=== PATIENT | female | born 1950 | race Caucasian/White ===

== ENCOUNTER 2016-11-14 10:23 | Inpatient (IN) | payer MEDICARE ==
[2016-11-14] MEDS ORDERED: ONDANSETRON 4 MG/2 ML VIAL IVP STA (10:56)
[2016-11-14] MEDS ORDERED: HYDROmorphone 1 MG/ML 1 ML SYRINGE IVP STA (10:56)
[2016-11-14] MEDS ORDERED: SODIUM CHLORIDE 0.9% 1,000 ML IV STA (10:56)
--- NOTE | 2016-11-14 11:06 | ED ---
General Adult HPI - General Chief complaint: Abdominal Pain Stated complaint: abdominal pain, sotero Time Seen by Provider: 11/14/16 10:46 Source: patient, RN notes reviewed Mode of arrival: ambulatory Limitations: no limitations - History of Present Illness Initial comments: 65-year-old female presents to the emergency Department chief complaint of abdominal wall distention. Patient states that she has had diarrhea for the past few days. Patient states that she continues to feel nausea without vomiting. Patient states now her abdomen is just bloated. Patient states that she's never had anything like this before. Patient denies any significant health history she denies any medications every day. She states that she was thinking it was just a stomach flu but it seems to just speak keep getting worse and worse so she thought that she should be evaluated. Patient states that she is not currently having any other symptoms at this time.Patient denies any recent fever, chills, shortness of breath, chest pain, back pain, vomiting, numbness or tingling, dysuria or hematuria, constipation, headaches or visual changes, or any other current symptoms. - Related Data Home Medications Medication Instructions Recorded Confirmed No Known Home Medications [No 11/14/16 11/14/16 Known Home Medications] Allergies Allergy/AdvReac Type Severity Reaction Status Date / Time aspirin Allergy Rash/Hives Verified 11/14/16 11:27 Penicillins Allergy Rash/Hives Verified 11/14/16 11:27 Review of Systems ROS Statement: Those systems with pertinent positive or pertinent negative responses have been documented in the HPI. ROS Other: All systems not noted in ROS Statement are negative. Past Medical History Past Medical History: No Reported History History of Any Multi-Drug Resistant Organisms: None Reported Past Surgical History: No Surgical Hx Reported Past Psychological History: No Psychological Hx Reported Smoking Status: Never smoker Past Alcohol Use History: Occasional Past Drug Use History: None Reported General Exam - General Exam Comments Initial Comments: General: The patient is awake and alert, in no distress, and does not appear acutely ill. Eye: Pupils are equal, round and reactive to light, extra-ocular movements are intact; there is normal conjunctiva bilaterally. No signs of icterus. Ears, nose, mouth and throat: There are moist mucous membranes. Neck: The neck is supple, there is no tenderness. Cardiovascular: There is a regular rate and rhythm. No murmur, rub or gallop is appreciated. Respiratory: Lungs are clear to auscultation, respirations are non-labored, breath sounds are equal. No wheezes, stridor, rales, or rhonchi. Gastrointestinal: Distended, ascites, Tenderness in the right upper quadrant of the abdomen without masses or organomegaly noted. There is no rebound or guarding present. No CVA tenderness. Bowel sounds are unremarkable. Back: There is no tenderness to palpation in the midline. There is no obvious deformity. No rashes noted. Musculoskeletal: Normal ROM, no tenderness, There is no pedal edema. There is no calf tenderness or swelling. Sensation intact. Pulses equal bilaterally 2+. Neurological: CN II-XII intact, There are no obvious motor or sensory deficits. Coordination appears grossly intact. Speech is normal. Skin: Skin is warm and dry and no rashes or lesions are noted. Psychiatric: Cooperative, appropriate mood & affect, normal judgment. Limitations: no limitations Course Vital Signs 11/14/16 11/14/16 10:35 13:43 Temperature 97.2 F L 97.3 F L Pulse Rate 97 84 Respiratory 18 16 Rate Blood Pressure 149/91 135/80 O2 Sat by Pulse 99 96 Oximetry Medical Decision Making - Medical Decision Making 65-year-old female presents emergency department with a chief complaint of of abdominal pain and ascites abdomen. This time lab work is been reviewed as well as CAT scan. Patient does appear to have a pleural effusion along with a large amount of ascites. At this time we do not know the acute cause for the ascites. She does have colitis like symptoms at home. This time we'll admit the patient for paracentesis and continued workup. This discussed with the patient who is in agreement with this plan all questions have been answered. The patient will be discharged home. - Lab Data Result diagrams: 11/14/16 11:25 11/14/16 11:25 Lab Results 11/14/16 11/14/16 11/14/16 Range/Units 11:25 11:25 11:25 WBC 9.4 (3.8-10.6) k/uL RBC 4.25 (3.80-5.40) m/uL Hgb 13.5 (11.4-16.0) gm/dL Hct 41.9 (34.0-46.0) % MCV 98.5 (80.0-100.0) fL MCH 31.7 (25.0-35.0) pg MCHC 32.1 (31.0-37.0) g/dL RDW 13.4 (11.5-15.5) % Plt Count 441 (150-450) k/uL Neutrophils % 70 % Lymphocytes % 20 % Monocytes % 7 % Eosinophils % 0 % Basophils % 1 % Neutrophils # 6.6 (1.3-7.7) k/uL Lymphocytes # 1.9 (1.0-4.8) k/uL Monocytes # 0.7 (0-1.0) k/uL Eosinophils # 0.0 (0-0.7) k/uL Basophils # 0.1 (0-0.2) k/uL Sodium 136 L (137-145) mmol/L Potassium 4.0 (3.5-5.1) mmol/L Chloride 105 (98-107) mmol/L Carbon Dioxide 22 (22-30) mmol/L Anion Gap 9 mmol/L BUN 9 (7-17) mg/dL Creatinine 0.77 (0.52-1.04) mg/dL Est GFR (MDRD) Af Amer >60 (>60 ml/min/1.73 sqM) Est GFR (MDRD) Non-Af >60 (>60 ml/min/1.73 sqM) Glucose 100 H (74-99) mg/dL Plasma Lactic Acid Maxime 1.2 (0.7-2.0) mmol/L Calcium 9.1 (8.4-10.2) mg/dL Total Bilirubin 0.8 (0.2-1.3) mg/dL AST 27 (14-36) U/L ALT 30 (9-52) U/L Alkaline Phosphatase 164 H (38-126) U/L Total Protein 6.1 L (6.3-8.2) g/dL Albumin 3.2 L (3.5-5.0) g/dL Amylase 57 (30-110) U/L Lipase 83 (23-300) U/L Urine Color Urine Appearance (Clear) Urine pH (5.0-8.0) Ur Specific [place] (1.001-1.035) Urine Protein (Negative) Urine Glucose (UA) (Negative) Urine Blood (Negative) Urine Nitrite (Negative) Urine Bilirubin (Negative) Urine Urobilinogen (<2.0) mg/dL Ur Leukocyte Esterase (Negative) Urine RBC (0-5) /hpf Urine WBC (0-5) /hpf Ur Squamous Epith Cells (0-4) /hpf Hyaline Casts (0-2) /lpf Urine Mucus (None) /hpf 11/14/16 Range/Units 13:15 WBC (3.8-10.6) k/uL RBC (3.80-5.40) m/uL Hgb (11.4-16.0) gm/dL Hct (34.0-46.0) % MCV (80.0-100.0) fL MCH (25.0-35.0) pg MCHC (31.0-37.0) g/dL RDW (11.5-15.5) % Plt Count (150-450) k/uL Neutrophils % % Lymphocytes % % Monocytes % % Eosinophils % % Basophils % % Neutrophils # (1.3-7.7) k/uL Lymphocytes # (1.0-4.8) k/uL Monocytes # (0-1.0) k/uL Eosinophils # (0-0.7) k/uL Basophils # (0-0.2) k/uL Sodium (137-145) mmol/L Potassium (3.5-5.1) mmol/L Chloride (98-107) mmol/L Carbon Dioxide (22-30) mmol/L Anion Gap mmol/L BUN (7-17) mg/dL Creatinine (0.52-1.04) mg/dL Est GFR (MDRD) Af Amer (>60 ml/min/1.73 sqM) Est GFR (MDRD) Non-Af (>60 ml/min/1.73 sqM) Glucose (74-99) mg/dL Plasma Lactic Acid Maxime (0.7-2.0) mmol/L Calcium (8.4-10.2) mg/dL Total Bilirubin (0.2-1.3) mg/dL AST (14-36) U/L ALT (9-52) U/L Alkaline Phosphatase (38-126) U/L Total Protein (6.3-8.2) g/dL Albumin (3.5-5.0) g/dL Amylase (30-110) U/L Lipase (23-300) U/L Urine Color Yellow Urine Appearance Clear (Clear) Urine pH 5.5 (5.0-8.0) Ur Specific [place] 1.014 (1.001-1.035) Urine Protein Trace H (Negative) Urine Glucose (UA) Negative (Negative) Urine Blood Moderate H (Negative) Urine Nitrite Negative (Negative) Urine Bilirubin Negative (Negative) Urine Urobilinogen 2.0 (<2.0) mg/dL Ur Leukocyte Esterase Negative (Negative) Urine RBC 7 H (0-5) /hpf Urine WBC 5 (0-5) /hpf Ur Squamous Epith Cells 2 (0-4) /hpf Hyaline Casts 1 (0-2) /lpf Urine Mucus Few H (None) /hpf - Radiology Data Radiology results: report reviewed, image reviewed Disposition Clinical Impression: Ascites, Pleural effusion, left, Diarrhea, Colitis Disposition: ADMITTED IP TO THIS [facility] Condition: Stable Referrals: Mayco Carlson MD [Primary Care Provider] - 1-2 days Decision Date: 11/14/16 Decision Time: 14:04
[2016-11-14 11:44] LABS: Basophils # (A) 0.1 k/uL (0-0.2); Basophils % (A) 1 %; CH 32.9; CHCM 33.6; Eosinophils % (A) 0 %; HCT 41.9 % (34.0-46.0); HDW 2.08; HGB 13.5 gm/dL (11.4-16.0); Luc # (Auto) 0.11; Luc % (Auto) 1; Lymphocytes # (A) 1.9 k/uL (1.0-4.8); Lymphocytes % (A) 20 %; MCH 31.7 pg (25.0-35.0); MCHC 32.1 g/dL (31.0-37.0); MCV 98.5 fL (80.0-100.0); Mean Platelet Volume 7.3; Monocytes # (A) 0.7 k/uL (0-1.0); Monocytes % (A) 7 %; Neutrophils # (A) 6.6 k/uL (1.3-7.7); Neutrophils % (A) 70 %; RBC 4.25 m/uL (3.80-5.40); RDW 13.4 % (11.5-15.5); WBC 9.4 k/uL (3.8-10.6); WBC (Perox) 9.38
[2016-11-14 11:54] LABS: ALT 30 U/L (9-52); AST 27 U/L (14-36); Alkaline Phosphatase 164 U/L (38-126); Amylase 57 U/L (30-110); Anion Gap 9 mmol/L; Blood Urea Nitrogen 9 mg/dL (7-17); Calcium 9.1 mg/dL (8.4-10.2); Carbon Dioxide 22 mmol/L (22-30); Chloride 105 mmol/L (98-107); Glucose 100 mg/dL (74-99); Non-African American GFR(MDRD) >60 (>60 ml/min/1.73 sqM); Sodium 136 mmol/L (137-145); Total Bilirubin 0.8 mg/dL (0.2-1.3); Total Protein 6.1 g/dL (6.3-8.2)
[2016-11-14] MEDS ORDERED: RX INFO: IV CONTRAST WAS GIVEN 1 EACH MISC MISCELLANE PRN (12:15)
[2016-11-14] MEDS ORDERED: METOCLOPRAMIDE 5 MG/ML 2 ML VIAL IVP STA (13:15)
[2016-11-14 13:30] LABS: Appearance,Urine Clear (Clear); Bilirubin,Urine Negative (Negative); Glucose,Urine (UA) Negative (Negative); Ketones,Urine 2+ (Negative); Leukocyte Esterase,Urine Negative (Negative); Mucus,Urine Few /hpf; Nitrite,Urine Negative (Negative); PH, Urine 5.5 (5.0-8.0); Particle Count 5209; Protein,Urine Trace (Negative); RBC,Urine 7 /hpf (0-5); Specific Gravity,Urine 1.014 (1.001-1.035); Squamous Epithelial Cell,Urine 2 /hpf (0-4); UA Billing (MACRO vs. MICRO) MICRO; WBC,Urine 5 /hpf (0-5)
--- NOTE | 2016-11-14 13:39 | CT ---
EXAMINATION TYPE: CT abdomen pelvis wo con DATE OF EXAM: 11/14/2016 COMPARISON: NONE HISTORY: ab pain/bloating/diarrhea x [address] DLP: 295.0 mGycm Automated exposure control for dose reduction was used. FINDINGS: There is a prominent left-sided pleural effusion. There are atelectatic changes at the left lung base. There is minimal atelectasis in the right middle lobe. Heart size is upper limits of norm al. There is no pericardial fluid. There is a small to moderate hiatal hernia. Within the abdomen, there is a large amount of ascites. The liver is normal in size. The spleen and g allbladder appear normal. Both adrenal glands appear normal. There is no evidence of nephrolithiasis or hydronephrosis. Limited views of the pancreas are unremarkable. There is no significant retroperitoneal, iliac or inguinal adenopathy. The bladder is unremarkable. The uterus is unremarkable. The ovaries are not visualized. There are scattered diverticula along the left side of the colon. There is mucosal thickening in the distal transverse colon. The appendix is not visualized. There is no evidence of small bowel obstruction. No free air is seen. There is degenerative disc disease and hypertrophic spondylosis within the spine. IMPRESSION: 1. LEFT PLEURAL EFFUSION WITH ASSOCIATED ATELECTATIC CHANGE. 2. LARGE AMOUNT OF ASCITES WITHIN THE ABDOMEN. 3. SMALL TO MODERATE HIATAL HERNIA. 4. UNCOMPLICATED DIVERTICULOSIS. 5. THICKENING OF THE DISTAL TRANSVERSE COLON. PLEASE CORRELATE TO EXCLUDE COLITIS. 6. MILD DEGENERATIVE CHANGE WITHIN THE SPINE.
[2016-11-14] MEDS ORDERED: HYDROmorphone 1 MG/ML 1 ML SYRINGE IV PRN (14:05)
[2016-11-14] MEDS ORDERED: ACETAMINOPHEN TAB 325 MG TAB PO PRN (14:05)
[2016-11-14] MEDS ORDERED: NALOXONE 0.4 MG/ML 1 ML VIAL IV PRN (14:05)
[2016-11-14] MEDS ORDERED: HYDROcodone/APAP 5-325MG 1 EACH TAB PO PRN (14:05)
[2016-11-14] MEDS ORDERED: ONDANSETRON 4 MG/2 ML VIAL IVP PRN (14:05)
[2016-11-14] MEDS: SODIUM CHLORIDE 0.9% 1,000 ML IV SCH (16:04)
[2016-11-14 16:36] VITALS: BMI 23.6
[2016-11-14] MEDS: ONDANSETRON 4 MG/2 ML VIAL IVP PRN (19:37)
--- NOTE | 2016-11-14 20:18 | XR ---
EXAMINATION TYPE: XR chest 2V DATE OF EXAM: 11/14/2016 COMPARISON: NONE HISTORY: Pleural effusion TECHNIQUE: Frontal and lateral views of the chest are obtained. FINDINGS: There is a small left pleural effusion with associated left basilar airspace disease. No p ulmonary vascular congestion or interstitial edema. Minimal degenerative changes of the thoracic spin e are noted. Cardia mucinous silhouette is within normal limits. Right lung remains clear. IMPRESSION: Small left pleural effusion with associated left basilar airspace disease favored to rep resent compressive subsegmental atelectasis.
[2016-11-14] MEDS: PANTOPRAZOLE 40 MG/10 ML VIAL IVP SCH (20:40)
--- NOTE | 2016-11-14 21:58 | HP ---
HISTORY AND PHYSICAL DATE OF ADMISSION: 11/14/2016. CHIEF COMPLAINT: Abdominal pain and distention. HISTORY OF PRESENT ILLNESS: This 65-year-old woman with a past medical history of multiple medical problems, including diabetes mellitus, being followed by Dr. Carlson in the outpatient setting, not feeling well over the past several weeks. The patient increasing abdominal distention and pain also. The patient had shortness of breath. The patient came to [facility] and admitted for further evaluation and treatment. The CT scan of the abdomen and pelvis was done which showed multiple abnormalities including significant ascites, left pleural effusion with associated atelectatic changes. Large amount of ascites and as well as hiatal hernia and complicated diverticulosis and thickening of the distal transverse colon also, mild DJD was also noted. Patient admitted for evaluation and treatment. There is no history of fever, rigors. No headache, loss of consciousness. The ovary could not be visualized properly per ER physician. PAST MEDICAL HISTORY: History of diabetes mellitus, type 2. MEDICATIONS: Prior to admission included none. ALLERGIES: ASPIRIN, PENICILLIN AND CONTRAST. FAMILY HISTORY: History of CHF, history of CVA, TIA, hypertension, history of colon cancer in the family. SOCIAL HISTORY: No history of smoking, no history of alcohol. REVIEW OF SYSTEMS: ENT: No diminished hearing or vision. CARDIOVASCULAR: No angina or palpitations. Respirations: No cough or hemoptysis. GI no nausea. No vomiting. : No dysuria. Nervous system: No numbness, weakness. ALLERGY/IMMUNOLOGY: No asthma or hayfever. MUSCULOSKELETAL: As mentioned earlier. Hematology/Oncology: No history of anemia. Endocrine: As mentioned earlier. Constitutional: As mentioned earlier. Dermatology: Negative. Rheumatology: Negative. Psychiatric: As mentioned earlier. PHYSICAL EXAMINATION: The patient is alert, oriented x3. The pulse is 84. Blood pressure 130/80, respirations 16, temperature 97.2, pulse ox 96% on room air. HEENT: Conjunctivae normal. Oral mucosa moist. Neck is no jugular venous distention. No carotid bruit. No lymph node enlargement. Cardiovascular: S1, S2 muffled. No S3, no S4. RESPIRATORY: Breath sounds diminished in the bases. A few scattered rhonchi. No crackles. ABDOMEN: Soft, obese, significant ascites present and flanks are full. No mass palpable. Bowel sounds diminished. Legs no edema, no swelling. NERVOUS SYSTEM: Higher functions as mentioned earlier. Moves all four limbs. No focal motor or sensory deficits. Lymphatics: No lymph nodes palpable in the neck, axillae or groin. SKIN: No ulcer, rash, or bleeding. Joints: No active deforming arthropathy. LABS: At this time shows WBC 9.1, hemoglobin 13.5, sodium is 136 and alkaline phosphatase is 164, albumin 3.2. UA noted. ASSESSMENT: 1. Abdominal distention, ascites for evaluation rule out malignancy. 2. Hyponatremia. 3. History of diabetes type 2. 4. Large left pleural effusion. 5. Small moderate hiatal hernia. 6. Thickening of the distal transverse colon for evaluation. RECOMMENDATIONS AND DISCUSSION: Recommend to continue current medications, continue to monitor. Symptomatic treatment. Otherwise at this time, I would recommend closely recommend the patient to be closely monitored. I would also recommend a gastroenterology evaluation with Dr. Munoz. Otherwise, the chest x-ray was reviewed which showed continued significant pleural effusion also I would which revealed some mild pleural effusion on the left side also. Otherwise we will monitor the patient closely. Will obtain PT/INR and recommend diagnostic and therapeutic aspiration also discussed with staff. Further recommendations to follow. Copy of dictation forwarded to Dr. Carlson who is the primary physician. Overall prognosis guarded. Discussed with the family who understands and agrees. MMODL / IJN: [id number] /
[2016-11-15] MEDS: ONDANSETRON 4 MG/2 ML VIAL IVP PRN (05:17)
[2016-11-15] MEDS: HYDROmorphone 0.5 MG/0.5 ML SYRINGE IVP PRN ×3 (05:18→18:35)
[2016-11-15 06:56] LABS: Basophils % (A) 0 %; CH 31.5; CHCM 32.1; Eosinophils # (A) 0.1 k/uL (0-0.7); Eosinophils % (A) 0 %; HCT 37.1 % (34.0-46.0); HDW 2.15; HGB 12.1 gm/dL (11.4-16.0); Luc # (Auto) 0.16; Luc % (Auto) 1; Lymphocytes % (A) 18 %; MCHC 32.5 g/dL (31.0-37.0); MCV 98.4 fL (80.0-100.0); Mean Platelet Volume 6.5; Monocytes # (A) 0.9 k/uL (0-1.0); Monocytes % (A) 8 %; Neutrophils % (A) 72 %; RBC 3.77 m/uL (3.80-5.40); RDW 12.8 % (11.5-15.5); WBC 11.2 k/uL (3.8-10.6); WBC (Perox) 11.94
[2016-11-15 07:03] LABS: Prothrombin Time 10.4 sec (9.0-12.0)
[2016-11-15 07:09] LABS: ALT 30 U/L (9-52); AST 23 U/L (14-36); Alkaline Phosphatase 141 U/L (38-126); Anion Gap 7 mmol/L; Blood Urea Nitrogen 8 mg/dL (7-17); Calcium 8.3 mg/dL (8.4-10.2); Carbon Dioxide 23 mmol/L (22-30); Chloride 107 mmol/L (98-107); Glucose 105 mg/dL (74-99); Non-African American GFR(MDRD) >60 (>60 ml/min/1.73 sqM); Potassium 4.3 mmol/L (3.5-5.1); Sodium 137 mmol/L (137-145); Total Bilirubin 0.6 mg/dL (0.2-1.3); Total Protein 5.5 g/dL (6.3-8.2)
[2016-11-15] MEDS: PANTOPRAZOLE 40 MG/10 ML VIAL IVP SCH (09:14)
--- NOTE | 2016-11-15 09:36 | US ---
EXAMINATION TYPE: US transvaginal DATE OF EXAM: 11/15/2016 COMPARISON: CT ABD /Pelvis same day CLINICAL HISTORY: unknown cause of ascites; ascites x 1 week; diarrhea; HX of tubal ligation TECHNIQUE: Transvaginal (TV) per order with additional images TA for ascites and ovaries Date of LMP: NA EXAM MEASUREMENTS: Uterus: 7.7 x 4.0 x 2.1 cm Endometrial Stripe: 0.2 cm Right Ovary: 2.0 x 2.7 x 2.7 cm Left Ovary: 4.8 x 3.5 x 4.1 cm 1. Uterus: Anteverted; small Nabothian cyst in cervix = 0.5 x 0.4 x 0.3cm 2. Endometrium: wnl post menopausal 3. Right Ovary: enlarged with multiple cysts with largest = 1.6 x 1.4 x 1.4cm 4. Left Ovary: enlarged ovary with multiple cysts and largest cyst = 2.6 x 2.3 x 2.4cm Spectral, color and waveform doppler imaging shows good arterial and venous flow within the ovaries ; there is no evidence for ovarian torsion. 5. Bilateral Adnexa: posterior and lateral free fluid with low level internal echoes 6. Posterior cul-de-sac: abnormally large amount of fluid = 11.4 x 8.5 x 7.0cm x 0.523 = 354ml in po sterior CDS as is >10.0ml. Additional TA US images acquired for incidental ascites seen on TA US with largest fluid pocket of 7. 5cm A/P at RLQ. Low level internal echoes are noted in fluid pockets. Initial scanning confirms small to moderate amount of abdominal ascites which is not completely anech oic. There is large amount of pelvic fluid which is not anechoic suggesting complex fluid. A few tiny nabothian cysts are marked in the cervix by technologist. Uterus is felt within normal limits. Left ovary is slightly enlarged with cystic lesions by slightly nodular septa. Cystic neopl asm on the left cannot be excluded. Right ovary is less well seen on images saved. There is suggestio n of cystic lesions that are not completely anechoic. IMPRESSION: Large amount of nonsimple fluid in pelvis. Small to moderate amount of nonsimple abdomina l ascites. Cannot exclude bilateral ovarian cystic neoplasms particularly suspicious on the left. Nee d to further investigate with pelvic MRI should be based on correlation with tumor markers and result s from paracentesis.
--- NOTE | 2016-11-15 11:40 | US ---
Therapeutic and diagnostic paracentesis. DATE OF EXAM: 11/15/2016 CLINICAL HISTORY: Ascites The procedure was discussed with the patient. The risks, complications, benefits, and alternatives we re discussed and any questions were answered. Informed consent was obtained. The patient was placed s upine on the ultrasound table and prepped and draped in the usual sterile fashion. All elements of maximal barrier technique were utilized. Under ultrasound guidance, access into the right lower quadrant was obtained, via the paracentesis catheter system and direct ultrasound guidanc e. Approximately 3.2 liters of Phelps serous fluid was removed. The patient was stable throughout the pr ocedure and remained stable upon discharge from Department of Radiology. Sample sent department of pa thology. IMPRESSION: Successful paracentesis under ultrasound guidance.
--- NOTE | 2016-11-15 15:44 | PN ---
PROGRESS NOTE DATE OF SERVICE: 11/15/2016 ATTENDING NOTE: This patient seen examined by me. I discussed with my nurse practitioner, Carrie Kristyn. Patient presented with abdominal distention, ascitic fluid and large pleural effusion. Patient has had not much of an appetite. Paracentesis was carried out and 3.2 L of fluid was removed. The patient fiance and daughter at the bedside. Abdomen is less distended. EXAMINATION: Temperature 98.3, pulse 89, respiratory rate 16, blood pressure 113/80. Pulse ox 92% on room air. Lying in bed, tired appearing. NECK: JVD not raised. Respiratory effort: Lungs decreased breath sounds. CARDIOVASCULAR: First and second sounds normal. Abdomen mild diffuse tenderness. Not much distended. Psych alert and oriented times three times three. INVESTIGATIONS: White count 11.2, potassium 4.3, albumin 2.7, CT scan of the abdomen and pelvis had shown left pleural effusion. Large ascites, diverticulosis, thickening of the distal transverse colon. Transvaginal ultrasound showed right ovary to be enlarged with multiple cysts, left ovary was enlarged with multiple cysts. ASSESSMENT: 1. Large ascites with no obvious source of malignancy right now but showing enlarged bilateral multicystic ovaries and thickening of the distal transverse colon which could be the potential source. 2. Status post paracentesis 3.2 L were removed. 3. Left pleural effusion. 4. Asymptomatic diverticulosis. 5. Mild protein-calorie malnutrition from poor appetite. PLAN: Gastroenterology Dr. Munoz was consulted. Awaiting his input. Will also get a PERSONAL FINANCIAL COUNSELOR opinion. Will send off for CEA as a tumor marker. Care was discussed with the daughter and fiance at the bedside. Follow. MMODL / IJN: [id number] /
[2016-11-15 15:59] LABS: Lipase, Body Fluid 20 U/L; Lipase, Fluid Source Paracentesis Fluid
[2016-11-15] MEDS: SODIUM CHLORIDE 0.9% 1,000 ML IV SCH (16:24)
--- NOTE | 2016-11-15 17:09 | P.OBCN ---
History of Present Illness Consult date: 11/15/16 Reason for consult: ovarian cyst Chief complaint: ascites and ovarian cyst History of present illness: Patient is a 65-year-old white female with a one-week onset of severe ascites. Patient noted that just over a week ago she began having sharp lower pelvic pains and within the next few days her abdomen began to swell. She was brought to [facility] and was noted to have a large amount of ascites in her abdomen and paracentesis was done today and they pulled off 3.2 L of fluid. In reviewing the ultrasound she does have an enlarged left ovary with multiple cysts cyst is 2.6 x 2.3 x 2.4 and there is good flow to that cyst. It is difficult to say with any degree of certainty that this is where is not ovarian cancer a CA-125 level will be obtained but will almost certainly be elevated due to her ascites that is already present. My recommendation based on this and with the ovarian cyst would be to transfer her to [facility] for a second opinion on the ovarian cyst as if surgical treatment is needed she would require surgery from a gynecologic oncologist. She and I and her family have reviewed potential possibilities for her ascites including gastrointestinal as well as liver problems. We also discussed gynecologic possibilities including [place] syndrome and ovarian cancer. We did discuss that if surgery was needed she would need to be in the hands of a count of clots, oncologist as they will heavy better than 50% greater chance of surgical cure than what we would have it we will try to do it in town. Her past medical history generally speaking has been unremarkable. Past surgical history tubal ligation. She is noted to be a but reports that she was only on control pills for a very short time as she could not tolerate them. She has had no Pap smear in what she believes is more than a decade and no other previous exams. On physical exam currently her vital signs are stable and paracentesis fluid is pending. CA-125 and CEA are also pending. Her abdomen is slightly distended but currently soft with bowel sounds. A bimanual pelvic exam was done no masses are noted there is some fullness practically in the posterior cul-de-sac but cervix was freely mobile and at this time I cannot palpate either ovary. Assessment ascites with ovarian cysts. Plan recommendation to transfer to gynecologic oncologist as precaution Past Medical History Past Medical History: Diabetes Mellitus History of Any Multi-Drug Resistant Organisms: None Reported Past Surgical History: No Surgical Hx Reported Past Psychological History: No Psychological Hx Reported Smoking Status: Never smoker Past Alcohol Use History: Occasional Past Drug Use History: None Reported - Past Family History Mother Family Medical History: Congestive Heart Failure (CHF), CVA/TIA, Hypertension Father Family Medical History: CVA/TIA Brother(s) Additional Family Medical History / Comment(s): colon cancer, lymphoma Medications and Allergies Home Medications Medication Instructions Recorded Confirmed Type No Known Home Medications [No 11/14/16 11/14/16 History Known Home Medications] Allergies Allergy/AdvReac Type Severity Reaction Status Date / Time aspirin Allergy Rash/Hives Verified 11/14/16 11:27 Penicillins Allergy Rash/Hives Verified 11/14/16 11:27 contrast Allergy Intermediate Rash/Hives Uncoded 11/15/16 06:51 Exam Osteopathic Statement: *. No significant issues noted on an osteopathic structural exam other than those noted in the History and Physical/Consult. - Vital Signs Vital signs: Vital Signs Temp Pulse Resp BP BP Pulse Ox 11/15/16 11:33 91 14 146/79 94 L 11/15/16 11:20 91 14 128/82 93 L 11/15/16 10:58 90 14 157/77 94 L 11/15/16 10:38 85 14 130/88 94 L 11/15/16 07:45 98.3 F 89 16 131/80 92 L 11/15/16 01:10 98.1 F 88 16 118/69 93 L 11/14/16 20:00 97.7 F 16 94 L Intake and Output 11/15/16 11/15/16 11/15/16 06:59 14:59 22:59 Intake Total 160 160 Balance 160 160 Intake: IV 160 Sodium Chloride 0.9% 1, 160 000 ml @ 20 mls/hr IV . Q24H AKILA Rx#:[id number] Intake, IV Titration 160 Amount Sodium Chloride 0.9% 1, 160 000 ml @ 20 mls/hr IV . Q24H KAILA Rx#:[id number] Other: # Voids 3 2 Results Result Diagrams: 11/15/16 06:40 11/15/16 06:40 Abnormal Lab Results - Last 24 Hours (Table) 11/15/16 11/15/16 Range/Units 06:40 06:40 WBC 11.2 H (3.8-10.6) k/uL RBC 3.77 L (3.80-5.40) m/uL Neutrophils # 8.0 H (1.3-7.7) k/uL Glucose 105 H (74-99) mg/dL Calcium 8.3 L (8.4-10.2) mg/dL Alkaline Phosphatase 141 H (38-126) U/L Total Protein 5.5 L (6.3-8.2) g/dL Albumin 2.7 L (3.5-5.0) g/dL Microbiology - Last 24 Hours (Table) 11/14/16 11:25 Blood Culture - Preliminary Blood No Growth after 24 hours
--- NOTE | 2016-11-15 18:35 | P.PN ---
Progress Note - Text DATE OF SERVICE: 11/15/2016 PRESENTING COMPLAINT: Abdominal pain and distention HISTORY OF PRESENT ILLNESS: 65-year-old female presented with increasing shortness of breath and abdominal distention and pain, computed tomography scan showed significant ascites, left pleural effusion, hiatal hernia,, located diverticulosis thickening of the distal transverse colon. INTERVAL HISTORY: Patient was seen after paracentesis performed under ultrasound guidance, 3.2 L of or ensures fluid was removed. Patient appears comfortable although somewhat anxious. Discussed with patient and family at the bedside consulting obstetrics gynecology for their evaluation they were in agreement. Patient's appetite is low and has been low says she will try to eat something today. REVIEW OF SYSTEMS: Done for constitutional ,cardiovascular, GI, pulmonary with relevant findings as above. CURRENT MEDICATIONS Weiser, Zofran, Pepcid. PHYSICAL EXAM VITAL SIGNS: Temp 98.3, pulse 89, respiratory rate 16, blood pressure 131/80, oxygen saturation 92% on room air. GENERAL APPEARANCE: Lying in bed, anxious appearing. EYES: Pupils equal. Conjunctiva normal. NECK: JVD not raised. Mass not palpable. RESPIRATORY: Respiratory effort normal. Lungs clear to auscultation. CARDIOVASCULAR: First and second sounds normal. No edema. ABDOMEN: Soft. Liver and spleen not palpable. Mild tenderness to the left lower quadrant tenderness. No mass palpable. PSYCHIATRY: Alert and oriented x3. Mood and affect anxious. INVESTIGATIONS: White blood cell count 11.2, Accu-Cheks noted, calcium 8.3, Blood cultures no growth after 24 hours ASSESSMENT: -Large ascites with no obvious source of malignancy right now but showing enlarged bilateral multicystic ovaries thickening of the distal transverse colon which could be the potential sources. -Status post paracentesis 3.2 L were removed. -Left pleural effusion. -Asymptomatic diverticulosis. -Mild protein calorie malnutrition from poor appetite. PLAN: Await input from obstetrics and gynecology as well as GI as to the source of the ascites. CEA pending, plan of care discussed with the patient and the family at the bedside, they are in agreement we will continue to follow closely. CONFERENCE SERVICES COORDINATOR statement: Patient was seen and examined by nurse practitioner Marycarmen Simons and all elements of the case discussed with attending Dr. Damon
[2016-11-15] MEDS: FAMOTIDINE 20 MG TAB PO SCH (20:12)
[2016-11-16] MEDS: ONDANSETRON 4 MG/2 ML VIAL IVP PRN (08:59)
[2016-11-16] MEDS: FAMOTIDINE 20 MG TAB PO SCH ×2 (09:28→23:47)
[2016-11-16] MEDS ORDERED: traMADol 50 MG TAB PO PRN (11:19)
[2016-11-16] MEDS ORDERED: RX INFO: IV CONTRAST WAS GIVEN 1 EACH MISC MISCELLANE PRN (17:30)
--- NOTE | 2016-11-16 17:31 | P.PN ---
Progress Note - Text DATE OF SERVICE: 11/16/2016 PRESENTING COMPLAINT: Abdominal pain and distention HISTORY OF PRESENT ILLNESS: 65-year-old female presented with increasing shortness of breath and abdominal distention and pain, computed tomography scan showed significant ascites, left pleural effusion, hiatal hernia,, located diverticulosis thickening of the distal transverse colon. INTERVAL HISTORY: 11/16/2016: Lying in bed appears anxious daughter at the bedside appetite remains poor unable to really tolerate regular diet. Obstetrics and gynecology saw the patient recommending a second opinion. Abdomen continues to be mildly tender fluid has not yet redemonstrated. Patient's ambulatory in the [facility]. 11/15/2016 Patient was seen after paracentesis performed under ultrasound guidance, 3.2 L of or ensures fluid was removed. Patient appears comfortable although somewhat anxious. Discussed with patient and family at the bedside consulting obstetrics gynecology for their evaluation they were in agreement. Patient's appetite is low and has been low says she will try to eat something today. REVIEW OF SYSTEMS: Done for constitutional ,cardiovascular, GI, pulmonary with relevant findings as above. CURRENT MEDICATIONS Kinney, Zofran, Pepcid. PHYSICAL EXAM VITAL SIGNS: Temp 98.3, pulse 89, respiratory rate 16, blood pressure 131/80, oxygen saturation 92% on room air. GENERAL APPEARANCE: Lying in bed, anxious appearing. EYES: Pupils equal. Conjunctiva normal. NECK: JVD not raised. Mass not palpable. RESPIRATORY: Respiratory effort normal. Lungs clear to auscultation. CARDIOVASCULAR: First and second sounds normal. No edema. ABDOMEN: Soft. Liver and spleen not palpable. Mild tenderness to the left lower quadrant tenderness. No mass palpable. PSYCHIATRY: Alert and oriented x3. Mood and affect anxious. INVESTIGATIONS: Blood cultures no growth after 48 hours ASSESSMENT: -Large ascites with no obvious source of malignancy right now but showing enlarged bilateral multicystic ovaries thickening of the distal transverse colon which could be the potential sources. -Status post paracentesis 3.2 L were removed. -Left pleural effusion. -Asymptomatic diverticulosis. -Mild protein calorie malnutrition from poor appetite. PLAN: MANAGER EXPORT saw the patient and recommended second opinion.await GI opinion as to the source of the ascites.Oncology was consulted awaiting their input CEA pending, plan of care discussed with the patient and the family at the bedside, they are in agreement we will continue to follow closely. MARKET CONSULTANT statement: Patient was seen and examined by nurse practitioner Marycarmen Simons and all elements of the case discussed with attending Dr. Damon
--- NOTE | 2016-11-16 18:21 | PN ---
PROGRESS NOTE DATE OF SERVICE: 11/16/16. ATTENDING NOTE: This patient seen and examined by me. I discussed with my nurse practitioner, Kristyn. This is a patient who presented with abdominal distention, acetic for large pleural effusion. Status post paracentesis 3.2 L. Cytology is pending. Lying in bed, some lower abdominal pain is present. PHYSICAL EXAMINATION: Afebrile, blood pressure 122/79. On examination some tenderness lower abdomen. CA-125 has come back as 502.6. CEA is normal at less than 0.3. Albumin is 2.7. ASSESSMENT: 1. 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 CA is normal. 2. Status post paracentesis of 3.2 L. PLAN: Discussed with Dr. Springer earlier today. Awaiting input from Gastroenterology. Did speak to the patient's daughter at length and also Dr. Springer at length. At this point, we will see what Gastroenterology has to offer and we will take it further from there. Ovarian menses still a possibility and based on what Gastroenterology decides, we will decide the further course. The patient is clinically stable with no need for any emergent transfer. Depending upon results, we will decide the further course. Total time spent today was about 40 minutes with over 25 minutes of discussion. MMGISELAL / MACN: [id number] /
[2016-11-16] MEDS ORDERED: FAMOTIDINE 20 MG/2 ML VIAL IV STA (18:39)
[2016-11-16] MEDS ORDERED: diphenhydrAMINE 50 MG/ML 1 ML VIAL IVP STA (18:39)
[2016-11-16] MEDS ORDERED: methylPREDNISolone SOD SUCCI 125 MG/2 ML VIAL IV STA (18:39)
[2016-11-16] MEDS: SODIUM CHLORIDE 0.9% 1,000 ML IV SCH (18:53)
--- NOTE | 2016-11-16 20:23 | CT ---
EXAMINATION TYPE: CT chest w con DATE OF EXAM: 11/16/2016 COMPARISON: CT abdomen and pelvis from 2 days earlier HISTORY: pleural effusion/ascites. CT DLP: 142.4 mGycm. Automated Exposure Control for Dose Reduction was Utilized. TECHNIQUE: CT scan of the thorax is performed following with IV Contrast, patient injected with 90 m L of Omnipaque 300. FINDINGS: LUNGS: There is small to moderate-sized left pleural effusion redemonstrated. There is associated le ft basilar compressive atelectasis. Linear scarring anteriorly in the right lung base is present. The re is tiny right pleural effusion with associated compressive atelectasis. Mild apical scarring is se en bilaterally. There is no pleural effusion or pneumothorax seen. The tracheobronchial tree is mccracken nt. MEDIASTINUM: There are no greater than 1 cm hilar or mediastinal lymph nodes. Mild cardiomegaly is se en. No significant pericardial effusion is noted. There is no large central pulmonary embolism, thoug h no pulmonary embolism protocol there are some hypodense areas in lower lobe segmental and subsegmen silvestre branches strongly suspicious for pulmonary embolism. RV /LV ratio is less than 1. OTHER: Moderate amount of ascites in visualized upper abdomen is redemonstrated. Nodular contour to l iver is seen, cannot exclude underlying cirrhosis. Liver size however is felt normal. Clinical and la b correlation advised. There is mild multilevel spurring in the mid to lower thoracic spine. IMPRESSION: 1. Despite nonpulmonary embolism protocol there is CT suspicion for bilateral lower lobe pulmonary em bolism as detailed above. 2. Small to moderate-sized left pleural effusion is confirmed. Tiny right pleural effusion is now pre sent. There is associated compressive atelectasis in both lung bases. Abdominal ascites is redemonstr ated. Results were attempted to be communicated to patient's nurse via telephone at time of dictation.
[2016-11-16] MEDS ORDERED: HEPARIN SODIUM,PORCINE 5,000 UNIT/ML 1 ML VIAL IV PRN (20:44)
[2016-11-16] MEDS ORDERED: HEPARIN SODIUM,PORCINE 5,000 UNIT/ML 1 ML VIAL IV ONE ×2 (20:44→21:23)
[2016-11-16] MEDS ORDERED: HEPARIN SODIUM,PORCINE/D5W PMX 25,000 UNIT in DEXTROSE/WATER 1 500ML.BAG IV SCH (20:45)
[2016-11-16 21:04] LABS: Basophils % (A) 0 %; CH 31.4; CHCM 32.3; Eosinophils % (A) 0 %; HCT 37.8 % (34.0-46.0); HDW 2.12; HGB 12.3 gm/dL (11.4-16.0); Luc # (Auto) 0.05; Luc % (Auto) 0; Lymphocytes # (A) 0.8 k/uL (1.0-4.8); Lymphocytes % (A) 7 %; MCH 31.7 pg (25.0-35.0); MCHC 32.5 g/dL (31.0-37.0); MCV 97.8 fL (80.0-100.0); Mean Platelet Volume 6.6; Monocytes # (A) 0.3 k/uL (0-1.0); Monocytes % (A) 3 %; Neutrophils % (A) 88 %; RBC 3.87 m/uL (3.80-5.40); RDW 12.6 % (11.5-15.5); WBC 10.2 k/uL (3.8-10.6)
--- NOTE | 2016-11-16 21:10 | P.CONS ---
History of Present Illness - Reason for Consult Consult date: 11/16/16 new onset ascites, pleural effusion - History of Present Illness Mrs. Leija is a 65-year-old lady, who stated that she had developed abdominal bloating about a week to 10 days prior to this admission. It had been progressive since then causing increasing abdominal discomfort. He therefore came into the emergency room. CT scan of the abdomen and pelvis revealed significant ascites as well as left pleural effusion. The patient had a transvaginal ultrasound done, which showed multiple cysts involving both ovaries, the largest 1.6 cm on the right and 2.6 cm on the left. The patient underwent large volume paracentesis on 11/15/16 with marked improvement in her symptoms. Cytology is pending. Consult was placed for further evaluation and recommendations. There is no known history of malignancy prior to this. She states that she has family history of bowel cancers in aunts on her father's side She is not up-to-date with either her mammogram or colonoscopy Review of Systems Constitutional: Reports fatigue, Reports poor appetite Eyes: denies blurred vision, denies pain Ears: deny: decreased hearing, ear discharge, earache, tinnitus Ears, nose, mouth and throat: Denies headache, Denies sore throat Cardiovascular: Reports decreased exercise tolerance Respiratory: Reports dyspnea Gastrointestinal: Reports abdominal pain, Reports bloating, Reports dyspepsia, Reports nausea Genitourinary: Denies dysuria, Denies hematuria Menstruation: Reports postmenopausal Musculoskeletal: Denies myalgias Integumentary: Denies pruritus, Denies rash Neurological: Reports weakness, Denies numbness Psychiatric: Denies anxiety, Denies depression Endocrine: Denies fatigue, Denies weight change Hematologic/Lymphatic: Reports as per HPI Past Medical History Past Medical History: Diabetes Mellitus History of Any Multi-Drug Resistant Organisms: None Reported Past Surgical History: No Surgical Hx Reported Past Psychological History: No Psychological Hx Reported Smoking Status: Never smoker Past Alcohol Use History: Occasional Past Drug Use History: None Reported - Past Family History Mother Family Medical History: Congestive Heart Failure (CHF), CVA/TIA, Hypertension Father Family Medical History: CVA/TIA Brother(s) Additional Family Medical History / Comment(s): colon cancer, lymphoma Medications and Allergies Home Medications Medication Instructions Recorded Confirmed Type No Known Home Medications [No 11/14/16 11/14/16 History Known Home Medications] Allergies Allergy/AdvReac Type Severity Reaction Status Date / Time aspirin Allergy Rash/Hives Verified 11/14/16 11:27 Penicillins Allergy Rash/Hives Verified 11/14/16 11:27 contrast Allergy Intermediate Rash/Hives Uncoded 11/15/16 06:51 Physical Exam Vitals: Vital Signs Temp Pulse Resp BP BP Pulse Ox 11/16/16 15:18 94 16 123/76 11/16/16 07:00 97.6 F 91 16 123/79 93 L 11/16/16 06:58 97.6 F 91 16 123/79 93 L 11/16/16 01:10 96.9 F L 87 16 114/69 92 L 11/15/16 19:15 99.3 F 98 16 132/84 94 L Intake and Output 11/16/16 11/16/16 11/16/16 06:59 14:59 22:59 Intake Total 160 Balance 160 Intake: Intake, IV Titration 160 Amount Sodium Chloride 0.9% 1, 160 000 ml @ 20 mls/hr IV . Q24H [facility] Rx#:[id number] Other: # Voids 2 2 - Constitutional General appearance: no acute distress - EENT Eyes: EOMI, PERRLA ENT: hearing grossly normal, normal oropharynx - Neck Neck: no lymphadenopathy Thyroid: bilateral: normal size - Respiratory Respiratory: left: CTA - Cardiovascular Rhythm: regular Heart sounds: normal: S1, S2 - Gastrointestinal General gastrointestinal: distended, normal bowel sounds, soft - Integumentary Integumentary: normal - Neurologic Neurologic: CNII-XII intact - Musculoskeletal Musculoskeletal: generalized weakness, strength equal bilaterally - Psychiatric Psychiatric: A&O x's 3 Results CBC & Chem 7: 11/15/16 06:40 11/15/16 06:40 Labs: Abnormal Lab Results - Last 24 Hours (Table) 11/15/16 Range/Units 06:40 CA 125 Antigen 502.6 H (0.0-30.1) U/mL Microbiology - Last 24 Hours (Table) 11/14/16 11:25 Blood Culture - Preliminary Blood No Growth after 48 hours 11/15/16 10:48 Gram Stain - Preliminary Paracentesis Fluid Body Fluid Culture - Preliminary 11/15/16 10:48 Anaerobic Culture - Preliminary Paracentesis Fluid Comments: Transvag US report reviewed Chest x-ray: report reviewed CT scan - abdomen: report reviewed CT scan - pelvis: report reviewed Assessment and Plan (1) Ascites Narrative/Plan: The sudden onset and rapid progression of ascites is suspicious for malignancy. However at this time there is no definite primary. The ovarian findings are not very impressive and could represent benign cysts. If malignant , a teletypist primary is certainly in the differential, but other primaries ( GI , breast etc ) are all possible. Ca 125 has been ordered, but is expected to be elevated with marked ascites. It is a peritoneal marker and not diagnostic for a particular primary site. - Thus at this time, I would recommend awaiting the cytology. I would also check a CT chest. If CT chest is negative, and cytology suggests Marriage Counselor Minister primary, the pt can then be referred for a Marriage Counselor Minister Consult. She has had significant symptoms relief with parcentesis, and has no evidence of obstruction. Thus even is a Marriage Counselor Minister Onc referrral is indicated, it could possibly be done as an outpt. - If cytology were to show a different primary, then a Marriage Counselor Minister Onc referral would not be required. - Check Ct chest - Await cytology - Case extensively discussed with pt and daughter, as well as the admitting physician. Status: Acute
[2016-11-16 21:12] LABS: Partial Thromboplastin Time 23.9 sec (22.0-30.0); Prothrombin Time 10.3 sec (9.0-12.0)
[2016-11-16] MEDS: HEPARIN SODIUM,PORCINE/D5W PMX 25,000 UNIT in DEXTROSE/WATER 1 500ML.BAG IV SCH (21:55)
[2016-11-17 03:48] LABS: Basophils % (A) 0 %; CH 32.3; CHCM 32.7; Eosinophils % (A) 0 %; HCT 37.2 % (34.0-46.0); HDW 2.12; HGB 12.1 gm/dL (11.4-16.0); Luc # (Auto) 0.05; Luc % (Auto) 1; Lymphocytes # (A) 0.9 k/uL (1.0-4.8); Lymphocytes % (A) 11 %; MCH 32.2 pg (25.0-35.0); MCHC 32.5 g/dL (31.0-37.0); MCV 99.1 fL (80.0-100.0); Mean Platelet Volume 7.5; Monocytes # (A) 0.1 k/uL (0-1.0); Monocytes % (A) 2 %; Neutrophils % (A) 87 %; RBC 3.75 m/uL (3.80-5.40); RDW 13.2 % (11.5-15.5); WBC 8.1 k/uL (3.8-10.6)
[2016-11-17] MEDS: HEPARIN SODIUM,PORCINE 5,000 UNIT/ML 1 ML VIAL IV PRN (04:46)
[2016-11-17] MEDS: FAMOTIDINE 20 MG TAB PO SCH ×2 (08:31→20:25)
--- NOTE | 2016-11-17 13:33 | P.CONS ---
History of Present Illness - Reason for Consult Consult date: 11/17/16 Ascites Requesting physician: Justice Damon - History of Present Illness 65-year-old female patient Dr. Carlson with a past medical history of long- standing diabetes mellitus 30 years; diet controlled. Patient admitted on Tuesday with intractable abdominal pain nausea and diarrhea times 1 week duration. Initially patient was not reporting abdominal distention but after 3 days of discomfort she noticed her abdomen to swell. Diarrhea has subsided. Denies hematemesis hematochezia melena. No documented fevers but she had chills. CT abdomen and pelvis reported a large amount of ascites with normal liver size. Spleen and gallbladder unremarkable. Uterus unremarkable. Ovaries not visualized. Left pleural effusion. Uncomplicated diverticulosis. Ultrasound and transvaginal bilateral ovarian cysts without torsion. She underwent diagnostic therapeutic paracentesis 2 days ago with cytology pending. No history of known liver disorders, EtOH abuse, or hepatitis. Admission hemoglobin 13.5. White count 9.4. Platelet 441. INR 1.0. LFTs within normal limits exception alkaline phosphatase 141-164. Lipase 83. CEA less than 0.3. CA 125 502.6. Serum albumin 2.7-3.2. Ascitic albumin level not obtained. Subsequent CT of the chest for evaluation of pleural effusion reported suspicion for bilateral lower lobe pulmonary embolism. He has been evaluated by SENIOR UI SOFTWARE ENGINEER and oncology. Review of Systems Constitutional: Denies fever, chills, sweats, weight gain, or loss. HEENT: Negative for migraines, blurred vision or loss, earaches, drainage, tinnitus, oral mucosal lesions, dysphagia, or odynophagia. CARDIAC: Negative for chest pain, arrhythmias, or palpitation. RESPIRATORY: Negative for shortness of breath, hemoptysis, cough, or sputum production. GI: See HPI for pertinent findings. : Negative for hematuria, urgency, frequency, polyuria, or dysuria. GYNc: Denies possibility of . Negative vaginal discharge. MUSCULOSKELETAL: Negative for muscle aches, swelling, arthritis, and arthralgias. NEUROLOGIC: Negative for stroke or TIA. ENDOCRINE: Diabetes mellitus. Negative for thyroid problems. SKIN: Negative for rash or itching. PSYCHIATRIC: Negative history for depression and anxiety All systems: negative (See HPI) Past Medical History Past Medical History: Diabetes Mellitus History of Any Multi-Drug Resistant Organisms: None Reported Past Surgical History: No Surgical Hx Reported Past Psychological History: No Psychological Hx Reported Smoking Status: Never smoker Past Alcohol Use History: Occasional Past Drug Use History: None Reported - Past Family History Mother Family Medical History: Congestive Heart Failure (CHF), CVA/TIA, Hypertension Father Family Medical History: CVA/TIA Brother(s) Additional Family Medical History / Comment(s): colon cancer, lymphoma Medications and Allergies Home Medications Medication Instructions Recorded Confirmed Type No Known Home Medications [No 11/14/16 11/14/16 History Known Home Medications] Allergies Allergy/AdvReac Type Severity Reaction Status Date / Time aspirin Allergy Rash/Hives Verified 11/14/16 11:27 Penicillins Allergy Rash/Hives Verified 11/14/16 11:27 contrast Allergy Intermediate Rash/Hives Uncoded 11/15/16 06:51 Physical Exam Vitals: Vital Signs Temp Pulse Resp BP BP Pulse Ox 11/17/16 08:00 97.5 F L 70 16 116/74 92 L 11/17/16 00:27 97.4 F L 74 18 120/76 93 L 11/16/16 20:00 99.1 F 97 16 119/75 93 L 11/16/16 15:18 94 16 123/76 Intake and Output 11/16/16 11/17/16 11/17/16 22:59 06:59 14:59 Intake Total 40 140.149 Balance 40 140.149 Intake: IV 40 Sodium Chloride 0.9% 1, 40 000 ml @ 20 mls/hr IV . Q24H [facility] Rx#:[id number] Intake, IV Titration 140.149 Amount Heparin Sodium,Porcine/ 140.149 D5w Pmx 25,000 unit In Dextrose/Water 1 500ml. bag @ 18 UNITS/KG/HR 20. 41 mls/hr IV .Q24H [facility] Rx #:[id number] Other: # Voids 2 1 General appearance: The patient is alert, oriented, in no acute distress. HET: Head is normocephalic and atraumatic. Pupils are equal and reactive. Oropharynx is clear without lesions. Neck: Supple without lymphadenopathy. Trachea midline. Heart: S1 S2. Regular rate and rhythm. Lungs: No crackles or wheezes are heard. Abdomen: Soft, mildly distended with mild midabdominal tenderness, nondistended with bowel sounds. No peritoneal signs. No palpable organomegaly or masses. Extremities: Normal skin color and turgor. No cyanosis, rash, ulceration, clubbing, or edema. Radial and pedal pulses are 2/4 bilaterally. Neurological: No focal deficits. Strength and sensation are grossly intact. Results CBC & Chem 7: 11/17/16 03:04 11/15/16 06:40 Labs: Abnormal Lab Results - Last 24 Hours (Table) 11/16/16 11/17/16 11/17/16 Range/Units 20:53 03:04 03:04 RBC 3.75 L (3.80-5.40) m/uL Plt Count 452 H (150-450) k/uL Neutrophils # 9.0 H (1.3-7.7) k/uL Lymphocytes # 0.8 L 0.9 L (1.0-4.8) k/uL APTT 41.0 H (22.0-30.0) sec 11/17/16 Range/Units 08:33 RBC (3.80-5.40) m/uL Plt Count (150-450) k/uL Neutrophils # (1.3-7.7) k/uL Lymphocytes # (1.0-4.8) k/uL APTT 49.1 H (22.0-30.0) sec Microbiology - Last 24 Hours (Table) 11/15/16 10:48 Gram Stain - Preliminary Paracentesis Fluid Body Fluid Culture - Preliminary 11/14/16 11:25 Blood Culture - Preliminary Blood No Growth after [address] scan - abdomen: report reviewed (Dr. Munoz) CT scan - chest: report reviewed (Dr. Munoz) Assessment and Plan (1) Ascites Narrative/Plan: New onset ascites. Etiology unclear possible INDEPENDENT MARKETING CONSULTANT in origin with elevated CA-125 bilateral ovarian cystic changes being followed by oncology and INDEPENDENT MARKETING CONSULTANT; status post therapeutic diagnostic paracentesis with cytology pending. No biochemical, radiographic, or physical stigmata to suggest underlying chronic liver disease at this time. Status: Acute Plan: 1. Portal hypertension could not be assessed secondary to ascitic albumin not obtained. If cytology supports INDEPENDENT MARKETING CONSULTANT origin will not pursue further workup for possible liver disease. Continue with supportive measures. Will follow with you. Thank you for this kind referral and the opportunity to participate in the care of your patient. This consultation was discussed with Dr. Nasr. The impression and plan of care have been directed as dictated.
[2016-11-17] MEDS ORDERED: RX INFO: IV CONTRAST WAS GIVEN 1 EACH MISC MISCELLANE PRN (13:42)
[2016-11-17 17:26] LABS: Anion Gap 11 mmol/L; Blood Urea Nitrogen 12 mg/dL (7-17); Calcium 8.8 mg/dL (8.4-10.2); Carbon Dioxide 23 mmol/L (22-30); Chloride 106 mmol/L (98-107); Glucose 136 mg/dL (74-99); Non-African American GFR(MDRD) >60 (>60 ml/min/1.73 sqM); Potassium 4.1 mmol/L (3.5-5.1); Sodium 140 mmol/L (137-145)
--- NOTE | 2016-11-17 17:37 | P.PN ---
Subjective Progress Note Date: 11/17/16 The patient is overall clinically stable. She denies any symptoms suggestive of major recurrence of ascites fluid. She denies any chest pain or shortness of breath Objective - Vital Signs Vital signs: Vital Signs Temp 97.5 F L 11/17/16 08:00 Pulse 90 11/17/16 15:49 Resp 16 11/17/16 15:49 BP 133/71 11/17/16 15:49 Pulse Ox 97 11/17/16 15:49 Intake & Output 11/16/16 11/17/16 11/17/16 18:59 06:59 18:59 Intake Total 180.149 Balance 180.149 Intake: IV 40 Sodium Chloride 0.9% 1, 40 000 ml @ 20 mls/hr IV . Q24H [facility] Rx#:[id number] Intake, IV Titration 140.149 Amount Heparin Sodium,Porcine/ 140.149 D5w Pmx 25,000 unit In Dextrose/Water 1 500ml. bag @ 18 UNITS/KG/HR 20. 41 mls/hr IV .Q24H [facility] Rx #:[id number] Other: # Voids 2 1 1 - Constitutional General appearance: Present: no acute distress - EENT Eyes: Present: EOMI, PERRLA ENT: Present: hearing grossly normal, normal oropharynx - Respiratory Respiratory: bilateral: diminished - Cardiovascular Rhythm: regular Heart sounds: normal: S1, S2 - Gastrointestinal General gastrointestinal: Present: normal bowel sounds, soft - Integumentary Integumentary: Present: normal - Neurologic Neurologic: Present: CNII-XII intact - Musculoskeletal Musculoskeletal: Present: generalized weakness, strength equal bilaterally - Psychiatric Psychiatric: Present: A&O x's 3 - Labs CBC & Chem 7: 11/17/16 03:04 11/17/16 16:49 Labs: Abnormal Lab Results - Last 24 Hours (Table) 11/16/16 11/17/16 11/17/16 Range/Units 20:53 03:04 03:04 RBC 3.75 L (3.80-5.40) m/uL Plt Count 452 H (150-450) k/uL Neutrophils # 9.0 H (1.3-7.7) k/uL Lymphocytes # 0.8 L 0.9 L (1.0-4.8) k/uL APTT 41.0 H (22.0-30.0) sec Glucose (74-99) mg/dL 11/17/16 11/17/16 Range/Units 08:33 16:49 RBC (3.80-5.40) m/uL Plt Count (150-450) k/uL Neutrophils # (1.3-7.7) k/uL Lymphocytes # (1.0-4.8) k/uL APTT 49.1 H (22.0-30.0) sec Glucose 136 H (74-99) mg/dL Microbiology - Last 24 Hours (Table) 11/14/16 11:25 Blood Culture - Preliminary Blood No Growth after 72 hours 11/15/16 10:48 Gram Stain - Preliminary Paracentesis Fluid Body Fluid Culture - Preliminary Assessment and Plan (1) Ascites Narrative/Plan: clinically, there does not appear to have been any significant recurrence. cytology is still pending. I again had an extensive discussion with the patient and her daughter regarding various differential diagnoses and management. The patient's CA-125 was high, but as noted since the peritoneal marker and nondiagnostic. If cytology does come back positive for a ENGINEERING CONSULTANT origin , and the patient will be referred to ENGINEERING CONSULTANT oncology. This can likely be done as an outpatient, as she has no evidence of an emergent situation such as bowel obstruction or perforation. In fact with large volume ascites, often cytoreductive chemotherapy is used prior to surgery If cytology is positive for malignancy, but a different primary, then that would indicate stage IV disease, with no role for ENGINEERING CONSULTANT oncology intervention She was also advised, that palliative paracentesis can be repeated if there is significant recurrence I will revisit with the patient, once cytology becomes available. CT scan of the chest did not show any obvious evidence of metastasis Status: Acute (2) Pulmonary embolus Narrative/Plan: this was accidentally found, on CT scan of the chest that was done for staging purposes. The patient has been started on IV heparin. CT of the chest will be done to confirm. If pulmonary embolus is confirmed, that makes a diagnosis of malignancy even more likely. In that case the patient will need to continue on anticoagulation as long as the malignancy is present. For now I will continue her on IV heparin, until cytology is finalized. This is, in case, based on the cytology the patient needs additional diagnostic invasive procedures. Case was discussed with the admitting service Status: Acute
--- NOTE | 2016-11-17 17:43 | PN ---
PROGRESS NOTE DATE OF SERVICE: 11/17/2016 ATTENDING NOTE: This patient was seen and examined by me. I discussed the case with my nurse practitioner, Ms. Simons. This patient presented with abdominal distention, ascitic fluid, status post paracentesis, 3.2 L. Cyt[address] is pending. CT scan of the chest showed pulmonary embolism, for which patient is on IV heparin. Patient is eating small amounts. Did have a bowel movement. Abdominal pain is a bit better. Daughter is at the bedside. PHYSICAL EXAMINATION: Temperature 97.5, pulse 70, respiration 16, pulse ox 92% on 2 L. LUNGS: Slightly decreased breath sounds. ABDOMEN: Soft. Minimal tenderness. INVESTIGATIONS: CT scan of the chest showing pulmonary embolism. ASSESSMENT: 1. Large amount of ascitic fluid, status post paracentesis with elevated CA 125. Concern for ovarian malignancy with possible peritoneal involvement, but this is on clinical grounds. 2. Acute bilateral pulmonary embolism. 3. IV heparin monitoring. PLAN: Care was discussed with the patient and daughter at the bedside. Awaiting cytology to come back; further course of action from there. Will keep the patient on IV heparin for right now and change to other form of anticoagulation once we have more definitive course of action. Patient encouraged to sit up by the side of the bed. MMODL / IJN: [id number] /
--- NOTE | 2016-11-17 18:16 | P.PN ---
Progress Note - Text Progress Note Date: 11/17/16 DATE OF SERVICE: 11/17/2016 PRESENTING COMPLAINT: Abdominal pain and distention HISTORY OF PRESENT ILLNESS: 65-year-old female presented with increasing shortness of breath and abdominal distention and pain, computed tomography scan showed significant ascites, left pleural effusion, hiatal hernia,, located diverticulosis thickening of the distal transverse colon. INTERVAL HISTORY: 11/17/2016: Patient lying in bed appears anxious, daughter at the bedside appetite is still poor does attempt to eat at every meal. CTA performed yesterday patient was found to have bilateral PEs, heparin drip initiated. Encouraged patient to be up and about, sitting in the chair or ambulating in the room. 11/16/2016: Lying in bed appears anxious daughter at the bedside appetite remains poor unable to really tolerate regular diet. Obstetrics and gynecology saw the patient recommending a second opinion. Abdomen continues to be mildly tender fluid has not yet redemonstrated. Patient's ambulatory in the hallways. 11/15/2016 Patient was seen after paracentesis performed under ultrasound guidance, 3.2 L of or ensures fluid was removed. Patient appears comfortable although somewhat anxious. Discussed with patient and family at the bedside consulting obstetrics gynecology for their evaluation they were in agreement. Patient's appetite is low and has been low says she will try to eat something today. REVIEW OF SYSTEMS: Done for constitutional ,cardiovascular, GI, pulmonary with relevant findings as above. CURRENT MEDICATIONS [facility], Zofran, Pepcid. PHYSICAL EXAM VITAL SIGNS: 97.5, pulse 70, respiratory rate 16, blood pressure 116/74, oxygen saturation 92 % on 2 L GENERAL APPEARANCE: Lying in bed, anxious appearing. EYES: Pupils equal. Conjunctiva normal. NECK: JVD not raised. Mass not palpable. RESPIRATORY: Respiratory effort normal. Lungs clear to auscultation. CARDIOVASCULAR: First and second sounds normal. No edema. ABDOMEN: Soft. Liver and spleen not palpable. Mild tenderness to the left lower quadrant tenderness. No mass palpable. PSYCHIATRY: Alert and oriented x3. Mood and affect anxious. INVESTIGATIONS: CBC and BMP unremarkable Paracentesis fluid: Pending Blood cultures no growth after 72 hours ASSESSMENT: -Acute bilateral pulmonary embolism -Large ascites status post paracentesis with elevated CEA 125, concern for ovarian malignancy possible peritoneal involvement, based on clinical presentation -Status post paracentesis 3.2 L were removed. -Left pleural effusion. -Asymptomatic diverticulosis. -Mild protein calorie malnutrition from poor appetite. -IV heparin monitoring PLAN: Await cytology from paracentesis, results will directed next action. IV heparin to remain for now until firm course of action determined and if other anticoagulation means are able to be utilized. Plan of care discussed with the patient and the daughter at the bedside we will continue to follow very closely. CRUISE STAFF MEMBER STATEMENT: Patient was seen and examined by nurse practitioner Marycarmen Simons in all elements of the case discussed with attending Dr. Damon.
[2016-11-17] MEDS ORDERED: FAMOTIDINE 20 MG/2 ML VIAL IV STA (18:20)
[2016-11-17] MEDS ORDERED: diphenhydrAMINE 50 MG/ML 1 ML VIAL IVP STA (18:20)
[2016-11-17] MEDS ORDERED: methylPREDNISolone SOD SUCCI 125 MG/2 ML VIAL IV STA (18:22)
[2016-11-17] MEDS: SODIUM CHLORIDE 0.9% 1,000 ML IV SCH (18:27)
[2016-11-17] MEDS: HEPARIN SODIUM,PORCINE/D5W PMX 25,000 UNIT in DEXTROSE/WATER 1 500ML.BAG IV SCH (19:47)
--- NOTE | 2016-11-17 20:44 | CT ---
EXAMINATION TYPE: CT angio chest DATE OF EXAM: 11/17/2016 COMPARISON: NONE HISTORY: Possible PE from previous CT study. CT DLP: 127.90 mGycm CONTRAST: CT chest with contrast and 3D reconstruction with MIP imaging is performed with IV Contrast, patient injected with 85 mL of Omnipaque 350. Contrast-enhanced CT of the chest was performed through the course of the pulmonary arteries with lauren g and mediastinal window settings submitted. 3D reconstruction with MIP imaging was also performed. PULMONARY ARTERIES: Filling defects are noted within the various secondary and tertiary branches of t he left upper lobe, left lower lobe and right lower lobe compatible with pulmonary embolism. There is no evidence for large saddle component. The pulmonary arteries are free of filling defect. LUNGS: Moderate left-sided pleural effusion with AP dimension of 5 cm. Tiny right-sided pleural effus ion. Left greater than right basilar compressive atelectasis. The remainder of the lungs are clear. MEDIASTINUM: Thoracic aorta is of normal caliber . The heart is not enlarged. No evidence for media stinal mass. No mediastinal lymph nodes greater than 1cm. HILAR STRUCTURES: No evidence for mass. No hilar lymph nodes greater than 1 cm. UPPER ABDOMEN: Upper abdominal ascites is noted. IMPRESSION: 1. Findings as discussed above compatible with pulmonary embolism.
[2016-11-18 06:55] LABS: Basophils % (A) 0 %; CH 31.3; CHCM 31.7; Eosinophils % (A) 0 %; HCT 36.4 % (34.0-46.0); HDW 2.15; HGB 11.8 gm/dL (11.4-16.0); Luc # (Auto) 0.04; Luc % (Auto) 0; Lymphocytes # (A) 1.3 k/uL (1.0-4.8); Lymphocytes % (A) 8 %; MCH 32.1 pg (25.0-35.0); MCHC 32.4 g/dL (31.0-37.0); Mean Platelet Volume 6.8; Monocytes # (A) 0.4 k/uL (0-1.0); Monocytes % (A) 3 %; Neutrophils # (A) 13.2 k/uL (1.3-7.7); Neutrophils % (A) 88 %; RBC 3.67 m/uL (3.80-5.40); RDW 12.7 % (11.5-15.5); WBC (Perox) 15.47
[2016-11-18] MEDS: HEPARIN SODIUM,PORCINE 5,000 UNIT/ML 1 ML VIAL IV PRN (07:15)
[2016-11-18 07:44] VITALS: BP 116/73; PULSE 72; RESP 17; TEMP 98.1
[2016-11-18] MEDS: FAMOTIDINE 20 MG TAB PO SCH (09:12)
[2016-11-18] MEDS ORDERED: APIXABAN 5 MG TAB PO SCH (12:15)
--- NOTE | 2016-11-18 17:53 | P.DS ---
Providers Date of admission: 11/14/16 15:52 Expected date of discharge: 11/18/16 Attending physician: Justice Damon Consults: 11/14/16 14:05 Consult Physician Routine Consulting Provider: Elías Munoz Consult Reason/Comments: ascites Do you want consulting provider notified?: Yes 11/15/16 14:10 Consult Physician Routine Consulting Provider: Michael Walker Consult Reason/Comments: ovarian mass/ ascites Do you want consulting provider notified?: Yes 11/15/16 17:32 Consult Physician Routine Consulting Provider: Shayne Springer Consult Reason/Comments: Ovarian/colon cancer Do you want consulting provider notified?: Yes Primary care physician: Mayco Carlson [facility] Course: FINAL DIAGNOSES: -Acute bilateral pulmonary embolism -Large ascites status post paracentesis with elevated CEA 125, positive for ovarian malignancy possible peritoneal involvement, based on clinical presentation -Status post paracentesis 3.2 L were removed. -Left pleural effusion. -Asymptomatic diverticulosis. -Mild protein calorie malnutrition from poor appetite. -IV heparin monitoring HOSPTIAL COURSE: 65-year-old femalepresented with increasing shortness of breath abdominal distention and pain computed tomography scan showed significant ascites left pleural effusion, hiatal hernia, complicated diverticulosis and thickening of the distal transverse colon.was admitted for further evaluation. Home medication reorderedconsultation to oncology, CAFE ASSISTANT, and GI as well as interventional radiology.transvaginal ultrasound performed showing multiple cysts on both ovaries.CAFE ASSISTANT evaluated the patient and recommended an CAFE ASSISTANT oncologist /surgeon at a larger center as there will be better opportunity for surgical cure rather than trying to receive treatment in town. Interventional radiology evaluated patient for a paracentesis. Procedure was performed under ultrasound guidance, right lower quadrant was accessed and approximately 3.2 L of orange serous fluid was removed and sent for pathology.oncology recommended checking a chest CT, awaiting for cytology from the paracentesis to determine the primary source. Chest CT revealed bilateral pulmonary emboli heparin drip initiated.cytology was positive for malignancy. patient will need to remain on anticoagulation while malignancy present. Patient will be discharged on Eliquis and will continue this therapy through the oncology service. GI evaluated the patient and there are no biochemical radiographic or physical stigmata to suggest underlying chronic liver disease at this time.patient's condition is stabilized, tolerating her diet, ambulatory in the room and [address], has not had a redemonstration of ascitic fluid to her abdomen, has been started on anticoagulation for pulmonary emboli and is stable for discharge. Oncology will follow up with the patient after discharge with recommendations for CAFE ASSISTANT oncologist either [facility] or, [facility], it will be based on whoever can Get the patient in first. PHYSICAL EXAM: CARDIOVASCULAR: first and second sounds noted no edema. RESPIRATORY: respiratory effort normal lung sounds clear to auscultation GI:abdomen soft diffusemild tenderness noted to entirety of abdomen. PSYCHIATRY: Alert and oriented 3 mood and affect anxious. Patient was seen and examined by nurse practitioner Marycarmen Simons in all elements of the case discussed with attending Dr. Damon DISPOSITION:home to the care of her family Plan - Discharge Summary New Discharge Prescriptions: New Apixaban [Eliquis] 5 mg PO BID #80 tab Acetaminophen Tab [Tylenol] 650 mg PO Q6HR PRN tab PRN Reason: Mild Pain Or Fever > 100.5 Famotidine [Pepcid] 20 mg PO BID #60 tab traMADol HCl [Ultram] 50 mg PO QID PRN #120 tab PRN Reason: MODERATE TO SEVERE Pain Ondansetron Odt [Zofran Odt] 4 mg PO Q8HR PRN #20 tab PRN Reason: Nausea And Vomiting Discharge Medication List Acetaminophen Tab [Tylenol] 650 mg PO Q6HR PRN tab 11/18/16 [Rx] Apixaban [Eliquis] 5 mg PO BID #80 tab 11/18/16 [Rx] Famotidine [Pepcid] 20 mg PO BID #60 tab 11/18/16 [Rx] Ondansetron Odt [Zofran Odt] 4 mg PO Q8HR PRN #20 tab 11/18/16 [Rx] traMADol HCl [Ultram] 50 mg PO QID PRN #120 tab 11/18/16 [Rx] Follow up Appointment(s)/Referral(s): Shayne Springer MD [STAFF PHYSICIAN] - 1 Week (office will call patient with appointment time) Mayco Carlson MD [Primary Care Provider] - 11/20/16 9:15 am Patient Instructions/Handouts: Apixaban (By mouth), Pulmonary Embolism (DC), Ovarian Cancer (DC), Ascites (DC) Activity/Diet/Wound Care/Special Instructions: Please picker/puller samples of Eliquis at Dr. Springer's office. Discharge Disposition: HOME SELF-CARE
[2016-11-18] MEDS ORDERED: WARFARIN 7.5 MG TAB PO SCH (18:00)
--- NOTE | 2016-11-18 19:48 | P.PN ---
Subjective Progress Note Date: 11/18/16 The patient denies any new complaints. Specifically she has not had any chest pain or shortness of breath. She denies any recurrent distention of the abdomen or abdominal pain. Objective - Vital Signs Vital signs: Vital Signs Temp 98.1 F 11/18/16 07:43 Pulse 72 11/18/16 07:43 Resp 17 11/18/16 07:43 BP 116/73 11/18/16 07:43 Pulse Ox 94 L 11/18/16 07:43 Intake & Output 11/18/16 11/18/16 11/19/16 06:59 18:59 06:59 Intake Total 590.05 540.327 Output Total 700 Balance -109.95 540.327 Intake: IV 100 Sodium Chloride 0.9% 1, 100 000 ml @ 20 mls/hr IV . Q24H [facility] Rx#:[id number] Intake, IV Titration 340.05 260.327 Amount Heparin Sodium,Porcine/ 340.05 260.327 D5w Pmx 25,000 unit In Dextrose/Water 1 500ml. bag @ 18 UNITS/KG/HR 20. 41 mls/hr IV .Q24H [facility] Rx #:[id number] Oral 250 180 Output: Urine 700 Other: # Voids 1 - Constitutional General appearance: Present: no acute distress - EENT Eyes: Present: PERRLA ENT: Present: hearing grossly normal, normal oropharynx - Respiratory Respiratory: bilateral: CTA - Cardiovascular Rhythm: regular Heart sounds: normal: S1, S2 - Gastrointestinal General gastrointestinal: Present: normal bowel sounds, soft - Integumentary Integumentary: Present: normal - Neurologic Neurologic: Present: CNII-XII intact - Musculoskeletal Musculoskeletal: Present: strength equal bilaterally - Psychiatric Psychiatric: Present: A&O x's 3, appropriate affect - Labs CBC & Chem 7: 11/18/16 06:40 11/17/16 16:49 Labs: Abnormal Lab Results - Last 24 Hours (Table) 11/18/16 11/18/16 Range/Units 06:40 06:40 WBC 15.0 H (3.8-10.6) k/uL RBC 3.67 L (3.80-5.40) m/uL Plt Count 501 H (150-450) k/uL Neutrophils # 13.2 H (1.3-7.7) k/uL APTT 41.1 H (22.0-30.0) sec Microbiology - Last 24 Hours (Table) 11/14/16 11:25 Blood Culture - Preliminary Blood No Growth after 96 hours 11/15/16 10:48 Gram Stain - Preliminary Paracentesis Fluid Body Fluid Culture - Preliminary 11/15/16 10:48 Anaerobic Culture - Preliminary Paracentesis Fluid Assessment and Plan (1) Ascites Narrative/Plan: The cytology did come back malignant, consistent with ovarian or primary peritoneal primary. no evidence of reaccumulation Status: Acute (2) Pulmonary embolus Narrative/Plan: she is tolerating IV heparin well. CT angiogram confirmed the presence of PE. As a diagnosis has been confirmed, the patient can be switched over to oral at this time. Prescription for apixaban was given to case management to check for coverage. If covered, she can receive her first dose in the hospital , and heparin stopped. Status: Acute (3) Ovarian cancer Narrative/Plan: The pathology results, and implications were discussed in detail with her and her daughter. At this time she appears to have stage III disease, which can be treated with curative intent. She will need a SAUSAGE MACHINE OPERATOR oncology referral. This will be set up as an outpatient by the office, as there does not appear to be any emergent condition. She is okay with going to [facility] or [facility], wherever she can get in earlier. As she had presented with large volume ascites, it is possible that neoadjuvant chemotherapy may be recommended prior to definitive surgery. In that case she would like to have those treatments locally. Office follow-up will be set up for her. She was advised, that recurrence of ascites can happen. In that case she can have palliative drainage as needed Status: Acute
--- NOTE | 2016-11-18 20:14 | DS ---
DISCHARGE SUMMARY DATE OF SERVICE: 11/18/16. ATTENDING NOTE: This patient seen and examined by me. I discussed with my nurse practitioner, Ms. Simons. The patient is here with her daughter and adopted daughter. Cytology has come back. Eliquis will be received from Dr. Springer's office. The patient is going to have a followup at [facility] for another diagnosis of ovarian cancer. Some abdominal pain is present. Care was discussed in detail with the patient and daughter. Questions were answered. On examination abdomen mild tenderness, soft. Psych: AO x3. INVESTIGATIONS: Cytology results are noted. 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 PLAN: Patient will be discharged on Eliquis as per Dr. Springer's team. Follow up at [facility]. Questions were answered. Discharge planning more than 35 minutes. MMODL / IJN: [id number] /
[2016-11-25] MEDS ORDERED: APIXABAN 5 MG TAB PO SCH (09:00)
== END 2016-11-18 16:00 | disposition home or self-care (01) | DRG 374 ==
LOC: EC 10:23 → 3SUR 15:52
PROVIDERS: ADMIT Hospitalist; ATTEND Hospitalist
PROC: 0W9G3ZX Drainage of Peritoneal Cavity, Percutaneous Approach, Diagnostic (ICD-10-PCS; principal; 2016-11-15)
DX: C78.6 Secondary malignant neoplasm of retroperitoneum and peritoneum (principal); I26.99 Other pulmonary embolism without acute cor pulmonale; R18.0 Malignant ascites; J90 Pleural effusion, not elsewhere classified; R18.8 Other ascites; E44.1 Mild protein-calorie malnutrition; E87.1 Hypo-osmolality and hyponatremia; C56.9 Malignant neoplasm of unspecified ovary; J98.11 Atelectasis; E11.9 Type 2 diabetes mellitus without complications; K44.9 Diaphragmatic hernia without obstruction or gangrene; K57.90 Diverticulosis of intestine, part unspecified, without perforation or abscess without bleeding; M19.90 Unspecified osteoarthritis, unspecified site; Z88.0 Allergy status to penicillin; Z88.6 Allergy status to analgesic agent; Z91.041 Radiographic dye allergy status; Z68.23 Body mass index [BMI] 23.0-23.9, adult; Z80.0 Family history of malignant neoplasm of digestive organs; Z80.7 Family history of other malignant neoplasms of lymphoid, hematopoietic and related tissues; Z82.49 Family history of ischemic heart disease and other diseases of the circulatory system
CPT/HCPCS: 36415; 49083; 71020; 71260; 71275; 74176; 76830; 76856; 80048; 80053; 81001; 82150; 82378; 83605; 83690; 85025; 85610; 85730; 86304; 87040; 87070; 87075; 87205; 88108; 88305; 88341; 88342; 96361; 96374; 96375; 96376; 99285

== ENCOUNTER → 2016-11-24 | Outpatient (CLI) | payer MEDICARE ==
[2016-11-24 10:43] LABS: Basophils # (A) 0.1 k/uL (0-0.2); Basophils % (A) 1 %; CH 32.4; CHCM 32.4; Eosinophils # (A) 0.1 k/uL (0-0.7); Eosinophils % (A) 1 %; HCT 42.7 % (34.0-46.0); HDW 2.12; HGB 13.2 gm/dL (11.4-16.0); Luc % (Auto) 1; Lymphocytes # (A) 2.7 k/uL (1.0-4.8); Lymphocytes % (A) 25 %; MCHC 30.9 g/dL (31.0-37.0); MCV 100.3 fL (80.0-100.0); Mean Platelet Volume 6.7; Monocytes # (A) 0.6 k/uL (0-1.0); Monocytes % (A) 6 %; Neutrophils # (A) 7.3 k/uL (1.3-7.7); Neutrophils % (A) 68 %; RBC 4.26 m/uL (3.80-5.40); RDW 13.7 % (11.5-15.5); WBC 10.8 k/uL (3.8-10.6)
[2016-11-24 10:52] LABS: INR 1.1 (<1.2); Partial Thromboplastin Time 25.8 sec (22.0-30.0); Prothrombin Time 11.3 sec (9.0-12.0)
== END | disposition home or self-care (01) ==
LOC: LABWHC1 10:24
PROVIDERS: ATTEND Obstetrics & Gynecology Gynecologic Oncology
DX: C56.9 Malignant neoplasm of unspecified ovary (principal); Z51.81 Encounter for therapeutic drug level monitoring; Z79.01 Long term (current) use of anticoagulants
CPT/HCPCS: 36415; 85025; 85610; 85730

== ENCOUNTER 2016-12-22 13:23 | Inpatient (IN) | payer MEDICARE ==
[2016-12-22] MEDS ORDERED: SODIUM CHLORIDE 0.9% 1,000 ML IV STA (14:05)
[2016-12-22] MEDS ORDERED: RX INFO: IV CONTRAST WAS GIVEN 1 EACH MISC MISCELLANE PRN (14:05)
--- NOTE | 2016-12-22 14:07 | ED ---
General Adult HPI - General Chief complaint: Recheck/Abnormal Lab/Rx Stated complaint: sent by Dr. Springer Time Seen by Provider: 12/22/16 13:36 Source: patient, RN notes reviewed, old records reviewed Mode of arrival: wheelchair Limitations: no limitations - History of Present Illness Initial comments: This is a 66-year-old female to the ER for shortness of restaurant breath and chest pain. Patient has history of CVA, currently going through chemotherapy. Patient was sent over from chemotherapy for increased shortness of breath. Patient was sent over by oncologist to rule out PE, DVT. Patient states she has history of blood clots, patient states she has history of ovarian cancer, is a increasing shortness of breath 3 days - Related Data Previous Rx's Medication Instructions Recorded Acetaminophen Tab [Tylenol] 650 mg PO Q6HR PRN tab 11/18/16 Apixaban [Eliquis] 5 mg PO BID #80 tab 11/18/16 Famotidine [Pepcid] 20 mg PO BID #60 tab 11/18/16 Ondansetron Odt [Zofran Odt] 4 mg PO Q8HR PRN #20 tab 11/18/16 traMADol HCl [Ultram] 50 mg PO QID PRN #120 tab 11/18/16 Allergies Allergy/AdvReac Type Severity Reaction Status Date / Time aspirin Allergy Rash/Hives Verified 12/22/16 13:52 Iodinated Contrast- Oral and Allergy Rash/Hives Verified 12/22/16 13:52 IV Dye Penicillins Allergy Rash/Hives Verified 12/22/16 13:52 Review of Systems ROS Statement: Those systems with pertinent positive or pertinent negative responses have been documented in the HPI. ROS Other: All systems not noted in ROS Statement are negative. Past Medical History Past Medical History: Diabetes Mellitus Additional Past Medical History / Comment(s): Blood clots in lungs as result of disease process - November 2016. Ovarian cancer - November 2016. Diet controlled diabetic History of Any Multi-Drug Resistant Organisms: None Reported Past Surgical History: No Surgical Hx Reported Past Psychological History: No Psychological Hx Reported Smoking Status: Never smoker Past Alcohol Use History: None Reported Past Drug Use History: None Reported - Past Family History Mother Family Medical History: Congestive Heart Failure (CHF), CVA/TIA, Hypertension Father Family Medical History: CVA/TIA Brother(s) Additional Family Medical History / Comment(s): colon cancer, lymphoma General Exam Limitations: no limitations General appearance: alert, in no apparent distress Head exam: Present: atraumatic, normocephalic, normal inspection Eye exam: Present: normal appearance, PERRL, EOMI. Absent: scleral icterus, conjunctival injection, periorbital swelling ENT exam: Present: normal exam, mucous membranes moist Neck exam: Present: normal inspection. Absent: tenderness, meningismus, lymphadenopathy Respiratory exam: Present: normal lung sounds bilaterally. Absent: respiratory distress, wheezes, rales, rhonchi, stridor Cardiovascular Exam: Present: regular rate, normal rhythm, normal heart sounds. Absent: systolic murmur, diastolic murmur, rubs, gallop, clicks GI/Abdominal exam: Present: soft, normal bowel sounds. Absent: distended, tenderness, guarding, rebound, rigid Extremities exam: Present: normal inspection, full ROM, normal capillary refill. Absent: tenderness, pedal edema, joint swelling, calf tenderness Back exam: Present: normal inspection Neurological exam: Present: alert, oriented X3, CN II-XII intact Psychiatric exam: Present: normal affect, normal mood Skin exam: Present: warm, dry, intact, normal color. Absent: rash Course Vital Signs 12/22/16 12/22/16 12/22/16 13:26 14:33 15:33 Temperature 98.4 F Pulse Rate 90 93 Respiratory 20 19 20 Rate Blood Pressure 180/110 185/104 O2 Sat by Pulse 91 L 96 Oximetry 12/22/16 16:36 Temperature Pulse Rate Respiratory Rate Blood Pressure 161/97 O2 Sat by Pulse Oximetry - Reevaluation(s) Reevaluation #1: 12/22/16 14:41 medical medical records thoroughly reviewed Reevaluation #2: 12/22/16 16:[address] Sheets who is aware of patient's pulmonary compromise, prior CT scans Reevaluation #3: 12/22/16 16:50 Patient's in no significant distress, situation explainable family and patient EKG Findings - EKG Comments: EKG Findings:: EKG shows normal sinus rhythm rate of 83, ID 136, QRS 76, QTc 434 Medical Decision Making - Medical Decision Making 66 female the ER for evaluation of shortness of breath. Progressive shortness of breath, patient sent to the ER for CT today. Patient has positive a sided pleural effusion significant. Patient be admitted for thoracentesis - Lab Data Result diagrams: 12/22/16 14:11 12/22/16 14:11 Lab Results 12/22/16 12/22/16 12/22/16 Range/Units 14:11 14:11 14:11 WBC 4.3 (3.8-10.6) k/uL RBC 3.50 L (3.80-5.40) m/uL Hgb 10.8 L (11.4-16.0) gm/dL Hct 33.6 L (34.0-46.0) % MCV 96.1 (80.0-100.0) fL MCH 30.9 (25.0-35.0) pg MCHC 32.1 (31.0-37.0) g/dL RDW 13.7 (11.5-15.5) % Plt Count 379 (150-450) k/uL Neutrophils % 85 % Lymphocytes % 10 % Monocytes % 3 % Eosinophils % 1 % Basophils % 0 % Neutrophils # 3.7 (1.3-7.7) k/uL Lymphocytes # 0.4 L (1.0-4.8) k/uL Monocytes # 0.1 (0-1.0) k/uL Eosinophils # 0.0 (0-0.7) k/uL Basophils # 0.0 (0-0.2) k/uL PT (9.0-12.0) sec INR (<1.2) APTT (22.0-30.0) sec Sodium 138 (137-145) mmol/L Potassium 3.5 (3.5-5.1) mmol/L Chloride 104 (98-107) mmol/L Carbon Dioxide 23 (22-30) mmol/L Anion Gap 11 mmol/L BUN 9 (7-17) mg/dL Creatinine 0.66 (0.52-1.04) mg/dL Est GFR (MDRD) Af Amer >60 (>60 ml/min/1.73 sqM) Est GFR (MDRD) Non-Af >60 (>60 ml/min/1.73 sqM) Glucose 176 H (74-99) mg/dL Calcium 9.1 (8.4-10.2) mg/dL Phosphorus 2.7 (2.5-4.5) mg/dL Magnesium 1.5 L (1.6-2.3) mg/dL Total Bilirubin 0.9 (0.2-1.3) mg/dL AST 36 (14-36) U/L ALT 37 (9-52) U/L Alkaline Phosphatase 157 H (38-126) U/L Total Creatine Kinase 48 (30-135) U/L CK-MB (CK-2) 1.3 (0.0-2.4) ng/mL CK-MB (CK-2) Rel Index 2.7 Troponin I <0.012 (0.000-0.034) ng/mL Total Protein 6.7 (6.3-8.2) g/dL Albumin 3.4 L (3.5-5.0) g/dL 12/22/16 Range/Units 14:11 WBC (3.8-10.6) k/uL RBC (3.80-5.40) m/uL Hgb (11.4-16.0) gm/dL Hct (34.0-46.0) % MCV (80.0-100.0) fL MCH (25.0-35.0) pg MCHC (31.0-37.0) g/dL RDW (11.5-15.5) % Plt Count (150-450) k/uL Neutrophils % % Lymphocytes % % Monocytes % % Eosinophils % % Basophils % % Neutrophils # (1.3-7.7) k/uL Lymphocytes # (1.0-4.8) k/uL Monocytes # (0-1.0) k/uL Eosinophils # (0-0.7) k/uL Basophils # (0-0.2) k/uL PT 11.6 (9.0-12.0) sec INR 1.2 H (<1.2) APTT 24.7 (22.0-30.0) sec Sodium (137-145) mmol/L Potassium (3.5-5.1) mmol/L Chloride (98-107) mmol/L Carbon Dioxide (22-30) mmol/L Anion Gap mmol/L BUN (7-17) mg/dL Creatinine (0.52-1.04) mg/dL Est GFR (MDRD) Af Amer (>60 ml/min/1.73 sqM) Est GFR (MDRD) Non-Af (>60 ml/min/1.73 sqM) Glucose (74-99) mg/dL Calcium (8.4-10.2) mg/dL Phosphorus (2.5-4.5) mg/dL Magnesium (1.6-2.3) mg/dL Total Bilirubin (0.2-1.3) mg/dL AST (14-36) U/L ALT (9-52) U/L Alkaline Phosphatase (38-126) U/L Total Creatine Kinase (30-135) U/L CK-MB (CK-2) (0.0-2.4) ng/mL CK-MB (CK-2) Rel Index Troponin I (0.000-0.034) ng/mL Total Protein (6.3-8.2) g/dL Albumin (3.5-5.0) g/dL - Radiology Data Radiology results: report reviewed (CTA positive for significant left-sided pleural effusion), image reviewed Disposition Clinical Impression: Pleural effusion, left, Ovarian cancer Disposition: ADMITTED IP TO THIS [facility] Condition: Serious
[2016-12-22] MEDS: FAMOTIDINE 20 MG/2 ML VIAL IV STA ×2 (14:12→14:22)
[2016-12-22] MEDS: diphenhydrAMINE 50 MG/ML 1 ML VIAL IVP STA ×2 (14:12→14:52)
[2016-12-22] MEDS: methylPREDNISolone SOD SUCCI 125 MG/2 ML VIAL IV STA ×2 (14:12→14:22)
[2016-12-22 14:27] LABS: Basophils % (A) 0 %; CH 31.4; CHCM 32.8; Eosinophils % (A) 1 %; HCT 33.6 % (34.0-46.0); HDW 2.33; HGB 10.8 gm/dL (11.4-16.0); Luc # (Auto) 0.04; Luc % (Auto) 1; Lymphocytes # (A) 0.4 k/uL (1.0-4.8); Lymphocytes % (A) 10 %; MCH 30.9 pg (25.0-35.0); MCHC 32.1 g/dL (31.0-37.0); MCV 96.1 fL (80.0-100.0); Mean Platelet Volume 6.7; Monocytes # (A) 0.1 k/uL (0-1.0); Monocytes % (A) 3 %; Neutrophils # (A) 3.7 k/uL (1.3-7.7); Neutrophils % (A) 85 %; RDW 13.7 % (11.5-15.5); WBC 4.3 k/uL (3.8-10.6); WBC (Perox) 4.43
[2016-12-22 14:32] LABS: INR 1.2 (<1.2); Partial Thromboplastin Time 24.7 sec (22.0-30.0); Prothrombin Time 11.6 sec (9.0-12.0)
[2016-12-22 14:41] LABS: ALT 37 U/L (9-52); AST 36 U/L (14-36); Alkaline Phosphatase 157 U/L (38-126); Anion Gap 11 mmol/L; Blood Urea Nitrogen 9 mg/dL (7-17); Calcium 9.1 mg/dL (8.4-10.2); Carbon Dioxide 23 mmol/L (22-30); Chloride 104 mmol/L (98-107); Glucose 176 mg/dL (74-99); Magnesium 1.5 mg/dL (1.6-2.3); Non-African American GFR(MDRD) >60 (>60 ml/min/1.73 sqM); Phosphorus 2.7 mg/dL (2.5-4.5); Potassium 3.5 mmol/L (3.5-5.1); Sodium 138 mmol/L (137-145); Total Bilirubin 0.9 mg/dL (0.2-1.3); Total Protein 6.7 g/dL (6.3-8.2)
[2016-12-22 14:44] LABS: Creatine Kinase 48 U/L (30-135)
[2016-12-22 14:57] LABS: Creatine Kinase MB 1.3 ng/mL (0.0-2.4); Troponin I <0.012 ng/mL (0.000-0.034)
[2016-12-22] MEDS ORDERED: LABETALOL 5 MG/ML VIAL MDV IVP STA (15:37)
--- NOTE | 2016-12-22 15:55 | CT ---
EXAMINATION TYPE: CT angio chest DATE OF EXAM: 12/22/2016 COMPARISON: November 17, 2016 HISTORY: Patient complains of left side chest pain and difficulty breathing. Patient is a recent alexa gnosis of stage [address] DLP: 139.6 mGycm CONTRAST: CT chest with contrast and 3D reconstruction with MIP imaging is performed with IV Contrast, patient injected with 100 mL of Omnipaque 300. Contrast-enhanced CT of the chest was performed through the course of the pulmonary arteries with lauren g and mediastinal window settings submitted. 3D reconstruction with MIP imaging was also performed. PULMONARY ARTERIES: Left sided pulmonary arteries are markedly limited evaluation given the extent of the left-sided pleural effusion and collapsed left lung. Right-sided pulmonary arteries are patent a t this time without evidence for filling defect to suggest pulmonary embolism. LUNGS: There is massive left-sided pleural effusion noted with complete collapse of the left lung and midline shift from left to right. There is compression of the right lung as well. Scattered areas of atelectasis right lung. Suspect pleural thickening left lung base possibly related to metastatic dis ease. MEDIASTINUM: Mediastinal shift from left to right of at least 7 cm. HILAR STRUCTURES: No evidence for mass. No hilar lymph nodes greater than 1 cm. UPPER ABDOMEN: Hepatic steatosis. IMPRESSION: 1. Massive left-sided pleural effusion with complete collapse of the left lung and mediastinal shift of at least 7 cm from left to right. Compression of the right lung. 2. Limited evaluation of the left-sided pulmonary arteries. No definite filling defect within the rig ht-sided pulmonary arteries at this time.
[2016-12-22] MEDS ORDERED: IPRATROPIUM-ALBUTEROL 3 ML NEB INHALATION PRN (16:16)
[2016-12-22] MEDS: SODIUM CHLORIDE 0.9% 1,000 ML IV SCH (17:16)
[2016-12-22] MEDS ORDERED: traMADol 50 MG TAB PO PRN (19:44)
[2016-12-22] MEDS ORDERED: LISINOPRIL 10 MG TAB PO SCH (20:15)
[2016-12-22] MEDS: FAMOTIDINE 20 MG TAB PO SCH (20:26)
[2016-12-22] MEDS: ACETAMINOPHEN TAB 325 MG TAB PO PRN (20:29)
[2016-12-22 21:03] LABS: Glucose,Whole Blood 153 mg/dL (75-99)
--- NOTE | 2016-12-22 21:13 | P.HPIM ---
History of Present Illness H&P Date: 12/22/16 Chief Complaint: Shrotness of breath HISTORY OF PRESENT ILLNESS: This is a 66-year-old female patient of Dr. Mayco MCDERMOTT with chronic stable medical conditions that include diabetes mellitus diet controlled, history of pulmonary embolism diagnosed in November 2016, ovarian cancer diagnosed in November 2016 and receiving chemotherapy, presented to the emergency department today after receiving a round of chemotherapy with increasing shortness of breath. Patient has been short of breath for about the past 3-4 days, today being at its worst. Patient states she had difficulty managing the stairs would have to stop usp up and take a rest and catch her breath, after today' s dose of chemotherapy patient directed to the emergency department due to her increasing shortness of breath and was admitted for the same. Imaging revealed a massive left-sided pleural effusion with complete collapse of the left lung and mediastinal shift of at least 7 cm from left to right with compression of the right lung. Patient was admitted for the same. Denies any chest pain or palpitations, diaphoresis, leg swelling, vomiting diarrhea, nausea. REVIEW OF SYSTEMS GEN.: [ Tired] EYES: [None] HEENT: [None] NECK: [None] RESPIRATORY: [ shortness of breath] CARDIOVASCULAR: [None] GASTROINTESTINAL: [Some abdominal distention] GENITOURINARY: [None] MUSCULOSKELETAL: [Back pain] LYMPHATICS: [None] HEMATOLOGICAL: [None] PSYCHIATRY: [None] NEUROLOGICAL: [None] PAST MEDICAL HISTORY Past medical history: Diabetes mellitus diet controlled, pulmonary embolus secondary to disease process, ovarian cancer diagnosed in November 2016. Past surgical history: No surgical history Past psychological history: No psychiatric history SOCIAL HISTORY: Additional psychological/social history: Smoking use history: Never smoked Alcohol use history: Denies Drug use history: Denies FAMILY HISTORY: Mother: Congestive heart failure, CVA/TIA, hypertension. Father: CVA/TIA Brothers: Colon cancer, lymphoma HOME MEDICATION: Tramadol 50 mg by mouth 4 times a day when necessary Ondansetron ODT 4 mg by mouth every 8 hours when necessary Famotidine 20 mg by mouth twice a day Apixaban 5 mg by mouth twice a day Acetaminophen 650 mg every 6 hours when necessary. ALLERGIES: Aspirin, iodinated contrast, penicillins VITAL SIGNS: [Temperature 98.1, pulse 80, respirations 19, blood pressure 154/ 105, oxygen saturation 95% on 2 L.. BMI noted] GENERAL: [Thin built, sitting up, anxious appearing]. EYES: [Pupils equal. Conjunctiva marin]l. HEENT: [External appearance of nose and ears normal, oral cavity grossly normal] . NECK: [JVD not raised; masses not palpable]. HEART: [First and second heart sounds are normal; no edema]. LUNGS:[ Respiratory rate mildly increased; minimal air movement on the left, right clear to auscultation]. ABDOMEN: [Soft, slightly distended nontender, liver spleen not palpable, no masses palpable]. LYMPHATICS: [No lymph nodes palpable in the axilla and neck]. PSYCH: [Alert and oriented x3; mood and affect marin]l. NEUROLOGICAL: [Cranial nerves grossly intact; no facial asymmetry, power and sensation grossly intact]. INVESTIGATIONS: Hemoglobin 10.8, INR 1.2, magnesium 1.5, alkaline phosphatase 157 albumin 3.4. Chest CTA: Massive left-sided pleural effusion with complete collapse of the left lung and mediastinal shift of at least 7 cm from left to right with compression of the right lung. ASSESSMENT: -Acute massive left pleural effusion with complete collapse of the left lung and mediastinal shift -Asymptomatic diverticulosis. -Mild protein calorie malnutrition from poor appetite. -Diabetes mellitus, diet controlled -Essential hypertension with urgency -Anxiety not otherwise specified PLAN: Home medications reordered, pulmonology and oncology consulted, Apixaban held for possible thoracentesis tomorrow, lisinopril added for blood pressure management. Plan of care discussed with the patient at the bedside she is in agreement questions answered. We will continue to follow closely. MORTGAGE COLLECTOR STATEMENT: Patient was seen and examined by nurse practitioner Marycarmen Simons in all elements of the case discussed with attending Dr. Damon. Past Medical History Past Medical History: Diabetes Mellitus Additional Past Medical History / Comment(s): Blood clots in lungs as result of disease process - November 2016. Ovarian cancer - November 2016. Diet controlled diabetic History of Any Multi-Drug Resistant Organisms: None Reported Past Surgical History: No Surgical Hx Reported Past Anesthesia/Blood Transfusion Reactions: No Reported Reaction Past Psychological History: No Psychological Hx Reported Smoking Status: Never smoker Past Alcohol Use History: None Reported Past Drug Use History: None Reported - Past Family History Mother Family Medical History: Congestive Heart Failure (CHF), CVA/TIA, Hypertension Father Family Medical History: CVA/TIA Brother(s) Additional Family Medical History / Comment(s): colon cancer, lymphoma Medications and Allergies Home Medications Medication Instructions Recorded Confirmed Type Acetaminophen Tab [Tylenol] 650 mg PO Q6HR PRN tab 11/18/16 12/22/16 Rx Apixaban [Eliquis] 5 mg PO BID #80 tab 11/18/16 12/22/16 Rx Famotidine [Pepcid] 20 mg PO BID #60 tab 11/18/16 12/22/16 Rx Ondansetron Odt [Zofran Odt] 4 mg PO Q8HR PRN #20 tab 11/18/16 12/22/16 Rx traMADol HCl [Ultram] 50 mg PO QID PRN #120 tab 11/18/16 12/22/16 Rx Allergies Allergy/AdvReac Type Severity Reaction Status Date / Time aspirin Allergy Rash/Hives Verified 12/22/16 13:52 Iodinated Contrast- Oral and Allergy Rash/Hives Verified 12/22/16 13:52 IV Dye Penicillins Allergy Rash/Hives Verified 12/22/16 13:52 Physical Exam Vitals: Vital Signs Temp Pulse Pulse Resp BP BP Pulse Ox 12/22/16 18:17 77 18 184/105 99 12/22/16 17:20 77 18 184/105 92 L 12/22/16 17:17 80 18 152/100 95 12/22/16 16:36 161/97 12/22/16 15:33 93 20 185/104 96 12/22/16 14:33 19 12/22/16 13:26 98.4 F 90 20 180/110 91 L Intake and Output 12/22/16 12/22/16 12/22/16 06:59 14:59 22:59 Other: # Voids 1 Weight 52.163 kg Patient Weight 12/23/16 06:59 Weight 52.163 kg Results CBC & Chem 7: 12/22/16 14:11 12/22/16 14:11 Labs: Abnormal Lab Results - Last 24 Hours (Table) 12/22/16 12/22/16 12/22/16 Range/Units 14:11 14:11 14:11 RBC 3.50 L (3.80-5.40) m/uL Hgb 10.8 L (11.4-16.0) gm/dL Hct 33.6 L (34.0-46.0) % Lymphocytes # 0.4 L (1.0-4.8) k/uL INR 1.2 H (<1.2) Glucose 176 H (74-99) mg/dL Magnesium 1.5 L (1.6-2.3) mg/dL Alkaline Phosphatase 157 H (38-126) U/L Albumin 3.4 L (3.5-5.0) g/dL Thrombosis Risk Factor Assmnt - Choose All That Apply Any of the Below Risk Factors Present?: No Other Risk Factors: Yes Each Risk Factor Represents 2 Points: Age 61-74 years Thrombosis Risk Factor Assessment Total Risk Factor Score: 2 Thrombosis Risk Factor Assessment Level: Low Risk
--- NOTE | 2016-12-22 22:05 | HP ---
HISTORY AND PHYSICAL DATE OF ADMISSION: 12/22/16 The patient is seen and examined by me. I discussed with my nurse practitioner, Ms. Simons. This is a pleasant 66-year-old patient of Dr. Carlson. The patient was here in November of this year, was found to have large ascites, did undergo paracentesis and patient was positive for ovarian malignancy with possible peritoneal involvement. The patient also had a left pleural effusion and patient also diagnosed with bilateral pulmonary embolism. The patient did start off with chemotherapy with Dr. Springer's had the first set done today. The patient has been getting short of breath. Has been losing appetite. The patient was sent in from the [facility]. The patient was found to have massive left-sided pleural effusion with near complete collapse of the left lung with at least 7 cm, had a shift of at least 7 cm from left to right. Pulmonary was informed from the ER. ASSESSMENT: 1. Ovarian cancer, metastatic, including intraperitoneal and causing large left pleural effusion. 2. Large left pleural effusion with possible left lung mass causing mediastinal shift. 3. History of bilateral pulmonary embolism. 4. Colonic diverticulosis. 5. Moderate protein-calorie malnutrition from decreased oral intake. PLAN: Patient admitted. Home medication will be resumed. Eliquis has been held. Dr. Springer and Dr. Barrett were consulted. The patient's pulse ox 91% on room air. Copy to Dr. Carlson. MMODL / IJN: [id number] /
[2016-12-22] MEDS: ALPRAZolam 0.25 MG TAB PO PRN (22:17)
[2016-12-22] MEDS: amLODIPine 5 MG TAB PO SCH (23:03)
[2016-12-23] MEDS: ACETAMINOPHEN TAB 325 MG TAB PO PRN ×2 (02:24→19:49)
[2016-12-23 06:03] LABS: Glucose,Whole Blood 112 mg/dL (75-99)
[2016-12-23] MEDS: ONDANSETRON 4 MG/2 ML VIAL IVP PRN ×3 (06:10→18:30)
[2016-12-23 06:38] LABS: CH 30.9; CHCM 32.4; HCT 30.9 % (34.0-46.0); HDW 2.31; HGB 9.7 gm/dL (11.4-16.0); MCH 30.2 pg (25.0-35.0); MCHC 31.5 g/dL (31.0-37.0); MCV 95.9 fL (80.0-100.0); Mean Platelet Volume 6.8; RBC 3.22 m/uL (3.80-5.40); RDW 13.8 % (11.5-15.5); WBC 4.6 k/uL (3.8-10.6)
[2016-12-23 06:47] LABS: Anion Gap 7 mmol/L; Calcium 8.7 mg/dL (8.4-10.2); Carbon Dioxide 22 mmol/L (22-30); Chloride 108 mmol/L (98-107); Glucose 103 mg/dL (74-99); Non-African American GFR(MDRD) >60 (>60 ml/min/1.73 sqM); Sodium 137 mmol/L (137-145)
[2016-12-23 06:50] LABS: Potassium 3.9 mmol/L (3.5-5.1)
[2016-12-23 06:51] LABS: Blood Urea Nitrogen 8 mg/dL (7-17)
[2016-12-23] MEDS: amLODIPine 5 MG TAB PO SCH (08:11)
[2016-12-23] MEDS: FAMOTIDINE 20 MG TAB PO SCH ×2 (08:11→19:56)
--- NOTE | 2016-12-23 09:50 | XR ---
EXAMINATION TYPE: XR chest 1V DATE OF EXAM: 12/23/2016 CLINICAL HISTORY: Status post left-sided thoracentesis for large effusion. TECHNIQUE: Single AP portable frontal upright view of the chest is obtained. COMPARISON: CTA chest from yesterday. FINDINGS: There is right internal jugular Mediport catheter with tip at caval atrial junction redemo nstrated. There is persistent large left pleural effusion though significantly improved after left-si ded thoracentesis. No sizable pneumothorax is evident. There is interval improvement in mediastinal s hift noted. Right lung remains predominantly clear. Silhouetting of left heart border remains present . Osseous structures are demineralized. IMPRESSION: Marked improvement in mediastinal shift and left lung opacity or effusion after thoracent esis. There is persistent fairly large pleural effusion noted. No sizable pneumothorax is seen.
--- NOTE | 2016-12-23 09:52 | US ---
EXAMINATION TYPE: US chest DATE OF EXAM: 12/23/2016 COMPARISON: CTA chest from yesterday. Same-day chest x-ray. CLINICAL HISTORY: Pain. Thoracentesis on the left this morning EXAM MEASUREMENTS: Right Pleural Effusion fluid pocket: 0 cm Left Pleural Effusion fluid pocket: 4.9 cm Assessed pocket post procedure to see how much fluid was left Pulmonologists are able to review the images in the patient?s EMR. After thoracentesis there is fairly moderate sized left pleural effusion that remains present. Compre ssive atelectasis is noted. IMPRESSIONS: As above
[2016-12-23 10:20] VITALS: BMI 22.1
[2016-12-23 11:27] LABS: Glucose,Whole Blood 125 mg/dL (75-99)
--- NOTE | 2016-12-23 12:10 | P.PN ---
Progress Note - Text Progress Note Date: 12/23/16 DATE OF SERVICE: 12/23/2016 PRESENTING COMPLAINT: Shortness of breath HISTORY OF PRESENT ILLNESS: 66-year-old female was experiencing increasing shortness of breath on a previous 3 days. Was receiving chemo treatment on 12/22/2016 and became even more short of breath, infusion center sent her to the emergency department for further evaluation Imaging revealed massive left-sided pleural effusion with complete collapse of the left lung and mediastinal shift of at least 7 cm from left to right with right lung compression.admitted for the same.admitted for the same. INTERVAL HISTORY: 12/23/2016: Patient seen in follow-up today sitting up in bed appears very comfortable, breathing is much more relaxed compared to yesterday. Dr. Tommy brennan pulmonology came in and perform bedside thoracentesis 2200 mL of fluid obtained culture sent. Tolerating her diet, ambulatory in the room, moving her bowels. REVIEW OF SYSTEMS: Done for constitutional ,cardiovascular, GI, pulmonary with relevant findings as above. CURRENT MEDICATIONS DuoNeb, Xanax, Norvasc 5 mg by mouth daily, Zofran 4 mg IV push every 6 hours, Ultram 50 mg by mouth 4 times a day when necessary PHYSICAL EXAM VITAL SIGNS: Temperature 97.0, pulse 100, respiratory rate 22, blood pressure 131/89, oxygen saturation 94% on 2 L. GENERAL APPEARANCE: Sitting up in bed, not in distress. EYES: Pupils equal. Conjunctiva normal. NECK: JVD not raised. Mass not palpable. RESPIRATORY: Respiratory effort normal. Lungs right lung clear to auscultation left fair airway movement to auscultation. CARDIOVASCULAR: First and second sounds normal. No edema. ABDOMEN: Soft. Liver and spleen not palpable. No tenderness. No mass palpable. PSYCHIATRY: Alert and oriented x3. Mood and affect normal. INVESTIGATIONS: Hemoglobin 9.7, Accu-Cheks noted. Chest x-ray: Marked improvement in mediastinal shift and left lung opacity or effusion after thoracentesis Ultrasound chest: Left pleural effusion pocket 4.9 cm, after thoracentesis there are fairly moderately sized left pleural effusion that remains present compressive atelectasis noted. ASSESSMENT: -Ovarian cancer, metastatic, including intraperitoneal and causing left large pleural effusion, improving -Large left pleural effusion with possible left lung mass causing mediastinal shift, improving -History of bilateral pulmonary embolism. -Colonic diverticulosis. -Moderate protein calorie malnutrition from decreased oral intake PLAN: Perform thoracentesis today, remove 2200 mL of fluid, small left pleural effusion remains we'll watch it to see if it redemonstrates. We'll restart Kaylie for her history of bilateral pulmonary embolism. Patient encouraged to be up out of bed. Plan of care discussed with the patient the bedside we will continue to monitor closely discharge planning for the next 24-48 hours based on patient condition. AIRCRAFT PART ASSEMBLER statement: Patient was seen and examined by nurse practitioner Marycarmen Simons and all elements of the case discussed with attending Dr. Damon
--- NOTE | 2016-12-23 12:38 | P.CNPUL ---
History of Present Illness Consult date: 12/23/16 Requesting physician: Justice Damon Reason for consult: pleural effusion Chief complaint: Shortness of breath History of present illness: This is a 66-year-old female who was recently diagnosed as having metastatic ovarian cancer. This diagnosis was made based on paracentesis fluid which was positive for ovarian cancer. Patient presented with ascites. Since the diagnosis in November of 2016, patient was started on chemotherapy. Patient received 1 round of chemotherapy, and she presented to the ER with 3-4 days history of shortness of breath. Chest x-ray and CT of the chest showed complete opacification of the left lung consistent with large left pleural effusion and tracheal deviation to the contralateral side, there was complete collapse of the left lung, and mediastinal shift of at least 7 cm from left-to- right with some compression noted on the right lung. Considering the abnormality on the chest x-ray and CT of the chest, considering her shortness of breath, I was asked to see the patient on consultation. Patient was seen earlier today, left sided thoracentesis was performed at bedside, and roughly 2400 mL of bloody pleural effusion was removed from the left pleural space. Patient had dramatic clinical improvement fluid was sent for different diagnostic studies. Review of Systems GEN.: Generalized weakness and tiredness. Fatigue. EYES: No blurred vision, no dizziness, no diplopia. HEENT: No sore throat, no neck pain, no cervical lymphadenopathy. NECK: No masses. RESPIRATORY: As noted in HPI CARDIOVASCULAR: No cardiac symptoms, no palpitations, no angina, GASTROINTESTINAL: Some abdominal distention, no nausea no vomiting no abdominal pain no melena no hematemesis GENITOURINARY: No dysuria and no frequency no urgency no hematuria. MUSCULOSKELETAL: Chronic back pain] LYMPHATICS: No evidence of enlarged nodes HEMATOLOGICAL: Recently diagnosed ovarian cancer, presently on chemotherapy PSYCHIATRY: No symptoms of active depression. NEUROLOGICAL: No headache, no dizziness, no ataxia. Past Medical History Past Medical History: Diabetes Mellitus Additional Past Medical History / Comment(s): Blood clots in lungs as result of disease process - November 2016. Ovarian cancer - November 2016. Diet controlled diabetic History of Any Multi-Drug Resistant Organisms: None Reported Past Surgical History: No Surgical Hx Reported Past Anesthesia/Blood Transfusion Reactions: No Reported Reaction Past Psychological History: No Psychological Hx Reported Smoking Status: Never smoker Past Alcohol Use History: None Reported Past Drug Use History: None Reported - Past Family History Mother Family Medical History: Congestive Heart Failure (CHF), CVA/TIA, Hypertension Father Family Medical History: CVA/TIA Brother(s) Additional Family Medical History / Comment(s): colon cancer, lymphoma Medications and Allergies Home Medications Medication Instructions Recorded Confirmed Type Acetaminophen Tab [Tylenol] 650 mg PO Q6HR PRN tab 11/18/16 12/22/16 Rx Apixaban [Eliquis] 5 mg PO BID #80 tab 11/18/16 12/22/16 Rx Famotidine [Pepcid] 20 mg PO BID #60 tab 11/18/16 12/22/16 Rx Ondansetron Odt [Zofran Odt] 4 mg PO Q8HR PRN #20 tab 11/18/16 12/22/16 Rx traMADol HCl [Ultram] 50 mg PO QID PRN #120 tab 11/18/16 12/22/16 Rx Allergies Allergy/AdvReac Type Severity Reaction Status Date / Time aspirin Allergy Rash/Hives Verified 12/22/16 13:52 Iodinated Contrast- Oral and Allergy Rash/Hives Verified 12/22/16 13:52 IV Dye Penicillins Allergy Rash/Hives Verified 12/22/16 13:52 Physical Exam Vitals: Vital Signs Temp Pulse Pulse Resp BP BP Pulse Ox 12/23/16 11:24 81 18 12/23/16 11:23 97.6 F 81 18 123/79 95 12/23/16 10:15 97.1 F L 86 18 132/80 94 L 12/23/16 10:00 97.0 F L 88 18 131/66 93 L 12/23/16 09:45 97.0 F L 86 20 130/80 94 L 12/23/16 09:30 97.0 F L 84 20 130/78 93 L 12/23/16 08:43 97.0 F L 100 22 131/89 93 L 12/23/16 08:29 94 L 12/23/16 08:00 97.0 F L 100 22 131/89 94 L 12/23/16 03:53 80 21 12/23/16 03:51 98.7 F 80 21 154/96 97 12/22/16 23:49 81 18 12/22/16 23:48 98.8 F 81 18 147/97 97 12/22/16 20:00 98.1 F 80 19 154/105 95 12/22/16 18:17 77 18 184/105 99 12/22/16 17:20 77 18 184/105 92 L 12/22/16 17:17 80 18 152/100 95 12/22/16 16:36 161/97 12/22/16 15:33 93 20 185/104 96 12/22/16 14:33 19 12/22/16 13:26 98.4 F 90 20 180/110 91 L Intake and Output 12/22/16 12/23/16 12/23/16 22:59 06:59 14:59 Intake Total 440 480 Output Total 400 300 Balance 40 180 Intake: Intake, IV Titration 140 240 Amount Sodium Chloride 0.9% 1, 140 240 000 ml @ 20 mls/hr IV . Q[facility]H [facility] Rx#:[id number] Oral 300 240 Output: Urine 400 300 Other: Voiding Method Toilet Toilet Toilet # Voids 2 3 1 Weight 53.2 kg 53.2 kg Patient Weight 12/24/16 06:59 Weight 53.2 kg General appearance: Revealed a 66-year-old female slightly anxious in no distress. Head exam: atraumatic, normocephalic, normal inspection Eye exam: normal appearance, PERRL, EOMI. Absent: scleral icterus, conjunctival injection, periorbital swelling ENT exam: normal exam, mucous membranes moist Neck exam: normal inspection. Absent: tenderness, meningismus, lymphadenopathy Respiratory exam: Diminished breath sounds over the left lung, normal breath sounds over the right side. Dullness on the left side noted. Cardiovascular Exam: regular rate, normal rhythm, normal heart sounds. Absent : systolic murmur, diastolic murmur, rubs, gallop, clicks GI/Abdominal exam soft, normal bowel sounds. Absent: distended, tenderness, guarding, rebound, rigid Extremities exam: normal inspection, full ROM, normal capillary refill. Absent : tenderness, pedal edema, joint swelling, calf tenderness Back exam: normal inspection Neurological exam: Alert and oriented 3, no gross focal neurologic deficit. Psychiatric exam: Normal mood and affect, normal mental status examination, slightly anxious. Skin exam:warm, dry, intact, normal color. Absent: rash Results - Laboratory Findings CBC and BMP: 12/23/16 05:51 12/23/16 05:51 PT/INR, D-dimer PT 11.6 sec (9.0-12.0) 12/22/16 14:11 INR 1.2 (<1.2) H 12/22/16 14:11 Abnormal lab findings: Abnormal Labs 12/22/16 12/22/16 12/22/16 14:11 14:11 14:11 RBC 3.50 L Hgb 10.8 L Hct 33.6 L Lymphocytes # 0.4 L INR 1.2 H Chloride Glucose 176 H POC Glucose (mg/dL) Magnesium 1.5 L Alkaline Phosphatase 157 H Albumin 3.4 L 12/22/16 12/23/16 12/23/16 21:01 05:51 05:51 RBC 3.22 L Hgb 9.7 L Hct 30.9 L Lymphocytes # INR Chloride 108 H Glucose 103 H POC Glucose (mg/dL) 153 H Magnesium Alkaline Phosphatase Albumin 12/23/16 12/23/16 06:01 11:24 RBC Hgb Hct Lymphocytes # INR Chloride Glucose POC Glucose (mg/dL) 112 H 125 H Magnesium Alkaline Phosphatase Albumin - Diagnostic Findings CT scan - chest: image reviewed (Agree with reading as per radiology.) Assessment and Plan Assessment: Impression: 1 large left pleural effusion with complete collapse of the left lung secondary to metastatic ovarian cancer. 2 history of pulmonary embolism, patient has been on anticoagulation therapy most likely her pulmonary embolism has been provoked by malignancy. 3 history of colonic diverticulosis. Recommendation: Patient underwent left sided thoracentesis with significant clinical improvement noted. Await the final report on the pleural effusion cytology, and cultures, in the meantime continue present supportive care measures, explained to the patient and her daughter at bedside that the fluid reoccurs within a very short period of time, she may require a Pleurx catheter placement. Otherwise repeat thoracentesis may be necessary. We'll continue to follow. Time with Patient: Greater than 30
--- NOTE | 2016-12-23 12:57 | PCN ---
PROCEDURE NOTE PROCEDURE: Left-sided thoracentesis. PREOPERATIVE DIAGNOSIS: Left pleural effusion. POSTOPERATIVE DIAGNOSIS: Left pleural effusion. ANESTHESIA USED: Two mL of 1% lidocaine. DESCRIPTION OF PROCEDURE: Patient was prepared according to the protocol, placed in a sitting upright position, leaning forward on a table, the area below the left scapula was prepared in a sterile fashion and drapes were applied. At the level of the eighth intercostal space and tip of the scapula, the area was locally anesthetized with lidocaine. Then a standard thoracentesis needle with catheter inserted into the same site into the pleural space, until the fluid was obtained. Then, the catheter was advanced out of the needle into the pleural space, and the needle was pulled out of the epidural space. Freely flowing fluid was removed, the fluid was grossly bloody, and roughly at 2400 mL of bloody pleural effusion was removed from the left pleural space. The procedure was well- tolerated, no evidence of any immediate complications, chest x-ray showed significant improvement of the left-sided pleural effusion, there was some residual pleural effusion and atelectasis still noted. No evidence of pneumothorax. The fluid was sent for different diagnostic studies. MMODL / IJN: [id number] /
[2016-12-23] MEDS: SODIUM CHLORIDE 0.9% 1,000 ML IV SCH (15:50)
[2016-12-23 16:34] LABS: Glucose,Whole Blood 106 mg/dL (75-99)
--- NOTE | 2016-12-23 18:42 | P.CONS ---
History of Present Illness - Reason for Consult Consult date: 12/23/16 pleural effusion, ovarian cancer Requesting physician: Maynor Landrum - Chief Complaint SOB - History of Present Illness Mrs. Leija is a pleasant female patient who was initially seen in consult at [facility] on 11/16/16. She was admitted for complaints of abdominal bloating, 1 week to 10 days duration, progressive, and ultimately causing increased abdominal discomfort. CT AP revealed significant ascites as well as a left pleural effusion, US showed multiple cysts involving both ovaries, 1.6 cm on the right and 2.6 cm on the left. 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 Valentin who recommended 3 cycles neoadjuvant, eval for surgery followed by adjuvant chemotherapy. She is s/p 1st cycle of carbo/taxol day 1, 8 15. Pt has had progressive SOB over the last 2 weeks, she was sent for chest xray which was positive for massive left pleural effusion, collapse of left lung as well as mediastinal shift. When seen the patient is status post thoracentesis, fluid has been sent for cytology. Patient states improvement in breathing, she denies having any fevers, chills, chest pain, palpitations, appetite is poor but denies nausea or vomiting, she did eat some fruits tonight and it tasted good to her. She denies any acute changes in her bowel or bladder habits, she denies any swelling in the legs, she is not experiencing any pain at this time. Review of Systems 10 point ROS as stated in HPI Past Medical History Past Medical History: Cancer, Diabetes Mellitus Additional Past Medical History / Comment(s): Blood clots in lungs as result of disease process - November 2016. Ovarian cancer - November 2016. Diet controlled diabetic History of Any Multi-Drug Resistant Organisms: None Reported Past Surgical History: No Surgical Hx Reported Additional Past Surgical History / Comment(s): thoracentesis Past Anesthesia/Blood Transfusion Reactions: No Reported Reaction Past Psychological History: No Psychological Hx Reported Smoking Status: Never smoker Past Alcohol Use History: None Reported Past Drug Use History: None Reported - Past Family History Mother Family Medical History: Congestive Heart Failure (CHF), CVA/TIA, Hypertension Father Family Medical History: CVA/TIA Brother(s) Additional Family Medical History / Comment(s): colon cancer, lymphoma Medications and Allergies Home Medications Medication Instructions Recorded Confirmed Type Acetaminophen Tab [Tylenol] 650 mg PO Q6HR PRN tab 11/18/16 12/22/16 Rx Apixaban [Eliquis] 5 mg PO BID #80 tab 11/18/16 12/22/16 Rx Famotidine [Pepcid] 20 mg PO BID #60 tab 11/18/16 12/22/16 Rx Ondansetron Odt [Zofran Odt] 4 mg PO Q8HR PRN #20 tab 11/18/16 12/22/16 Rx traMADol HCl [Ultram] 50 mg PO QID PRN #120 tab 11/18/16 12/22/16 Rx Allergies Allergy/AdvReac Type Severity Reaction Status Date / Time aspirin Allergy Rash/Hives Verified 12/22/16 13:52 Iodinated Contrast- Oral and Allergy Rash/Hives Verified 12/22/16 13:52 IV Dye Penicillins Allergy Rash/Hives Verified 12/22/16 13:52 Physical Exam Vitals: Vital Signs Temp Pulse Resp BP Pulse Ox 12/23/16 15:33 94 16 12/23/16 15:32 97.4 F L 94 16 115/70 95 12/23/16 11:24 81 18 12/23/16 11:23 97.6 F 81 18 123/79 95 12/23/16 10:15 97.1 F L 86 18 132/80 94 L 12/23/16 10:00 97.0 F L 88 18 131/66 93 L 12/23/16 09:45 97.0 F L 86 20 130/80 94 L 12/23/16 09:30 97.0 F L 84 20 130/78 93 L 12/23/16 08:43 97.0 F L 100 22 131/89 93 L 12/23/16 08:29 94 L 12/23/16 08:00 97.0 F L 100 22 131/89 94 L 12/23/16 03:53 80 21 12/23/16 03:51 98.7 F 80 21 154/96 97 12/22/16 23:49 81 18 12/22/16 23:48 98.8 F 81 18 147/97 97 12/22/16 20:00 98.1 F 80 19 154/105 95 Intake and Output 12/23/16 12/23/16 12/23/16 06:59 14:59 22:59 Intake Total 440 720 240 Output Total 400 300 300 Balance 40 420 -60 Intake: Intake, IV Titration 140 240 Amount Sodium Chloride 0.9% 1, 140 240 000 ml @ 20 mls/hr IV . Q24H [facility] Rx#:[id number] Oral 300 480 240 Output: Urine 400 300 300 Other: Voiding Method Toilet Toilet Toilet # Voids 3 1 1 Weight 53.2 kg 53.2 kg Patient Weight 12/24/16 06:59 Weight 53.2 kg - Constitutional General appearance: cooperative, no acute distress, thin - EENT Eyes: anicteric sclerae, normal appearance ENT: normal oropharynx - Neck Neck: no lymphadenopathy - Respiratory Respiratory: right: CTA, left: diminished - Cardiovascular Rhythm: regular Heart sounds: normal: S1, S2 Abnormal Heart Sounds: no systolic murmur, no diastolic murmur, no rub, no S3 Gallop, no S4 Gallop, no click, no other leg Peripheral Edema: bilateral: None - Gastrointestinal General gastrointestinal: no absent bowel sounds, no decreased bowel sounds, no distended, no hepatomegaly, no hyperactive bowel sounds, normal bowel sounds, no organomegaly, no rigid, no scaphoid, soft, no splenomegaly, no tenderness, no umbilical hernia, no ventral hernia - Integumentary Integumentary: normal - Neurologic Neurologic: CNII-XII intact - Musculoskeletal Musculoskeletal: strength equal bilaterally - Psychiatric Psychiatric: A&O x's 3, appropriate affect, intact judgment & insight Results CBC & Chem 7: 12/23/16 05:51 12/23/16 05:51 Labs: Abnormal Lab Results - Last 24 Hours (Table) 12/22/16 12/23/16 12/23/16 Range/Units 21:01 05:51 05:51 RBC 3.22 L (3.80-5.40) m/uL Hgb 9.7 L (11.4-16.0) gm/dL Hct 30.9 L (34.0-46.0) % Chloride 108 H (98-107) mmol/L Glucose 103 H (74-99) mg/dL POC Glucose (mg/dL) 153 H (75-99) mg/dL 12/23/16 12/23/16 12/23/16 Range/Units 06:01 11:24 16:31 RBC (3.80-5.40) m/uL Hgb (11.4-16.0) gm/dL Hct (34.0-46.0) % Chloride (98-107) mmol/L Glucose (74-99) mg/dL POC Glucose (mg/dL) 112 H 125 H 106 H (75-99) mg/dL Microbiology - Last 24 Hours (Table) 12/23/16 09:15 Body Fluid Culture - Preliminary Pleural Fluid 12/23/16 09:15 Acid Fast Bacilli Culture - Preliminary Pleural Fluid 12/23/16 09:15 Fungal Culture - Preliminary Pleural Fluid Assessment and Plan (1) Pleural effusion, left Narrative/Plan: Pt has had prior, most likely due to ascites as patient has had no evidence of disease in the chest previously. Cytology is pending. Symptoms are significantly improved post thoracentesis. Current Visit: Yes Status: Acute Priority: High Code(s): J90 - PLEURAL EFFUSION, NOT ELSEWHERE CLASSIFIED SNOMED Code(s): 08993215 (2) Ovarian cancer Narrative/Plan: Pt on neoadjuvant treatment, actually doing fairly well, treatment will continue outpatient Current Visit: No Status: Chronic Priority: Medium Code(s): C56.9 - MALIGNANT NEOPLASM OF UNSPECIFIED OVARY SNOMED Code(s): 203773730 (3) Ascites Current Visit: No Status: Acute Priority: Medium Code(s): R18.8 - OTHER ASCITES SNOMED Code(s): 430997120 (4) Pulmonary embolus Narrative/Plan: Patient needs to be resumed on anticoagulation as soon as possible post- thoracentesis per Pulmonary recommendations. Current Visit: No Status: Acute Priority: High Code(s): I26.99 - OTHER PULMONARY EMBOLISM WITHOUT ACUTE COR PULMONALE SNOMED Code(s): 80768781
[2016-12-23 21:09] LABS: Glucose,Whole Blood 94 mg/dL (75-99)
[2016-12-24] MEDS: ALPRAZolam 0.25 MG TAB PO PRN (00:10)
[2016-12-24] MEDS: ACETAMINOPHEN TAB 325 MG TAB PO PRN ×3 (04:27→16:17)
[2016-12-24] MEDS: ONDANSETRON 4 MG/2 ML VIAL IVP PRN ×3 (04:28→16:17)
--- NOTE | 2016-12-24 04:32 | PN ---
PROGRESS NOTE DATE OF SERVICE: 12/23/16. ATTENDING NOTE: This patient seen and examined by me. I discussed with my COLOR STRAINER, Ms. Simons. This is a patient with metastatic ovarian cancer, admitted with large pleural effusion. This morning about 3200 of bloody fluid was tapped, feeling a bit better. Daughter was at the bedside. PHYSICAL EXAMINATION: Temperature 97.1, blood pressure 130/80, pulse ox 94% on 2 L. lungs decreased breath sounds. Patient is sitting up. Less short of breath. INVESTIGATIONS: White count 4.6, hemoglobin 9.7. ASSESSMENT: 1. Ovarian cancer, metastatic, including intraperitoneal metastasis likely causing pleural effusion. 2. Symptomatic large left pleural effusion status post thoracentesis and collapse of the left lung. 3. History of bilateral pulmonary embolism. 4. Colonic diverticulosis. 5. Moderate protein-calorie malnutrition from decreased oral intake. 6. Normocytic anemia secondary to underlying malignancy. PLAN: Care was discussed with Dr. Barrett. We will have a repeat chest x-ray tomorrow. If things are stable, I think patient could go home tomorrow and follow up with Oncology as an outpatient. Has already started on chemotherapy. MMODL / IJN: [id number] /
[2016-12-24 04:41] VITALS: RESP 18
[2016-12-24 06:19] LABS: Glucose,Whole Blood 87 mg/dL (75-99)
[2016-12-24] MEDS: FAMOTIDINE 20 MG TAB PO SCH (08:20)
[2016-12-24 09:01] VITALS: PULSE 106
--- NOTE | 2016-12-24 09:35 | XR ---
EXAMINATION TYPE: XR chest 1V portable DATE OF EXAM: 12/24/2016 COMPARISON: 11/14/2016, 12/23/2016. INDICATION: 24 hours post thoracentesis TECHNIQUE: Single frontal view of the chest is obtained. FINDINGS: The heart size is normal. The pulmonary vasculature is normal. Moderate left pleural effusion remains present. No developing pneumothorax is evident. Right-sided po rt is present with the tip in the superior vena cava right atrial junction. IMPRESSION: 1. No pneumothorax postthoracentesis. Moderate left pleural effusion is present.
[2016-12-24] MEDS: amLODIPine 5 MG TAB PO SCH (09:57)
--- NOTE | 2016-12-24 11:32 | P.PN ---
Subjective Progress Note Date: 12/24/16 Principal diagnosis: Metastatic ovarian cancer with a large left pleural effusion This is a 66-year-old female who was recently diagnosed as having metastatic ovarian cancer. This diagnosis was made based on paracentesis fluid which was positive for ovarian cancer. Patient presented with ascites. Since the diagnosis in November of 2016, patient was started on chemotherapy. Patient received 1 round of chemotherapy, and she presented to the ER with 3-4 days history of shortness of breath. Chest x-ray and CT of the chest showed complete opacification of the left lung consistent with large left pleural effusion and tracheal deviation to the contralateral side, there was complete collapse of the left lung, and mediastinal shift of at least 7 cm from left-to- right with some compression noted on the right lung. Considering the abnormality on the chest x-ray and CT of the chest, considering her shortness of breath, I was asked to see the patient on consultation. Patient was seen earlier today, left sided thoracentesis was performed at bedside, and roughly 2400 mL of bloody pleural effusion was removed from the left pleural space. Patient had dramatic clinical improvement fluid was sent for different diagnostic studies. Vision was seen again today 12/24/2016 in follow-up on the selective care unit. She is currently awake and alert in no acute distress. He is maintaining O2 saturations in the 90s on room air. She is afebrile. Hemodynamically stable. Chest x-ray reveals no pneumothorax post thoracentesis. There continues with a moderate left pleural effusion. Cultures and pathology are pending. Dr. Barrett discussed with the patient possibility of a Pleurx catheter however she declines this at this time. Objective - Vital Signs Vital signs: Vital Signs Temp 97.1 F L 12/24/16 08:00 Pulse 106 H 12/24/16 08:00 Resp 18 12/24/16 08:00 BP 111/75 12/24/16 08:00 Pulse Ox 93 L 12/24/16 08:00 Intake & Output 12/23/16 12/24/16 12/24/16 18:59 06:59 18:59 Intake Total 960 870 580 Output Total 600 300 300 Balance 360 570 280 Weight 53.2 kg 51.1 kg Intake: Intake, IV Titration 240 120 240 Amount Sodium Chloride 0.9% 1, 240 120 240 000 ml @ 20 mls/hr IV . Q24H [facility] Rx#:[id number] Oral 720 750 340 Output: Urine 600 300 300 Other: Voiding Method Toilet Toilet Toilet # Voids 1 1 - Exam General appearance: Revealed a 66-year-old female slightly anxious in no distress. Head exam: atraumatic, normocephalic, normal inspection Eye exam: normal appearance, PERRL, EOMI. Absent: scleral icterus, conjunctival injection, periorbital swelling ENT exam: normal exam, mucous membranes moist Neck exam: normal inspection. Absent: tenderness, meningismus, lymphadenopathy Respiratory exam: Diminished breath sounds over the left lung, normal breath sounds over the right side. Dullness on the left side noted. Cardiovascular Exam: regular rate, normal rhythm, normal heart sounds. Absent : systolic murmur, diastolic murmur, rubs, gallop, clicks GI/Abdominal exam soft, normal bowel sounds. Absent: distended, tenderness, guarding, rebound, rigid Extremities exam: normal inspection, full ROM, normal capillary refill. Absent : tenderness, pedal edema, joint swelling, calf tenderness Back exam: normal inspection Neurological exam: Alert and oriented 3, no gross focal neurologic deficit. Psychiatric exam: Normal mood and affect, normal mental status examination, slightly anxious. Skin exam:warm, dry, intact, normal color. Absent: rash - Labs CBC & Chem 7: 12/23/16 05:51 12/23/16 05:51 Labs: Abnormal Lab Results - Last 24 Hours (Table) 12/23/16 12/23/16 Range/Units 11:24 16:31 POC Glucose (mg/dL) 125 H 106 H (75-99) mg/dL Microbiology - Last 24 Hours (Table) 12/23/16 09:15 Gram Stain - Preliminary Pleural Fluid Body Fluid Culture - Preliminary 12/23/16 09:15 Acid Fast Bacilli Smear - Final Pleural Fluid Acid Fast Bacilli Culture - Preliminary 12/23/16 09:15 Fungal Culture - Preliminary Pleural Fluid Assessment and Plan Assessment: Impression: 1 large left pleural effusion with complete collapse of the left lung secondary to metastatic ovarian cancer. Status post large volume thoracentesis with approximately 2.4 L returned. Pathology is pending. 2 history of pulmonary embolism, patient has been on anticoagulation therapy most likely her pulmonary embolism has been provoked by malignancy. 3 history of colonic diverticulosis. Recommendation: The patient was seen and evaluated by Dr. Barrett. Her chest x-ray was reviewed. He did offer the patient a Pleurx catheter placement for suspected recurrent left pleural effusions however she declines any further intervention at this time. She is stable from the pulmonary standpoint and could be discharged home today. Will continue with her outpatient neoadjuvant treatment per oncology. I, the cosigning physician, have performed a history and physical examination on the patient. Lung sounds diminished in the left lung base. Maintaining good O2 saturations in the 90s on room air. I have discussed the assessment and plan of care with my nurse practitioner, Shivani Ro. I attest the above documented note as dictated by her.
[2016-12-24 11:41] LABS: Glucose,Whole Blood 111 mg/dL (75-99)
[2016-12-24] MEDS: SODIUM CHLORIDE 0.9% 1,000 ML IV SCH (15:31)
--- NOTE | 2016-12-24 15:58 | P.PN ---
Progress Note - Text Progress Note Date: 12/24/16 DATE OF SERVICE: 12/24/2016 PRESENTING COMPLAINT: Shortness of breath HISTORY OF PRESENT ILLNESS: 66-year-old female was experiencing increasing shortness of breath on a previous 3 days. Was receiving chemo treatment on 12/22/2016 and became even more short of breath, infusion center sent her to the emergency department for further evaluation Imaging revealed massive left-sided pleural effusion with complete collapse of the left lung and mediastinal shift of at least 7 cm from left to right with right lung compression.admitted for the same.admitted for the same. INTERVAL HISTORY: 12/24/2016: Patient seen in follow-up today sitting up in bed appears very comfortable breathing easier. Has some concerns about reinflation of the lung. Did not sleep well last night, and today has some mild anxiety. Eating more for breakfast in the days previous. Ambulatory in the room, moved her bowels. Discussion was had at the bedside with patient regarding possibility of draining the remaining fluid or putting in a drain. We'll await pulmonology for their input. 12/23/2016: Patient seen in follow-up today sitting up in bed appears very comfortable, breathing is much more relaxed compared to yesterday. Dr. Tommy brennan pulmonology came in and perform bedside thoracentesis 2200 mL of fluid obtained culture sent. Tolerating her diet, ambulatory in the room, moving her bowels. REVIEW OF SYSTEMS: Done for constitutional ,cardiovascular, GI, pulmonary with relevant findings as above. CURRENT MEDICATIONS DuoNeb, Xanax, Norvasc 5 mg by mouth daily, Zofran 4 mg IV push every 6 hours, Ultram 50 mg by mouth 4 times a day when necessary PHYSICAL EXAM VITAL SIGNS: Temperature 97.0, pulse 100, respiratory rate 22, blood pressure 131/89, oxygen saturation 94% on 2 L. GENERAL APPEARANCE: Sitting up in bed, not in distress. EYES: Pupils equal. Conjunctiva normal. NECK: JVD not raised. Mass not palpable. RESPIRATORY: Respiratory effort normal. Lungs right lung clear to auscultation left fair airway movement to auscultation. CARDIOVASCULAR: First and second sounds normal. No edema. ABDOMEN: Soft. Liver and spleen not palpable. No tenderness. No mass palpable. PSYCHIATRY: Alert and oriented x3. Mood and affect normal. INVESTIGATIONS: Hemoglobin 9.7, Accu-Cheks noted. Chest x-ray: Marked improvement in mediastinal shift and left lung opacity or effusion after thoracentesis Ultrasound chest: Left pleural effusion pocket 4.9 cm, after thoracentesis there are fairly moderately sized left pleural effusion that remains present compressive atelectasis noted. ASSESSMENT: -Ovarian cancer, metastatic, including intraperitoneal and causing left large pleural effusion, improving -Symptomatic Large left pleural effusion status post thoracentesis and collapse of the left lung -History of bilateral pulmonary embolism. -Colonic diverticulosis. -Moderate protein calorie malnutrition from decreased oral intake -Normocytic anemia secondary to underlying malignancy. PLAN: Discussed with pulmonology the possibility of a Pleurx catheter this is presented to the patient and she refused. We will continue current medication and treatment plan and based on how patient does overnight. We'll tentatively plan for discharge in the morning. Plan of care discussed with the patient the bedside we will continue to monitor closely. DONOR SERVICES MANAGER statement: Patient was seen and examined by nurse practitioner Marycarmen Simons and all elements of the case discussed with attending Dr. Damon
[2016-12-24 16:31] VITALS: BP 115/70; TEMP 96.8
[2016-12-24 16:56] LABS: Glucose,Whole Blood 104 mg/dL (75-99)
--- NOTE | 2016-12-24 18:30 | PN ---
PROGRESS NOTE DATE OF SERVICE: 12/24/2016 ATTENDING NOTE: Patient was seen and examined by me. I discussed with my nurse practitioner, Ms. Simons. This is a patient with metastatic ovarian cancer, presented with large pleural effusion, status post paracentesis of 3200 mL. Breathing is better. I spoke to Dr. Barrett today. The patient is comfortable, actually did eat better. EXAMINATION: Blood pressure 111/75, pulse ox 93% on room air, repeat pulse ox 97% room air. LUNGS: Decreased breath sounds. Chest x-ray showing some moderate left pleural effusion. ASSESSMENT: Status post paracentesis. I spoke to Dr. Barrett, who is going to speak to the patient about a Pleur-evac for constant draining. Later on, his SIGN ERECTOR called my SIGN ERECTOR to inform me that the patient did not want to get a Pleur-evac. The patient encouraged to ambulate, use the IS, see how she does. Otherwise, I am hoping patient can be discharged tomorrow. CORINA / MACN: [id number] /
--- NOTE | 2016-12-24 18:30 | P.PN ---
Subjective Progress Note Date: 12/24/16 Principal diagnosis: Left pleural effusion. Ovarian cancer The patient feels much better, after her thoracentesis yesterday. No fever, chills, nausea or vomiting. She denies any chest pain. She has had no recurrence of abdominal distention. Objective - Vital Signs Vital signs: Vital Signs Temp 96.8 F L 12/24/16 16:00 Pulse 106 H 12/24/16 16:00 Resp 18 12/24/16 16:00 BP 115/70 12/24/16 16:00 Pulse Ox 95 12/24/16 16:00 Intake & Output 12/23/16 12/24/16 12/24/16 18:59 06:59 18:59 Intake Total 814 022 8191 Output Total 600 300 600 Balance 360 570 456 Weight 53.2 kg 51.1 kg Intake: Intake, IV Titration 240 120 240 Amount Sodium Chloride 0.9% 1, 240 120 240 000 ml @ 20 mls/hr IV . Q24H KAIL[facility] Rx#:[id number] Oral 720 750 816 Output: Urine 600 300 600 Other: Voiding Method Toilet Toilet Toilet # Voids 1 1 # Bowel Movements 1 - Constitutional General appearance: Present: no acute distress - EENT Eyes: Present: EOMI, PERRLA ENT: Present: hearing grossly normal, normal oropharynx - Neck Thyroid: bilateral: normal size - Respiratory Respiratory: left: diminished (Lower lobe. Air entry reasonable and upper lobe) - Cardiovascular Rhythm: regular Heart sounds: normal: S1, S2 - Gastrointestinal General gastrointestinal: Present: normal bowel sounds, soft - Integumentary Integumentary: Present: normal - Neurologic Neurologic: Present: CNII-XII intact - Musculoskeletal Musculoskeletal: Present: generalized weakness, strength equal bilaterally - Psychiatric Psychiatric: Present: A&O x's 3, appropriate affect - Labs CBC & Chem 7: 12/23/16 05:51 12/23/16 05:51 Labs: Abnormal Lab Results - Last 24 Hours (Table) 12/24/16 12/24/16 Range/Units 11:37 16:55 POC Glucose (mg/dL) 111 H 104 H (75-99) mg/dL Microbiology - Last 24 Hours (Table) 12/23/16 09:15 Gram Stain - Preliminary Pleural Fluid Body Fluid Culture - Preliminary 12/23/16 09:15 Acid Fast Bacilli Smear - Final Pleural Fluid Acid Fast Bacilli Culture - Preliminary 12/23/16 09:15 Fungal Culture - Preliminary Pleural Fluid Assessment and Plan (1) Pleural effusion, left Narrative/Plan: The patient had developed a new onset massive left pleural effusion. She had a drainage of 2.4 L of mostly bloody fluid. Cytology is pending. She has had significance symptomatic relief. This presentation is concerning for a malignant pleural effusion. If cytology confirms the same, this would change her stage to stage IV. The implications of the same were discussed in detail with her and her family. The patient is on Eliquis, but hemothorax is felt to be unlikely as her hemoglobin did not drop. From our standpoint, the patient is okay to be discharged if felt to be appropriate for the same by the admitting service and pulmonary medicine. If she was to have recurrence of the effusion in the short-term, then she would be an appropriate candidate for Pleurx catheter placement Current Visit: Yes Status: Acute Priority: High Code(s): J90 - PLEURAL EFFUSION, NOT ELSEWHERE CLASSIFIED SNOMED Code(s): 29435037 (2) Ovarian cancer Narrative/Plan: The patient on initial diagnosis had stage III disease. She is being treated with neoadjuvant chemotherapy with a curative intent. The plan is for her to have surgery after 3-4 cycles of neoadjuvant chemotherapy with carboplatin and Taxol. However if the pleural effusion were to be malignant, this would likely change her stage to stage IV. This is considered not curable, and surgery in this situation would not be of benefit. In that case, the patient will continue on systemic therapy, with a palliative intent. She will continue chemotherapy as scheduled, on 12/28/16 Current Visit: No Status: Chronic Priority: Medium Code(s): C56.9 - MALIGNANT NEOPLASM OF UNSPECIFIED OVARY SNOMED Code(s): 883391398
--- NOTE | 2016-12-25 15:46 | P.DS ---
Providers Date of admission: 12/22/16 16:16 Expected date of discharge: 12/24/16 Attending physician: Justice Damon Consults: 12/22/16 16:16 Consult Physician Routine Consulting Provider: Sarah Barrett Consult Reason/Comments: pleural effusion Do you want consulting provider notified?: Yes Consult Physician Routine Consulting Provider: Shayne Springer Consult Reason/Comments: pleuralEffusion Do you want consulting provider notified?: Yes Primary care physician: Mayco Carlson Hospital Course: FINAL DIAGNOSES: -Ovarian cancer, metastatic, including intraperitoneal and causing left large pleural effusion, improving -Symptomatic Large left pleural effusion status post thoracentesis and collapse of the left lung -History of bilateral pulmonary embolism. -Colonic diverticulosis. -Moderate protein calorie malnutrition from decreased oral intake -Normocytic anemia secondary to underlying malignancy. HOSPTIAL COURSE: T6-year-old female who is experiencing increasing shortness of breath for the previous 3 days was found on imaging to have a massive left-sided pleural effusion with complete collapse of the left lung with mediastinal shift and was admitted for the same. Home medications reordered pulmonology consulted. Breathing treatments provided, oxygen therapy provided. Pulmonology for thoracentesis and obtained 2 L of straw-colored drainage. Breathing improved, patient tolerating her diet, ambulatory in the room and hallway, last BM today. Anxious to go home., Condition stabilized and cleared by consultants appropriate for discharge. PHYSICAL EXAM: CARDIOVASCULAR: First and second sounds noted no edema RESPIRATORY: Asthma toward effort normal, lung sounds diminished bilaterally GI: Soft nontender liver and spleen not palpable PSYCHIATRY: Alert and oriented 3 mood and affect anxious: Patient was seen and examined by nurse practitioner Marycarmen Simons in all elements of the case discussed with attending Dr. Damon DISPOSITION: Home To the care of her family Patient Condition at Discharge: Stable Plan - Discharge Summary New Discharge Prescriptions: New Famotidine [Pepcid] 20 mg PO BID #60 tablet amLODIPine [Norvasc] 5 mg PO DAILY #30 tab ALPRAZolam [Xanax] 0.25 mg PO BID PRN #10 tab PRN Reason: Anxiety Continue Apixaban [Eliquis] 5 mg PO BID #80 tab Acetaminophen Tab [Tylenol] 650 mg PO Q6HR PRN tab PRN Reason: Mild Pain Or Fever > 100.5 traMADol HCl [Ultram] 50 mg PO QID PRN #120 tab PRN Reason: MODERATE TO SEVERE Pain Ondansetron Odt [Zofran ODT] 4 mg PO Q8HR PRN #20 tab PRN Reason: Nausea And Vomiting Discontinued Famotidine [Pepcid] 20 mg PO BID #60 tab Discharge Medication List Acetaminophen Tab [Tylenol] 650 mg PO Q6HR PRN tab 11/18/16 [Rx] Apixaban [Eliquis] 5 mg PO BID #80 tab 11/18/16 [Rx] Ondansetron Odt [Zofran ODT] 4 mg PO Q8HR PRN #20 tab 11/18/16 [Rx] traMADol HCl [Ultram] 50 mg PO QID PRN #120 tab 11/18/16 [Rx] Famotidine [Pepcid] 20 mg PO BID #60 tablet 12/23/16 [Rx] ALPRAZolam [Xanax] 0.25 mg PO BID PRN #10 tab 12/24/16 [Rx] amLODIPine [Norvasc] 5 mg PO DAILY #30 tab 12/24/16 [Rx] Follow up Appointment(s)/Referral(s): Sarah Barrett MD [STAFF PHYSICIAN] - 1 Week (Office is closed. Please call to make appointment.) Shayne Springer MD [STAFF PHYSICIAN] - 1 Week (Office is closed. Please call to make appointment.) Mayco Carlson MD [Primary Care Provider] - 1-2 days (Office is closed. Please call to make appointment.) Patient Instructions/Handouts: Thoracentesis (DC), Pleural Effusion (DC) Activity/Diet/Wound Care/Special Instructions: pt pepcid Rx was sent to [facility] Discharge Disposition: HOME SELF-CARE
--- NOTE | 2016-12-26 07:53 | DS ---
DISCHARGE SUMMARY DATE OF ADMISSION: 12/22/16. DATE OF DISCHARGE: 12/24/16. FINAL DIAGNOSES: 1. Large left pleural effusion with some left lung collapse causing mediastinal shift, present on admission, symptomatic. 2. Ovarian cancer, metastatic causing intraperitoneal and causing large left pleural effusion. 3. Bilateral pulmonary embolism chronically on Eliquis. 4. Colonic diverticulosis. 5. Moderate protein-calorie malnutrition from decreased oral intake. 6. Normocytic anemia secondary to underlying malignancy. HOSPITAL COURSE: This patient started getting treatment for ovarian cancer with chemotherapy. Presented with short of breath. Found to have a large left pleural effusion. 2400 mL of bloody fluid was tapped. Dr. Barrett did take to this patient about Pleur-Evac, but she did not want the same. Symptoms are greatly improved. She will be discharged home. Care was discussed with the patient and daughter earlier with Dr. Barrett during the day. EXAM: LUNGS: Decreased breath sounds. The patient is sitting up and talking. Discharge planning more than 35 minutes. DC MEDICATIONS: 1. Tylenol 650 mg q.6h p.r.n. 2. Eliquis 5 mg p.o. b.i.d. 3. Zofran 4 mg q.8h p.r.n. 4. Ultram 50 mg p.o. q.i.d. p.r.n. 5. Pepcid 20 mg p.o. b.i.d. 6. Xanax 0.25 p.o. b.i.d. p.r.n. 7. Norvasc 5 mg p.o. daily. Follow Dr. Barrett in 1 week, Dr. Springer in 1 week, Dr. Carlson in 2-3 days. MMODL / IJN: [id number] /
--- NOTE | 2017-01-12 20:39 | HP ---
HISTORY AND PHYSICAL ADDENDUM: On examination, patient is Short of breath. CARDIOVASCULAR: Heart sounds increased. LUNGS: Diminished breath sounds. MMODL / IJN: [id number] /
== END 2016-12-24 18:42 | disposition home or self-care (01) | DRG 755 ==
LOC: EC 13:23 → 6SEL 16:16
PROVIDERS: ADMIT Hospitalist; ATTEND Hospitalist
PROC: 0W993ZX Drainage of Right Pleural Cavity, Percutaneous Approach, Diagnostic (ICD-10-PCS; principal; 2016-12-23)
DX: C56.9 Malignant neoplasm of unspecified ovary (principal); J91.0 Malignant pleural effusion; E44.0 Moderate protein-calorie malnutrition; C78.6 Secondary malignant neoplasm of retroperitoneum and peritoneum; I27.82 Chronic pulmonary embolism; J98.19 Other pulmonary collapse; E11.9 Type 2 diabetes mellitus without complications; I10 Essential (primary) hypertension; D63.0 Anemia in neoplastic disease; J98.4 Other disorders of lung; K57.30 Diverticulosis of large intestine without perforation or abscess without bleeding; I16.0 Hypertensive urgency; R93.8 Abnormal findings on diagnostic imaging of other specified body structures; F41.9 Anxiety disorder, unspecified; Z79.01 Long term (current) use of anticoagulants; Z79.899 Other long term (current) drug therapy; Z92.21 Personal history of antineoplastic chemotherapy; Z86.73 Personal history of transient ischemic attack (TIA), and cerebral infarction without residual deficits; Z88.0 Allergy status to penicillin; Z88.6 Allergy status to analgesic agent; Z91.041 Radiographic dye allergy status
CPT/HCPCS: 36415; 36591; 71010; 71275; 76604; 80048; 80053; 82550; 82553; 83735; 84100; 84484; 85025; 85027; 85610; 85730; 87070; 87102; 87116; 87205; 87206; 88108; 88305; 88341; 88342; 93005; 96361; 96374; 96375; 96413; 99285

== ENCOUNTER → 2017-01-05 | Outpatient (CLI) | payer MEDICARE ==
[2017-01-05 11:35] VITALS: RESP 16; TEMP 98.5
--- NOTE | 2017-01-05 13:06 | XR ---
EXAMINATION TYPE: XR chest 1V portable DATE OF EXAM: 01/05/2017 COMPARISON: Prior chest x-ray 12/24/2016 HISTORY: Status post thoracentesis TECHNIQUE: Single frontal view of the chest is obtained. FINDINGS: Interval improvement in aeration as compared to prior exam. Overlying artifact present at the neck. IMPRESSION: No evident complication status post thoracentesis
[2017-01-05 13:33] VITALS: BP 155/95; PULSE 87
--- NOTE | 2017-01-05 16:23 | PCN ---
PROCEDURE NOTE PREOP DIAGNOSIS: Left-sided pleural effusion. POSTOP DIAGNOSIS: Left-sided pleural effusion. THORACENTESIS Indication: Pleural effusion. A time-out was completed verifying correct patient, procedure, site, positioning , and implant (s) or special equipment if applicable. Ultrasound guidance was used and appropriate fluid pocket was identified and marked. Patient was positioned, prepped and draped in usual sterile fashion. Lidocaine was used to anesthetize the area. A Thoracentesis catheter was introduced into the pleural space and fluid was removed. Blood loss was none. A chest x-ray was ordered to evaluate for pneumothorax. Total Fluid Removed: 1.5 L Color of Fluid: Dark turbid, hemorrhagic fluid Fluid was/was not sent for appropriate laboratory tests. Patient tolerated the procedure well and there were no complications. No bedside complications or bleeding. Chest x-ray is to follow. MMODL / IJN: [id number] /
== END | disposition home or self-care (01) ==
LOC: PROCWHC3 11:00
PROVIDERS: ATTEND Internal Medicine Critical Care Medicine
DX: J91.8 Pleural effusion in other conditions classified elsewhere (principal); Z98.890 Other specified postprocedural states
CPT/HCPCS: 32554; 71010; 76604

== ENCOUNTER → 2017-01-05 | Outpatient (CLI) | payer MEDICARE ==
--- NOTE | 2017-01-05 11:53 | US ---
EXAMINATION TYPE: US chest DATE OF EXAM: 01/05/2017 COMPARISON: Chest x-ray 12/31/2016 and 12/23/2016 ultrasound. CLINICAL HISTORY: J91.8 Plural Effusion. EXAM MEASUREMENTS: Left Pleural Effusion fluid pocket: 11.2 cm Left skin to fluid thickness: 1.6 cm Left side marked for possible thoracentesis outside the dept. Pulmonologists are able to review the images in the patient?s EMR. IMPRESSIONS: Moderate volume left pleural effusion with left lung compressive atelectasis as seen on the prior exam of 12/23/2016.
== END | disposition home or self-care (01) ==
LOC: RADUSWWP 10:34
PROVIDERS: ATTEND Internal Medicine Critical Care Medicine
DX: J90 Pleural effusion, not elsewhere classified (principal); J98.11 Atelectasis; Z88.0 Allergy status to penicillin; Z88.6 Allergy status to analgesic agent; Z91.041 Radiographic dye allergy status
CPT/HCPCS: 76604

== ENCOUNTER → 2017-04-27 | Outpatient (CLI) | payer MEDICARE ==
[2017-04-27 09:23] LABS: Blood Urea Nitrogen 15 mg/dL (7-17)
--- NOTE | 2017-04-27 15:03 | CT ---
EXAMINATION TYPE: CT ChestAbdPelvis w con DATE OF EXAM: 04/27/2017 INDICATION: ovarian cancer COMPARISON: CT chest 12/22/2016, CT abdomen pelvis 11/14/2016 CT DLP: 1171 mGycm CONTRAST: Performed with Oral Contrast and with IV Contrast, patient injected with 100 mL of Omnipaque 300. TECHNIQUE: Axial images at 5 mm thick sections. Reconstructed images in the coronal plane. Delayed images through the kidneys. FINDINGS: CT CHEST: Portion of the thyroid visualized is normal. No suspicious lung nodules or focal infiltrates are present. No enlarged mediastinal or hilar adenopathy is evident. There is a small pretracheal lymph node prese nt. Port is present on the right. The ascending aorta diameter at the level of the main pulmonary artery is 3.0 cm. The main pulmonary artery diameter at the bifurcation is 1.[address] ABDOMEN: Liver: Normal Spleen: Normal Pancreas: Normal Adrenal glands: The adrenal glands are normal. Gallbladder: Normal Kidneys: No masses are evident. No hydronephrosis is present. No cysts are present. Delayed images were obtained through the kidneys, which remain unremarkable. Aorta: Normal Inferior vena cava: Normal. CT PELVIS: Loops of bowel within the abdomen and pelvis are normal. There are loops of bowel which are incom pletely distended or lack oral contrast limiting their evaluation. Appendix: Normal as visualized. Urinary bladder: Normal. Genitourinary structures: There are complex masses within the bilateral adnexa. On the right measures 4.4 x 4.9 cm. On the left this measures 4.9 x 3.7 cm. Each have cysts by thick septation a nd probable calcification. Osseous structures: No suspicious lytic or sclerotic lesions. Previous large left pleural effusion has resolved. Previous ascites has resolved. In retrospect, the adnexal region's findings may have been present previously but appear isodense with the ascites. IMPRESSIONS: 1. Complex cysts bilateral adnexal regions. Reevaluation with ultrasound is recommended.
== END | disposition home or self-care (01) ==
LOC: RADCTMAIN 08:32
PROVIDERS: ATTEND Internal Medicine Hematology & Oncology
DX: C56.1 Malignant neoplasm of right ovary (principal); C56.2 Malignant neoplasm of left ovary; Z88.0 Allergy status to penicillin; Z88.6 Allergy status to analgesic agent; Z91.041 Radiographic dye allergy status
CPT/HCPCS: 82565; 84520; 71260; 74177; Q9967; J1642

== ENCOUNTER 2017-08-08 16:56 | Inpatient (IN) | payer MEDICARE ==
[2017-08-08] MEDS ORDERED: ACETAMINOPHEN TAB 500 MG TAB PO STA (20:16)
[2017-08-08] MEDS ORDERED: SODIUM CHLORIDE 0.9% 1,000 ML IV ONE (20:21)
--- NOTE | 2017-08-08 20:21 | ED ---
General Adult HPI - General Chief complaint: Fever Stated complaint: Fever, Ca patient, recent chemo Time Seen by Provider: 08/08/17 20:05 Source: patient, RN notes reviewed, old records reviewed Mode of arrival: ambulatory Limitations: no limitations - History of Present Illness Initial comments: 66-year-old female history of ovarian cancer currently on chemotherapy presenting for evaluation of fever. Patient received her last dose of chemotherapy one week ago. She states she developed fevers over the past 2 days. Temperature at home was 100.9. She has had chills as well. She does report a mild cough. Cough is nonproductive. No dyspnea. Patient has had a slight rash over her chest. She does report abdominal pain although her pain is unchanged from baseline. No dysuria. She is currently on anticoagulation for bilateral PEs. No other chronic medical problems. - Related Data Home Medications Medication Instructions Recorded Confirmed Apixaban [Eliquis] 5 mg PO BID 08/08/17 08/08/17 Diphenox-Atrop 2.5-0.025 mg 1 tab PO QID PRN 08/08/17 08/08/17 [Lomotil] Previous Rx's Medication Instructions Recorded Ondansetron Odt [Zofran ODT] 4 mg PO Q8HR PRN #20 tab 11/18/16 Allergies Allergy/AdvReac Type Severity Reaction Status Date / Time aspirin Allergy Rash/Hives Verified 08/08/17 20:47 Iodinated Contrast- Oral and Allergy Rash/Hives Verified 08/08/17 20:47 IV Dye lactose Allergy Unknown Verified 08/08/17 20:47 Penicillins Allergy Rash/Hives Verified 08/08/17 20:47 Review of Systems ROS Statement: Those systems with pertinent positive or pertinent negative responses have been documented in the HPI. ROS Other: All systems not noted in ROS Statement are negative. Past Medical History Past Medical History: Cancer, Diabetes Mellitus Additional Past Medical History / Comment(s): Blood clots in lungs as result of disease process - November 2016. Ovarian cancer - November 2016-receiving chemo tx had tx 01-24-17 and due next [id number]. Diet controlled diabetic, diverticulosis. plerual effusion had-Thoracentesis x 2 in December 2016 History of Any Multi-Drug Resistant Organisms: None Reported Past Surgical History: No Surgical Hx Reported Additional Past Surgical History / Comment(s): thoracentesis, power port rt upper chest Past Anesthesia/Blood Transfusion Reactions: No Reported Reaction Past Psychological History: No Psychological Hx Reported Smoking Status: Never smoker Past Alcohol Use History: None Reported Past Drug Use History: None Reported - Past Family History Mother Family Medical History: Congestive Heart Failure (CHF), CVA/TIA, Hypertension Father Family Medical History: CVA/TIA Brother(s) Additional Family Medical History / Comment(s): colon cancer, lymphoma General Exam Limitations: no limitations General appearance: alert, in no apparent distress Head exam: Present: atraumatic, normocephalic Eye exam: Present: normal appearance, PERRL, EOMI ENT exam: Present: normal exam Neck exam: Present: normal inspection. Absent: tenderness, meningismus Respiratory exam: Present: normal lung sounds bilaterally. Absent: respiratory distress, wheezes, rales, rhonchi Cardiovascular Exam: Present: regular rate, normal rhythm GI/Abdominal exam: Present: soft, tenderness (Mild generalized tenderness to palpation). Absent: distended, guarding, rebound Extremities exam: Present: normal inspection, normal capillary refill. Absent: pedal edema Back exam: Present: normal inspection. Absent: full ROM, tenderness Neurological exam: Present: alert, oriented X3 Psychiatric exam: Present: normal affect, normal mood Skin exam: Present: warm, dry, intact. Absent: cyanosis, diaphoretic Course Vital Signs 08/08/17 08/08/17 08/08/17 17:22 20:10 21:28 Temperature 98.7 F 100.6 F H Pulse Rate 91 75 79 Respiratory 18 18 18 Rate Blood Pressure 128/79 141/82 122/75 O2 Sat by Pulse 99 99 98 Oximetry 08/08/17 21:41 Temperature 97.9 F Pulse Rate Respiratory Rate Blood Pressure O2 Sat by Pulse Oximetry Medical Decision Making - Medical Decision Making 66-year-old female currently on chemotherapy presenting with fever. Workup in the emergency department record feels white blood cell count 1.7 with an absolute neutrophil count of 600. This represents profound neutropenia. Hemoglobin 8.4, platelets are 25. Electrolytes within normal limits, there is mild transaminitis, ultrasound is obtained this is negative for any acute pathology within the gallbladder. Urinalysis shows 44 red cells and rare bacteria. Cultures of both the urine and blood are pending. Chest x-ray negative for focal pneumonia. Patient started on broad-spectrum IV antiemetics. - Lab Data Result diagrams: 08/08/17 20:36 08/08/17 20:36 Lab Results 08/08/17 08/08/17 08/08/17 Range/Units 20:36 20:36 20:36 WBC 1.7 L* (3.8-10.6) k/uL RBC 2.63 L (3.80-5.40) m/uL Hgb 8.4 L (11.4-16.0) gm/dL Hct 25.0 L (34.0-46.0) % MCV 95.2 (80.0-100.0) fL MCH 32.1 (25.0-35.0) pg MCHC 33.7 (31.0-37.0) g/dL RDW 13.4 (11.5-15.5) % Plt Count 25 L* (150-450) k/uL Neutrophils % 35 % Lymphocytes % 61 % Monocytes % 2 % Eosinophils % 1 % Basophils % 0 % Neutrophils # 0.6 L (1.3-7.7) k/uL Lymphocytes # 1.0 (1.0-4.8) k/uL Monocytes # 0.0 (0-1.0) k/uL Eosinophils # 0.0 (0-0.7) k/uL Basophils # 0.0 (0-0.2) k/uL Manual Slide Review Performed Sodium 137 (137-145) mmol/L Potassium 4.1 (3.5-5.1) mmol/L Chloride 102 (98-107) mmol/L Carbon Dioxide 24 (22-30) mmol/L Anion Gap 11 mmol/L BUN 12 (7-17) mg/dL Creatinine 0.80 (0.52-1.04) mg/dL Est GFR (CKD-EPI)AfAm 88 (>60 ml/min/1.73 sqM) Est GFR (CKD-EPI)NonAf 76 (>60 ml/min/1.73 sqM) Glucose 108 H (74-99) mg/dL Plasma Lactic Acid Maxime 0.7 (0.7-2.0) mmol/L Calcium 8.9 (8.4-10.2) mg/dL Total Bilirubin 0.5 (0.2-1.3) mg/dL AST 73 H (14-36) U/L ALT 77 H (9-52) U/L Alkaline Phosphatase 274 H (38-126) U/L Total Protein 6.5 (6.3-8.2) g/dL Albumin 3.8 (3.5-5.0) g/dL Urine Color Urine Appearance (Clear) Urine pH (5.0-8.0) Ur Specific Charlo (1.001-1.035) Urine Protein (Negative) Urine Glucose (UA) (Negative) Urine Ketones (Negative) Urine Blood (Negative) Urine Nitrite (Negative) Urine Bilirubin (Negative) Urine Urobilinogen (<2.0) mg/dL Ur Leukocyte Esterase (Negative) Urine RBC (0-5) /hpf Urine WBC (0-5) /hpf Urine Bacteria (None) /hpf Hyaline Casts (0-2) /lpf Urine Mucus (None) /hpf 08/08/17 Range/Units 20:36 WBC (3.8-10.6) k/uL RBC (3.80-5.40) m/uL Hgb (11.4-16.0) gm/dL Hct (34.0-46.0) % MCV (80.0-100.0) fL MCH (25.0-35.0) pg MCHC (31.0-37.0) g/dL RDW (11.5-15.5) % Plt Count (150-450) k/uL Neutrophils % % Lymphocytes % % Monocytes % % Eosinophils % % Basophils % % Neutrophils # (1.3-7.7) k/uL Lymphocytes # (1.0-4.8) k/uL Monocytes # (0-1.0) k/uL Eosinophils # (0-0.7) k/uL Basophils # (0-0.2) k/uL Manual Slide Review Sodium (137-145) mmol/L Potassium (3.5-5.1) mmol/L Chloride (98-107) mmol/L Carbon Dioxide (22-30) mmol/L Anion Gap mmol/L BUN (7-17) mg/dL Creatinine (0.52-1.04) mg/dL Est GFR (CKD-EPI)AfAm (>60 ml/min/1.73 sqM) Est GFR (CKD-EPI)NonAf (>60 ml/min/1.73 sqM) Glucose (74-99) mg/dL Plasma Lactic Acid Maxime (0.7-2.0) mmol/L Calcium (8.4-10.2) mg/dL Total Bilirubin (0.2-1.3) mg/dL AST (14-36) U/L ALT (9-52) U/L Alkaline Phosphatase (38-126) U/L Total Protein (6.3-8.2) g/dL Albumin (3.5-5.0) g/dL Urine Color Yellow Urine Appearance Clear (Clear) Urine pH 6.5 (5.0-8.0) Ur Specific Charlo 1.014 (1.001-1.035) Urine Protein Trace H (Negative) Urine Glucose (UA) Negative (Negative) Urine Ketones Negative (Negative) Urine Blood Moderate H (Negative) Urine Nitrite Negative (Negative) Urine Bilirubin Negative (Negative) Urine Urobilinogen <2.0 (<2.0) mg/dL Ur Leukocyte Esterase Negative (Negative) Urine RBC 44 H (0-5) /hpf Urine WBC 1 (0-5) /hpf Urine Bacteria Rare H (None) /hpf Hyaline Casts 1 (0-2) /lpf Urine Mucus Rare H (None) /hpf Disposition Clinical Impression: Neutropenic fever Disposition: ADMITTED IP TO THIS [facility] Condition: Stable Is patient prescribed a controlled substance at d/c from ED?: No Referrals: Mayco Carlson MD [Primary Care Provider] - 1-2 days Decision to Admit Reason: Admit from EC Decision Date: 08/08/17 Decision Time: 23:43
[2017-08-08 20:49] LABS: Basophils % (A) 0 %; Eosinophils % (A) 1 %; HGB 8.4 gm/dL (11.4-16.0); Lymphocytes % (A) 61 %; MCH 32.1 pg (25.0-35.0); MCHC 33.7 g/dL (31.0-37.0); MCV 95.2 fL (80.0-100.0); Mean Platelet Volume 8.6; Monocytes % (A) 2 %; Neutrophils # (A) 0.6 k/uL (1.3-7.7); Neutrophils % (A) 35 %; RBC 2.63 m/uL (3.80-5.40); RDW 13.4 % (11.5-15.5)
[2017-08-08 20:52] LABS: Appearance,Urine Clear (Clear); Bacteria,Urine Rare /hpf; Bilirubin,Urine Negative (Negative); Blood,Urine Moderate (Negative); Color,Urine Yellow; Glucose,Urine (UA) Negative (Negative); Hyaline Casts,Urine 1 /lpf (0-2); Ketones,Urine Negative (Negative); Leukocyte Esterase,Urine Negative (Negative); Mucus,Urine Rare /hpf; Nitrite,Urine Negative (Negative); PH, Urine 6.5 (5.0-8.0); Protein,Urine Trace (Negative); RBC,Urine 44 /hpf (0-5); Specific Gravity,Urine 1.014 (1.001-1.035); Urobilinogen,Urine <2.0 mg/dL (<2.0); WBC,Urine 1 /hpf (0-5)
[2017-08-08 20:56] LABS: WBC 1.7 k/uL (3.8-10.6)
--- NOTE | 2017-08-08 21:05 | XR ---
EXAMINATION TYPE: XR chest 2V DATE OF EXAM: 08/08/2017 COMPARISON: 01/05/2017 HISTORY: Fever and weakness TECHNIQUE: Frontal and lateral views of the chest are obtained. FINDINGS: Heart and mediastinum are normal. Lungs are clear. Diaphragm is normal. There is right corby tral venous catheter with tip in the right atrium. Bony thorax is intact. IMPRESSION: No active cardiopulmonary disease. There is clearing of the infiltrate and atelectasis a t the left lung base compared to old exam.
[2017-08-08 21:10] LABS: Albumin 3.8 g/dL (3.5-5.0); Calcium 8.9 mg/dL (8.4-10.2); Potassium 4.1 mmol/L (3.5-5.1); Total Bilirubin 0.5 mg/dL (0.2-1.3); Total Protein 6.5 g/dL (6.3-8.2)
[2017-08-08 21:27] LABS: Platelet Count 25 k/uL (150-450)
[2017-08-08] MEDS ORDERED: VANCOMYCIN IV PER PHARMACY 1 EACH MISC MISCELLANE PRN (21:44)
[2017-08-08] MEDS ORDERED: cefTRIAXone IN SWFI 1,000 MG/10 ML SYRINGE IVP STA (21:44)
[2017-08-08] MEDS ORDERED: VANCOMYCIN 1,000 MG in SODIUM CHLORIDE 0.9% 250 ML IVPB STA (21:58)
--- NOTE | 2017-08-08 22:51 | US ---
EXAMINATION TYPE: US gallbladder DATE OF EXAM: 08/08/2017 COMPARISON: NONE CLINICAL HISTORY: Pain. Fever patient on Chemo. EXAM MEASUREMENTS: Liver Length: 14.1 cm Gallbladder Wall: 0.25 cm CBD: 0.49 cm Right Kidney: 9.4 x 4.2 x 4.1 cm Pancreas: wnl Liver: wnl Gallbladder: No stones seen Evidence for sonographic Herrera's sign: No CBD: wnl Right Kidney: wnl IMPRESSION: Negative exam. No gallstones or dilated ducts. No free fluid.
[2017-08-08] MEDS ORDERED: CEFEPIME 2 GM in SODIUM CHLORIDE 0.9% 50 ML IVPB STA (23:37)
[2017-08-08] MEDS ORDERED: MORPHINE SULFATE 2 MG/ML SYRINGE IV PRN (23:38)
[2017-08-08] MEDS ORDERED: NALOXONE 0.4 MG/ML 1 ML VIAL IV PRN (23:38)
--- NOTE | 2017-08-09 00:21 | P.HPIM ---
History of Present Illness H&P Date: 08/09/17 Chief Complaint: Fever at home for 2 days 66-year-old female with history of active ovary cancer currently on chemotherapy. Presented to the hospital due to 2 day history of fevers she had a temporal 400.9 Fahrenheit at home and was also complaining of mild dry cough. Patient reports that 2 weeks ago she was switched to a new chemotherapy Gemzar along with carboplatin. She noticed over the past couple days that she wasn't feeling well with chills and fevers and a dry cough denies otherwise any shortness of breath or chest pain. Denies any nausea or vomiting or diarrhea denies any abdominal pain. Denies any GI bleeding. She is currently on Eliquis for history of bilateral PE that she had on November 2016 however due to active cancer she continued to be on Eliquis. Otherwise patient also denies any focal neurologic deficits hearing or vision deficits. Patient currently seen in the ER doing well no current new complaints. She reported that she contacted her oncologist recommended to her to go to the hospital for further care and evaluation Review of Systems Pertinent positives as noted in HPI. All other systems were reviewed and are negative Past Medical History Past Medical History: Cancer, Diabetes Mellitus Additional Past Medical History / Comment(s): Blood clots in lungs as result of disease process - November 2016. Ovarian cancer - November 2016-receiving chemo tx had tx 01-24-17 and due next [id number]. Diet controlled diabetic, diverticulosis. plerual effusion had-Thoracentesis x 2 in December 2016 History of Any Multi-Drug Resistant Organisms: None Reported Past Surgical History: No Surgical Hx Reported Additional Past Surgical History / Comment(s): thoracentesis, power port rt upper chest Past Anesthesia/Blood Transfusion Reactions: No Reported Reaction Past Psychological History: No Psychological Hx Reported Smoking Status: Never smoker Past Alcohol Use History: None Reported Past Drug Use History: None Reported - Past Family History Mother Family Medical History: Congestive Heart Failure (CHF), CVA/TIA, Hypertension Father Family Medical History: CVA/TIA Brother(s) Additional Family Medical History / Comment(s): colon cancer, lymphoma Medications and Allergies Home Medications Medication Instructions Recorded Confirmed Type Ondansetron Odt [Zofran ODT] 4 mg PO Q8HR PRN #20 tab 11/18/16 08/08/17 Rx Apixaban [Eliquis] 5 mg PO BID 08/08/17 08/08/17 History Diphenox-Atrop 2.5-0.025 mg 1 tab PO QID PRN 08/08/17 08/08/17 History [Lomotil] Allergies Allergy/AdvReac Type Severity Reaction Status Date / Time aspirin Allergy Rash/Hives Verified 08/08/17 20:47 Iodinated Contrast- Oral and Allergy Rash/Hives Verified 08/08/17 20:47 IV Dye lactose Allergy Unknown Verified 08/08/17 20:47 Penicillins Allergy Rash/Hives Verified 08/08/17 20:47 Physical Exam Vitals: Vital Signs Temp Pulse Resp BP Pulse Ox 08/09/17 00:12 67 18 123/67 97 08/08/17 21:41 97.9 F 08/08/17 21:28 79 18 122/75 98 08/08/17 20:10 100.6 F H 75 18 141/82 99 08/08/17 17:22 98.7 F 91 18 128/79 99 Intake and Output 08/08/17 08/08/17 08/09/17 14:59 22:59 06:59 Other: Weight 48.081 kg Constitutional: No acute distress, conversant, pleasant Eyes: Anicteric sclerae, moist conjunctiva, no lid-lag Pupils equal round reactive to light ENMT: NC/AT Oropharynx clear, no erythema, or exudates Neck: Supple, FROM, no masses, or JVD No carotid bruits No thyromegaly Lungs: Clear to auscultation Clear to percussion Normal respiratory effort, no accessory muscle use Right Mediport, no tenderness patient, no surrounding skin changes Cardiovascular: Heart regular in rate and rhythm, No murmurs, gallops, or rubs No peripheral edema Abdominal: Soft Nontender, no guarding, rebound or rigidity Abdomen moving with respiration Normoactive bowel sounds No hepatomegaly, No splenomegaly No palpable mass No abdominal wall hernia noted Skin: Normal temperature, tone, texture, turgor No induration No subcutaneous nodules No rash, lesions No ulcers Extremities: No digital cyanosis No clubbing Pedal pulses intact and symmetrical Radial pulses intact and symmetrical No calf tenderness Psychiatric: Alert and oriented to person, place and time Appropriate affect fair judgment Neuro Muscles Strength 5/5 in all 4 extremities Sensation to light touch grossly present throughout Cranial nerves II-XII grossly intact No focal sensory deficits Lymphatics: no palpable cervical or supraclavicular , or inguinal lymph nodes Results CBC & Chem 7: 08/08/17 20:36 08/08/17 20:36 Labs: Abnormal Lab Results - Last 24 Hours (Table) 08/08/17 08/08/17 08/08/17 Range/Units 20:36 20:36 20:36 WBC 1.7 L* (3.8-10.6) k/uL RBC 2.63 L (3.80-5.40) m/uL Hgb 8.4 L (11.4-16.0) gm/dL Hct 25.0 L (34.0-46.0) % Plt Count 25 L* (150-450) k/uL Neutrophils # 0.6 L (1.3-7.7) k/uL Glucose 108 H (74-99) mg/dL AST 73 H (14-36) U/L ALT 77 H (9-52) U/L Alkaline Phosphatase 274 H (38-126) U/L Urine Protein Trace H (Negative) Urine Blood Moderate H (Negative) Urine RBC 44 H (0-5) /hpf Urine Bacteria Rare H (None) /hpf Urine Mucus Rare H (None) /hpf Assessment and Plan Assessment: 66-year-old female with 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 Presented to the hospital due to 2 day history of fevers and chills and not feeling well along with mild dry cough. She presented the hospital on recommendations from her oncologist. She was found to have neutropenic fever, blood cultures obtained and patient admitted for IV antibiotics. Patient continued to be on Eliquis due to history of pulmonary embolism in November 2016. 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
[2017-08-09] MEDS: SODIUM CHLORIDE 0.9% 1,000 ML IV SCH ×2 (01:40→18:13)
[2017-08-09] MEDS: CEFEPIME 2 GM in SODIUM CHLORIDE 0.9% 50 ML IVPB SCH ×2 (08:15→18:12)
[2017-08-09] MEDS: APIXABAN 5 MG TAB PO SCH (08:16)
[2017-08-09 08:22] LABS: Glucose,Whole Blood 99 mg/dL (75-99)
[2017-08-09] MEDS: VANCOMYCIN 1,000 MG in SODIUM CHLORIDE 0.9% 250 ML IVPB SCH ×2 (09:36→20:25)
[2017-08-09 09:47] LABS: HCT 22.5 % (34.0-46.0); HGB 7.4 gm/dL (11.4-16.0); MCH 32.1 pg (25.0-35.0); MCV 97.2 fL (80.0-100.0); Mean Platelet Volume 7.8; RBC 2.31 m/uL (3.80-5.40); RDW 13.6 % (11.5-15.5)
[2017-08-09 09:56] LABS: Platelet Count 18 k/uL (150-450); WBC 1.7 k/uL (3.8-10.6)
[2017-08-09 09:58] LABS: ALT 63 U/L (9-52); AST 51 U/L (14-36); Albumin 3.1 g/dL (3.5-5.0); Alkaline Phosphatase 206 U/L (38-126); Anion Gap 8 mmol/L; Blood Urea Nitrogen 10 mg/dL (7-17); Calcium 8.5 mg/dL (8.4-10.2); Carbon Dioxide 25 mmol/L (22-30); Chloride 108 mmol/L (98-107); Glucose 113 mg/dL (74-99); Sodium 141 mmol/L (137-145); Total Bilirubin 0.3 mg/dL (0.2-1.3); Total Protein 5.5 g/dL (6.3-8.2)
[2017-08-09 11:12] LABS: Lymphocytes # (M) 1.14 k/uL (1.0-4.8); Monocytes # (M) 0.03 k/uL (0-1.0); Neutrophils # (M) 0.53 k/uL (1.3-7.7); Neutrophils % (M) 31 %; Nucleated Red Blood Cells 0 /100 WBC (0-0); Total Cells Counted 100
[2017-08-09 11:14] LABS: Anisocytosis (M) Present; Poikilocytosis (M) Present
[2017-08-09] MEDS ORDERED: ONDANSETRON 4 MG/2 ML VIAL IVP STA (12:54)
[2017-08-09] MEDS ORDERED: CALCIUM CARBONATE 500 MG CHEWABLE PO PRN (15:08)
[2017-08-09] MEDS ORDERED: ONDANSETRON ODT 4 MG TAB PO PRN (15:08)
[2017-08-09] MEDS ORDERED: MELATONIN 5 MG TABLET PO PRN (15:08)
[2017-08-09] MEDS ORDERED: ONDANSETRON 4 MG/2 ML VIAL IVP PRN (15:08)
[2017-08-09] MEDS ORDERED: DIPHENOX-ATROP 2.5-0.025 MG 1 EACH TAB PO PRN (15:08)
--- NOTE | 2017-08-09 15:11 | P.PN ---
Progress Note - Text Progress Note Date: 08/09/17 Hospitalist Interval Note Patient seen and examined at bedside. Feeling better. Denies any chest pain, shortness of breath, or diarrhea. Takes Lomotil at home. Requesting something for nausea and she did not tolerate her diet well. States she's been taking clear ensure at home and we will restart this. She grazes throughout the day but does not eat large meals. Very concerned about having a delay in chemotherapy. Vital signs reviewed General: Ill appearing, mild distress, appears younger than stated age Derm: warm, dry Head: atraumatic, normocephalic, symmetric Eyes: EOMI, no lid lag, anicteric sclera Mouth: no lip lesion, mucus membranes moist Cardiovascular: S1S2 reg, no murmur, positive posterior tibial pulse bilateral, Lungs: Decreased breath sounds bilateral bases, no rhonchi, no rales , no accessory muscle use Abdominal: soft, nontender to palpation, no guarding, no appreciable organomegaly Ext: no gross muscle atrophy, no edema, no contractures Neuro: CN II-XI grossly intact, no focal neuro deficits Psych: Alert, oriented, appropriate affect Assessment/Plan: Neutropenic fever - Cefepime and vanco IV - Await urine and blood cultures - Tylenol for fevers - Monitor vital signs - CXR and gallbladder US negative - Consult Oncology Pnacytopenia: neutropenia, anemia, and thrombocytopenia, related recent chemo - hold eliquis - type and screen - repeat CBC at 1800 - transfuse for HGB < 7 or at discretion of oncology - Patient informed to alert nursing immediately if bleeding, PORTER, stroke like symptoms History of PE November 2016 - hold eliquis due to thrombocytopenia Mild transaminitis, improving - repeat in AM 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 There is no charge associated with this note.
[2017-08-09 17:03] LABS: HCT 22.3 % (34.0-46.0); HGB 7.3 gm/dL (11.4-16.0); MCHC 32.8 g/dL (31.0-37.0); MCV 97.7 fL (80.0-100.0); Mean Platelet Volume 11.7; RBC 2.29 m/uL (3.80-5.40); RDW 14.1 % (11.5-15.5)
[2017-08-09 17:06] LABS: Platelet Count 17 k/uL (150-450); WBC 1.9 k/uL (3.8-10.6)
--- NOTE | 2017-08-09 17:21 | P.CONS ---
History of Present Illness - Reason for Consult Consult date: 08/09/17 Febrile neutropenia, Ovarian ca on chemo - History of Present Illness The pt is a 66 yr old WF, well known to myself. She was initially seen in consult in 11/30, when she presented with ascites and pelvic mass. Cytology was positive for ovarian cancer. The patient's subsequently developed a pleural effusion, which was also noted to be malignant, raising the possibility of stage IV disease. However after initial thoracentesis and subsequent initiation of chemotherapy with carboplatin and Taxol, the effusion did not recur. The patient completed 6 cycles of carboplatin and Taxol by early 06/01, and was referred to gynecologic oncologic surgery at [facility]. The pleural effusion had not recurred after the initial event, and computed tomography scan showed no evidence of disease in the thorax, it was decided to treat her as a stage III. She was therefore taken to surgery and had radical resection of remaining disease on 06/18/17. She did have residual disease noted at the time of surgery, but all obvious disease was resected. The patient tolerated surgery reasonably well without any major complications. According to the recommendations from [facility] [employer] [facility], [facility], she was started back on chemotherapy with carboplatin and Gemzar, for 3 cycles. She completed cycle 1 (day 8 of Gemzar), one week ago. She called the office yesterday, stating that she was generally feeling weak, and not well. She also noted a temperature of 100.9. She was therefore asked to come into the emergency room. In the ER, she was noted to have a low white count between 1-2000 with ANC less than 500. She was therefore admitted for further management, and consult placed. Hemoglobin and platelets were also noted to be low due to chemotherapy effect. Review of Systems Constitutional: Reports fatigue, Reports fever, Reports weakness Eyes: denies blurred vision, denies pain Ears: deny: decreased hearing, ear discharge, earache, tinnitus Ears, nose, mouth and throat: Denies headache, Denies sore throat Cardiovascular: Reports decreased exercise tolerance Respiratory: Denies cough Gastrointestinal: Denies abdominal pain, Denies diarrhea, Denies nausea, Denies vomiting Genitourinary: Denies dysuria, Denies hematuria Menstruation: Reports postmenopausal Musculoskeletal: Reports muscle weakness, Denies myalgias Integumentary: Denies pruritus, Denies rash Neurological: Denies numbness, Denies weakness Psychiatric: Reports anxiety, Denies depression Endocrine: Denies fatigue, Denies weight change Hematologic/Lymphatic: Reports as per HPI Past Medical History Past Medical History: Cancer, Diabetes Mellitus, Osteoarthritis (OA) Additional Past Medical History / Comment(s): Bilateral ovarian cancer with mets currently receiving chemotherapy, bicytopenia, anemia, 11/2016 bilateral pulmonary embolisms, 12/2016 L sided pleural effusion with 2 thoracentesis, diet controlled diabetes, diverticulosis, diarrhea with chemo, mild protein calorie malnutrition, past L ankle fracture and pt thinks possibility of arthritis in that joint. History of Any Multi-Drug Resistant Organisms: None Reported Past Surgical History: No Surgical Hx Reported Additional Past Surgical History / Comment(s): Total hysterectomy/perineal and omenectomy done by Dr Rob at [facility], 2 left thoracentesis, power port rt upper chest Past Anesthesia/Blood Transfusion Reactions: No Reported Reaction Additional Past Anesthesia/Blood Transfusion Reaction / Comm: Pt has received blood without reaction. Smoking Status: Never smoker - Past Family History Mother Family Medical History: Congestive Heart Failure (CHF), CVA/TIA, Hypertension Father Family Medical History: CVA/TIA Brother(s) Additional Family Medical History / Comment(s): colon cancer, lymphoma Medications and Allergies Home Medications Medication Instructions Recorded Confirmed Type Ondansetron Odt [Zofran ODT] 4 mg PO Q8HR PRN #20 tab 11/18/16 08/08/17 Rx Apixaban [Eliquis] 5 mg PO BID 08/08/17 08/08/17 History Diphenox-Atrop 2.5-0.025 mg 1 tab PO QID PRN 08/08/17 08/08/17 History [Lomotil] Allergies Allergy/AdvReac Type Severity Reaction Status Date / Time aspirin Allergy Rash/Hives Verified 08/08/17 20:47 Iodinated Contrast- Oral and Allergy Rash/Hives Verified 08/08/17 20:47 IV Dye lactose Allergy Unknown Verified 08/08/17 20:47 Penicillins Allergy Rash/Hives Verified 08/08/17 20:47 Physical Exam Vitals: Vital Signs Temp Pulse Pulse Resp BP BP Pulse Ox 08/09/17 16:55 98.9 F 73 18 122/80 98 08/09/17 16:03 98.8 F 73 14 131/82 97 08/09/17 13:04 71 16 113/71 98 08/09/17 10:47 98.7 F 79 16 131/76 97 08/09/17 07:19 98.5 F 72 16 110/69 99 08/09/17 04:45 98.2 F 75 18 109/58 99 08/09/17 02:49 71 18 98/65 98 08/09/17 01:42 97.8 F 73 18 138/63 99 08/09/17 00:12 67 18 123/67 97 08/08/17 21:41 97.9 F 08/08/17 21:28 79 18 122/75 98 08/08/17 20:10 100.6 F H 75 18 141/82 99 08/08/17 17:22 98.7 F 91 18 128/79 99 - Constitutional General appearance: no acute distress - EENT Eyes: EOMI, PERRLA ENT: hearing grossly normal, normal oropharynx - Neck Neck: no lymphadenopathy Thyroid: bilateral: normal size - Respiratory Respiratory: bilateral: CTA - Cardiovascular Rhythm: regular Heart sounds: normal: S1, S2 - Gastrointestinal General gastrointestinal: normal bowel sounds, soft - Integumentary Integumentary: normal - Neurologic Neurologic: CNII-XII intact - Musculoskeletal Musculoskeletal: generalized weakness, strength equal bilaterally - Psychiatric Psychiatric: A&O x's 3, appropriate affect, intact judgment & insight Results CBC & Chem 7: 08/09/17 16:49 08/09/17 08:48 Labs: Abnormal Lab Results - Last 24 Hours (Table) 08/08/17 08/08/17 08/08/17 Range/Units 20:36 20:36 20:36 WBC 1.7 L* (3.8-10.6) k/uL RBC 2.63 L (3.80-5.40) m/uL Hgb 8.4 L (11.4-16.0) gm/dL Hct 25.0 L (34.0-46.0) % Plt Count 25 L* (150-450) k/uL Neutrophils # 0.6 L (1.3-7.7) k/uL Neutrophils # (Manual) (1.3-7.7) k/uL Chloride (98-107) mmol/L Glucose 108 H (74-99) mg/dL AST 73 H (14-36) U/L ALT 77 H (9-52) U/L Alkaline Phosphatase 274 H (38-126) U/L Total Protein (6.3-8.2) g/dL Albumin (3.5-5.0) g/dL Urine Protein Trace H (Negative) Urine Blood Moderate H (Negative) Urine RBC 44 H (0-5) /hpf Urine Bacteria Rare H (None) /hpf Urine Mucus Rare H (None) /hpf 08/09/17 08/09/17 08/09/17 Range/Units 08:48 08:48 16:49 WBC 1.7 L* 1.9 L* (3.8-10.6) k/uL RBC 2.31 L 2.29 L (3.80-5.40) m/uL Hgb 7.4 L 7.3 L (11.4-16.0) gm/dL Hct 22.5 L 22.3 L (34.0-46.0) % Plt Count 18 L* 17 L* (150-450) k/uL Neutrophils # (1.3-7.7) k/uL Neutrophils # (Manual) 0.53 L (1.3-7.7) k/uL Chloride 108 H (98-107) mmol/L Glucose 113 H (74-99) mg/dL AST 51 H (14-36) U/L ALT 63 H (9-52) U/L Alkaline Phosphatase 206 H (38-126) U/L Total Protein 5.5 L (6.3-8.2) g/dL Albumin 3.1 L (3.5-5.0) g/dL Urine Protein (Negative) Urine Blood (Negative) Urine RBC (0-5) /hpf Urine Bacteria (None) /hpf Urine Mucus (None) /hpf Microbiology - Last 24 Hours (Table) 08/08/17 20:36 Urine Culture - Preliminary Urine,Voided Chest x-ray: report reviewed US - abdomen: report reviewed Assessment and Plan (1) Neutropenic fever Narrative/Plan: The patient has had a fairly low-grade fever, with no localizing signs an essentially a normal physical exam. Hemodynamics are currently stable. However she is neutropenic, with ANC significantly low. Therefore it is advisable that she have inpatient admission, and IV antibiotics until cultures are resulted, and fever resolves. - She is currently appropriately on vancomycin and cefepime. Cultures have been ordered and are pending. Chest x-ray and ultrasound of the abdomen were negative. - Growth factor injections will be started to accelerate white count recovery - Continue to monitor for clinical response Current Visit: Yes Status: Acute Code(s): D70.9 - NEUTROPENIA, UNSPECIFIED; R50.81 - FEVER PRESENTING WITH CONDITIONS CLASSIFIED ELSEWHERE SNOMED Code(s) : 817010755 (2) Pancytopenia due to antineoplastic chemotherapy Narrative/Plan: The patient has been started on filgrastim as noted above. She is not having any active bleeding, and is hemodynamically stable. Therefore current hemoglobin and platelet level are acceptable. Continue to monitor, and transfuse for hemoglobin below 7, and for platelets below 10, unless there is evidence of active bleeding. - As platelets are below 50, the patient's anticoagulation has been stopped. Current Visit: Yes Status: Acute Code(s): D61.810 - ANTINEOPLASTIC CHEMOTHERAPY INDUCED PANCYTOPENIA; T45.1X5A - ADVERSE EFFECT OF ANTINEOPLASTIC AND IMMUNOSUP DRUGS, INIT SNOMED Code(s): 677917154672018 (3) Ovarian cancer Narrative/Plan: Diagnostic and therapeutic circumstances as noted above. The patient's next chemotherapy cycle is due next week, assuming that she recovers appropriately from her acute condition. Filgrastim will be added prophylactically with the next chemotherapy. Depending on her clinical course and counts, if needed, dose delay and dose reduction will be considered Current Visit: No Status: Chronic Priority: Medium Code(s): C56.9 - MALIGNANT NEOPLASM OF UNSPECIFIED OVARY SNOMED Code(s): 967421114 (4) Pulmonary embolus Narrative/Plan: Anticoagulation is temporarily on hold due to low platelets. Current Visit: No Status: Acute Priority: High Code(s): I26.99 - OTHER PULMONARY EMBOLISM WITHOUT ACUTE COR PULMONALE SNOMED Code(s): 19907081
[2017-08-09] MEDS: FILGRASTIM-SNDZ 300 MCG/0.5 ML SYRINGE SQ SCH (18:11)
[2017-08-09] MEDS ORDERED: diphenhydrAMINE 50 MG CAP PO PRN (19:31)
[2017-08-09 20:23] LABS: Glucose,Whole Blood 123 mg/dL (75-99)
[2017-08-10] MEDS: CEFEPIME 2 GM in SODIUM CHLORIDE 0.9% 50 ML IVPB SCH ×4 (00:53→23:31)
[2017-08-10 07:14] LABS: Glucose,Whole Blood 99 mg/dL (75-99)
[2017-08-10 08:03] LABS: Albumin 3.1 g/dL (3.5-5.0); Calcium 8.6 mg/dL (8.4-10.2); Chloride 108 mmol/L (98-107); Potassium 4.2 mmol/L (3.5-5.1); Sodium 141 mmol/L (137-145); Total Protein 5.5 g/dL (6.3-8.2)
[2017-08-10 08:39] LABS: ALT 98 U/L (9-52); AST 83 U/L (14-36); Alkaline Phosphatase 239 U/L (38-126); Anion Gap 8 mmol/L; Blood Urea Nitrogen 9 mg/dL (7-17); Carbon Dioxide 25 mmol/L (22-30); Glucose 84 mg/dL (74-99); Total Bilirubin 0.3 mg/dL (0.2-1.3)
[2017-08-10 08:44] LABS: Basophils % (A) 0 %; Eosinophils % (A) 1 %; HCT 22.5 % (34.0-46.0); HGB 7.4 gm/dL (11.4-16.0); Lymphocytes # (A) 1.7 k/uL (1.0-4.8); Lymphocytes % (A) 44 %; MCH 32.3 pg (25.0-35.0); MCHC 33.2 g/dL (31.0-37.0); MCV 97.3 fL (80.0-100.0); Mean Platelet Volume 8.7; Monocytes # (A) 0.1 k/uL (0-1.0); Monocytes % (A) 2 %; Neutrophils % (A) 51 %; RBC 2.31 m/uL (3.80-5.40); WBC 3.9 k/uL (3.8-10.6)
[2017-08-10 08:51] LABS: Platelet Count 18 k/uL (150-450)
[2017-08-10] MEDS: SODIUM CHLORIDE 0.9% 1,000 ML IV SCH ×2 (11:40→15:08)
[2017-08-10] MEDS: VANCOMYCIN 1,000 MG in SODIUM CHLORIDE 0.9% 250 ML IVPB SCH ×2 (11:41→20:22)
[2017-08-10 11:53] LABS: Glucose,Whole Blood 112 mg/dL (75-99)
[2017-08-10] MEDS: FILGRASTIM-SNDZ 300 MCG/0.5 ML SYRINGE SQ SCH (13:12)
[2017-08-10] MEDS: ACETAMINOPHEN TAB 325 MG TAB PO PRN (15:07)
[2017-08-10 17:05] LABS: Glucose,Whole Blood 116 mg/dL (75-99)
[2017-08-10] MEDS ORDERED: VANCOMYCIN TROUGH DUE 1 EACH MISC MISCELLANE ONE (20:00)
--- NOTE | 2017-08-10 20:08 | P.PN ---
Subjective Progress Note Date: 08/10/17 (delayed charting patient seen at approximately 11 am) Principal diagnosis: Fevers Patient is a 66-year-old female with past medical history of bilateral ovarian cancer currently receiving chemotherapy, bilateral pulmonary embolisms, left-sided pleural effusions, diet controlled diabetes, and diverticulosis who presented to the ER department with complaints of fevers. She spiked one fever of 100.6 after admission. She was found to have decreased white blood cell count at 1.7 with an ANC of 600. She was started on empiric antibiotics and admitted to the oncology floor. She was also found to have anemia and severe thrombocytopenia with a platelet count of 25. UTI was negative, chest x-ray negative, gallbladder ultrasound was performed due to elevated liver enzymes and came back within normal limits. Blood cultures were obtained. She was seen by oncology who held her eloquent was due to her thrombocytopenia. She did not have any recurrent fevers during her hospitalization. Patient seen and examined at bedside. She is feeling much better today. She is not having any nausea or diarrhea. She denies any chest pain or shortness of breath. Her appetite is at her baseline, which is low. She has no other complaints currently. Daughter is at bedside and all questions are answered. She did have multiple questions about how she could spike fevers without a known infection we discussed in detail about her low white blood cell count. Objective - Vital Signs Vital signs: Vital Signs Temp 98.5 F 08/10/17 15:35 Pulse 82 08/10/17 15:35 Resp 20 08/10/17 15:35 BP 107/61 08/10/17 15:35 Pulse Ox 99 08/10/17 15:35 Intake & Output 08/10/17 08/10/17 08/11/17 06:59 18:59 06:59 Intake Total 780 1000 Balance 780 1000 Weight 48.081 kg 48.081 kg Intake: Intake, IV Titration 300 1000 Amount Sodium Chloride 0.9% 1, 300 1000 000 ml @ 75 mls/hr IV . [id number] KAILA Rx#:[id number] Oral 480 Other: # Voids 1 1 - Exam General: Chronically Ill-appearing, no distress, fusion rhythm stated age Derm: + Pallor, warm, dry Head: atraumatic, normocephalic, symmetric Eyes: EOMI, no lid lag, anicteric sclera Mouth: no lip lesion, mucus membranes moist Cardiovascular: S1S2 reg, no murmur, positive posterior tibial pulse bilateral, Lungs: Decreased Sounds bilateral bases, no rhonchi, no rales , no accessory muscle use Abdominal: soft, nontender to palpation, no guarding, no appreciable organomegaly Ext: no gross muscle atrophy, no edema, no contractures Neuro: CN II-XI grossly intact, no focal neuro deficits Psych: Alert, oriented, appropriate affect - Labs CBC & Chem 7: 08/10/17 06:28 08/10/17 06:28 Labs: Abnormal Lab Results - Last 24 Hours (Table) 08/09/17 08/10/17 08/10/17 Range/Units 20:18 06:28 06:28 RBC 2.31 L (3.80-5.40) m/uL Hgb 7.4 L (11.4-16.0) gm/dL Hct 22.5 L (34.0-46.0) % Plt Count 18 L* (150-450) k/uL Chloride 108 H (98-107) mmol/L POC Glucose (mg/dL) 123 H (75-99) mg/dL AST 83 H (14-36) U/L ALT 98 H (9-52) U/L Alkaline Phosphatase 239 H (38-126) U/L Total Protein 5.5 L (6.3-8.2) g/dL Albumin 3.1 L (3.5-5.0) g/dL 08/10/17 08/10/17 Range/Units 11:51 16:51 RBC (3.80-5.40) m/uL Hgb (11.4-16.0) gm/dL Hct (34.0-46.0) % Plt Count (150-450) k/uL Chloride (98-107) mmol/L POC Glucose (mg/dL) 112 H 116 H (75-99) mg/dL AST (14-36) U/L ALT (9-52) U/L Alkaline Phosphatase (38-126) U/L Total Protein (6.3-8.2) g/dL Albumin (3.5-5.0) g/dL Microbiology - Last 24 Hours (Table) 08/08/17 20:36 Urine Culture - Final Urine,Voided 08/08/17 20:36 Blood Culture - Preliminary Blood No Growth after 24 hours Assessment and Plan Assessment: Neutropenic fever - Cefepime and vanco IV -Urine culture without evidence of infection -Blood cultures pending - Tylenol for fevers - Monitor vital signs - CXR and gallbladder US negative -Oncology recommendations appreciated -Is on colony stimulated factor -Patient's white blood cell count is greatly improved. Plan will be home in a.m. if cultures remain negative. 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
[2017-08-10 20:35] LABS: Glucose,Whole Blood 126 mg/dL (75-99)
[2017-08-11] VITALS: RESP 16
[2017-08-11] MEDS: ACETAMINOPHEN TAB 325 MG TAB PO PRN (03:25)
[2017-08-11] MEDS: SODIUM CHLORIDE 0.9% 1,000 ML IV SCH (06:10)
[2017-08-11 06:34] VITALS: BP 105/58; PULSE 66; TEMP 98.2
[2017-08-11 07:14] LABS: Glucose,Whole Blood 98 mg/dL (75-99)
[2017-08-11 07:28] LABS: Basophils % (A) 0 %; Eosinophils % (A) 0 %; HCT 22.5 % (34.0-46.0); HGB 7.2 gm/dL (11.4-16.0); Lymphocytes # (A) 1.9 k/uL (1.0-4.8); Lymphocytes % (A) 37 %; MCH 32.2 pg (25.0-35.0); MCHC 32.1 g/dL (31.0-37.0); MCV 100.3 fL (80.0-100.0); Macrocytosis Slight; Mean Platelet Volume 7.8; Monocytes # (A) 0.2 k/uL (0-1.0); Monocytes % (A) 4 %; Neutrophils # (A) 2.9 k/uL (1.3-7.7); Neutrophils % (A) 56 %; RBC 2.24 m/uL (3.80-5.40); RDW 15.4 % (11.5-15.5); WBC 5.2 k/uL (3.8-10.6)
[2017-08-11 07:33] LABS: Platelet Count 25 k/uL (150-450)
[2017-08-11] MEDS: CEFEPIME 2 GM in SODIUM CHLORIDE 0.9% 50 ML IVPB SCH (07:34)
[2017-08-11 07:51] LABS: ALT 83 U/L (9-52); AST 50 U/L (14-36); Alkaline Phosphatase 256 U/L (38-126); Anion Gap 9 mmol/L; Blood Urea Nitrogen 13 mg/dL (7-17); Calcium 8.4 mg/dL (8.4-10.2); Carbon Dioxide 24 mmol/L (22-30); Chloride 108 mmol/L (98-107); Glucose 95 mg/dL (74-99); Sodium 141 mmol/L (137-145); Total Bilirubin 0.2 mg/dL (0.2-1.3); Total Protein 5.4 g/dL (6.3-8.2)
[2017-08-11] MEDS: VANCOMYCIN 1,000 MG in SODIUM CHLORIDE 0.9% 250 ML IVPB SCH (08:54)
[2017-08-11] MEDS: FILGRASTIM-SNDZ 300 MCG/0.5 ML SYRINGE SQ SCH (08:54)
--- NOTE | 2017-08-11 10:48 | P.DS ---
Providers Date of admission: 08/08/17 23:43 Expected date of discharge: 08/11/17 Attending physician: Filiberto Jackson MD Consults: 08/08/17 23:39 Consult Physician Routine Consulting Provider: Zunilda Mosley Consult Reason/Comments: Neutropenia with fever Do you want consulting provider notified?: Yes Primary care physician: Mayco Carlson - Discharge Diagnosis(es) (1) Neutropenic fever Current Visit: Yes Status: Acute (2) Pancytopenia due to antineoplastic chemotherapy Current Visit: Yes Status: Acute (3) Transaminitis Current Visit: Yes Status: Acute (4) History of pulmonary embolism Current Visit: Yes Status: Acute (5) Ovarian cancer Current Visit: No Status: Chronic Priority: Medium Hospital Course: Patient is a 66-year-old female with past medical history of bilateral ovarian cancer currently receiving chemotherapy, bilateral pulmonary embolisms, left-sided pleural effusions, diet controlled diabetes, and diverticulosis who presented to the ER department with complaints of fevers. She spiked one fever of 100.6 after admission. She was found to have decreased white blood cell count at 1.7 with an ANC of 600. She was started on empiric antibiotics of vanco and cefepime. She was admitted to the oncology floor. She was also found to have anemia and severe thrombocytopenia with a platelet count of 25. UA was negative, chest x-ray negative, gallbladder ultrasound was performed due to elevated liver enzymes and came back within normal limits. Blood cultures were obtained and were negative for 48 hours. She was seen by oncology who held her eliquis due to her thrombocytopenia. She did not have any recurrent fevers during her hospitalization. Her white blood cell count normalized after he started on granulate colony-stimulating factor. She was determined stable for discharge home. She will complete a total of a seven-day course of antibiotics with 5 additional days of oral Levaquin therapy. She will stay off of her eliquis until her platelet count is greater than 50. She has an appointment at Dr. Springer's office on TuesdayAugust 15 and will have repeat blood work. All questions were answered. Patient seen and examined at bedside. Feeling much better. Up and ambulating the hallways. Nausea and diarrhea are controlled. Anxious to go home. Denies any chest pain or shortness of breath. Vital signs reviewed and stable. General: Nontoxic, no distress, appears younger than stated age Derm: warm, dry Head: atraumatic, normocephalic, symmetric Eyes: EOMI, no lid lag, anicteric sclera Mouth: no lip lesion, mucus membranes moist Cardiovascular: S1S2 reg, no murmur, positive posterior tibial pulse bilateral, Port in place and left chest wall Lungs: CTA bilateral, no rhonchi, no rales , no accessory muscle use Abdominal: soft, nontender to palpation, no guarding, no appreciable organomegaly Ext: no gross muscle atrophy, no edema, no contractures Neuro: CN II-XI grossly intact, no focal neuro deficits Psych: Alert, oriented, appropriate affect A total of 32 minutes of time were spent preparing this complex discharge summary . Pertinent Studies: Chest x-ray-no acute process Gallbladder ultrasound-no acute process Patient Condition at Discharge: Stable Plan - Discharge Summary Discharge Rx Participant: No New Discharge Prescriptions: New Levofloxacin [Levaquin] 750 mg PO DAILY 5 Days #5 tab Continue Ondansetron Odt [Zofran ODT] 4 mg PO Q8HR PRN #20 tab PRN Reason: Nausea And Vomiting Diphenox-Atrop 2.5-0.025 mg [Lomotil] 1 tab PO QID PRN PRN Reason: Diarrhea Discontinued Apixaban [Eliquis] 5 mg PO BID Discharge Medication List Ondansetron Odt [Zofran ODT] 4 mg PO Q8HR PRN #20 tab 11/18/16 [Rx] Diphenox-Atrop 2.5-0.025 mg [Lomotil] 1 tab PO QID PRN 08/08/17 [History] Levofloxacin [Levaquin] 750 mg PO DAILY 5 Days #5 tab 08/11/17 [Rx] Follow up Appointment(s)/Referral(s): Mayco Carlson MD [Primary Care Provider] - 1-2 days
[2017-08-11 11:00] LABS: Glucose,Whole Blood 118 mg/dL (75-99)
== END 2017-08-11 11:40 | disposition home or self-care (01) | DRG 808 ==
LOC: EC 16:56 → 5ONC 23:43
PROVIDERS: ADMIT Internal Medicine; ATTEND Internal Medicine
DX: D70.1 Agranulocytosis secondary to cancer chemotherapy (principal); I26.99 Other pulmonary embolism without acute cor pulmonale; C56.9 Malignant neoplasm of unspecified ovary; C78.6 Secondary malignant neoplasm of retroperitoneum and peritoneum; J91.0 Malignant pleural effusion; E44.1 Mild protein-calorie malnutrition; D61.810 Antineoplastic chemotherapy induced pancytopenia; E11.9 Type 2 diabetes mellitus without complications; M19.90 Unspecified osteoarthritis, unspecified site; K57.90 Diverticulosis of intestine, part unspecified, without perforation or abscess without bleeding; R50.81 Fever presenting with conditions classified elsewhere; T45.1X5A Adverse effect of antineoplastic and immunosuppressive drugs, initial encounter; R74.0 Nonspecific elevation of levels of transaminase and lactic acid dehydrogenase [LDH]; Z79.01 Long term (current) use of anticoagulants; Z79.899 Other long term (current) drug therapy; Z68.20 Body mass index [BMI] 20.0-20.9, adult; Z88.0 Allergy status to penicillin; Z88.8 Allergy status to other drugs, medicaments and biological substances; Z88.6 Allergy status to analgesic agent; Z91.041 Radiographic dye allergy status; Z80.0 Family history of malignant neoplasm of digestive organs; Z80.7 Family history of other malignant neoplasms of lymphoid, hematopoietic and related tissues; Z82.49 Family history of ischemic heart disease and other diseases of the circulatory system; Z82.3 Family history of stroke; Y92.9 Unspecified place or not applicable
CPT/HCPCS: 36415; 71046; 76705; 80053; 80202; 81001; 83605; 85025; 85027; 86850; 86900; 86901; 87040; 87086; 96361; 96365; 96366; 96367; 96368; 96375; 99285

== ENCOUNTER → 2017-09-26 | Outpatient (CLI) | payer MEDICARE ==
--- NOTE | 2017-09-26 16:35 | CT ---
EXAMINATION TYPE: CT ChestAbdPelvis w con DATE OF EXAM: 09/26/2017 COMPARISON: 04/27/2017 HISTORY: Follow up scan per patient CT DLP: 432.5 mGycm CONTRAST: CT scan of the chest, abdomen and pelvis is performed with Oral Contrast and with IV Contrast, patien t injected with 100 mL of Isovue 300. CT Chest: LUNGS: The lungs are clear and free of infiltrate or atelectasis. Basilar parenchymal scarring redemo nstrated. No pulmonary nodule or mass is detected. No pleural effusion or CT evidence of interstitia l lung disease. MEDIASTINUM: Thoracic aorta is of normal caliber. The heart is not enlarged. No evidence for media stinal mass or adenopathy. HILAR STRUCTURES: No evidence for mass. No hilar adenopathy is appreciated. OTHER: No significant abnormality. CONTRAST CT ABDOMEN AND PELVIS FINDINGS: LIVER/GB: No calcified gallstones. No space occupying hepatic lesion. Biliary tree is of normal ca liber. PANCREAS: No inflammation. No distinct mass. SPLEEN: No splenic enlargement. No lesion seen. ADRENALS: No nodule. No thickening. KIDNEYS/BLADDER: There is mild right-sided hydroureteronephrosis up to the level of the pelvis. Left renal collecting system is felt to be within normal limits. Parapelvic renal cysts noted on the left. No nephrolithiasis. No distinct renal mass. BOWEL: Normal appendix. Normal bowel caliber. No inflammation. GENITAL ORGANS: Bilateral ovarian cystic lesions no longer visible. Correlate patient's surgical hist ory or interval intervention. Hysterectomy changes noted. No vaginal cuff mass. LYMPH NODES: No greater than 1cm abdominal or pelvic lymph nodes are appreciated. AORTA: No significant abnormality. OSSEOUS STRUCTURES: No significant abnormality is seen. OTHER: No significant additional abnormality is seen. IMPRESSION: 1. There is mild right-sided hydroureteronephrosis up to the level of the pelvis. 2. Bilateral ovarian cystic lesions no longer visible. Correlate patient's surgical history or interv al intervention.
== END | disposition home or self-care (01) ==
LOC: RADPROMAIN 13:39
PROVIDERS: ATTEND Internal Medicine Hematology & Oncology
DX: C56.2 Malignant neoplasm of left ovary (principal); C56.1 Malignant neoplasm of right ovary; N13.30 Unspecified hydronephrosis; Z88.0 Allergy status to penicillin; Z91.048 Other nonmedicinal substance allergy status; Z95.828 Presence of other vascular implants and grafts
CPT/HCPCS: 82565; 84520; 71260; 74177; J1642; Q9967

== ENCOUNTER 2017-11-08 15:40 | Inpatient (IN) | payer MEDICARE ==
[~2017-11-08 15:40] MED LIST: HUMAN PROTHROMBIN COMPLX 500 UNIT/16 ML VIAL IV ONE
[2017-11-08] MEDS ORDERED: SODIUM CHLORIDE 0.9% 500 ML IV STA (16:16)
--- NOTE | 2017-11-08 16:25 | ED ---
General Adult HPI - General Chief complaint: Dizziness Stated complaint: dizzy,weakness Time Seen by Provider: 11/08/17 16:01 Source: patient, RN notes reviewed Mode of arrival: ambulatory Limitations: no limitations - History of Present Illness Initial comments: 66-year-old female with a history of stage IV ovarian cancer presents to the emergency department for a chief complaint of lightheadedness 7 days. Patient states the lightheadedness has been worsening each day, today being the worst. Patient states she saw her cancer doctor about this he said it could be a side effect of the chemo but that if it worsened to be evaluated. Patient last had chemo at the end of August. Patient also complains of shortness of breath 7 days. Patient denies any chest pain but states she does have discomfort on the left upper back. Patient denies cough or bloody sputum. Patient is currently taking eliquis for afib. Patient is also complaining of bloody stools 3 weeks. Patient states the toilet bowl turns red after she has a bowel movement. Patient denies any abdominal pain. Patient has no other complaints at this time including nausea or vomiting, headache, or visual changes. - Related Data Home Medications Medication Instructions Recorded Confirmed Apixaban [Eliquis] 5 mg PO BID 11/08/17 11/08/17 Allergies Allergy/AdvReac Type Severity Reaction Status Date / Time aspirin Allergy Rash/Hives Verified 11/08/17 16:38 Iodinated Contrast- Oral and Allergy Rash/Hives Verified 11/08/17 16:38 IV Dye lactose Allergy Unknown Verified 11/08/17 16:38 Penicillins Allergy Rash/Hives Verified 11/08/17 16:38 melatonin AdvReac Intermediate Unknown Verified 11/08/17 16:38 Review of Systems ROS Statement: Those systems with pertinent positive or pertinent negative responses have been documented in the HPI. ROS Other: All systems not noted in ROS Statement are negative. Past Medical History Past Medical History: Cancer, Diabetes Mellitus, Osteoarthritis (OA) Additional Past Medical History / Comment(s): Bilateral ovarian cancer with mets currently receiving chemotherapy, bicytopenia, anemia, 11/2016 bilateral pulmonary embolisms, 12/2016 L sided pleural effusion with 2 thoracentesis, diet controlled diabetes, diverticulosis, diarrhea with chemo, mild protein calorie malnutrition, past L ankle fracture and pt thinks possibility of arthritis in that joint. History of Any Multi-Drug Resistant Organisms: None Reported Past Surgical History: No Surgical Hx Reported Additional Past Surgical History / Comment(s): Total hysterectomy/perineal and omenectomy done by Dr Rob at [facility], 2 left thoracentesis, power port rt upper chest Past Anesthesia/Blood Transfusion Reactions: No Reported Reaction Additional Past Anesthesia/Blood Transfusion Reaction / Comment(s): Pt has received blood without reaction. Past Psychological History: No Psychological Hx Reported Smoking Status: Former smoker Past Alcohol Use History: None Reported Past Drug Use History: None Reported - Past Family History Mother Family Medical History: Congestive Heart Failure (CHF), CVA/TIA, Hypertension Father Family Medical History: CVA/TIA Brother(s) Additional Family Medical History / Comment(s): colon cancer, lymphoma General Exam Limitations: no limitations General appearance: alert, in no apparent distress Head exam: Present: atraumatic, normocephalic, normal inspection Eye exam: Present: normal appearance, PERRL, EOMI. Absent: scleral icterus, conjunctival injection, periorbital swelling ENT exam: Present: normal exam, mucous membranes moist Neck exam: Present: normal inspection, full ROM. Absent: tenderness, meningismus, lymphadenopathy Respiratory exam: Present: normal lung sounds bilaterally. Absent: respiratory distress, wheezes, rales, rhonchi, stridor Cardiovascular Exam: Present: regular rate, normal rhythm, normal heart sounds. Absent: systolic murmur, diastolic murmur, rubs, gallop, clicks GI/Abdominal exam: Present: soft, normal bowel sounds. Absent: distended, tenderness (No tenderness whatsoever in the abdomen), guarding, rebound, rigid Neurological exam: Present: alert, oriented X3, CN II-XII intact Expanded Patient oriented to: Present: person, place, time Speech: Present: fluid speech Cranial nerves: EOM's Intact: Normal, Nystagmus: Normal, Facial Sensation: Normal Sensory exam: Upper Extremity Light Touch: Normal, Upper Extremity Pin Prick: Normal, Lower Extremity Light Touch: Normal, Lower Extremity Pin Prick: Normal Motor strength exam: RUE: 5, LUE: 5, RLE: 5, LLE: 5 Eye Response: (4) open spontaneously Motor Response: (6) obeys commands Verbal Response: (5) oriented [place] Total: 15 Psychiatric exam: Present: normal affect, normal mood Course Vital Signs 11/08/17 11/08/17 11/08/17 15:50 18:10 19:00 Temperature 98.2 F Pulse Rate 82 84 76 Respiratory 20 18 16 Rate Blood Pressure 126/67 112/70 112/73 O2 Sat by Pulse 100 98 97 Oximetry Medical Decision Making - Medical Decision Making 66-year-old female presents to the emergency department for a chief complaint of dizziness and shortness of breath 7 days. Patient is stage IV ovarian cancer. Patient has also been complaining of bloody stools. CBC showed a hemoglobin of 5.8 and a hematocrit of 17.9. CMP unremarkable. Patient was given Kcentra. She was given a unit of blood in the emergency department. CTA negative for pulmonary embolism which was obtained due to stage IV ovarian cancer. Brain CT was obtained as patient does have stage IV ovarian cancer which showed no acute process. Chest x-ray shows no acute process. Patient will be admitted for anemia secondary to GI bleed with consult to GI. - Lab Data Result diagrams: 11/08/17 16:19 11/08/17 16:19 Lab Results 11/08/17 11/08/17 11/08/17 Range/Units 16:19 16:19 16:19 WBC 5.5 (3.8-10.6) k/uL RBC 1.76 L (3.80-5.40) m/uL Hgb 5.8 L* (11.4-16.0) gm/dL Hct 17.9 L* (34.0-46.0) % MCV 102.0 H (80.0-100.0) fL MCH 32.8 (25.0-35.0) pg MCHC 32.2 (31.0-37.0) g/dL RDW 14.3 (11.5-15.5) % Plt Count 231 (150-450) k/uL Neutrophils % 71 % Lymphocytes % 21 % Monocytes % 6 % Eosinophils % 1 % Basophils % 0 % Neutrophils # 3.9 (1.3-7.7) k/uL Lymphocytes # 1.2 (1.0-4.8) k/uL Monocytes # 0.3 (0-1.0) k/uL Eosinophils # 0.0 (0-0.7) k/uL Basophils # 0.0 (0-0.2) k/uL Hypochromasia Moderate Macrocytosis Slight PT (9.0-12.0) sec INR (<1.2) APTT (22.0-30.0) sec Sodium 138 (137-145) mmol/L Potassium 4.3 (3.5-5.1) mmol/L Chloride 106 (98-107) mmol/L Carbon Dioxide 26 (22-30) mmol/L Anion Gap 6 mmol/L BUN 20 H (7-17) mg/dL Creatinine 0.80 (0.52-1.04) mg/dL Est GFR (CKD-EPI)AfAm 88 (>60 ml/min/1.73 sqM) Est GFR (CKD-EPI)NonAf 76 (>60 ml/min/1.73 sqM) Glucose 104 H (74-99) mg/dL Calcium 9.2 (8.4-10.2) mg/dL Magnesium 1.6 (1.6-2.3) mg/dL Total Bilirubin 0.2 (0.2-1.3) mg/dL AST 28 (14-36) U/L ALT 33 (9-52) U/L Alkaline Phosphatase 118 (38-126) U/L Total Creatine Kinase 44 (30-135) U/L CK-MB (CK-2) 0.5 (0.0-2.4) ng/mL CK-MB (CK-2) Rel Index 1.1 Troponin I <0.012 (0.000-0.034) ng/mL Total Protein 6.0 L (6.3-8.2) g/dL Albumin 3.4 L (3.5-5.0) g/dL 11/08/17 Range/Units 16:19 WBC (3.8-10.6) k/uL RBC (3.80-5.40) m/uL Hgb (11.4-16.0) gm/dL Hct (34.0-46.0) % MCV (80.0-100.0) fL MCH (25.0-35.0) pg MCHC (31.0-37.0) g/dL RDW (11.5-15.5) % Plt Count (150-450) k/uL Neutrophils % % Lymphocytes % % Monocytes % % Eosinophils % % Basophils % % Neutrophils # (1.3-7.7) k/uL Lymphocytes # (1.0-4.8) k/uL Monocytes # (0-1.0) k/uL Eosinophils # (0-0.7) k/uL Basophils # (0-0.2) k/uL Hypochromasia Macrocytosis PT 10.0 (9.0-12.0) sec INR 1.0 (<1.2) APTT 20.5 L (22.0-30.0) sec Sodium (137-145) mmol/L Potassium (3.5-5.1) mmol/L Chloride (98-107) mmol/L Carbon Dioxide (22-30) mmol/L Anion Gap mmol/L BUN (7-17) mg/dL Creatinine (0.52-1.04) mg/dL Est GFR (CKD-EPI)AfAm (>60 ml/min/1.73 sqM) Est GFR (CKD-EPI)NonAf (>60 ml/min/1.73 sqM) Glucose (74-99) mg/dL Calcium (8.4-10.2) mg/dL Magnesium (1.6-2.3) mg/dL Total Bilirubin (0.2-1.3) mg/dL AST (14-36) U/L ALT (9-52) U/L Alkaline Phosphatase (38-126) U/L Total Creatine Kinase (30-135) U/L CK-MB (CK-2) (0.0-2.4) ng/mL CK-MB (CK-2) Rel Index Troponin I (0.000-0.034) ng/mL Total Protein (6.3-8.2) g/dL Albumin (3.5-5.0) g/dL Disposition Clinical Impression: Anemia, GI bleed, Weakness Disposition: ADMITTED IP TO THIS HOSP Condition: Good Referrals: Mayco Carlson MD [Primary Care Provider] - 1-2 days Time of Disposition: 19:36
[2017-11-08] MEDS ORDERED: methylPREDNISolone SOD SUCCI 125 MG/2 ML VIAL IV STA (16:37)
[2017-11-08] MEDS ORDERED: diphenhydrAMINE 50 MG/ML 1 ML VIAL IVP STA (16:37)
[2017-11-08] MEDS ORDERED: FAMOTIDINE 20 MG/2 ML VIAL IV STA (16:38)
[2017-11-08 16:53] LABS: Basophils % (A) 0 %; Eosinophils % (A) 1 %; Hypochromasia Moderate; Lymphocytes # (A) 1.2 k/uL (1.0-4.8); Lymphocytes % (A) 21 %; MCH 32.8 pg (25.0-35.0); MCHC 32.2 g/dL (31.0-37.0); Macrocytosis Slight; Mean Platelet Volume 6.6; Monocytes # (A) 0.3 k/uL (0-1.0); Monocytes % (A) 6 %; Neutrophils # (A) 3.9 k/uL (1.3-7.7); Neutrophils % (A) 71 %; Platelet Count 231 k/uL (150-450); RBC 1.76 m/uL (3.80-5.40); RDW 14.3 % (11.5-15.5); WBC 5.5 k/uL (3.8-10.6)
--- NOTE | 2017-11-08 16:55 | XR ---
EXAMINATION: XR chest 2V DATE AND TIME: 11/08/2017 4:46 PM CLINICAL INDICATION: Chest Pain TECHNIQUE: PA and lateral COMPARISON: 08/08/2017 FINDINGS: Right Port-A-Cath tip superimposed over the cavoatrial junction. The lungs are clear. The pleural spaces are negative. The cardiac silhouette is not enlarged. The remainder of the mediastinal silhouette is unremarkable. The skeletal structures and soft tissues are negative for acute findings. IMPRESSION: NO ACUTE PROCESS.
[2017-11-08 16:56] LABS: HGB 5.8 gm/dL (11.4-16.0)
[2017-11-08 16:57] LABS: HCT 17.9 % (34.0-46.0)
[2017-11-08] MEDS ORDERED: Kcentra PER PHARMACY 1 EACH MISC MISCELLANE SCH (17:00)
[2017-11-08 17:07] LABS: Albumin 3.4 g/dL (3.5-5.0); Calcium 9.2 mg/dL (8.4-10.2); Magnesium 1.6 mg/dL (1.6-2.3); Potassium 4.3 mmol/L (3.5-5.1); Total Bilirubin 0.2 mg/dL (0.2-1.3)
[2017-11-08 17:14] LABS: Creatine Kinase 44 U/L (30-135)
[2017-11-08 17:27] LABS: Partial Thromboplastin Time 20.5 sec (22.0-30.0)
[2017-11-08 17:28] LABS: Creatine Kinase MB 0.5 ng/mL (0.0-2.4); Troponin I <0.012 ng/mL (0.000-0.034)
[2017-11-08] MEDS ORDERED: HUMAN PROTHROMBIN COMPLX IV ONE (17:30)
--- NOTE | 2017-11-08 19:04 | CT ---
EXAMINATION: CT brain wo con DATE AND TIME: 11/08/2017 6:41 PM CLINICAL INDICATION: Pain weakness TECHNIQUE: Standard departmental protocol. COMPARISON: None. FINDINGS: The calvarium is intact. There is no intracranial hemorrhage. There is no intracranial mass or mass e ffect. No definite new intra-axial or extra-axial attenuation defect. The paranasal sinuses, middle ear cavities, and mastoid sinus air cells are clear. The orbits are unr emarkable. IMPRESSION: NO ACUTE PROCESS, CT WITHOUT CONTRAST.
--- NOTE | 2017-11-08 19:11 | CT ---
EXAMINATION TYPE: CT chest angio for PE with contrast and with 3-D Reconstruction rendering DATE OF EXAM: 11/08/2017 COMPARISON: None HISTORY: weakness CT DLP: 193 mGycm Automated exposure control for dose reduction was used. CONTRAST: CT Chest for pulmonary embolism performed with with IV Contrast, patient injected with 100 mL of Isovue 370. 3-D reconstructions. FINDINGS: LUNGS, PLEURAL SPACES, AND AIRWAYS: The lungs are grossly clear, there is no concerning parenchymal m ass or nodule identified. There is no pleural effusion or pneumothorax seen. The tracheobronchial marilyn e is patent. MEDIASTINUM: There is satisfactory enhancement of the pulmonary artery and its branches, there is no CT evidence for pulmonary embolism. Aorta is negative for acute findings. There is mild cardiomegaly; no focal findings. No pericardial effusion. There are no greater than 1 cm hilar or mediastinal lymp h nodes. OTHER: No skeletal or other additional significant abnormality is seen. IMPRESSION: No acute process.
[2017-11-08] MEDS ORDERED: ONDANSETRON 4 MG/2 ML VIAL IVP PRN (19:36)
[2017-11-08] MEDS ORDERED: NALOXONE 0.4 MG/ML 1 ML VIAL IV PRN (19:36)
[2017-11-08] MEDS: SODIUM CHLORIDE 0.9% 1,000 ML IV SCH (20:02)
[2017-11-08 21:10] VITALS: BMI 21.5
[2017-11-09 02:04] LABS: Basophils % (A) 0 %; Eosinophils % (A) 0 %; Hypochromasia Moderate; Lymphocytes # (A) 0.6 k/uL (1.0-4.8); Lymphocytes % (A) 12 %; MCH 32.6 pg (25.0-35.0); MCV 101.9 fL (80.0-100.0); Macrocytosis Slight; Mean Platelet Volume 7.6; Monocytes % (A) 1 %; Neutrophils # (A) 3.8 k/uL (1.3-7.7); Neutrophils % (A) 86 %; Platelet Count 160 k/uL (150-450); Poikilocytosis Slight; RBC 2.25 m/uL (3.80-5.40); RDW 15.5 % (11.5-15.5); WBC 4.4 k/uL (3.8-10.6)
[2017-11-09 02:06] LABS: HGB 7.4 gm/dL (11.4-16.0)
[2017-11-09 07:15] LABS: Basophils % (A) 0 %; Eosinophils % (A) 0 %; HCT 23.9 % (34.0-46.0); HGB 7.6 gm/dL (11.4-16.0); Hypochromasia Moderate; Lymphocytes # (A) 0.9 k/uL (1.0-4.8); Lymphocytes % (A) 23 %; MCH 32.2 pg (25.0-35.0); MCHC 31.8 g/dL (31.0-37.0); MCV 101.4 fL (80.0-100.0); Macrocytosis Slight; Monocytes # (A) 0.1 k/uL (0-1.0); Monocytes % (A) 2 %; Neutrophils % (A) 74 %; Platelet Count 191 k/uL (150-450); Poikilocytosis Slight; RBC 2.36 m/uL (3.80-5.40); RDW 15.7 % (11.5-15.5)
[2017-11-09] MEDS: SODIUM CHLORIDE 0.9% 1,000 ML IV SCH (10:36)
[2017-11-09 12:30] LABS: HCT 22.5 % (34.0-46.0); Hypochromasia Moderate; MCH 31.2 pg (25.0-35.0); MCHC 31.1 g/dL (31.0-37.0); MCV 100.3 fL (80.0-100.0); Macrocytosis Slight; Mean Platelet Volume 6.9; Platelet Count 191 k/uL (150-450); Poikilocytosis Slight; RBC 2.24 m/uL (3.80-5.40); RDW 15.7 % (11.5-15.5); WBC 7.8 k/uL (3.8-10.6)
[2017-11-09] MEDS ORDERED: BISACODYL 5 MG TABLET.DR PO STA (14:13)
--- NOTE | 2017-11-09 14:30 | P.CONS ---
History of Present Illness - Reason for Consult Consult date: 11/09/17 GI bleed, Ovarian ca, anticoagulation - History of Present Illness Mrs. Leija is a pleasant white female, initially seen in consult at [facility] on 11/16/16. She had been admitted on 11/14/16 with complaints of abdominal bloating that started about a week to 10 days prior to that admission. It had been progressive since then causing increasing abdominal discomfort. CAT scan of the abdomen and pelvis revealed significant ascites as well as a left pleural effusion. Outside ultrasound showed multiple cysts involving both ovaries the largest 1.6 cm on the right and 2.6 cm on the left. She had a large volume paracentesis on 11/15/16. There was significant improvement in her symptoms. 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 CT scan of the chest showed no evidence of metastasis with the basilar opacities consistent with small pleural effusions. Incidentally bilateral pulmonary emboli were noted. These were confirmed on CT angiogram of the chest. The patient was discharged on eliquis and referred immediately to gynecologic oncology at [facility]. she was seen by , and preoperative chemotherapy was recommended. She had a port placed at [facility]. She was seen for her first office visit on 12/02/16. She then started Carbo with DD Taxol, She was admitted to [facility] on 12/22/16 with a large left pleural effusion. She had thoracentesis of 2.4 L of bloody fluid. She had relief of symptoms and was then discharged. 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 She had a repeat drainage in late 12/31 of about 700 cc. She was admitted to [facility] with diarrhea, n/v/dehydration on 01/28/17. C diff and influenza were negative. She improved rapidly with Lomotil and hydration and was discharged on 01/30/17 C 3 D15 was held. The pt had a break from treatment and then resumed it with C 4 starting on 03/03/17, with a 20% dose reduction. She is now s/p 6 cycles, completing those on 04/28/17 CT scans showed persistent cystic lesions in the b/l pelvis, but no residual ascites or pleural effusion. She was referred back to [facility] and had resection on 06/18/17, with a good partial response noted. She had resection of all gross disease. She recovered well post surgery, and was then started on carbo /Gemzar per [facility] recommendations on 07/25/17. She is s/p 2 cycles. She was admitted with febrile neutropenia, after C 1. Neulasta was added with C 2. She completed 3 cycles in 10/01. The patient was referred back to [facility] for an opinion regarding maintenance Avastin, which had been recommended by them. The concern was possible increased risk of bleeding as the patient was on anticoagulation. She was seen recently and it was recommended that she should be started on Avastin. The patient states that she had been passing dark red blood in her stool for about 3 weeks, with slow increase in amount. She had also had some diarrhea, and lower abdominal pain associated with that. She reported increasing weakness and decreased endurance over the last few days. Her to come to the hospital. Her hemoglobin was found to be 5.8. She was therefore admitted for further management. She is s/p PRBC transfusion Review of Systems Constitutional: Reports fatigue, Reports weakness Eyes: denies blurred vision, denies pain Ears: deny: decreased hearing, ear discharge, earache, tinnitus Ears, nose, mouth and throat: Denies headache, Denies sore throat Cardiovascular: Reports dyspnea on exertion Respiratory: Reports dyspnea Gastrointestinal: Reports abdominal pain, Reports diarrhea, Reports hematochezia Genitourinary: Denies dysuria, Denies hematuria Menstruation: Reports postmenopausal Musculoskeletal: Reports muscle weakness, Denies myalgias Integumentary: Denies pruritus, Denies rash Neurological: Reports weakness Psychiatric: Reports anxiety, Denies depression Endocrine: Reports fatigue Hematologic/Lymphatic: Reports as per HPI Past Medical History Past Medical History: Cancer, Diabetes Mellitus, Osteoarthritis (OA) Additional Past Medical History / Comment(s): Bilateral ovarian cancer with mets last chemotherapy was august 2017, bicytopenia, anemia, 11/2016 bilateral pulmonary embolisms, 12/2016 L sided pleural effusion with 2 thoracentesis, diet controlled diabetes, diverticulosis, diarrhea with chemo, mild protein calorie malnutrition, past L ankle fracture and pt thinks possibility of arthritis in that joint. History of Any Multi-Drug Resistant Organisms: None Reported Past Surgical History: No Surgical Hx Reported Additional Past Surgical History / Comment(s): Total hysterectomy/perineal and omenectomy done by Dr Rob at [facility], 2 left thoracentesis, power port rt upper chest Past Anesthesia/Blood Transfusion Reactions: No Reported Reaction Additional Past Anesthesia/Blood Transfusion Reaction / Comm: Pt has received blood without reaction. Past Psychological History: No Psychological Hx Reported Additional Psychological History / Comment(s): pt is independant. lives alone in 2 story home that has 2 porch steps. no outside services recieved. no medical equipment. Smoking Status: Never smoker Past Alcohol Use History: None Reported Past Drug Use History: None Reported - Past Family History Mother Family Medical History: Congestive Heart Failure (CHF), CVA/TIA, Hypertension Father Family Medical History: CVA/TIA Brother(s) Additional Family Medical History / Comment(s): colon cancer, lymphoma Medications and Allergies Home Medications Medication Instructions Recorded Confirmed Type Apixaban [Eliquis] 5 mg PO BID 11/08/17 11/08/17 History Allergies Allergy/AdvReac Type Severity Reaction Status Date / Time aspirin Allergy Rash/Hives Verified 11/08/17 16:38 Iodinated Contrast- Oral and Allergy Rash/Hives Verified 11/08/17 16:38 IV Dye lactose Allergy Unknown Verified 11/08/17 16:38 Penicillins Allergy Rash/Hives Verified 11/08/17 16:38 melatonin AdvReac Intermediate Unknown Verified 11/08/17 16:38 Physical Exam Vitals: Vital Signs Temp Pulse Pulse Resp BP BP Pulse Ox 11/09/17 11:52 97.8 F 70 16 108/56 100 11/09/17 07:46 97.8 F 72 16 111/62 98 11/09/17 04:00 98.2 F 64 16 108/64 98 11/09/17 00:00 98.3 F 72 16 110/64 96 11/08/17 23:42 98.4 F 75 16 114/60 96 11/08/17 21:37 98.5 F 72 16 110/64 96 11/08/17 21:07 98 F 77 16 107/59 98 11/08/17 20:57 98.7 F 74 16 120/60 98 11/08/17 19:49 98.7 F 74 16 120/60 98 11/08/17 19:00 76 16 112/73 97 11/08/17 18:10 84 18 112/70 98 11/08/17 15:50 98.2 F 82 20 126/67 100 Intake and Output 11/08/17 11/09/17 11/09/17 22:59 06:59 14:59 Intake Total 310 0 380 Output Total 700 Balance 310 0 -320 Intake: Oral 380 Blood Product 310 0 Rc As-1 Unit 0 0 [id number] Output: Urine 700 Other: # Voids 1 1 Weight 51.7 kg 51.6 kg - Constitutional General appearance: no acute distress - EENT Eyes: EOMI, PERRLA ENT: hearing grossly normal, normal oropharynx - Neck Thyroid: bilateral: normal size - Respiratory Respiratory: bilateral: CTA - Cardiovascular Rhythm: regular Heart sounds: normal: S1, S2 - Gastrointestinal General gastrointestinal: normal bowel sounds, soft - Integumentary Integumentary: normal - Neurologic Neurologic: CNII-XII intact - Musculoskeletal Musculoskeletal: generalized weakness, strength equal bilaterally - Psychiatric Psychiatric: A&O x's 3, appropriate affect, intact judgment & insight Results CBC & Chem 7: 11/09/17 12:05 11/08/17 16:19 Labs: Abnormal Lab Results - Last 24 Hours (Table) 11/08/17 11/08/17 11/08/17 Range/Units 16:19 16:19 16:19 RBC 1.76 L (3.80-5.40) m/uL Hgb 5.8 L* (11.4-16.0) gm/dL Hct 17.9 L* (34.0-46.0) % MCV 102.0 H (80.0-100.0) fL RDW (11.5-15.5) % Lymphocytes # (1.0-4.8) k/uL APTT 20.5 L (22.0-30.0) sec BUN 20 H (7-17) mg/dL Glucose 104 H (74-99) mg/dL Total Protein 6.0 L (6.3-8.2) g/dL Albumin 3.4 L (3.5-5.0) g/dL Crossmatch 11/08/17 11/09/17 11/09/17 Range/Units 19:24 01:54 06:48 RBC 2.25 L 2.36 L (3.80-5.40) m/uL Hgb 7.4 L D 7.6 L (11.4-16.0) gm/dL Hct 23.0 L 23.9 L (34.0-46.0) % MCV 101.9 H 101.4 H (80.0-100.0) fL RDW 15.7 H (11.5-15.5) % Lymphocytes # 0.6 L 0.9 L (1.0-4.8) k/uL APTT (22.0-30.0) sec BUN (7-17) mg/dL Glucose (74-99) mg/dL Total Protein (6.3-8.2) g/dL Albumin (3.5-5.0) g/dL Crossmatch See Detail 11/09/17 Range/Units 12:05 RBC 2.24 L (3.80-5.40) m/uL Hgb 7.0 L (11.4-16.0) gm/dL Hct 22.5 L (34.0-46.0) % MCV 100.3 H (80.0-100.0) fL RDW 15.7 H (11.5-15.5) % Lymphocytes # (1.0-4.8) k/uL APTT (22.0-30.0) sec BUN (7-17) mg/dL Glucose (74-99) mg/dL Total Protein (6.3-8.2) g/dL Albumin (3.5-5.0) g/dL Crossmatch Chest x-ray: report reviewed CT scan - chest: report reviewed Assessment and Plan (1) GI bleed Narrative/Plan: The patient is presenting with severe anemia from GI bleeding. Her risk factors include ongoing anticoagulation with eliquis. Hemoglobin has dropped significantly from baseline, but has improved appropriately with transfusion. Continue to monitor and transfuse as needed to keep hemoglobin above 7 The patient will need a GI workup to check for the source of the bleeding. GI consult has been placed, and the case was discussed with them. The patient will proceed with endoscopic workup. She has never had a colonoscopy or EGD before. Current Visit: Yes Status: Acute Code(s): K92.2 - GASTROINTESTINAL HEMORRHAGE, UNSPECIFIED SNOMED Code(s): 98960233 (2) Anemia Narrative/Plan: as above Current Visit: Yes Status: Acute Code(s): D64.9 - ANEMIA, UNSPECIFIED SNOMED Code(s): 254435344 (3) Ovarian cancer Narrative/Plan: Diagnostic and therapeutic circumstances as noted above. The patient had been seen at [facility] and they had confirmed that they did want her on Avastin maintenance. However, with acute GI bleed, she is not a candidate to start Avastin at this point. We will continue surveillance Current Visit: No Status: Chronic Priority: Medium Code(s): C56.9 - MALIGNANT NEOPLASM OF UNSPECIFIED OVARY SNOMED Code(s): 708195585 (4) History of pulmonary embolism Narrative/Plan: The patient is on anticoagulation for history of the same. She had a CTA chest done which showed no residual clot. However she would be at increased risk of recurrence, given her malignancy history and recent chemotherapy. Therefore ideally she needs to be continued on anticoagulation. That, obviously is not a possibility immediately, given her GI bleed. Anti-coagulation will be on hold. Depending on her findings on endoscopy, and stability of hemoglobin, decision will be made subsequently as to when and if anti-coagulation can be resumed Current Visit: No Status: Acute Code(s): Z86.711 - PERSONAL HISTORY OF PULMONARY EMBOLISM SNOMED Code(s): 046493511
[2017-11-09] MEDS ORDERED: TRIMETHOBENZAMIDE 300 MG CAP PO PRN (14:52)
--- NOTE | 2017-11-09 14:53 | P.CONS ---
History of Present Illness - Reason for Consult Consult date: 11/09/17 anemia Requesting physician: Shayne Springer - Chief Complaint weakness melena - History of Present Illness 66 y/o female patient of Dr. Carlson [facility] stage IV ovarian ca s/p debulking surgery June 2017 including portion of small bowel resection and gastric lining, bilateral pulmonary embolisms maintained on Eliquis. Admitted with profound weakness shortness of breath with melanotic stools x 3 weeks. Consult requested for anemia GI bleed. Denies gross hematemesis or hematochezia. No fever or chills very mild lower abdominal "discomfort" would not qualify as "pain". Daily black bowel movements x 3 weeks. No history of GI bleed. No history of EGD/colonoscopy. Denies ASA/NSAID/ETOH. Last dose of ELiquis was yesterday morning. Admission HGB 5.8. MCV 102. Platelet 160. INR 1.0. BUN 20. Cr 0.8. Received 1 unit of blood. Present hemoglobin is 7.0. Previous CT imaging abdomen in 2016 reported colonic diverticulosis. Recent CT A/P September no acute bowel or gastric abnormality; mild right hydroureteronephrosis. Chest CTA negative. Previous HGB 08/11/17 was 7.2 and hemoglobin in April was in the 10 range. Review of Systems Constitutional: Denies fever, chills, sweats, weight gain, or loss. HEENT: Negative for migraines, blurred vision or loss, earaches, drainage, tinnitus, oral mucosal lesions, dysphagia, or odynophagia. CARDIAC: Negative for chest pain, arrhythmias, or palpitation. RESPIRATORY: Negative for shortness of breath, hemoptysis, cough, or sputum production. GI: See HPI for pertinent findings. : Negative for hematuria, urgency, frequency, polyuria, or dysuria. GYNc: Denies possibility of . Negative vaginal discharge. MUSCULOSKELETAL: Negative for muscle aches, swelling, arthritis, and arthralgias. NEUROLOGIC: Negative for stroke or TIA. ENDOCRINE: Negative for thyroid problems. SKIN: Negative for rash or itching. PSYCHIATRIC: Negative history for depression and anxiety Past Medical History Past Medical History: Cancer, Diabetes Mellitus, Osteoarthritis (OA) Additional Past Medical History / Comment(s): Bilateral ovarian cancer with mets last chemotherapy was august 2017, bicytopenia, anemia, 11/2016 bilateral pulmonary embolisms, 12/2016 L sided pleural effusion with 2 thoracentesis, diet controlled diabetes, diverticulosis, diarrhea with chemo, mild protein calorie malnutrition, past L ankle fracture and pt thinks possibility of arthritis in that joint. History of Any Multi-Drug Resistant Organisms: None Reported Past Surgical History: No Surgical Hx Reported Additional Past Surgical History / Comment(s): Total hysterectomy/perineal and omenectomy done by Dr Rob at [facility], 2 left thoracentesis, power port rt upper chest Past Anesthesia/Blood Transfusion Reactions: No Reported Reaction Additional Past Anesthesia/Blood Transfusion Reaction / Comm: Pt has received blood without reaction. Past Psychological History: No Psychological Hx Reported Additional Psychological History / Comment(s): pt is independant. lives alone in 2 story home that has 2 porch steps. no outside services recieved. no medical equipment. Smoking Status: Never smoker Past Alcohol Use History: None Reported Past Drug Use History: None Reported - Past Family History Mother Family Medical History: Congestive Heart Failure (CHF), CVA/TIA, Hypertension Father Family Medical History: CVA/TIA Brother(s) Additional Family Medical History / Comment(s): colon cancer, lymphoma Medications and Allergies Home Medications Medication Instructions Recorded Confirmed Type Apixaban [Eliquis] 5 mg PO BID 11/08/17 11/08/17 History Allergies Allergy/AdvReac Type Severity Reaction Status Date / Time aspirin Allergy Rash/Hives Verified 11/08/17 16:38 Iodinated Contrast- Oral and Allergy Rash/Hives Verified 11/08/17 16:38 IV Dye lactose Allergy Unknown Verified 11/08/17 16:38 Penicillins Allergy Rash/Hives Verified 11/08/17 16:38 melatonin AdvReac Intermediate Unknown Verified 11/08/17 16:38 Physical Exam Vitals: Vital Signs Temp Pulse Pulse Resp BP BP Pulse Ox 11/09/17 11:52 97.8 F 70 16 108/56 100 11/09/17 07:46 97.8 F 72 16 111/62 98 11/09/17 04:00 98.2 F 64 16 108/64 98 11/09/17 00:00 98.3 F 72 16 110/64 96 11/08/17 23:42 98.4 F 75 16 114/60 96 11/08/17 21:37 98.5 F 72 16 110/64 96 11/08/17 21:07 98 F 77 16 107/59 98 11/08/17 20:57 98.7 F 74 16 120/60 98 11/08/17 19:49 98.7 F 74 16 120/60 98 18 19:00 76 16 112/73 97 11/08/17 18:10 84 18 112/70 98 11/08/17 15:50 98.2 F 82 20 126/67 100 Intake and Output 11/08/17 11/09/17 11/09/17 22:59 06:59 14:59 Intake Total 310 0 380 Output Total 700 Balance 310 0 -320 Intake: Oral 380 Blood Product 310 0 Rc As-1 Unit 0 0 [id number] Output: Urine 700 Other: # Voids 1 1 Weight 51.7 kg 51.6 kg General appearance: The patient is alert, oriented, in no acute distress. HET: Head is normocephalic and atraumatic. Pupils are equal and reactive. Oropharynx is clear without lesions. Neck: Supple without lymphadenopathy. Trachea midline. Heart: S1 S2. Regular rate and rhythm. Lungs: No crackles or wheezes are heard. Abdomen: Soft, nontender, nondistended with bowel sounds. No peritoneal signs. No palpable organomegaly or masses. Extremities: Normal skin color and turgor. No cyanosis, rash, ulceration, clubbing, or edema. Radial and pedal pulses are 2/4 bilaterally. Neurological: No focal deficits. Strength and sensation are grossly intact. Results CBC & Chem 7: 11/09/17 17:04 11/08/17 16:19 Labs: Abnormal Lab Results - Last 24 Hours (Table) 11/08/17 11/08/17 11/08/17 Range/Units 16:19 16:19 16:19 RBC 1.76 L (3.80-5.40) m/uL Hgb 5.8 L* (11.4-16.0) gm/dL Hct 17.9 L* (34.0-46.0) % MCV 102.0 H (80.0-100.0) fL RDW (11.5-15.5) % Lymphocytes # (1.0-4.8) k/uL APTT 20.5 L (22.0-30.0) sec BUN 20 H (7-17) mg/dL Glucose 104 H (74-99) mg/dL Total Protein 6.0 L (6.3-8.2) g/dL Albumin 3.4 L (3.5-5.0) g/dL Crossmatch 11/08/17 11/09/17 11/09/17 Range/Units 19:24 01:54 06:48 RBC 2.25 L 2.36 L (3.80-5.40) m/uL Hgb 7.4 L D 7.6 L (11.4-16.0) gm/dL Hct 23.0 L 23.9 L (34.0-46.0) % MCV 101.9 H 101.4 H (80.0-100.0) fL RDW 15.7 H (11.5-15.5) % Lymphocytes # 0.6 L 0.9 L (1.0-4.8) k/uL APTT (22.0-30.0) sec BUN (7-17) mg/dL Glucose (74-99) mg/dL Total Protein (6.3-8.2) g/dL Albumin (3.5-5.0) g/dL Crossmatch See Detail 11/09/17 Range/Units 12:05 RBC 2.24 L (3.80-5.40) m/uL Hgb 7.0 L (11.4-16.0) gm/dL Hct 22.5 L (34.0-46.0) % MCV 100.3 H (80.0-100.0) fL RDW 15.7 H (11.5-15.5) % Lymphocytes # (1.0-4.8) k/uL APTT (22.0-30.0) sec BUN (7-17) mg/dL Glucose (74-99) mg/dL Total Protein (6.3-8.2) g/dL Albumin (3.5-5.0) g/dL Crossmatch Assessment and Plan (1) GI bleed Narrative/Plan: Acute symptomatic acute blood loss anemia with shortness of breath weakness and melanotic stools x 3 weeks with underlying history of stage IV ovarian carcinoma staus post debulking surgery and recent bilateral pulmonary embolisms maintained on Eliquis. Possible peptic ulcer disease possible bleeding angiectasia exacerbated by anticoagulation possible neoplasm. Colonic and small bowel source needs to be kept in mind. Current Visit: Yes Status: Acute Code(s): K92.2 - GASTROINTESTINAL HEMORRHAGE, UNSPECIFIED SNOMED Code(s): 08637019 (2) Acute blood loss anemia Current Visit: Yes Status: Acute Code(s): D62 - ACUTE POSTHEMORRHAGIC ANEMIA SNOMED Code(s): 075804646 (3) H/O ovarian cancer Current Visit: Yes Status: Acute Code(s): Z85.43 - PERSONAL HISTORY OF MALIGNANT NEOPLASM OF OVARY SNOMED Code(s): 853314683 (4) History of pulmonary embolism Current Visit: Yes Status: Acute Code(s): Z86.711 - PERSONAL HISTORY OF PULMONARY EMBOLISM SNOMED Code(s): 820428799 Plan: 1. EGD colonoscopy tomorrow. Clear liquids. NPO after midnight. 2. CBC monitoring. Blood transfusions as advised. Continue to hold anticoagulation. The treating plant operator has discussed the risks, benefits and alternative therapies for the above-mentioned procedure and for both sedation/analgesia as well as necessary blood product administration, if indicated, as they pertain to this patient. The patient has indicated understanding and acceptance of the risks and procedures discussed. Thank you for this kind referral and the opportunity to participate in the care of your patient. This consultation was discussed with Dr. Pelaez. The impression and plan of care have been directed as dictated.
[2017-11-09] MEDS ORDERED: PEG 3350-NA SULF,BICARB,CL/KCL 4,000 ML BOTTLE PO ONE (15:30)
[2017-11-09 17:17] LABS: HCT 22.9 % (34.0-46.0); HGB 7.4 gm/dL (11.4-16.0); Hypochromasia Moderate; MCH 32.7 pg (25.0-35.0); MCHC 32.4 g/dL (31.0-37.0); MCV 101.2 fL (80.0-100.0); Macrocytosis Slight; Mean Platelet Volume 7.5; Platelet Count 193 k/uL (150-450); Poikilocytosis Slight; RBC 2.27 m/uL (3.80-5.40); RDW 15.8 % (11.5-15.5); WBC 9.3 k/uL (3.8-10.6)
--- NOTE | 2017-11-09 17:57 | HP ---
HISTORY AND PHYSICAL DATE OF ADMISSION: 11/08/2017 DATE OF SERVICE: 11/09/2017 PRESENTING COMPLAINT: Bright red blood per rectum. HISTORY OF PRESENTING COMPLAINT: This is a very pleasant 66-year-old patient who follows with Dr. Carlson. 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 The patient has had thoracentesis in the past. The patient had debulking surgery done at [facility] with part of the bowel, ovaries and gastric lining removed on June 18. The patient also received her last chemotherapy some time ago. The patient has had bilateral pulmonary embolism, for which patient has been on Eliquis. Patient for 3 weeks has been having dark stools, which became more pronounced recently. Patient started getting weak, dizzy, lightheaded, and decided to come in. She was found to have a hemoglobin of 5.8. Patient did have a unit of blood. Admitted for the same. Otherwise, patient's appetite has been fair. No weight loss. REVIEW OF SYSTEMS: CONSTITUTIONAL: Weak, tired. HEENT: None. RESPIRATORY: None. CARDIOVASCULAR: None. GASTROINTESTINAL: As above. Minimal abdominal pain. GENITOURINARY: None. MUSCULOSKELETAL: Arthritic pain in joints. DERMATOLOGICAL: None. HEMATOLOGICAL: None. LYMPHATICS: None. PSYCHIATRY: None. NEUROLOGICAL: None. PAST MEDICAL HISTORY: 1. Diabetes, type 2. 2. Osteoarthritis. 3. 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 4. Bilateral pulmonary embolism. 5. Left pleural effusion from metastasis. 6. Colonic diverticulosis. PAST SURGICAL HISTORY: 1. Total hysterectomy/perineal omentectomy by Dr. Rob at [facility]. 2. Left-sided thoracentesis and a port in the right upper chest. SOCIAL HISTORY: Lives by herself. No smoking. No alcohol. FAMILY HISTORY: Congestive heart failure, stroke, hypertension, colon cancer, lymphoma. HOME MEDICATIONS: Eliquis 5 mg p.o. b.i.d.; last dose was yesterday. ALLERGIES: 1. ASPIRIN. 2. IV CONTRAST DYE. 3. LACTOSE. 4. PENICILLIN. 5. MELATONIN. PHYSICAL EXAMINATION: VITAL SIGNS ON PRESENTATION: Temperature 98.2, pulse 82, respiration 20, blood pressure 126/67, pulse ox 100% on room air. GENERAL APPEARANCE: Thin build. Lying in bed, awake. EYES: Pupils equal. Conjunctivae pale. HEENT: External appearance of nose and ears normal. Oral cavity normal. NECK: JVD not raised. Mass not palpable. RESPIRATORY: Effort normal. Lungs are clear. CARDIOVASCULAR: First and second sounds normal. No edema. ABDOMEN: Minimal tenderness. Soft. Liver and spleen not palpable. LYMPHATIC: No lymph node palpable in neck or axillae. PSYCHIATRY: Alert and oriented x3. Mood and affect normal. NEUROLOGICAL: Pupils equal. Cranial nerves grossly intact. Power and sensation grossly intact. INVESTIGATIONS: White count 5.5, hemoglobin 5.8, repeat after blood transfusion was 7, potassium 4.3, BUN 20, creatinine 0.80. Patient's blood work was reviewed in the context of the presentation. Chest CTA was unremarkable. CT scan of the brain showed nil acute. Chest x-ray nil acute. EKG normal sinus rhythm. ASSESSMENT: 1. Acute gastrointestinal bleed in a patient who is on Eliquis and Evista. 2. Acute symptomatic blood loss anemia requiring one unit of blood. 3. Adenocarcinoma, stage IV, of the ovaries along with debulking surgery of the abdomen. 4. Colonic diverticulosis. 5. History of chronic bilateral pulmonary embolism. Patient had been on Eliquis. 6. Primary osteoarthritis in multiple joints. PLAN: Of course, patient's Eliquis has been held. Patient did receive a unit of blood. Repeat CBC is pending. Seen by Dr. Pelaez from GI, who plans to do EGD and colonoscopy tomorrow. Hemodynamically will be followed closely. Admitted for the same. MMODL / IJN: [id number] /
[2017-11-10] MEDS: SODIUM CHLORIDE 0.9% 1,000 ML IV SCH ×2 (06:14→14:44)
[2017-11-10 08:24] LABS: Basophils % (A) 1 %; Eosinophils % (A) 1 %; HCT 21.8 % (34.0-46.0); Hypochromasia Marked; Lymphocytes # (A) 2.2 k/uL (1.0-4.8); Lymphocytes % (A) 42 %; MCV 103.2 fL (80.0-100.0); Macrocytosis Slight; Mean Platelet Volume 7.1; Monocytes # (A) 0.4 k/uL (0-1.0); Monocytes % (A) 7 %; Neutrophils # (A) 2.6 k/uL (1.3-7.7); Neutrophils % (A) 49 %; Platelet Count 177 k/uL (150-450); Poikilocytosis Slight; RBC 2.11 m/uL (3.80-5.40); RDW 15.4 % (11.5-15.5); WBC 5.3 k/uL (3.8-10.6)
[2017-11-10] MEDS ORDERED: LIDOCAINE 1% INJ 10MG/ML (20 ML MDV) ONE (10:45)
[2017-11-10] MEDS ORDERED: PROPOFOL 10 MG/ML 20 ML VIAL IV ONE (10:45)
[2017-11-10] MEDS ORDERED: fentaNYL (PF) 50 MCG/ML 2 ML AMP ONE (10:45)
[2017-11-10] MEDS ORDERED: MIDAZOLAM 2 MG/2 ML VIAL ONE (10:45)
[2017-11-10] MEDS ORDERED: IV FLUID CONTINUATION 1,000 ML IV ONE (10:51)
--- NOTE | 2017-11-10 12:16 | P.PCN ---
Date of Procedure: 11/10/17 Description of Procedure: Brief history: Patient is a pleasant 58-year-old female with a prior history of stage IV ovarian cancer status post surgery in June 2017 for debulking with partial large bowel resection, and prior PE on anticoagulation therapy who presents to the hospital with complaints of hematochezia and was found to be anemic. He patient reports passage of bright or blood. She is taken to endoscopy for evaluation with EGD and colonoscopy. s Procedure performed: Esophagogastroduodenoscopy with biopsy Colonoscopy with biopsy Estimated blood loss: Minimal. Preoperative diagnosis: Hematochezia, anemia of acute blood loss Anesthesia: MAC Procedure: After informed consent was obtained from the patient was brought into the endoscopy unit and IV sedation was administered by anesthesia under continuous monitoring. Initially upper endoscopy was done. The Olympus GF 160 video endoscope was inserted inserted into the mouth and esophagus intubated without any difficulty and was gradually advanced into the stomach and duodenum and carefully examined. The bulb and second part of the duodenum were significant for mild erythema suggestive of duodenitis. The scope was then withdrawn into the stomach adequately insufflated with air and upon careful examination the antrum and body, cardia and fundus appeared grossly normal. Mild scattered erythema of the antrum and body were noted and biopsied, suggestive of gastritis. The scope was then withdrawn into the esophagus. The GE junction was located at 37 cm to the incisors, with a 4 cm hiatal hernia noted. The esophagus appeared regular with no erythema erosions or ulcerations. Patient tolerated the procedure well. At this time the patient continued to remain on sedation. Initial digital rectal examination was normal. Olympus CF 190 video colonoscope was then inserted into the rectum and gradually advanced to the cecum without any difficulty. The appendiceal opening and ileocecal valve were noted, and the terminal ileum intubated. No blood noted in the terminal ileum which appeared grossly normal. Careful examination was performed as the scope was gradually being withdrawn. The prep was excellent. The cecum, ascending colon, transverse colon, descending colon, sigmoid colon and rectum appeared normal. The anastomotic site from the prior colonic resection was noted at 40 cm from the anal verge with some mild erythema and irritation at the anastomotic site which was biopsied. Small scattered diverticula were noted throughout the colon. Retroflexion was performed in the rectum and no lesions were noted, with mild nonbleeding internal hemorrhoids seen. Patient tolerated the procedure well. Impression: 1. Gastritis and duodenitis, biopsied. 2. Hemorrhoids, small scattered diverticula, anastomotic site erythema and inflammation biopsied, normal terminal ileum. Recommendations: Findings of this examination were discussed with the patient as well as her daughter. The patient will remain nothing by mouth and have a capsule endoscopy today. Okay for liquids 2 hours after capsule is taken. Continue monitor hemoglobin and hematocrit and transfuse as needed.
[2017-11-10 12:56] LABS: Glucose,Whole Blood 96 mg/dL (75-99)
[2017-11-10] MEDS ORDERED: SIMETHICONE 40 MG/0.6 ML DROPS 2,000 MG/30 ML BOTTLE PO ONE (13:06)
[2017-11-10] MEDS ORDERED: ACETAMINOPHEN TAB 500 MG TAB PO PRN (15:34)
[2017-11-10 16:36] LABS: Basophils % (A) 0 %; Eosinophils # (A) 0.1 k/uL (0-0.7); Eosinophils % (A) 2 %; HCT 21.7 % (34.0-46.0); Hypochromasia Marked; Lymphocytes # (A) 2.2 k/uL (1.0-4.8); Lymphocytes % (A) 41 %; MCH 31.4 pg (25.0-35.0); MCHC 31.1 g/dL (31.0-37.0); Macrocytosis Slight; Mean Platelet Volume 8.2; Monocytes # (A) 0.3 k/uL (0-1.0); Monocytes % (A) 6 %; Neutrophils # (A) 2.7 k/uL (1.3-7.7); Neutrophils % (A) 50 %; Platelet Count 175 k/uL (150-450); Poikilocytosis Slight; RBC 2.15 m/uL (3.80-5.40); RDW 15.1 % (11.5-15.5); WBC 5.4 k/uL (3.8-10.6)
[2017-11-10 16:39] LABS: HGB 6.8 gm/dL (11.4-16.0)
--- NOTE | 2017-11-10 20:54 | PN ---
PROGRESS NOTE DATE OF SERVICE: 11/10/17 PRESENTING COMPLAINT: Bright red blood per rectum. INTERVAL HISTORY: This patient with adenocarcinoma of the ovary stage IV, metastatic to peritoneum, status post chemotherapy and surgery is stable. Presented with bleed from being on Eliquis. EGD colonoscopy was done today, found to have gastritis and duodenitis. Following that she had a capsule study. The patient had received a unit of blood earlier. The patient's daughter at the bedside. No further episodes of bleeding. PHYSICAL EXAMINATION: Temperature 97.3, pulse 71, respiration 16, blood pressure 137/67, pulse ox 99% on room air. GENERAL APPEARANCE: Sitting up, awake. EYES: Pupils equal. Conjunctiva pale. HEENT: External appearance of nose and ears normal. Oral cavity normal. NECK: JVD not raised. Mass not palpable. RESPIRATORY: Effort normal. Lungs are clear. CARDIOVASCULAR: First and second sounds, no edema. ABDOMEN: Soft, nontender. Liver and spleen not palpable. PSYCHIATRY: Alert and oriented x3. Mood and affect normal. INVESTIGATIONS: White count 5.4, hemoglobin 6.8. ASSESSMENT: 1. Acute GI bleed in a patient who was on Eliquis and Evista with EGD showing gastritis and duodenitis. Suspicion also probably for inflammation of the small bowel too. 2. Acute symptomatic blood loss anemia. The patient did get 1 unit of blood. Hemoglobin dropped to 6.8. We will proceed with a 2nd unit of blood. 3. Adenocarcinoma, stage IV of the ovaries along with surgery and chemotherapy currently stable. 4. Colonic diverticulosis. 5. Chronic bilateral pulmonary embolism. The patient had been on Eliquis. 6. Primary osteoarthritis of multiple joints. PLAN: I discussed with Dr. Springer from Oncology. Per him, patient is better to stay off the Eliquis given the significant amount of bleeding and the patient is not really candidate for [place]ody filter given the balancing of the pros and cons, hence, especially the patient's cancer has been stabilized. Earlier, prior to this, I had spoken to the patient and daughter. The patient will be getting another unit of blood. H and H will be closely followed. MMODL / IJN: [id number] /
[2017-11-11] MEDS: SODIUM CHLORIDE 0.9% 1,000 ML IV SCH ×2 (01:28→17:37)
[2017-11-11 06:46] LABS: Anisocytosis Slight; Basophils % (A) 0 %; Eosinophils # (A) 0.1 k/uL (0-0.7); Eosinophils % (A) 2 %; Hypochromasia Moderate; Lymphocytes % (A) 36 %; MCH 31.6 pg (25.0-35.0); MCHC 32.4 g/dL (31.0-37.0); MCV 97.6 fL (80.0-100.0); Macrocytosis Slight; Mean Platelet Volume 6.5; Monocytes # (A) 0.4 k/uL (0-1.0); Monocytes % (A) 8 %; Neutrophils # (A) 2.9 k/uL (1.3-7.7); Neutrophils % (A) 53 %; Platelet Count 165 k/uL (150-450); Poikilocytosis Slight; RBC 2.67 m/uL (3.80-5.40); RDW 16.2 % (11.5-15.5); WBC 5.5 k/uL (3.8-10.6)
[2017-11-11 06:53] LABS: HGB 8.4 gm/dL (11.4-16.0)
--- NOTE | 2017-11-11 11:11 | P.PN ---
Subjective Progress Note Date: 11/11/17 Principal diagnosis: GI bleed anemia 66-year-old female history of stage IV ovarian cancer status post debulking and chemotherapy with history of pulmonary embolism maintained on anticoagulation. Status post EGD colonoscopy yesterday for evaluation of acute blood loss anemia melena with findings of gastritis duodenitis small scattered diverticula and hemorrhoids. Biopsies pending. Small bowel endoscopy recommended and completed results are pending no further episodes of melena. Hemoccult 8.4. Received 2 units of blood since admission. Denies abdominal pain. Anticoagulation on hold. Objective - Vital Signs Vital signs: Vital Signs Temp 97.4 F L 11/11/17 08:00 Pulse 73 11/11/17 08:00 Resp 16 11/11/17 08:00 BP 120/75 11/11/17 08:00 Pulse Ox 100 11/11/17 08:00 Intake & Output 11/10/17 11/11/17 11/11/17 18:59 06:59 18:59 Intake Total 260 1180 240 Output Total 400 Balance -140 1180 240 Weight 51.6 kg Intake: IV 260 340 Invasive Line 2 10 30 PRBC 310 Intake, IV Titration 600 Amount Sodium Chloride 0.9% 1, 600 000 ml @ 75 mls/hr IV . [id number] [facility] Rx#:[id number] Oral 240 240 Blood Product 0 Rc As-1 Unit 0 [id number] Output: Urine 400 Other: Voiding Method Toilet - Exam General appearance: The patient is alert, oriented, in no acute distress. HET: Head is normocephalic and atraumatic. Pupils are equal and reactive. Oropharynx is clear without lesions. Neck: Supple without lymphadenopathy. Trachea midline. Heart: S1 S2. Regular rate and rhythm. Lungs: No crackles or wheezes are heard. Abdomen: Soft, nontender, nondistended with bowel sounds. No peritoneal signs. No palpable organomegaly or masses. Extremities: Normal skin color and turgor. No cyanosis, rash, ulceration, clubbing, or edema. Radial and pedal pulses are 2/4 bilaterally. Neurological: No focal deficits. Strength and sensation are grossly intact. - Labs CBC & Chem 7: 11/11/17 06:10 11/08/17 16:19 Labs: Abnormal Lab Results - Last 24 Hours (Table) 0911/10/17 11/11/17 Range/Units 19:24 16:17 06:10 RBC 2.15 L 2.67 L (3.80-5.40) m/uL Hgb 6.8 L* 8.4 L D (11.4-16.0) gm/dL Hct 21.7 L 26.0 L (34.0-46.0) % MCV 101.0 H (80.0-100.0) fL RDW 16.2 H (11.5-15.5) % Crossmatch See Detail Microbiology - Last 24 Hours (Table) 11/08/17 16:19 Blood Culture - Preliminary Blood No Growth after 48 hours Assessment and Plan (1) GI bleed Narrative/Plan: Acute symptomatic acute blood loss anemia with shortness of breath weakness and melanotic stools x 3 weeks with underlying history of stage IV ovarian carcinoma staus post debulking surgery and recent bilateral pulmonary embolisms maintained on Eliquis. Status post EGD colonoscopy no evidence of peptic ulcer disease or bleeding. Small bowel capsule endoscopy completed results are pending. Current Visit: Yes Status: Acute Code(s): K92.2 - GASTROINTESTINAL HEMORRHAGE, UNSPECIFIED SNOMED Code(s): 09398881 (2) Acute blood loss anemia Current Visit: Yes Status: Acute Code(s): D62 - ACUTE POSTHEMORRHAGIC ANEMIA SNOMED Code(s): 944328352 (3) H/O ovarian cancer Current Visit: Yes Status: Acute Code(s): Z85.43 - PERSONAL HISTORY OF MALIGNANT NEOPLASM OF OVARY SNOMED Code(s): 539945517 (4) History of pulmonary embolism Current Visit: Yes Status: Acute Code(s): Z86.711 - PERSONAL HISTORY OF PULMONARY EMBOLISM SNOMED Code(s): 270572623 Plan: 1. Continue to hold anticoagulation until capsule study can be read later today. Full liquid diet. CBC monitoring. Will follow closely with you. Assessment and plan a care discussed with Dr. Pelaez
[2017-11-11 17:18] VITALS: RESP 18
--- NOTE | 2017-11-11 17:51 | P.PN ---
Subjective Progress Note Date: 11/11/17 The patient is status post EGD and colonoscopy yesterday. She has not noted any new bleeding. She feels somewhat stronger. She did require blood transfusion today for hemoglobin of 6.8 Objective - Vital Signs Vital signs: Vital Signs Temp 98.6 F 11/11/17 16:00 Pulse 71 11/11/17 16:00 Resp 18 11/11/17 16:00 BP 140/79 11/11/17 16:00 Pulse Ox 97 11/11/17 16:00 Intake & Output 11/10/17 11/11/17 11/11/17 18:59 06:59 18:59 Intake Total 260 1180 480 Output Total 400 800 Balance -140 1180 -320 Weight 51.6 kg Intake: IV 260 340 Invasive Line 2 10 30 PRBC 310 Intake, IV Titration 600 Amount Sodium Chloride 0.9% 1, 600 000 ml @ 75 mls/hr IV . [id number] [facility] Rx#:[id number] Oral 240 480 Blood Product 0 Rc As-1 Unit 0 [id number] Output: Urine 400 800 Other: Voiding Method Toilet - Constitutional General appearance: Present: no acute distress - EENT Eyes: Present: EOMI ENT: Present: hearing grossly normal, normal oropharynx - Respiratory Respiratory: bilateral: CTA - Cardiovascular Rhythm: regular Heart sounds: normal: S1, S2 - Gastrointestinal General gastrointestinal: Present: normal bowel sounds, soft - Integumentary Integumentary: Present: normal - Neurologic Neurologic: Present: CNII-XII intact - Musculoskeletal Musculoskeletal: Present: generalized weakness - Psychiatric Psychiatric: Present: A&O x's 3, appropriate affect - Labs CBC & Chem 7: 11/11/17 06:10 11/08/17 16:19 Labs: Abnormal Lab Results - Last 24 Hours (Table) 11/08/17 11/11/17 Range/Units 19:24 06:10 RBC 2.67 L (3.80-5.40) m/uL Hgb 8.4 L D (11.4-16.0) gm/dL Hct 26.0 L (34.0-46.0) % RDW 16.2 H (11.5-15.5) % Crossmatch See Detail Microbiology - Last 24 Hours (Table) 11/08/17 16:19 Blood Culture - Preliminary Blood No Growth after 48 hours Assessment and Plan (1) GI bleed Narrative/Plan: This appears to have stabilized. Though hemoglobin did go down to 6.8, this is not markedly different from the low 7 range, where she has been running. She is status post EGD and colonoscopy, with mild duodenitis and gastritis, as well as some inflammation in the colon at the anastomotic site. Biopsies are pending. No active bleeding was noted. Continue to monitor with additional transfusions as needed Current Visit: Yes Status: Acute Code(s): K92.2 - GASTROINTESTINAL HEMORRHAGE, UNSPECIFIED SNOMED Code(s): 50396377 (2) Anemia Narrative/Plan: Hemoglobin status, and management as above. She will be given a couple of doses of IV iron. She will be further monitored in the outpatient setting Current Visit: Yes Status: Acute Code(s): D64.9 - ANEMIA, UNSPECIFIED SNOMED Code(s): 150090373 (3) Ovarian cancer Narrative/Plan: The patient is JJ at this time. She was supposed to start on maintenance Avastin. However, given acute major GI bleed, we'll hold off on starting that presently. A decision will be made about starting this, when she is next evaluated in the office in the 01/01 Current Visit: No Status: Chronic Priority: Medium Code(s): C56.9 - MALIGNANT NEOPLASM OF UNSPECIFIED OVARY SNOMED Code(s): 661063105 (4) History of pulmonary embolism Narrative/Plan: The case was discussed extensively with the admitting service, and subsequently with the patient. The patient's PE was almost a year ago. Since then she has achieved remission of her ovarian cancer with most recent workup showing an EGD. In addition follow-up CAT scans have shown resolution of the clot. The patient did have a major GI bleed, and would be at risk of recurrent bleeding with resumption of anticoagulation. Considering the above factors, based on risk benefit, at this time it would appear more prudent to discontinue the anticoagulation. A baby aspirin would have been recommended, but the patient is ALLERGIC to the same. She expressed understanding of the rationale. Current Visit: No Status: Acute Code(s): Z86.711 - PERSONAL HISTORY OF PULMONARY EMBOLISM SNOMED Code(s): 646454974
[2017-11-11] MEDS: SODIUM FERRIC GLUCONAT-SUCROSE 125 MG in SODIUM CHLORIDE 0.9% 100 ML IVPB SCH (19:54)
--- NOTE | 2017-11-11 22:57 | PN ---
PROGRESS NOTE DATE OF SERVICE: November 11, 2017. PRESENT COMPLAINT: Lower GI bleed. 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 No further episodes. The patient overall feeling better. Daughter is present. Started on a liquid diet. REVIEW OF SYSTEMS: Done for constitutional, cardiovascular, GI, pulmonary and relevant findings as above. CURRENT MEDICATIONS: Reviewed. Given IV iron. PHYSICAL EXAMINATION: VITAL SIGNS: Temperature 98.6, pulse 71, respiratory 18, blood pressure 140/79, pulse ox 97% on room air. GENERAL APPEARANCE: Sitting up comfortable. EYES: Pupils equal. Conjunctivae normal. NECK: JVD not raised. Mass not palpable. RESPIRATORY: Effort normal. LUNGS are clear. CARDIOVASCULAR: 1st and 2nd sounds normal. No edema. ABDOMEN: Soft, nontender. Liver and spleen not palpable. PSYCHIATRY: Alert and oriented x3. Mood and affect normal. INVESTIGATIONS: Hemoglobin 8.4. ASSESSMENT: 1. Acute gastrointestinal bleed in a patient who is on .. MMODL / IJN: [id number] /
[2017-11-12] MEDS: SODIUM CHLORIDE 0.9% 1,000 ML IV SCH (04:10)
[2017-11-12 06:01] LABS: Basophils % (A) 0 %; Eosinophils # (A) 0.1 k/uL (0-0.7); Eosinophils % (A) 2 %; HCT 27.4 % (34.0-46.0); HGB 8.7 gm/dL (11.4-16.0); Hypochromasia Moderate; Lymphocytes # (A) 1.4 k/uL (1.0-4.8); Lymphocytes % (A) 22 %; MCH 30.8 pg (25.0-35.0); MCHC 31.6 g/dL (31.0-37.0); MCV 97.5 fL (80.0-100.0); Macrocytosis Slight; Mean Platelet Volume 6.5; Monocytes # (A) 0.4 k/uL (0-1.0); Monocytes % (A) 7 %; Neutrophils # (A) 4.1 k/uL (1.3-7.7); Neutrophils % (A) 68 %; Platelet Count 160 k/uL (150-450); Poikilocytosis Slight; RBC 2.82 m/uL (3.80-5.40); RDW 15.9 % (11.5-15.5); WBC 6.1 k/uL (3.8-10.6)
[2017-11-12] MEDS: SODIUM FERRIC GLUCONAT-SUCROSE 125 MG in SODIUM CHLORIDE 0.9% 100 ML IVPB SCH (09:24)
[2017-11-12 10:56] LABS: Glucose,Whole Blood 103 mg/dL (75-99)
[2017-11-12 12:36] VITALS: BP 151/90; PULSE 73; TEMP 98.5
--- NOTE | 2017-11-12 21:28 | PN ---
PROGRESS NOTE DATE OF SERVICE: November 11, 2017. PRESENT COMPLAINT: Lower GI bleed. 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 EGD revealed gastritis and duodenitis status post capsule study that is reported to be unremarkable. No further bleeding episodes. The patient did receive 2 units of blood. Overall feeling better. Diet is being advanced. REVIEW OF SYSTEMS: Done for constitutional, cardiovascular, GI, pulmonary, relevant findings as above. CURRENT MEDICATIONS: Reviewed. PHYSICAL EXAMINATION: VITAL SIGNS: Temperature 98.1, pulse 87, respiratory rate 16 blood pressure 120/59, pulse ox 100 percent on room air. GENERAL APPEARANCE: Sitting up comfortable. EYES: Pupils equal. Conjunctivae normal. HEENT external appearance of nose and ears normal. Oral cavity normal. NECK JVD not raised. Mass not palpable. RESPIRATORY effort normal. LUNGS are clear. CARDIOVASCULAR: 1st and 2nd sounds, no edema. ABDOMEN: Soft, nontender. Liver and spleen not palpable. PSYCHIATRY: Alert and oriented x3. Mood and affect normal. INVESTIGATIONS: Hemoglobin 8.4. ASSESSMENT: 1. Acute gastrointestinal bleed in a patient who is on Eliquis from gastritis and duodenitis. 2. Acute symptomatic blood loss anemia due to gastrointestinal bleed status post 2 units of blood. 3. Adenocarcinoma stage IV of the ovaries followed by surgery and chemotherapy, currently stable. 4. Colonic diverticulosis. 5. Chronic bilateral pulmonary embolism. The patient had been on Eliquis for the same. 6. Primary osteoarthritis multiple joints. PLAN: Care was discussed with the patient's daughter. Patient to ambulate. Will check a hemoglobin tomorrow. If remains stable, then could be discharged. MMODL / IJN: [id number] /
--- NOTE | 2017-11-12 21:52 | DS ---
DISCHARGE SUMMARY DATE OF ADMISSION: November 08, 2017. DATE OF DISCHARGE: November 12, 2017 FINAL DIAGNOSES: 1. Acute gastrointestinal bleed in a patient on Eliquis from gastritis and duodenitis. 2. Acute symptomatic blood loss anemia from gastrointestinal bleed resulting in 2 units of blood transfusion. 3. Adenocarcinoma stage IV of the ovaries with a history of chemotherapy and surgery, currently stable. 4. Chronic diverticulosis. 5. History of bilateral pulmonary embolism. 6. Primary osteoarthritis multiple joints. CONSULTATIONS: Dr. Springer from Oncology and Dr. Pelaez from Gastroenterology. HOSPITAL COURSE: This very pleasant lady with adenocarcinoma of the ovaries with metastatic disease, who has had intraabdominal surgery for the same and chemotherapy, which is stable. Came with lower GI bleed. Hemoglobin was down to 5.8. The patient did receive 2 units of blood. Hemoglobin did come up to 8.7. No further bleeding. Patient did undergo EGD and colonoscopy for the gastritis and duodenitis and small hemorrhoids. Also some anastomotic site erythema inflammation. Since patient's PE has been stable and malignancy is controlled and because of the heavy bleeding that the patient had, decided not to anticoagulate the patient any further. Overall patient doing much better. On the day of discharge, on examination, temperature 98.5, pulse 73, respiration 18, blood pressure 158/90, pulse 97% on room air. Lungs fair air entry. ABDOMEN soft nontender. Hemoglobin 8.7. DISCHARGE MEDICATIONS: Tylenol 500 mg q.6h p.r.n. FOLLOWUP: Follow up with Dr. Thomson in 1 week and follow up with Dr. Springer in 1 week. Please note because of changes in patient's insurance, the patient has now been told to follow up with Dr. Thomson as a PCP. Previous PCP was Dr. Carlson. Copy to Dr. Carlson and copy Dr. Thomson. MMODL / IJN: [id number] /
== END 2017-11-12 15:15 | disposition home or self-care (01) | DRG 378 ==
LOC: EC 15:40 → 6SEL 19:35 → 5ONC 11-12 08:37
PROVIDERS: ADMIT Hospitalist; ATTEND Hospitalist
PROC: 30233N1 Transfusion of Nonautologous Red Blood Cells into Peripheral Vein, Percutaneous Approach (ICD-10-PCS; principal; 2017-11-08)
PROC: 0DBE8ZX Excision of Large Intestine, Via Natural or Artificial Opening Endoscopic, Diagnostic (ICD-10-PCS; 2017-11-10 07:30)
PROC: 0DB98ZX Excision of Duodenum, Via Natural or Artificial Opening Endoscopic, Diagnostic (ICD-10-PCS; 2017-11-10 07:30)
PROC: 0DB78ZX Excision of Stomach, Pylorus, Via Natural or Artificial Opening Endoscopic, Diagnostic (ICD-10-PCS; 2017-11-10 07:30)
DX: K29.71 Gastritis, unspecified, with bleeding (principal); C48.2 Malignant neoplasm of peritoneum, unspecified; C56.9 Malignant neoplasm of unspecified ovary; C78.6 Secondary malignant neoplasm of retroperitoneum and peritoneum; D62 Acute posthemorrhagic anemia; I27.82 Chronic pulmonary embolism; J90 Pleural effusion, not elsewhere classified; R18.8 Other ascites; E44.1 Mild protein-calorie malnutrition; K29.81 Duodenitis with bleeding; E11.9 Type 2 diabetes mellitus without complications; I48.91 Unspecified atrial fibrillation; K44.9 Diaphragmatic hernia without obstruction or gangrene; K57.30 Diverticulosis of large intestine without perforation or abscess without bleeding; K64.9 Unspecified hemorrhoids; M15.9 Polyosteoarthritis, unspecified; Z79.01 Long term (current) use of anticoagulants; Z80.0 Family history of malignant neoplasm of digestive organs; Z80.7 Family history of other malignant neoplasms of lymphoid, hematopoietic and related tissues; Z82.3 Family history of stroke; Z82.49 Family history of ischemic heart disease and other diseases of the circulatory system; Z87.891 Personal history of nicotine dependence; Z92.21 Personal history of antineoplastic chemotherapy; Z88.0 Allergy status to penicillin; Z88.8 Allergy status to other drugs, medicaments and biological substances; Z88.6 Allergy status to analgesic agent; Z91.041 Radiographic dye allergy status; Z68.21 Body mass index [BMI] 21.0-21.9, adult
CPT/HCPCS: 36415; 43239; 45380; 70450; 71046; 71275; 80053; 82550; 82553; 83735; 84484; 85025; 85027; 85610; 85730; 86850; 86900; 86901; 86920; 87040; 88305; 91110; 93005; 96361; 96374; 96375; 99285

== ENCOUNTER → 2017-12-26 | Outpatient (CLI) | payer MEDICARE ==
--- NOTE | 2017-12-26 17:34 | CT ---
EXAMINATION TYPE: CT ChestAbdPelvis w con DATE OF EXAM: 12/26/2017 INDICATION: Follow up for ovarian cancer with mets. COMPARISON: 09/26/2017 CT DLP: 440.7 mGycm CONTRAST: Performed with Oral Contrast and with IV Contrast, patient injected with 100ml mL of Isovue M300. TECHNIQUE: Axial images at 5 mm thick sections. Reconstructed images in the coronal plane. Delayed images through the kidneys. FINDINGS: CT CHEST: Portion of the thyroid visualized is normal. No suspicious lung nodules or focal infiltrates are present. No enlarged mediastinal or hilar adenopathy is evident. The ascending aorta diameter at the level of the main pulmonary artery is 2.9 cm. The main pulmonary artery diameter at the bifurcation is 2.[address] ABDOMEN: Liver: Normal Spleen: Normal Pancreas: Normal Adrenal glands: The adrenal glands are normal. Gallbladder: Normal Kidneys: No masses are evident. No hydronephrosis is present. No cortical renal cysts are present. Peripelvic cyst may be present on the left. Delayed images were obtained through the kidneys, which r emain unremarkable. Aorta: Vascular calcification is within the aorta. Inferior vena cava: Normal. CT PELVIS: No free fluid is within the pelvis. No omental caking is evident. Loops of bowel within the abdomen and pelvis are normal. There are loops of bowel which are incom pletely distended or lack oral contrast limiting their evaluation. Fecal debris is in the distal colo n. Appendix: Normal as visualized. Urinary bladder: Normal. Genitourinary structures: Osseous structures: No suspicious lytic or sclerotic lesions. IMPRESSIONS: 1. 1. No suspicious interval change.
== END | disposition home or self-care (01) ==
LOC: RADPROMAIN 13:04
PROVIDERS: ATTEND Internal Medicine Hematology & Oncology
DX: Z03.89 Encounter for observation for other suspected diseases and conditions ruled out (principal); C56.1 Malignant neoplasm of right ovary; C56.2 Malignant neoplasm of left ovary; Z88.0 Allergy status to penicillin; Z88.6 Allergy status to analgesic agent
CPT/HCPCS: 82565; 84520; 71260; 74177; 36415; J1642; Q9967

== ENCOUNTER 2018-02-10 12:03 | Observation (INO) | payer MEDICARE ==
--- NOTE | 2018-02-10 13:18 | ED ---
General Adult HPI - General Chief complaint: GI Bleed Stated complaint: Bloody stool Source: patient Mode of arrival: ambulatory Limitations: no limitations - History of Present Illness Initial comments: Dictation was produced using [employer] dictation software. please excuse any grammatical, word or spelling errors. Chief Complaint: 67-year-old female with progressive ovarian cancer presents with bloody stools. History of Present Illness: 67-year-old female presents with bloody stools 2 days. Patient states she was having a bowel movement on the toilet when she noticed dark red blood in her stool. Patient denies any abdominal pain. Denies any rectal pain. Patient denies any symptoms at this time. No lightheadedness. No feelings of malaise. Does have a history of GI bleed in the past and she did have workup performed and did not find any source of bleeding. She was started on new medication recently patient has not had any chemo therapy since several months. The ROS documented in this emergency department record has been reviewed and confirmed by me. Those systems with pertinent positive or negative responses have been documented in the HPI. All other systems are other negative and/or noncontributory. - Related Data Home Medications Medication Instructions Recorded Confirmed amLODIPine [Norvasc] 5 mg PO DAILY 02/10/18 02/10/18 Allergies Allergy/AdvReac Type Severity Reaction Status Date / Time aspirin Allergy Rash/Hives Verified 02/10/18 12:19 Iodinated Contrast- Oral and Allergy Rash/Hives Verified 02/10/18 12:19 IV Dye lactose Allergy Unknown Verified 02/10/18 12:19 Penicillins Allergy Rash/Hives Verified 02/10/18 12:19 melatonin AdvReac Intermediate Unknown Verified 02/10/18 12:19 Review of Systems ROS Statement: Those systems with pertinent positive or pertinent negative responses have been documented in the HPI. ROS Other: All systems not noted in ROS Statement are negative. Past Medical History Past Medical History: Cancer, Diabetes Mellitus, Osteoarthritis (OA) Additional Past Medical History / Comment(s): Bilateral ovarian cancer with mets last chemotherapy was august 2017, bicytopenia, anemia, 11/2016 bilateral pulmonary embolisms, 12/2016 L sided pleural effusion with 2 thoracentesis, diet controlled diabetes, diverticulosis, diarrhea with chemo, mild protein calorie malnutrition, past L ankle fracture and pt thinks possibility of arthritis in that joint. History of Any Multi-Drug Resistant Organisms: None Reported Past Surgical History: No Surgical Hx Reported Additional Past Surgical History / Comment(s): Total hysterectomy/perineal and omenectomy done by Dr Rob at [facility], 2 left thoracentesis, power port rt upper chest Past Anesthesia/Blood Transfusion Reactions: No Reported Reaction Additional Past Anesthesia/Blood Transfusion Reaction / Comment(s): Pt has received blood without reaction. Past Psychological History: No Psychological Hx Reported Smoking Status: Never smoker Past Alcohol Use History: None Reported Past Drug Use History: None Reported - Past Family History Mother Family Medical History: Congestive Heart Failure (CHF), CVA/TIA, Hypertension Father Family Medical History: CVA/TIA Brother(s) Additional Family Medical History / Comment(s): colon cancer, lymphoma General Exam - General Exam Comments Initial Comments: PHYSICAL EXAM: General Impression: Alert and oriented x3, not in acute distress HEENT: Normocephalic atraumatic, extra-ocular movements intact, pupils equal and reactive to light bilaterally, mucous membranes moist. Cardiovascular: Heart regular rate and rhythm, S1&S2 audible, no murmurs, rubs or gallops Chest: Lungs clear to auscultation bilaterally, no rhonchi, no wheeze, no rales Abdomen: Bowel sounds present, abdomen soft, non-tender, non-distended, no organomegaly Musculoskeletal: Pulses present and equal in all extremities, no peripheral edema Motor: Power 5/5 bilaterally, no focal deficits noted Neurological: CN II-XII grossly intact, no focal motor or sensory deficits noted Skin: Intact with no visualized rashes Psych: Normal affect and mood Rectal exam: No anal fissures. No external hemorrhoids. No palpable masses in the rectal vault. Limitations: no limitations Course Vital Signs 02/10/18 02/10/18 02/10/18 12:05 12:15 12:30 Temperature 97.8 F Pulse Rate 76 78 Respiratory 20 18 19 Rate Blood Pressure 162/98 164/110 161/103 O2 Sat by Pulse 99 98 97 Oximetry 02/10/18 02/10/18 13:00 13:30 Temperature Pulse Rate 71 73 Respiratory 16 15 Rate Blood Pressure 157/94 139/90 O2 Sat by Pulse 99 Oximetry Medical Decision Making - Medical Decision Making ED course: 67-year-old female presents with red blood per rectum. As upon arrival are within acceptable limits.Laboratory evaluation tape. Hemoglobin is 10.8. Which is higher than her baseline. Rest of CBC unremarkable. Coag panel unremarkable. Metabolic panel is unremarkable. Stool guaiac blood is positive. At this point highly suspect lower GI bleed as a cause. Patient is given Protonix 40 potential of possible upper GI bleed. Patient is hemodynamically stable. We'll place patient in observation with consultation to gastroenterology. She had no active bleeding issues while in the emergency department. EKG Interpretation: A 12 lead EKG was obtained. It was interpreted by myself and attending physician. There is a P wave before every QRS complex. Rate is 74. Rhythm is normal sinus rhythm,. Interval 140, care is 80, QTc 455. QT is not prolonged. No ST segment depression or elevation. Overall, this EKG is unremarkable - Lab Data Result diagrams: 02/10/18 12:32 02/10/18 12:32 Lab Results 02/10/18 02/10/18 02/10/18 Range/Units 12:32 12:32 12:32 WBC 4.8 (3.8-10.6) k/uL RBC 3.53 L (3.80-5.40) m/uL Hgb 10.8 L (11.4-16.0) gm/dL Hct 32.7 L (34.0-46.0) % MCV 92.7 (80.0-100.0) fL MCH 30.5 (25.0-35.0) pg MCHC 32.9 (31.0-37.0) g/dL RDW 15.1 (11.5-15.5) % Plt Count 198 (150-450) k/uL Neutrophils % 57 % Lymphocytes % 29 % Monocytes % 8 % Eosinophils % 3 % Basophils % 0 % Neutrophils # 2.7 (1.3-7.7) k/uL Lymphocytes # 1.4 (1.0-4.8) k/uL Monocytes # 0.4 (0-1.0) k/uL Eosinophils # 0.1 (0-0.7) k/uL Basophils # 0.0 (0-0.2) k/uL PT (9.0-12.0) sec INR (<1.2) APTT (22.0-30.0) sec Sodium 140 (137-145) mmol/L Potassium 4.2 (3.5-5.1) mmol/L Chloride 107 (98-107) mmol/L Carbon Dioxide 23 (22-30) mmol/L Anion Gap 10 mmol/L BUN 20 H (7-17) mg/dL Creatinine 0.88 (0.52-1.04) mg/dL Est GFR (CKD-EPI)AfAm 78 (>60 ml/min/1.73 sqM) Est GFR (CKD-EPI)NonAf 68 (>60 ml/min/1.73 sqM) Glucose 92 (74-99) mg/dL Calcium 9.0 (8.4-10.2) mg/dL Total Bilirubin 0.7 (0.2-1.3) mg/dL AST 33 (14-36) U/L ALT 43 (9-52) U/L Alkaline Phosphatase 153 H (38-126) U/L Total Creatine Kinase 66 (30-135) U/L CK-MB (CK-2) 0.5 (0.0-2.4) ng/mL CK-MB (CK-2) Rel Index 0.8 Total Protein 6.9 (6.3-8.2) g/dL Albumin 3.9 (3.5-5.0) g/dL Stool Occult Blood (Negative) Blood Type Blood Type Recheck Antibody Screen Spec Expiration Date 02/10/18 02/10/18 02/10/18 Range/Units 12:32 12:32 12:32 WBC (3.8-10.6) k/uL RBC (3.80-5.40) m/uL Hgb (11.4-16.0) gm/dL Hct (34.0-46.0) % MCV (80.0-100.0) fL MCH (25.0-35.0) pg MCHC (31.0-37.0) g/dL RDW (11.5-15.5) % Plt Count (150-450) k/uL Neutrophils % % Lymphocytes % % Monocytes % % Eosinophils % % Basophils % % Neutrophils # (1.3-7.7) k/uL Lymphocytes # (1.0-4.8) k/uL Monocytes # (0-1.0) k/uL Eosinophils # (0-0.7) k/uL Basophils # (0-0.2) k/uL PT 9.9 (9.0-12.0) sec INR 0.9 (<1.2) APTT 23.1 (22.0-30.0) sec Sodium (137-145) mmol/L Potassium (3.5-5.1) mmol/L Chloride (98-107) mmol/L Carbon Dioxide (22-30) mmol/L Anion Gap mmol/L BUN (7-17) mg/dL Creatinine (0.52-1.04) mg/dL Est GFR (CKD-EPI)AfAm (>60 ml/min/1.73 sqM) Est GFR (CKD-EPI)NonAf (>60 ml/min/1.73 sqM) Glucose (74-99) mg/dL Calcium (8.4-10.2) mg/dL Total Bilirubin (0.2-1.3) mg/dL AST (14-36) U/L ALT (9-52) U/L Alkaline Phosphatase (38-126) U/L Total Creatine Kinase (30-135) U/L CK-MB (CK-2) (0.0-2.4) ng/mL CK-MB (CK-2) Rel Index Total Protein (6.3-8.2) g/dL Albumin (3.5-5.0) g/dL Stool Occult Blood Positive H (Negative) Blood Type A Negative Blood Type Recheck No Antibody Screen NEGATIVE Spec Expiration Date 02/13/2018 - 2332 Disposition Clinical Impression: BRBPR (bright red blood per rectum) Disposition: ADMITTED IP TO THIS [facility] Condition: Good Referrals: Mayco Carlson MD [Primary Care Provider] - 1-2 days Decision Time: 15:22
[2018-02-10 13:27] LABS: Basophils % (A) 0 %; Eosinophils # (A) 0.1 k/uL (0-0.7); Eosinophils % (A) 3 %; HCT 32.7 % (34.0-46.0); HGB 10.8 gm/dL (11.4-16.0); Lymphocytes # (A) 1.4 k/uL (1.0-4.8); Lymphocytes % (A) 29 %; MCH 30.5 pg (25.0-35.0); MCHC 32.9 g/dL (31.0-37.0); MCV 92.7 fL (80.0-100.0); Mean Platelet Volume 6.3; Monocytes # (A) 0.4 k/uL (0-1.0); Monocytes % (A) 8 %; Neutrophils # (A) 2.7 k/uL (1.3-7.7); Neutrophils % (A) 57 %; Platelet Count 198 k/uL (150-450); RBC 3.53 m/uL (3.80-5.40); RDW 15.1 % (11.5-15.5); WBC 4.8 k/uL (3.8-10.6)
[2018-02-10 13:35] LABS: Albumin 3.9 g/dL (3.5-5.0); Potassium 4.2 mmol/L (3.5-5.1); Total Bilirubin 0.7 mg/dL (0.2-1.3); Total Protein 6.9 g/dL (6.3-8.2)
[2018-02-10 13:37] LABS: INR 0.9 (<1.2); Partial Thromboplastin Time 23.1 sec (22.0-30.0); Prothrombin Time 9.9 sec (9.0-12.0)
[2018-02-10 13:58] LABS: Creatine Kinase MB 0.5 ng/mL (0.0-2.4)
[2018-02-10] MEDS ORDERED: NALOXONE 0.4 MG/ML 1 ML VIAL IV PRN (15:18)
[2018-02-10] MEDS ORDERED: PANTOPRAZOLE 40 MG/10 ML VIAL IVP ONE (15:20)
--- NOTE | 2018-02-10 16:13 | P.HPIM ---
History of Present Illness H&P Date: 02/10/18 Chief Complaint: Bloody stools Patient is a 67-year-old female with a past medical history of stage IV ovarian adenocarcinoma with a history of chemotherapy and partial large bowel resection who presents to the ER with chief complaint of bloody stools. The patient reports that she noticed some pink-colored stools last night and this morning she began noticing dark blood-tinged stools, she denies any nausea vomiting or diarrhea. The patient reports that she follows with Dr. Mayes Car Supervisor Onc at [facility] that she recently had her second course of Avastin and had recently had a her hemoglobin checked on 02/02 and it was reportedly 12 at that time. Patient denies any chest pain or shortness of breath but reports some lightheadedness. The patient has a history of previous GI bleed in October complicated by eliquis use, at that time workup with EGD colonoscopy did not reveal any acute evidence of bleeding only gastritis and duodenitis. In the ER today the patient's hemoglobin was noted to be 10.8, with a positive stool occult. EKG showed normal sinus rhythm. Her other labs were otherwise normal Review of Systems Pertinent positives per HPI all other systems otherwise negative Past Medical History Past Medical History: Cancer, Diabetes Mellitus, Osteoarthritis (OA) Additional Past Medical History / Comment(s): Bilateral ovarian cancer with mets last chemotherapy was august 2017, bicytopenia, anemia, 11/2016 bilateral pulmonary embolisms, 12/2016 L sided pleural effusion with 2 thoracentesis, diet controlled diabetes, diverticulosis, diarrhea with chemo, mild protein calorie malnutrition, past L ankle fracture and pt thinks possibility of arthritis in that joint. History of Any Multi-Drug Resistant Organisms: None Reported Past Surgical History: No Surgical Hx Reported Additional Past Surgical History / Comment(s): Total hysterectomy/perineal and omenectomy done by Dr Rob at [facility], 2 left thoracentesis, power port rt upper chest Past Anesthesia/Blood Transfusion Reactions: No Reported Reaction Additional Past Anesthesia/Blood Transfusion Reaction / Comment(s): Pt has received blood without reaction. Past Psychological History: No Psychological Hx Reported Smoking Status: Never smoker Past Alcohol Use History: None Reported Past Drug Use History: None Reported - Past Family History Mother Family Medical History: Congestive Heart Failure (CHF), CVA/TIA, Hypertension Father Family Medical History: CVA/TIA Brother(s) Additional Family Medical History / Comment(s): colon cancer, lymphoma Medications and Allergies Home Medications Medication Instructions Recorded Confirmed Type amLODIPine [Norvasc] 5 mg PO DAILY 02/10/18 02/10/18 History Allergies Allergy/AdvReac Type Severity Reaction Status Date / Time aspirin Allergy Rash/Hives Verified 02/10/18 12:19 Iodinated Contrast- Oral and Allergy Rash/Hives Verified 02/10/18 12:19 IV Dye lactose Allergy Unknown Verified 02/10/18 12:19 Penicillins Allergy Rash/Hives Verified 02/10/18 12:19 melatonin AdvReac Intermediate Unknown Verified 02/10/18 12:19 Physical Exam Vitals: Vital Signs Temp Pulse Resp BP Pulse Ox 02/10/18 13:30 73 15 139/90 99 02/10/18 13:00 71 16 157/94 02/10/18 12:30 78 19 161/103 97 02/10/18 12:15 18 164/110 98 02/10/18 12:05 97.8 F 76 20 162/98 99 Intake and Output 02/10/18 02/10/18 02/10/18 06:59 14:59 22:59 Other: Weight 53.07 kg Constitutional: No acute distress, conversant, pleasant Eyes: Anicteric sclerae, moist conjunctiva, no lid-lag, PERRLA ENMT: NC/AT,Oropharynx clear, no erythema, exudates Neck:Supple, FROM, no masses, or JVD, No carotid bruits; No thyromegaly Lungs: Clear to auscultation, Clear to percussion, Normal respiratory effort, no accessory muscle use Cardiovascular: Heart regular in rate and rhythm, No murmurs, gallops, or rubs no peripheral edema Abdominal: Soft Nontender, nom distended, no guarding, no rebound or rigidity, Normoactive bowel sounds No hepatomegaly, No splenomegaly, No palpable mass No abdominal wall hernia noted Skin: Normal temperature, tone, texture, turgor, No induration No subcutaneous nodules, No rash, lesions, No ulcers Extremities:No digital cyanosis No clubbing, Pedal pulses intact and symmetrical Radial pulses intact and symmetrical Normal gait and station, No calf tenderness Psychiatric: Alert and oriented to person, place and time, Appropriate affect Intact judgement Neuro: Muscles Strength 5/5 in all 4 extremities, Sensation to light touch grossly present throughout, Cranial nerves II-XII grossly intact. No focal sensory deficits Results CBC & Chem 7: 18 12:32 18 12:32 Labs: Abnormal Lab Results - Last 24 Hours (Table) 02/10/18 02/10/18 02/10/18 Range/Units 12:32 12:32 12:32 RBC 3.53 L (3.80-5.40) m/uL Hgb 10.8 L (11.4-16.0) gm/dL Hct 32.7 L (34.0-46.0) % BUN 20 H (7-17) mg/dL Alkaline Phosphatase 153 H (38-126) U/L Stool Occult Blood Positive H (Negative) Assessment and Plan (1) GI bleed Current Visit: No Status: Acute Code(s): K92.2 - GASTROINTESTINAL HEMORRHAGE , UNSPECIFIED SNOMED Code(s): 00064988 (2) BRBPR (bright red blood per rectum) Current Visit: Yes Status: Acute Code(s): K62.5 - HEMORRHAGE OF ANUS AND RECTUM SNOMED Code(s): 49590257 (3) Anemia Current Visit: No Status: Acute Code(s): D64.9 - ANEMIA, UNSPECIFIED SNOMED Code(s): 763060392 (4) H/O ovarian cancer Current Visit: No Status: Acute Code(s): Z85.43 - PERSONAL HISTORY OF MALIGNANT NEOPLASM OF OVARY SNOMED Code(s): 111544376 (5) History of pulmonary embolism Current Visit: No Status: Acute Code(s): Z86.711 - PERSONAL HISTORY OF PULMONARY EMBOLISM SNOMED Code(s): 083843387 Plan: The patient is patient observation anticipated less than 2 midnight stay with bright red blood per rectum concern for GI bleed in a patient with a history of acute blood loss anemia on chronic anemia with ongoing chemotherapy due to stage IV ovarian adenocarcinoma. Patient appears hemodynamically stable hemoglobin is 10.8, plan to consult GI and recheck CBC in the morning. Patient reports that her CA 125 was in normal range at 4. We'll place her on a clear liquid diet continue IV fluids and start her on PPI therapy and follow up any GI recommendations. Continue to follow her clinical course CODE STATUS Full code Discussed plan of care with; patient/daughter Ashley (DPOA) DVT prophylaxis: SCDs Anticipated discharge 1-2 days
[2018-02-10] MEDS ORDERED: ONDANSETRON 4 MG/2 ML VIAL IVP PRN (16:23)
[2018-02-10 17:05] VITALS: RESP 16
[2018-02-10] MEDS: SODIUM CHLORIDE 0.9% 1,000 ML IV SCH (21:50)
[2018-02-10 21:54] LABS: HCT 29.7 % (34.0-46.0); HGB 9.8 gm/dL (11.4-16.0); Lymphocytes % (A) 40 %; MCH 30.8 pg (25.0-35.0); MCHC 32.8 g/dL (31.0-37.0); MCV 93.8 fL (80.0-100.0); Mean Platelet Volume 6.9; Monocytes % (A) 9 %; Neutrophils % (A) 44 %; Platelet Count 176 k/uL (150-450); RBC 3.17 m/uL (3.80-5.40); RDW 15.2 % (11.5-15.5); WBC 4.4 k/uL (3.8-10.6)
[2018-02-10 21:55] LABS: Basophils % (A) 1 %; Eosinophils # (A) 0.2 k/uL (0-0.7); Eosinophils % (A) 4 %; Lymphocytes # (A) 1.8 k/uL (1.0-4.8); Monocytes # (A) 0.4 k/uL (0-1.0); Neutrophils # (A) 1.9 k/uL (1.3-7.7)
[2018-02-11 00:40] VITALS: TEMP 97.8
[2018-02-11] MEDS: SODIUM CHLORIDE 0.9% 1,000 ML IV SCH (03:47)
[2018-02-11 06:57] LABS: HGB 9.7 gm/dL (11.4-16.0); MCH 30.4 pg (25.0-35.0); MCHC 32.4 g/dL (31.0-37.0); Mean Platelet Volume 6.9; Platelet Count 163 k/uL (150-450); RBC 3.19 m/uL (3.80-5.40); RDW 15.2 % (11.5-15.5); WBC 3.9 k/uL (3.8-10.6)
[2018-02-11 07:11] LABS: ALT 38 U/L (9-52); AST 24 U/L (14-36); Albumin 3.2 g/dL (3.5-5.0); Alkaline Phosphatase 122 U/L (38-126); Anion Gap 4 mmol/L; Blood Urea Nitrogen 12 mg/dL (7-17); Calcium 8.7 mg/dL (8.4-10.2); Carbon Dioxide 27 mmol/L (22-30); Chloride 111 mmol/L (98-107); Glucose 89 mg/dL (74-99); Potassium 4.1 mmol/L (3.5-5.1); Sodium 142 mmol/L (137-145); Total Bilirubin 0.9 mg/dL (0.2-1.3); Total Protein 6.2 g/dL (6.3-8.2)
[2018-02-11 08:13] VITALS: BP 142/80; PULSE 68
[2018-02-11] MEDS ORDERED: PANTOPRAZOLE 40 MG/10 ML VIAL IV SCH (09:00)
--- NOTE | 2018-02-11 13:28 | P.PN ---
Subjective Progress Note Date: 02/11/18 Patient denies any nausea vomiting abdominal pain, denies any lightheadedness does complain of lower extremity pain in her legs. This a.m. hemoglobin 9.7. Awaiting GI consultation Objective - Vital Signs Vital signs: Vital Signs Temp 97.8 F 02/11/18 00:39 Pulse 68 02/11/18 08:12 Resp 16 02/11/18 08:12 BP 142/80 02/11/18 08:12 Pulse Ox 99 02/11/18 08:12 Intake & Output 02/10/18 02/11/18 02/11/18 18:59 06:59 18:59 Intake Total 620 820 Balance 620 820 Weight 52.3 kg Intake: IV 820 Sodium Chloride 0.9% 1, 820 000 ml @ 90 mls/hr IV . Q11H7M [facility] Rx#:[id number] Oral 620 Other: Voiding Method Toilet # Voids 2 - Exam Constitutional: No acute distress, conversant, pleasant Eyes: Anicteric sclerae, moist conjunctiva, no lid-lag, PERRLA ENMT: NC/AT,Oropharynx clear, no erythema, exudates Neck:Supple, FROM, no masses, or JVD, No carotid bruits; No thyromegaly Lungs: Clear to auscultation, Clear to percussion, Normal respiratory effort, no accessory muscle use Cardiovascular: Heart regular in rate and rhythm, No murmurs, gallops, or rubs no peripheral edema Abdominal: Soft Nontender, nom distended, no guarding, no rebound or rigidity, Normoactive bowel sounds No hepatomegaly, No splenomegaly, No palpable mass No abdominal wall hernia noted Skin: Normal temperature, tone, texture, turgor, No induration No subcutaneous nodules, No rash, lesions, No ulcers Extremities:No digital cyanosis No clubbing, Pedal pulses intact and symmetrical Radial pulses intact and symmetrical Normal gait and station, No calf tenderness Psychiatric: Alert and oriented to person, place and time, Appropriate affect Intact judgement Neuro: Muscles Strength 5/5 in all 4 extremities, Sensation to light touch grossly present throughout, Cranial nerves II-XII grossly intact. No focal sensory deficits - Labs CBC & Chem 7: 02/11/18 06:41 02/11/18 06:41 Labs: Abnormal Lab Results - Last 24 Hours (Table) 02/10/18 02/10/18 02/10/18 Range/Units 12:32 12:32 12:32 RBC 3.53 L (3.80-5.40) m/uL Hgb 10.8 L (11.4-16.0) gm/dL Hct 32.7 L (34.0-46.0) % Chloride (98-107) mmol/L BUN 20 H (7-17) mg/dL Alkaline Phosphatase 153 H (38-126) U/L Total Protein (6.3-8.2) g/dL Albumin (3.5-5.0) g/dL Stool Occult Blood Positive H (Negative) 18 18 02/11/18 Range/Units 21:24 06:41 06:41 RBC 3.17 L 3.19 L (3.80-5.40) m/uL Hgb 9.8 L 9.7 L (11.4-16.0) gm/dL Hct 29.7 L 30.0 L (34.0-46.0) % Chloride 111 H (98-107) mmol/L BUN (7-17) mg/dL Alkaline Phosphatase (38-126) U/L Total Protein 6.2 L (6.3-8.2) g/dL Albumin 3.2 L (3.5-5.0) g/dL Stool Occult Blood (Negative) Assessment and Plan (1) GI bleed Narrative/Plan: * Awaiting GI consultation * Patient hemodynamically stable * Hemoglobin 9.7 this morning we'll continue to monitor Current Visit: No Status: Acute Code(s): K92.2 - GASTROINTESTINAL HEMORRHAGE , UNSPECIFIED SNOMED Code(s): 30973886 (2) BRBPR (bright red blood per rectum) Narrative/Plan: * Secondary to problem above Current Visit: Yes Status: Acute Code(s): K62.5 - HEMORRHAGE OF ANUS AND RECTUM SNOMED Code(s): 03260005 (3) Anemia Narrative/Plan: * Acute blood loss anemia superimposed on chronic anemia * Continue to monitor hemoglobin Current Visit: No Status: Acute Code(s): D64.9 - ANEMIA, UNSPECIFIED SNOMED Code(s): 340790084 (4) H/O ovarian cancer Narrative/Plan: * Stage IV ovarian nasal carcinoma currently on chemotherapy with Avastin Current Visit: No Status: Acute Code(s): Z85.43 - PERSONAL HISTORY OF MALIGNANT NEOPLASM OF OVARY SNOMED Code(s): 423828600 (5) History of pulmonary embolism Current Visit: No Status: Acute Code(s): Z86.711 - PERSONAL HISTORY OF PULMONARY EMBOLISM SNOMED Code(s): 093134282 Plan: Disposition anticipate discharge 1 day, 'awaiting further GI recommendations
[2018-02-11] MEDS ORDERED: HYDROCORTISONE SUPPOSITORY 25 MG SUPP RECTAL SCH (15:00)
--- NOTE | 2018-02-11 23:27 | P.CONS ---
History of Present Illness - Reason for Consult Consult date: 02/11/18 Blood per rectum Requesting physician: Jean-Paul Jean Baptiste - Chief Complaint Blood per rectum - History of Present Illness The patient is 67-year-old female with a medical history significant for stage IV ovarian adenocarcinoma with a history of chemotherapy and debulking surgery including partial large bowel resection was recently started on treatment with Avastin for which she has received 2 treatments, and presents to the hospital with complaints of blood per rectum. The patient she had 2 episodes of blood per rectum. She reports initially seeing some pink blood and then gela red blood with her bowel movements. Since that time the patient reports no further blood per rectum. She has had a full GI workup including EGD which was significant for gastritis and duodenitis, colonoscopy significant for diverticulosis, hemorrhoids and some anastomosis site erythema and Video Capsule Endoscopy Which Was Negative in October 2017 When She Presented with Similar Complaints of Bleeding per Rectum. At That Time Patient Was on Anticoagulation Therapy Which She Is No Longer on. Review of Systems REVIEW OF SYSTEMS: CARDIO: Denies any chest pain or palpitations. PULMONARY: Denies any shortness of breath or wheezing. GENITOURINARY: No dysuria or hematuria. MUSCULOSKELETAL: No weakness reported. SKIN: Denies any new rashes or lesions, jaundice or pallor. PSYCHIATRIC: Denies any depression or anxiety. NEUROLOGY: Denies headache, denies any new focal deficits. EARS: No tinnitus, discharge or new hearing loss. NOSE: No discharge or congestion. EYES: No pain in eyes or change in vision. CONSTITUTIONAL: No recent weight loss. No fever, chills, night sweats. Past Medical History Past Medical History: Cancer, Diabetes Mellitus, GI Bleed, Osteoarthritis (OA), Pulmonary Embolus (PE) Additional Past Medical History / Comment(s): Bilateral ovarian cancer with mets / chemotherapy/ currently taking avastin. bicytopenia, anemia, 11/2016 bilateral pulmonary embolisms, 12/2016 L sided pleural effusion with 2 thoracentesis, diet controlled diabetes, diverticulosis, diarrhea with chemo, mild protein calorie malnutrition, past L ankle fracture and pt thinks possibility of arthritis in that joint.uti-ecoli History of Any Multi-Drug Resistant Organisms: None Reported Past Surgical History: No Surgical Hx Reported Additional Past Surgical History / Comment(s): Total hysterectomy/perineal and omenectomy done by Dr Rob at [facility], 2 left thoracentesis, power port rt upper chest, 11/10/17 egd w/bx, colonoscopy. Past Anesthesia/Blood Transfusion Reactions: No Reported Reaction Additional Past Anesthesia/Blood Transfusion Reaction / Comm: Pt has received blood without reaction. Smoking Status: Never smoker - Past Family History Mother Family Medical History: Congestive Heart Failure (CHF), CVA/TIA, Hypertension Father Family Medical History: CVA/TIA Brother(s) Additional Family Medical History / Comment(s): colon cancer, lymphoma Medications and Allergies Home Medications Medication Instructions Recorded Confirmed Type amLODIPine [Norvasc] 5 mg PO DAILY 02/10/18 02/10/18 History Allergies Allergy/AdvReac Type Severity Reaction Status Date / Time aspirin Allergy Rash/Hives Verified 02/10/18 12:19 Iodinated Contrast- Oral and Allergy Rash/Hives Verified 02/10/18 12:19 IV Dye lactose Allergy Unknown Verified 02/10/18 12:19 Penicillins Allergy Rash/Hives Verified 02/10/18 12:19 melatonin AdvReac Intermediate Unknown Verified 02/10/18 12:19 Physical Exam Vitals: Vital Signs Temp Pulse Resp BP Pulse Ox 02/11/18 08:12 68 16 142/80 99 02/11/18 03:44 16 02/11/18 00:39 97.8 F 73 16 138/81 98 On physical examination, patient appears comfortable in no apparent distress. HEAD: Normocephalic, atraumatic. EYES: No scleral icterus. No conjunctival injection. MOUTH: No lesions, tongue midline. NECK: Trachea midline, no gross abnormalities. CHEST: Clear to auscultation with no wheezing or rhonchi appreciated. HEART: Regular rate and rhythm. ABDOMEN: Soft, obese. Bowel sounds are positive. No organomegaly. No guarding or rigidity. EXTREMITIES: No pedal edema. SKIN: No rashes, no jaundice. NEUROLOGIC: Alert and oriented x3. No focal deficits. Results CBC & Chem 7: 02/11/18 06:41 02/11/18 06:41 Labs: Abnormal Lab Results - Last 24 Hours (Table) 02/11/18 02/11/18 Range/Units 06:41 06:41 RBC 3.19 L (3.80-5.40) m/uL Hgb 9.7 L (11.4-16.0) gm/dL Hct 30.0 L (34.0-46.0) % Chloride 111 H (98-107) mmol/L Total Protein 6.2 L (6.3-8.2) g/dL Albumin 3.2 L (3.5-5.0) g/dL Assessment and Plan (1) BRBPR (bright red blood per rectum) Narrative/Plan: Given full endoscopic workup in October it is likely that bleeding is from previously seen hemorrhoids given the stability of hemoglobin. Status: Acute Code(s): K62.5 - HEMORRHAGE OF ANUS AND RECTUM SNOMED Code(s) : 56054871 (2) Acute blood loss anemia Status: Acute Code(s): D62 - ACUTE POSTHEMORRHAGIC ANEMIA SNOMED Code(s): 745722065 Plan: Supportive care Monitor stool output Monitor hemoglobin and transfuse as needed Okay for diet Given resolution of symptoms and stability of hemoglobin it is okay to discharge patient now from GI standpoint, the patient and her daughter have been informed that if any further signs or symptoms develop she should present back to the hospital Thank you for allowing us to participate in the care of this patient
--- NOTE | 2018-02-12 14:50 | P.DS ---
Providers Date of admission: 02/10/18 15:18 Expected date of discharge: 02/11/18 Attending physician: Jean-Paul Jean Baptiste MD Consults: 02/10/18 15:19 Consult Physician Routine Consulting Provider: Cristin Cantu Consult Reason/Comments: GI bleed Do you want consulting provider notified?: Yes Primary care physician: Mayco Carlson - Discharge Diagnosis(es) (1) GI bleed Status: Acute (2) BRBPR (bright red blood per rectum) Status: Acute (3) Anemia Status: Acute (4) Hemorrhoids Status: Acute (5) H/O ovarian cancer Status: Acute (6) History of pulmonary embolism Status: Acute Hospital Course: The patient is a 67-year-old female with a past medical history of stage IV ovarian adenocarcinoma currently on chemotherapy with Avastin presented to the ER with chief complaint of bright red blood per rectum and was admitted for concern for GI bleed after presenting with a hemoglobin of approximately 10.8 and positive Hemoccult. The patient was placed on IV fluids IV PPI therapy Protonix and her hemoglobin was monitored serially to pain to a low of 9.7. Patient was seen by GI Dr. Casey would previously done a full endoscopic workup on the patient in October including EGD and colonoscopy. It was thought that the patient probably from hemorrhoid given the stability of her hemoglobin patient was subsequently discharged home in stable condition by Dr. Abel return precautions given. This discharge process took approximately 30 minutes. Focused exam GI: soft nontender nondistended normoactive bowel sounds in all quadrants, nonacute abdomen Patient Condition at Discharge: Good Plan - Discharge Summary Discharge Rx Participant: Yes New Discharge Prescriptions: Continue amLODIPine [Norvasc] 5 mg PO DAILY Discharge Medication List amLODIPine [Norvasc] 5 mg PO DAILY 02/10/18 [History] Follow up Appointment(s)/Referral(s): Mayco Carlson MD [Primary Care Provider] - 1-2 days Gabe Pelaez MD [STAFF PHYSICIAN] - 1 Week Ambulatory/Diagnostic Orders: Complete Blood Count w/diff [LAB.AMB] Time Frame: 3 Days, Location: None Selected Patient Instructions/Handouts: Hemorrhoids (DC) Activity/Diet/Wound Care/Special Instructions: Diet: Low salt diet. Please follow-up with your primary care provider within 1-2 days of discharge. Please follow-up with gastroenterology Dr. Pelaez within 1 week of discharge. Please obtain a CBC within 3 days of discharge. The results of this test will be faxed to your primary care provider, please follow-up. Discharge Disposition: HOME SELF-CARE
== END 2018-02-11 15:27 | disposition home or self-care (01) ==
LOC: EC 12:03 → 1SOBS 15:18
PROVIDERS: ADMIT Family Medicine; ATTEND Family Medicine
DX: K62.5 Hemorrhage of anus and rectum (principal); C56.9 Malignant neoplasm of unspecified ovary; D62 Acute posthemorrhagic anemia; E44.1 Mild protein-calorie malnutrition; E11.9 Type 2 diabetes mellitus without complications; M19.90 Unspecified osteoarthritis, unspecified site; Z68.21 Body mass index [BMI] 21.0-21.9, adult; Z79.899 Other long term (current) drug therapy; Z88.0 Allergy status to penicillin; Z88.8 Allergy status to other drugs, medicaments and biological substances; Z88.6 Allergy status to analgesic agent; Z91.041 Radiographic dye allergy status; Z91.011 Allergy to milk products; Z90.710 Acquired absence of both cervix and uterus; Z90.49 Acquired absence of other specified parts of digestive tract; Z86.711 Personal history of pulmonary embolism; Z82.49 Family history of ischemic heart disease and other diseases of the circulatory system; Z80.0 Family history of malignant neoplasm of digestive organs; Z80.7 Family history of other malignant neoplasms of lymphoid, hematopoietic and related tissues
CPT/HCPCS: 96376; 96374; 99285; 36415; 93005; 86900; 86901; 80053 ×2; 82550; 82553; 85025; 85027; 85610; 85730; 86850; 82272; G0378 ×2; C9113 ×2

== ENCOUNTER → 2018-03-27 | Outpatient (CLI) | payer MEDICARE ==
--- NOTE | 2018-03-27 12:46 | CT ---
EXAMINATION TYPE: CT ChestAbdPelvis w con DATE OF EXAM: 03/27/2018 COMPARISON: 12/26/2017 HISTORY: Ovarian Cancer CT DLP: 1063 mGycm CONTRAST: CT scan of the chest, abdomen and pelvis is performed with Oral Contrast and with IV Contrast, patien t injected with 100 ml mL of Isovue 300. CT Chest: LUNGS: The lungs are clear and free of infiltrate or atelectasis. No pulmonary nodule or mass is det ected. No pleural effusion or CT evidence of interstitial lung disease. MEDIASTINUM: Thoracic aorta is of normal caliber. The heart is not enlarged. No evidence for media stinal mass or adenopathy. HILAR STRUCTURES: No evidence for mass. No hilar adenopathy is appreciated. OTHER: No significant abnormality. CONTRAST CT ABDOMEN AND PELVIS FINDINGS: LIVER/GB: No calcified gallstones. No space occupying hepatic lesion. Biliary tree is of normal ca liber. PANCREAS: No inflammation. No distinct mass. SPLEEN: No splenic enlargement. No lesion seen. ADRENALS: No nodule. No thickening. KIDNEYS/BLADDER: No hydronephrosis. No nephrolithiasis. No disctinct renal mass. BOWEL: Normal appendix. Normal bowel caliber. No inflammation. GENITAL ORGANS: Hysterectomy and oophorectomy change. No evidence for recurrent or residual disease. LYMPH NODES: No greater than 1cm abdominal or pelvic lymph nodes are appreciated. AORTA: No significant abnormality. OSSEOUS STRUCTURES: No significant abnormality is seen. OTHER: No significant additional abnormality is seen. IMPRESSION: 1. No evidence for recurrent or residual disease. No evidence for metastatic disease.
== END | disposition home or self-care (01) ==
LOC: RADPROMAIN 10:49
PROVIDERS: ATTEND Internal Medicine Hematology & Oncology
DX: C56.2 Malignant neoplasm of left ovary (principal); Z88.0 Allergy status to penicillin; Z91.041 Radiographic dye allergy status; Z88.6 Allergy status to analgesic agent
CPT/HCPCS: 82565; 84520; 71260; 74177; J1642; Q9967

== ENCOUNTER → 2018-07-18 | Outpatient (CLI) | payer MEDICARE ==
[2018-07-18 16:17] LABS: Blood Urea Nitrogen 17 mg/dL (7-17)
--- NOTE | 2018-07-19 12:20 | CT ---
EXAMINATION TYPE: CT ChestAbdPelvis w con DATE OF EXAM: 07/18/2018 COMPARISON: 03/27/2018 HISTORY: Follow up for ovarian cancer. CT DLP: 444.9 mGycm. Automated Exposure Control for Dose Reduction was Utilized. CONTRAST: CT scan of the thorax, abdomen and pelvis is performed with IV Contrast, patient injected with 100ml mL of Isovue 300. FINDINGS: LUNGS: The lungs are grossly clear, there is no concerning parenchymal mass or nodule identified. T here is no pleural effusion or pneumothorax seen. The tracheobronchial tree is patent. MEDIASTINUM: Right-sided Mediport terminates in the high right atrium. There are no greater than 1 cm hilar or mediastinal lymph nodes. No pericardial effusion is seen. LIVER/GB: Hepatic parenchyma is diffusely hypoattenuated in comparison to that of the spleen, most co mmonly seen in hepatic steatosis. This finding limits evaluation for hepatic masses. No gross evidenc e of hepatic mass is seen. No intrahepatic biliary ductal dilatation. Gallbladder is contracted. PANCREAS: No significant abnormality is seen. SPLEEN: No significant abnormality is seen. ADRENALS: No significant abnormality is seen. KIDNEYS: There are numerous renal sinus cysts on the left and few on the right. Too small to accurate ly characterize left lower pole renal lesion measures approximately 6 mm. This is stable. BOWEL: There is questionable transient intussusception of small bowel small bowel within the left mid abdomen resolved on delayed imaging. No dilated large or small bowel are seen. Long segment bowel wa ll thickening of the sigmoid colon with numerous sigmoid diverticula are likely on the basis of chron ic diverticulosis as no acute paracolic fat stranding changes are seen. No dilated large or small bow el. GENITAL ORGANS: Surgically absent. LYMPH NODES: No greater than 1cm abdominal or pelvic lymph nodes are appreciated. OSSEOUS STRUCTURES: No significant abnormality is seen. IMPRESSION: No new evidence of visceral metastasis within the chest, abdomen, nor pelvis. No new shannan opathy or new suspicious osseous lesions. No new mesenteric implants or serosal hepatic implants in t his patient with a history of ovarian carcinoma.
== END | disposition home or self-care (01) ==
LOC: RADPROMAIN 14:14
PROVIDERS: ATTEND Internal Medicine Hematology & Oncology
DX: C56.2 Malignant neoplasm of left ovary (principal); Z88.0 Allergy status to penicillin; Z88.6 Allergy status to analgesic agent; Z91.041 Radiographic dye allergy status
CPT/HCPCS: 82565; 84520; 71260; 74177; 36415; J1642; Q9967

== ENCOUNTER 2018-07-29 18:43 | Emergency (ER) | payer MEDICARE ==
[2018-07-29 18:49] VITALS: TEMP 98.1
--- NOTE | 2018-07-29 18:59 | ED ---
Abdominal Pain HPI - General Chief Complaint: Abdominal Pain Stated Complaint: ABDOMINAL PAIN AND SWELLING, STAGE 4 OVARIAN CA Time Seen by Provider: 07/29/18 18:58 Source: patient Mode of arrival: ambulatory Limitations: no limitations - History of Present Illness Initial Comments: 67-year-old female past medical history of stage IV ovarian cancer followed by Dr. Springer with previous ascites as well as pleural effusions that required drainage. Patient states that over the past week she has had increasing distention of her abdomen does cause pressure and pain. She is unable to localize the pain she states there is diffuse. Patient states now that every time she eats something she feels that there is a lot of pressure in her abdomen. Patient admits to nausea and denies vomiting. Patient denies diarrhea, melena or hematochezia. Patient denies fever, chills or night sweats. Patient denies chest pain, sob or cough. Remaining ROS (-). Upon arrival patient BP is elevated. - Related Data Home Medications Medication Instructions Recorded Confirmed amLODIPine [Norvasc] 5 mg PO DAILY 02/10/18 02/10/18 Allergies Allergy/AdvReac Type Severity Reaction Status Date / Time aspirin Allergy Rash/Hives Verified 02/10/18 12:19 Iodinated Contrast- Oral and Allergy Rash/Hives Verified 02/10/18 12:19 IV Dye lactose Allergy Unknown Verified 02/10/18 12:19 Penicillins Allergy Rash/Hives Verified 02/10/18 12:19 melatonin AdvReac Intermediate Unknown Verified 02/10/18 12:19 Review of Systems ROS Statement: Those systems with pertinent positive or pertinent negative responses have been documented in the HPI. ROS Other: All systems not noted in ROS Statement are negative. Past Medical History Past Medical History: Cancer, Diabetes Mellitus, GI Bleed, Osteoarthritis (OA), Pulmonary Embolus (PE) Additional Past Medical History / Comment(s): Bilateral ovarian cancer with mets/ chemotherapy/ currently taking avastin. bicytopenia, anemia, 11/2016 bilateral pulmonary embolisms, 12/2016 L sided pleural effusion with 2 thoracen tesis, diet controlled diabetes, diverticulosis, diarrhea with chemo, mild protein calorie malnutrition, past L ankle fracture and pt thinks possibility of arthritis in that joint.uti-ecoli History of Any Multi-Drug Resistant Organisms: None Reported Past Surgical History: No Surgical Hx Reported Additional Past Surgical History / Comment(s): Total hysterectomy/perineal and omenectomy done by Dr Rob at [facility], 2 left thoracentesis, power port rt upper chest, 11/10/17 egd w/bx, colonoscopy. Past Anesthesia/Blood Transfusion Reactions: No Reported Reaction Additional Past Anesthesia/Blood Transfusion Reaction / Comment(s): Pt has received blood without reaction. Past Psychological History: No Psychological Hx Reported Smoking Status: Never smoker Past Alcohol Use History: None Reported Past Drug Use History: None Reported - Past Family History Mother Family Medical History: Congestive Heart Failure (CHF), CVA/TIA, Hypertension Father Family Medical History: CVA/TIA Brother(s) Additional Family Medical History / Comment(s): colon cancer, lymphoma General Exam - General Exam Comments Initial Comments: General: The patient is awake and alert, in no distress Eye: +3 mm pupils are equal, round and reactive to light, extra-ocular movements are intact. No nystagmus. There is normal conjunctiva bilaterally. No signs of icterus. Ears, nose, mouth and throat: There are moist mucous membranes and no oral lesions. Neck: The neck is supple, there is no tenderness or JVD. Cardiovascular: There is a regular rate and rhythm. No murmur, rub or gallop is appreciated. Respiratory: Lungs are clear to auscultation, respirations are non-labored, br eath sounds are equal. No wheezes, stridor, rales, or rhonchi. Gastrointestinal: Soft, distended, diffusely tender abdomen without masses or organomegaly noted. There is no rebound or guarding present. No CVA tenderness. Bowel sounds are unremarkable. Musculoskeletal: Normal ROM, no tenderness. Strength 5/5. Sensation intact. Radial and DP pulses equal bilaterally 2+. Neurological: A&O x 3. CN II-XII intact, There are no obvious motor or sensory deficits. Coordination appears grossly intact. Speech is normal. Skin: Skin is warm and dry and no rashes or lesions are noted. No LE edema. (-) Homans. Psychiatric: Cooperative, appropriate mood & affect, normal judgment. Limitations: no limitations Course Vital Signs 07/29/18 07/29/18 07/29/18 18:46 20:48 22:00 Temperature 98.1 F Pulse Rate 78 70 Respiratory 18 16 16 Rate Blood Pressure 175/110 143/86 O2 Sat by Pulse 98 99 Oximetry Medical Decision Making - Medical Decision Making 67-year-old female stage IV ovarian cancer presenting for diffuse abdominal discomfort and distention. No studies and ultrasound. KUB revealed a large amount of stool burden. CT was obtained given patient's history with concern for obstruction. No evidence of obstructive process however stool ball noted in colon. Patient was given an enema had a large bowel movement. Patient states her stomach feels fine she has near 100% improvement of pain and distention. S he states she is ready for discharge. There are no acute lab abnormalities. Patient appears well at this time do feel patient's pain was most likely due to constipation. I recommended primary care follow-up and follow-up with her oncologist as scheduled. Temperatures were discussed at length patient verbalizes understanding. Patient was discharged appearing well after discussing the case with attending provider Dr. Brown - Lab Data Result diagrams: 07/29/18 19:20 07/29/18 19:20 Lab Results 07/29/18 07/29/18 Range/Units 19:20 19:20 WBC 6.9 (3.8-10.6) k/uL RBC 4.12 (3.80-5.40) m/uL Hgb 12.0 (11.4-16.0) gm/dL Hct 37.2 (34.0-46.0) % MCV 90.4 (80.0-100.0) fL MCH 29.2 (25.0-35.0) pg MCHC 32.4 (31.0-37.0) g/dL RDW 18.1 H (11.5-15.5) % Plt Count 238 (150-450) k/uL Neutrophils % 41 % Lymphocytes % 47 % Monocytes % 7 % Eosinophils % 1 % Basophils % 1 % Neutrophils # 2.8 (1.3-7.7) k/uL Lymphocytes # 3.3 (1.0-4.8) k/uL Monocytes # 0.5 (0-1.0) k/uL Eosinophils # 0.1 (0-0.7) k/uL Basophils # 0.1 (0-0.2) k/uL Anisocytosis Slight Sodium 141 (137-145) mmol/L Potassium 3.8 (3.5-5.1) mmol/L Chloride 107 (98-107) mmol/L Carbon Dioxide 25 (22-30) mmol/L Anion Gap 9 mmol/L BUN 17 (7-17) mg/dL Creatinine 0.74 (0.52-1.04) mg/dL Est GFR (CKD-EPI)AfAm >90 (>60 ml/min/1.73 sqM) Est GFR (CKD-EPI)NonAf 84 (>60 ml/min/1.73 sqM) Glucose 80 (74-99) mg/dL Calcium 9.4 (8.4-10.2) mg/dL Total Bilirubin 0.4 (0.2-1.3) mg/dL AST 35 (14-36) U/L ALT 30 (9-52) U/L Alkaline Phosphatase 126 (38-126) U/L Total Protein 7.5 (6.3-8.2) g/dL Albumin 4.3 (3.5-5.0) g/dL Amylase 73 (30-110) U/L Lipase 81 (23-300) U/L Disposition Clinical Impression: Constipation, Abdominal pain Disposition: HOME SELF-CARE Condition: Good Instructions (If sedation given, give patient instructions): Constipation (ED), High Fiber Diet (ED) Additional Instructions: Please use medication as discussed. Please follow-up with family doctor in the next 2 days/ Please return to emergency room if the symptoms increase or worsen or for any other concerns. Is patient prescribed a controlled substance at d/c from ED?: No Referrals: Mayco Carlson MD [Primary Care Provider] - 1-2 days Time of Disposition: 23:36
[2018-07-29] MEDS ORDERED: MORPHINE SULFATE 4 MG/ML SYRINGE IVP STA (19:01)
[2018-07-29] MEDS ORDERED: HYDROmorphone 0.5 MG/0.5 ML SYRINGE IVP STA (19:14)
[2018-07-29 19:49] LABS: Anisocytosis Slight; Basophils # (A) 0.1 k/uL (0-0.2); Basophils % (A) 1 %; Eosinophils # (A) 0.1 k/uL (0-0.7); Eosinophils % (A) 1 %; HCT 37.2 % (34.0-46.0); Lymphocytes # (A) 3.3 k/uL (1.0-4.8); Lymphocytes % (A) 47 %; MCH 29.2 pg (25.0-35.0); MCHC 32.4 g/dL (31.0-37.0); MCV 90.4 fL (80.0-100.0); Mean Platelet Volume 6.7; Monocytes # (A) 0.5 k/uL (0-1.0); Monocytes % (A) 7 %; Neutrophils # (A) 2.8 k/uL (1.3-7.7); Neutrophils % (A) 41 %; Platelet Count 238 k/uL (150-450); RBC 4.12 m/uL (3.80-5.40); RDW 18.1 % (11.5-15.5); WBC 6.9 k/uL (3.8-10.6)
[2018-07-29 19:59] LABS: ALT 30 U/L (9-52); AST 35 U/L (14-36); African American GFR (CKD) >90 (>60 ml/min/1.73 sqM); Albumin 4.3 g/dL (3.5-5.0); Alkaline Phosphatase 126 U/L (38-126); Amylase 73 U/L (30-110); Anion Gap 9 mmol/L; Blood Urea Nitrogen 17 mg/dL (7-17); Calcium 9.4 mg/dL (8.4-10.2); Carbon Dioxide 25 mmol/L (22-30); Chloride 107 mmol/L (98-107); Glucose 80 mg/dL (74-99); Lipase 81 U/L (23-300); Potassium 3.8 mmol/L (3.5-5.1); Sodium 141 mmol/L (137-145); Total Bilirubin 0.4 mg/dL (0.2-1.3); Total Protein 7.5 g/dL (6.3-8.2)
--- NOTE | 2018-07-29 20:05 | XR ---
EXAMINATION TYPE: Acute abdominal series, 3 views DATE OF EXAM: 07/29/2018 COMPARISON: CT 07/18/2018 and 03/27/2018 HISTORY: 67-year-old female with pain FINDINGS: Right anterior chest wall injection port with catheter tip at the caval atrial junction. Heart normal size. Nodularity at the right base seems to correspond to area of chronic volume loss and scarring on CT. O therwise, no consolidation or pleural effusion. There is no evidence for pneumoperitoneum. The bowel gas pattern is unremarkable as there is air throughout nondilated small and large bowel. Scattered moderate stool is seen. Multiple pelvic phleboliths. Sclerosis at L5-S1 likely relates to bulky anterior endplate spondylosis . IMPRESSION: Moderate stool burden. No evidence for free air or bowel obstruction. Nodularity of the right base se ems to correspond to chronic scarring on CT.
[2018-07-29] MEDS ORDERED: ONDANSETRON 4 MG/2 ML VIAL IVP STA (20:34)
--- NOTE | 2018-07-29 20:34 | US ---
EXAMINATION TYPE: US abdomen limited DATE OF EXAM: 07/29/2018 COMPARISON: CT 07/18/2018 TECHNIQUE: Multiple sonographic images of the abdominal quadrants for assessment of ascites. CLINICAL HISTORY: 67-year-old female assess fluids (ascites). Ovarian CA FINDINGS: No ascites is seen by US in any abdominal quadrant. IMPRESSION: No abdominal ascites identified.
[2018-07-29] MEDS ORDERED: FAMOTIDINE 20 MG/2 ML VIAL IV STA (20:41)
[2018-07-29] MEDS ORDERED: methylPREDNISolone SOD SUCCI 125 MG/2 ML VIAL IV STA (20:41)
[2018-07-29] MEDS ORDERED: diphenhydrAMINE 50 MG/ML 1 ML VIAL IVP STA (20:41)
[2018-07-29 21:26] VITALS: RESP 16
--- NOTE | 2018-07-29 21:50 | CT ---
EXAMINATION TYPE: CT abdomen pelvis w con DATE OF EXAM: 07/29/2018 COMPARISON: 07/18/2018 HISTORY: 67-year-old female with generalized pain and bloating. TECHNIQUE: Contiguous axial scanning of the abdomen and pelvis following administration of 100 ml Iso jo 300 IV contrast. Delayed images through the kidneys and coronal/sagittal reconstructions perform ed. CT DLP: 467.3 mGycm Automated exposure control for dose reduction was used. FINDINGS: Heart normal size without pericardial effusion. Stable linear nodular scarring inferior lingula and b asilar right middle lobe. No pleural effusion. No focal liver lesion. Portal venous system is patent. No biliary ductal dilatation. Gallbladder, adrenal glands, right kidney, spleen, and pancreas appear within normal limits. Small pa rapelvic cyst left kidney. No dilated small bowel, free fluid, or free air. Scattered few borderline sized mesenteric lymph nodes such as in the left mid abdomen measuring up to 6 mm on axial image 29 and coronal image 31, likely reactive/post inflammatory. Follow-up can be per formed. There is evidence of prior anastomosis along the mid transverse colon. Colon appears patulous measuri ng up to 5.9 cm with heavy stool and a 2.8 x 2.0 cm ball of probable inspissated barium. Refer to cor onal image 19 for a commercial sales representative image. Left-sided colonic diverticulosis without pericolonic inflammatory change. Bladder distended. Pelvic phleboliths. Uterus surgically absent. No abnormal fluid collection in the pelvis or pelvic lymphadenopathy seen. Bones: Degenerative disc disease L5-S1 with facet arthropathy. IMPRESSION: 1. PRIOR RESECTION AND ANASTOMOSIS ALONG THE MID TRANSVERSE COLON. THIS SEGMENT OF COLON IS PATULOUS AT 5.9 CM WIDE WITH HEAVY STOOL AND A 2.8 X 2.0 CM BALL OF PROBABLE INSPISSATED BARIUM HERE. WHILE TH ERE IS NO OBSTRUCTION AT THIS TIME, CONSIDER CONSTIPATION AND POSSIBILITY OF A THERAPEUTIC ENEMA. 2. A FEW SCATTERED BORDERLINE SIZED MESENTERIC LYMPH NODES MEASURING UP TO 6 MM PROBABLY REACTIVE/POS T INFLAMMATORY. ONGOING ONCOLOGIC FOLLOW-UP CAN BE PERFORMED.
[2018-07-29 22:50] VITALS: BP 143/86; PULSE 70
== END 2018-07-29 23:55 | disposition home or self-care (01) ==
LOC: EC 18:43
DX: K59.00 Constipation, unspecified (principal); R10.84 Generalized abdominal pain; Z79.899 Other long term (current) drug therapy; Z88.6 Allergy status to analgesic agent; Z91.041 Radiographic dye allergy status; Z91.011 Allergy to milk products; Z88.0 Allergy status to penicillin; Z88.8 Allergy status to other drugs, medicaments and biological substances; Z87.09 Personal history of other diseases of the respiratory system; Z98.890 Other specified postprocedural states; Z85.43 Personal history of malignant neoplasm of ovary; Z90.710 Acquired absence of both cervix and uterus
CPT/HCPCS: 36415; 80053; 82150; 83690; 85025; 74022; 76705; 74177; 99284; 96374; 96375 ×4; J1200; J2930; J2405; J1170; Q9967

== ENCOUNTER → 2018-11-15 | Outpatient (CLI) | payer MEDICARE ==
--- NOTE | 2018-11-15 11:41 | CT ---
EXAMINATION TYPE: CT ChestAbdPelvis w con DATE OF EXAM: 11/15/2018 COMPARISON: CT whole body July 18 2018 and older CTs. HISTORY: Ovarian CA CT DLP: 432.2 mGycm. Automated Exposure Control for Dose Reduction was Utilized. CONTRAST: CT scan of the thorax, abdomen and pelvis is performed with IV Contrast, patient injected with 100 mL of Isovue 300. FINDINGS: LUNGS: Some patchy linear scarring anteriorly at both lung bases remains present. Mild biapical perip heral parenchymal scarring bilaterally redemonstrated. No new nodules or masses. No pleural effusion or pneumothorax. MEDIASTINUM: There are no greater than 1 cm hilar or mediastinal lymph nodes. No cardiomegaly or pe ricardial effusion is seen. OTHER: Stable right internal jugular Mediport catheter. LIVER/GB: Low density of the liver relative to spleen on postcontrast imaging is redemonstrated felt to reflect product of image timing. PANCREAS: No significant abnormality is seen. SPLEEN: No significant abnormality is seen. ADRENALS: No significant abnormality is seen. KIDNEYS: No significant abnormality is seen. BOWEL: The oral contrast reaches the level of the rectum. Some diverticula in the sigmoid colon. No C T evidence for acute diverticulitis. No suspicious small or large bowel dilatation. GENITAL ORGANS: Uterus is surgically absent. Right-sided pelvic phleboliths redemonstrated. LYMPH NODES: No greater than 1cm abdominal or pelvic lymph nodes are appreciated. Scattered stable de [place] rosa bcentimeter lymph nodes throughout the mesentery OSSEOUS STRUCTURES: Moderate to severe disc space narrowing with vacuum disc phenomenon L5-S1 level. Moderate multilevel spurring of thoracic spine. OTHER: Mild mixed plaque of the aorta. IMPRESSION: No new masses or adenopathy. No recurrent ascites is evident.
== END | disposition home or self-care (01) ==
LOC: RADPROMAIN 09:02
PROVIDERS: ATTEND Internal Medicine Hematology & Oncology
DX: Z03.89 Encounter for observation for other suspected diseases and conditions ruled out (principal); C56.1 Malignant neoplasm of right ovary; C56.2 Malignant neoplasm of left ovary; Z88.0 Allergy status to penicillin; Z88.6 Allergy status to analgesic agent; Z91.041 Radiographic dye allergy status
CPT/HCPCS: 82565; 84520; 71260; 74177; J1642; Q9967

== ENCOUNTER → 2018-12-01 | Outpatient (CLI) | payer MEDICARE ==
--- NOTE | 2018-12-03 13:21 | PE ---
Nuclear medicine PET/CT HISTORY: Ovarian carcinoma, subsequent patient received 12.5 mCi F-18 FDG intravenously in delayed scanning was performed from the skull bas e to the mid thighs. Localization and attenuation correction CT scan was performed. Correlation to CT chest abdomen pelvis dated 11/15/2018 Neck and chest: No evident cervical or supraclavicular adenopathy. Right-sided Port-A-Cath present in the pectoral region courses via the internal jugular vein approach into the right atrium. There is n o mediastinal, axillary, or hilar adenopathy. No evident lung mass. No pleural or pericardial effusio n. No suspicious hypermetabolic uptake. ABDOMEN: There is no evident liver mass, no retroperitoneal adenopathy. No suspicious hypermetabolic uptake. Postop changes are noted to the bowel. Bowel activity felt likely to be physiologic. There is no pelvic adenopathy or free fluid. Uterus and adnexal structures are not seen. Osseous structures show no interval change. IMPRESSION: No suspicious hypermetabolic uptake. Postop changes.
== END | disposition home or self-care (01) ==
LOC: RADPETMAIN 15:39
PROVIDERS: ATTEND Internal Medicine Hematology & Oncology
DX: C56.2 Malignant neoplasm of left ovary (principal); Z98.890 Other specified postprocedural states
CPT/HCPCS: 78815; A9552

== ENCOUNTER → 2018-12-22 | Outpatient (CLI) | payer MEDICARE ==
--- NOTE | 2018-12-22 15:44 | CT ---
EXAMINATION TYPE: CT brain w con DATE OF EXAM: 12/22/2018 COMPARISON: None HISTORY: Ovarian cancer, observe for mets. CT DLP: 1121 mGycm Automated exposure control for dose reduction was used. CONTRAST: CT scan of the head is performed with IV Contrast, patient injected with 100ml mL of Isovue 300. FINDINGS: There is no abnormal enhancing mass or midline shift identified. The ventricles and sulci are within normal limits in size. The globes are intact and the visualized sinuses are clear. Small mucous ret ention cyst within the left maxillary sinus and mild mucosal thickening involving the base of the rig ht maxillary sinus. IMPRESSION: Negative contrast enhanced head CT exam.
== END | disposition home or self-care (01) ==
LOC: RADCTMAIN 14:04
PROVIDERS: ATTEND Internal Medicine Hematology & Oncology
DX: C56.2 Malignant neoplasm of left ovary (principal); Z88.5 Allergy status to narcotic agent; Z88.0 Allergy status to penicillin; Z91.041 Radiographic dye allergy status
CPT/HCPCS: 82565; 84520; 70460; 36415; Q9967

== ENCOUNTER → 2019-02-26 | Outpatient (CLI) | payer MEDICARE ==
[2019-02-26 15:18] LABS: African American GFR (CKD) >90 (>60 ml/min/1.73 sqM); Blood Urea Nitrogen 14 mg/dL (7-17); Non-African American GFR(CKD) 80 (>60 ml/min/1.73 sqM)
--- NOTE | 2019-02-26 16:06 | CT ---
EXAMINATION TYPE: CT ChestAbdPelvis w con DATE OF EXAM: 02/26/2019 COMPARISON: Prior CT November 15, 2018 and older studies. Prior PET/CT December 01, 2018 HISTORY: Ovarian cancer, observe for mets. CT DLP: 526.8 mGycm. Automated Exposure Control for Dose Reduction was Utilized. CONTRAST: CT scan of the thorax, abdomen and pelvis is performed with IV Contrast, patient injected with 100 mL of Isovue M300. FINDINGS: LUNGS: Linear scarring right middle lobe axial image 42 redemonstrated. Smaller region of linear scar ring in the lingula again seen. No new nodules or masses. No pleural effusion or pneumothorax. MEDIASTINUM: There are no new greater than 1 cm hilar or mediastinal lymph nodes. No cardiomegaly or pericardial effusion is seen. OTHER: Stable right internal jugular Mediport catheter. LIVER/GB: No significant abnormality is appreciated. PANCREAS: No significant abnormality is seen. SPLEEN: No significant abnormality is seen. ADRENALS: No significant abnormality is seen. KIDNEYS: Simple appearing central parapelvic cysts in both kidneys. BOWEL: Oral contrast reaches level of the proximal sigmoid colon. No suspicious small or large bowel dilatation. Some prominence of fecal material in the mid transverse colon is again seen. GENITAL ORGANS: Uterus is surgically absent. Scattered pelvic phleboliths greater in the right pelvi s are redemonstrated. LYMPH NODES: No greater than 1cm abdominal or pelvic lymph nodes are appreciated. OSSEOUS STRUCTURES: Moderate to severe narrowing lumbosacral junction. Mild to moderate multilevel sp urring of the spine. OTHER: No significant additional abnormality is seen. IMPRESSION: No new mass or adenopathy to suggest neoplastic recurrence.
== END | disposition home or self-care (01) ==
LOC: RADPROMAIN 14:06
PROVIDERS: ATTEND Internal Medicine Hematology & Oncology
DX: Z03.89 Encounter for observation for other suspected diseases and conditions ruled out (principal); C56.2 Malignant neoplasm of left ovary; Z88.0 Allergy status to penicillin; Z88.6 Allergy status to analgesic agent
CPT/HCPCS: 82565; 84520; 71260; 74177; J1642; Q9967

== ENCOUNTER → 2019-06-25 | Outpatient (CLI) | payer MEDICARE ==
[2019-06-25 10:57] LABS: African American GFR (CKD) >90 (>60 ml/min/1.73 sqM); Blood Urea Nitrogen 17 mg/dL (7-17); Non-African American GFR(CKD) 81 (>60 ml/min/1.73 sqM)
--- NOTE | 2019-06-26 06:41 | CT ---
EXAMINATION TYPE: CT ChestAbdPelvis w con DATE OF EXAM: 06/26/2019 COMPARISON: Prior CT February 26, 2019 and older CTs. PET/CT December 01, 2018. HISTORY: Ovarian cancer diagnosed 2017. CT DLP: 1206 mGycm. Automated Exposure Control for Dose Reduction was Utilized. CONTRAST: CT scan of the thorax, abdomen and pelvis is performed with oral and with IV Contrast, patient inject ed with 100 ml mL of Isovue 300. FINDINGS: LUNGS: Mild to moderate right greater than left biapical pleural/parenchymal scarring on background m ild to moderate underlying emphysematous change. Focal linear scarring anteriorly in the lower lungs bilaterally redemonstrated. No suspicious new nodules or masses. No pleural effusion or pneumothorax seen bilaterally on current study. MEDIASTINUM: There are no greater than 1 cm hilar or mediastinal lymph nodes. No pericardial effusi on is seen. Heart size stable and within normal limits. OTHER: Stable right internal jugular Mediport catheter. LIVER/GB: Contracted gallbladder noted. PANCREAS: No significant abnormality is seen. SPLEEN: No significant abnormality is seen. ADRENALS: No significant abnormality is seen. KIDNEYS: Tiny simple appearing parapelvic cyst left kidney redemonstrated. BOWEL: Oral contrast reaches the level of the proximal sigmoid colon. No suspicious small or large amber wel dilatation. Mild Sigmoid colonic diverticula without CT evidence for acute diverticulitis. GENITAL ORGANS: Uterus is surgically absent . Scattered right-sided pelvic phleboliths. LYMPH NODES: No greater than 1cm abdominal or pelvic lymph nodes are appreciated. OSSEOUS STRUCTURES: Persistent moderate to severe narrowing lumbosacral junction. Mild to moderate mu ltilevel spurring the visualized spine. OTHER: Mild calcified plaque of the aorta extends into branch vessels0. IMPRESSION: No suspicious new mass or adenopathy to suggest active neoplastic recurrence.
== END | disposition home or self-care (01) ==
LOC: RADCTMAIN 09:47
PROVIDERS: ATTEND Internal Medicine Hematology & Oncology
DX: Z03.89 Encounter for observation for other suspected diseases and conditions ruled out (principal); C56.1 Malignant neoplasm of right ovary; C56.2 Malignant neoplasm of left ovary; Z88.0 Allergy status to penicillin; Z91.041 Radiographic dye allergy status
CPT/HCPCS: 82565; 84520; 71260; 74177; 36415; Q9967

== ENCOUNTER → 2019-09-04 | Outpatient (CLI) | payer MEDICARE ==
--- NOTE | 2019-09-04 14:36 | US ---
EXAMINATION TYPE: US abdomen comp/pelvis limited DATE OF EXAM: 09/04/[address] 06/25/2019 CLINICAL HISTORY: 68-year-old female R31.21 Micro hematuria. Microscopic hematuria TECHNIQUE: Multiple sonographic images of the abdomen and bladder are obtained. FINDINGS: EXAM MEASUREMENTS: Liver Length: 11.6 cm Gallbladder Wall: 0.2 cm CBD: 0.6 cm Spleen: 7.9 cm Right Kidney: 9.3 x 4.4 x 4.2 cm Left Kidney: 10.5 x 5.1 x 4.4 cm Pancreas: wnl Liver: wnl Gallbladder: wnl CBD: Borderline dilated but acceptable given patient's age. Spleen: wnl Right Kidney: wnl Left Kidney: Possible small parapelvic cysts as suggested on patient's prior CT. Showed interval fol low-up for reassess this appearance. Palpable Upper IVC: wnl Abd Aorta: wnl Bladder: wnl Bilateral Jets Seen Yes IMPRESSION: 1. Possible small parapelvic cysts in the left kidney. Six-month follow-up ultrasound recommended to reassess this appearance. 2. Otherwise, uncomplicated sonographic examination of the abdomen and bladder.
== END | disposition home or self-care (01) ==
LOC: RADUSWWP 12:07
PROVIDERS: ATTEND Family Medicine
DX: R31.21 Asymptomatic microscopic hematuria (principal)
CPT/HCPCS: 76700; 76857

== ENCOUNTER → 2019-11-07 | Outpatient (CLI) | payer MEDICARE ==
[2019-11-07 14:43] LABS: African American GFR (CKD) >90 (>60 ml/min/1.73 sqM); Blood Urea Nitrogen 15 mg/dL (7-17); Non-African American GFR(CKD) 89 (>60 ml/min/1.73 sqM)
--- NOTE | 2019-11-08 16:59 | CT ---
EXAMINATION TYPE: CT ChestAbdPelvis w con DATE OF EXAM: 11/07/2019 INDICATION: f/u ovarian ca, c/o back pain COMPARISON: 06/25/2019 CT DLP: 446.9 mGycm CONTRAST: Performed with Oral Contrast and with IV Contrast, patient injected with 100 mL of Isovue 300. TECHNIQUE: Axial images at 5 mm thick sections. Reconstructed images in the coronal plane. Delayed images through the kidneys. FINDINGS: CT CHEST: Portion of the thyroid visualized is normal. No suspicious lung nodules or focal infiltrates are present. No enlarged mediastinal or hilar adenopathy is evident. The ascending aorta diameter at the level of the main pulmonary artery is 3.0 cm. The main pulmonary artery diameter at the bifurcation is 1.[address] ABDOMEN: Liver: Normal Spleen: Normal Pancreas: Normal Adrenal glands: The adrenal glands are normal. Gallbladder: Normal Kidneys: No masses are evident. No hydronephrosis is present. No cysts are present. Delayed images were obtained through the kidneys, which remain unremarkable. Aorta: Vascular calcification is within the aorta. Inferior vena cava: Normal. CT PELVIS: No suspicious fluid collections within the abdomen or pelvis. No omental caking is evident . There is some fecal debris within the colon. Scattered diverticuli are within the sigmoid colon. No a cute diverticulitis. No suspicious dilated loops of bowel are evident. There are loops of bowel which are incompletely distended or lack oral contrast limiting their evaluation. Appendix: Not identified. No suspicious inflammatory changes or dilated tubular structures are eviden t. May be the appendix inferior to the cecum is within normal limits. Urinary bladder: Normal. Genitourinary structures: Uterus is not identified. Adnexal regions are clear. No suspicious masses o r cysts are evident. Osseous structures: No suspicious lytic or sclerotic lesions. IMPRESSIONS: 1. No suspicious changes to suggest metastatic ovarian cancer. 2. Diverticulosis without acute diverticulitis.
== END | disposition home or self-care (01) ==
LOC: RADPROMAIN 14:03
PROVIDERS: ATTEND Internal Medicine Hematology & Oncology
DX: K57.31 Diverticulosis of large intestine without perforation or abscess with bleeding (principal); C56.2 Malignant neoplasm of left ovary; C56.1 Malignant neoplasm of right ovary; Z88.0 Allergy status to penicillin; Z88.6 Allergy status to analgesic agent; Z91.041 Radiographic dye allergy status
CPT/HCPCS: 82565; 84520; 71260; 74177; 36415; J1642; Q9967

== ENCOUNTER → 2020-03-05 | Outpatient (CLI) | payer MEDICARE ==
[2020-03-05 13:00] LABS: African American GFR (CKD) >90 (>60 ml/min/1.73 sqM); Blood Urea Nitrogen 18 mg/dL (7-17); Non-African American GFR(CKD) 85 (>60 ml/min/1.73 sqM)
--- NOTE | 2020-03-05 15:20 | CT ---
EXAMINATION TYPE: CT ChestAbdPelvis w con DATE OF EXAM: 03/05/2020 COMPARISON: Most recent CT November 07, 2019 and older studies. PET/CT December 01, 2018. HISTORY: History of bilateral ovarian cancer. CT DLP: 516.70 mGycm. Automated Exposure Control for Dose Reduction was Utilized. CONTRAST: CT scan of the thorax, abdomen and pelvis is performed with oral and with IV Contrast, patient inject ed with 100 ml mL of Isovue 300. FINDINGS: LUNGS: Mild right greater than left biapical pleural/parenchymal scarring on background mild underlyi ng emphysematous change is redemonstrated. Focal linear scarring anteriorly in the lower lungs bilate rally redemonstrated with slightly more nodular component on the right. No significant change from pr ior studies. No suspicious new greater than 5 mm nodules or masses. No pleural effusion or pneumothor ax seen bilaterally on current study. MEDIASTINUM: There are no new greater than 1 cm hilar or mediastinal lymph nodes. No cardiomegaly o r pericardial effusion is seen. OTHER: Stable right internal jugular Mediport catheter. LIVER/GB: Gallbladder shows new mild mucosal wall enhancement with surrounding mild to moderate fluid /fat stranding. Acute cholecystitis needs to be considered PANCREAS: No significant abnormality is seen. SPLEEN: No significant abnormality is seen. ADRENALS: No significant abnormality is seen. KIDNEYS: Central simple appearing parapelvic cyst in left kidney redemonstrated. No hydronephrosis se en bilaterally. BOWEL: Oral contrast reaches level of the rectum. No suspicious small or large bowel dilatation. GENITAL ORGANS: Uterus surgically absent. Scattered right-sided pelvic phleboliths redemonstrated. LYMPH NODES: No greater than 1cm abdominal or pelvic lymph nodes are appreciated. OSSEOUS STRUCTURES: [id number] multilevel spurring. Slight underlying scoliotic curvature. Mode rate disc space narrowing lumbosacral junction. OTHER: No significant additional abnormality is seen. IMPRESSION: 1. No suspicious new mass or adenopathy identified to suggest active neoplastic recurrence. 2. Mild mucosal enhancement in the gallbladder with mild/moderate ill-defined fluid and fat stranding on current study, acute cholecystitis cannot be excluded. Clinical correlation advised to determine need for further investigation for surgical exploration and/or dedicated ultrasound. A Yellow level critical message alert has been initiated for Shayne Springer MD via the [employer] System on 03/05/2020 3:18 PM. This message alert has been sent to Shayne Springer MD via [employer] preferences provided by the clinician for the receipt of Radiology Critical Findings. Message ID [id number].
== END | disposition home or self-care (01) ==
LOC: RADPROMAIN 12:20
PROVIDERS: ATTEND Internal Medicine Hematology & Oncology
DX: C56.1 Malignant neoplasm of right ovary (principal); C56.2 Malignant neoplasm of left ovary; R93.2 Abnormal findings on diagnostic imaging of liver and biliary tract; Z88.0 Allergy status to penicillin; Z88.6 Allergy status to analgesic agent; Z91.041 Radiographic dye allergy status
CPT/HCPCS: 82565; 84520; 71260; 74177; 36415; J1642; Q9967

== ENCOUNTER 2020-03-10 11:37 | Observation (INO) | payer MEDICARE ==
[2020-03-10] MEDS ORDERED: PANTOPRAZOLE 40 MG/10 ML VIAL IVP STA (12:33)
[2020-03-10] MEDS ORDERED: SODIUM CHLORIDE 0.9% 1,000 ML IV STA (12:33)
[2020-03-10] MEDS ORDERED: MORPHINE SULFATE 4 MG/ML SYRINGE IV STA (12:33)
--- NOTE | 2020-03-10 12:36 | ED ---
General Adult HPI - General Chief complaint: Abdominal Pain Stated complaint: abd pain Time Seen by Provider: 03/10/20 12:00 Source: patient, RN notes reviewed Mode of arrival: ambulatory Limitations: no limitations - History of Present Illness Initial comments: Patient is a pleasant 69-year-old female presenting to the emergency Department with abdominal discomfort. Onset of symptoms was a week or so ago. Symptoms have increased over the past few days. Patient did have outpatient computed tomography scan done 5 days ago showing concerns with gallbladder. Discomfort is right upper quadrant. Discomfort does increase with food. Patient has occ asional nausea. No vomiting. No fever. Discomfort is currently 6/10. Patient does have history of ovarian cancer and has previously undergone treatment. At this time they're just monitoring. - Related Data Home Medications Medication Instructions Recorded Confirmed No Known Home Medications 03/10/20 03/10/20 Allergies Allergy/AdvReac Type Severity Reaction Status Date / Time aspirin Allergy Rash/Hives Verified 03/10/20 14:22 Iodinated Contrast Media Allergy Rash/Hives Verified 03/10/20 14:22 [Iodinated Contrast- Oral and IV Dye] lactose Allergy Unknown Verified 03/10/20 14:22 Penicillins Allergy Rash/Hives Verified 03/10/20 14:22 melatonin AdvReac Intermediate Unknown Verified 03/10/20 14:22 Review of Systems ROS Statement: Those systems with pertinent positive or pertinent negative responses have been documented in the HPI. ROS Other: All systems not noted in ROS Statement are negative. Constitutional: Denies: fever Eyes: Denies: eye pain ENT: Denies: ear pain Respiratory: Denies: cough Cardiovascular: Denies: chest pain Endocrine: Denies: fatigue Gastrointestinal: Reports: abdominal pain, nausea Genitourinary: Denies: dysuria Musculoskeletal: Denies: back pain Skin: Denies: rash Neurological: Denies: weakness Past Medical History Past Medical History: Cancer, Diabetes Mellitus, GI Bleed, Osteoarthritis (OA), Pulmonary Embolus (PE) Additional Past Medical History / Comment(s): Bilateral ovarian cancer with mets/ chemotherapy/ currently taking avastin. bicytopenia, anemia, 11/2016 bilateral pulmonary embolisms, 12/2016 L sided pleural effusion with 2 thoracentesis, diet controlled diabetes, diverticulosis, diarrhea with chemo, mild protein calorie malnutrition, past L ankle fracture and pt thinks possibility of arthritis in that joint.uti-ecoli History of Any Multi-Drug Resistant Organisms: None Reported Past Surgical History: No Surgical Hx Reported Additional Past Surgical History / Comment(s): Total hysterectomy/perineal and omenectomy done by Dr Rob at [facility], 2 left thoracentesis, power port rt upper chest, 11/10/17 egd w/bx, colonoscopy. Past Anesthesia/Blood Transfusion Reactions: No Reported Reaction Additional Past Anesthesia/Blood Transfusion Reaction / Comment(s): Pt has received blood without reaction. Past Psychological History: No Psychological Hx Reported Smoking Status: Never smoker Past Alcohol Use History: None Reported Past Drug Use History: None Reported - Past Family History Mother Family Medical History: Congestive Heart Failure (CHF), CVA/TIA, Hypertension Father Family Medical History: CVA/TIA Brother(s) Additional Family Medical History / Comment(s): colon cancer, lymphoma General Exam Limitations: no limitations General appearance: alert, in no apparent distress Head exam: Present: normocephalic Eye exam: Present: normal appearance Neck exam: Present: normal inspection Respiratory exam: Present: normal lung sounds bilaterally Cardiovascular Exam: Present: regular rate, normal rhythm Expanded Peripheral pulses: 2+: Posterior Tibialis (R), Posterior Tibialis (L) GI/Abdominal exam: Present: soft, tenderness (Moderate tenderness right upper quadrant). Absent: distended Extremities exam: Present: normal inspection Neurological exam: Present: alert Psychiatric exam: Present: normal affect, normal mood Skin exam: Present: normal color Course Vital Signs 03/10/20 11:57 Temperature 98.1 F Pulse Rate 85 Respiratory 18 Rate Blood Pressure 164/100 O2 Sat by Pulse 100 Oximetry Medical Decision Making - Medical Decision Making Patient reevaluated and updated. Case discussed with Dr. Arrieta, who will admit for hospital surgical call. - Lab Data Result diagrams: 03/10/20 12:55 03/10/20 12:55 Lab Results 03/10/20 03/10/20 03/10/20 Range/Units 12:55 12:55 12:55 WBC 6.8 (3.8-10.6) k/uL RBC 4.41 (3.80-5.40) m/uL Hgb 14.4 (11.4-16.0) gm/dL Hct 43.0 (34.0-46.0) % MCV 97.5 (80.0-100.0) fL MCH 32.6 (25.0-35.0) pg MCHC 33.5 (31.0-37.0) g/dL RDW 12.6 (11.5-15.5) % Plt Count 226 (150-450) k/uL MPV 6.7 Neutrophils % 65 % Lymphocytes % 27 % Monocytes % 6 % Eosinophils % 1 % Basophils % 1 % Neutrophils # 4.4 (1.3-7.7) k/uL Lymphocytes # 1.8 (1.0-4.8) k/uL Monocytes # 0.4 (0-1.0) k/uL Eosinophils # 0.0 (0-0.7) k/uL Basophils # 0.0 (0-0.2) k/uL PT 10.3 (9.0-12.0) sec INR 1.0 (<1.2) APTT 22.2 (22.0-30.0) sec Sodium (137-145) mmol/L Potassium (3.5-5.1) mmol/L Chloride (98-107) mmol/L Carbon Dioxide (22-30) mmol/L Anion Gap mmol/L BUN (7-17) mg/dL Creatinine (0.52-1.04) mg/dL Est GFR (CKD-EPI)AfAm (>60 ml/min/1.73 sqM) Est GFR (CKD-EPI)NonAf (>60 ml/min/1.73 sqM) Glucose (74-99) mg/dL Calcium (8.4-10.2) mg/dL Total Bilirubin (0.2-1.3) mg/dL AST (14-36) U/L ALT (4-34) U/L Alkaline Phosphatase (38-126) U/L Total Protein (6.3-8.2) g/dL Albumin (3.5-5.0) g/dL Amylase (30-110) U/L Lipase (23-300) U/L Urine Color Light Yellow Urine Appearance Clear (Clear) Urine pH 5.5 (5.0-8.0) Ur Specific [place] 1.007 (1.001-1.035) Urine Protein Negative (Negative) Urine Glucose (UA) Negative (Negative) Urine Ketones Negative (Negative) Urine Blood Small H (Negative) Urine Nitrite Negative (Negative) Urine Bilirubin Negative (Negative) Urine Urobilinogen <2.0 (<2.0) mg/dL Ur Leukocyte Esterase Negative (Negative) Urine RBC 5 (0-5) /hpf Urine WBC 1 (0-5) /hpf Hyaline Casts 1 (0-2) /lpf 03/10/20 Range/Units 12:55 WBC (3.8-10.6) k/uL RBC (3.80-5.40) m/uL Hgb (11.4-16.0) gm/dL Hct (34.0-46.0) % MCV (80.0-100.0) fL MCH (25.0-35.0) pg MCHC (31.0-37.0) g/dL RDW (11.5-15.5) % Plt Count (150-450) k/uL MPV Neutrophils % % Lymphocytes % % Monocytes % % Eosinophils % % Basophils % % Neutrophils # (1.3-7.7) k/uL Lymphocytes # (1.0-4.8) k/uL Monocytes # (0-1.0) k/uL Eosinophils # (0-0.7) k/uL Basophils # (0-0.2) k/uL PT (9.0-12.0) sec INR (<1.2) APTT (22.0-30.0) sec Sodium 137 (137-145) mmol/L Potassium 4.1 (3.5-5.1) mmol/L Chloride 103 (98-107) mmol/L Carbon Dioxide 26 (22-30) mmol/L Anion Gap 8 mmol/L BUN 17 (7-17) mg/dL Creatinine 0.78 (0.52-1.04) mg/dL Est GFR (CKD-EPI)AfAm 89 (>60 ml/min/1.73 sqM) Est GFR (CKD-EPI)NonAf 77 (>60 ml/min/1.73 sqM) Glucose 97 (74-99) mg/dL Calcium 9.5 (8.4-10.2) mg/dL Total Bilirubin 0.7 (0.2-1.3) mg/dL AST 32 (14-36) U/L ALT 40 H (4-34) U/L Alkaline Phosphatase 110 (38-126) U/L Total Protein 7.2 (6.3-8.2) g/dL Albumin 4.1 (3.5-5.0) g/dL Amylase 65 (30-110) U/L Lipase 80 (23-300) U/L Urine Color Urine Appearance (Clear) Urine pH (5.0-8.0) Ur Specific [place] (1.001-1.035) Urine Protein (Negative) Urine Glucose (UA) (Negative) Urine Ketones (Negative) Urine Blood (Negative) Urine Nitrite (Negative) Urine Bilirubin (Negative) Urine Urobilinogen (<2.0) mg/dL Ur Leukocyte Esterase (Negative) Urine RBC (0-5) /hpf Urine WBC (0-5) /hpf Hyaline Casts (0-2) /lpf - Radiology Data Radiology results: report reviewed (Gallbladder ultrasound does show thickened wall, limited exam) Disposition Clinical Impression: Biliary colic Disposition: ADMITTED IP TO THIS [facility] Is patient prescribed a controlled substance at d/c from ED?: No Referrals: Mayco Carlson MD [Primary Care Provider] - 1-2 days Decision Time: 15:06
[2020-03-10 13:34] LABS: Basophils % (A) 1 %; Eosinophils % (A) 1 %; HGB 14.4 gm/dL (11.4-16.0); Lymphocytes # (A) 1.8 k/uL (1.0-4.8); Lymphocytes % (A) 27 %; MCH 32.6 pg (25.0-35.0); MCHC 33.5 g/dL (31.0-37.0); MCV 97.5 fL (80.0-100.0); Mean Platelet Volume 6.7; Monocytes # (A) 0.4 k/uL (0-1.0); Monocytes % (A) 6 %; Neutrophils # (A) 4.4 k/uL (1.3-7.7); Neutrophils % (A) 65 %; Platelet Count 226 k/uL (150-450); RBC 4.41 m/uL (3.80-5.40); RDW 12.6 % (11.5-15.5); WBC 6.8 k/uL (3.8-10.6)
[2020-03-10 13:42] LABS: Albumin 4.1 g/dL (3.5-5.0); Calcium 9.5 mg/dL (8.4-10.2); Potassium 4.1 mmol/L (3.5-5.1); Total Bilirubin 0.7 mg/dL (0.2-1.3); Total Protein 7.2 g/dL (6.3-8.2)
[2020-03-10 13:49] LABS: Appearance,Urine Clear (Clear); Bilirubin,Urine Negative (Negative); Blood,Urine Small (Negative); Color,Urine Light Yellow; Glucose,Urine (UA) Negative (Negative); Hyaline Casts,Urine 1 /lpf (0-2); Ketones,Urine Negative (Negative); Leukocyte Esterase,Urine Negative (Negative); Nitrite,Urine Negative (Negative); PH, Urine 5.5 (5.0-8.0); Protein,Urine Negative (Negative); RBC,Urine 5 /hpf (0-5); Specific Gravity,Urine 1.007 (1.001-1.035); Urobilinogen,Urine <2.0 mg/dL (<2.0); WBC,Urine 1 /hpf (0-5)
[2020-03-10 13:53] LABS: Partial Thromboplastin Time 22.2 sec (22.0-30.0); Prothrombin Time 10.3 sec (9.0-12.0)
--- NOTE | 2020-03-10 14:25 | XR ---
EXAMINATION TYPE: XR KUB DATE OF EXAM: 03/10/2020 Comparison: 01/28/2017 Clinical History: 69-year-old female abdominal pain Findings: Lung bases are clear. No evidence for free intraperitoneal air. No dilated small bowel or air-fluid levels. No significant stool burden. Only mild stool in the right side of the abdomen. Some residual oral con trast material is present within the left side of the colon. Underlying left-sided colonic diverticul osis is noted. Pelvic phleboliths. Impression: Mild residual oral contrast material in the left side of the colon outlining colonic diverticula. No evidence for free air or bowel obstruction.
--- NOTE | 2020-03-10 14:44 | US ---
EXAMINATION TYPE: US gallbladder DATE OF EXAM: 03/10/2020 COMPARISON: Correlation CT 03/05/2020 CLINICAL HISTORY: 69-year-old female pain. TECHNIQUE: Multiple sonographic images of the right upper quadrant are obtained. FINDINGS: EXAM MEASUREMENTS: Liver Length: 10.0 cm Gallbladder Wall: 0.4 cm CBD: 0.5 cm Right Kidney: 9.5 x 4.4 x 4.3 cm Travel Service Consultant notes: Extensive overlying bowel gas, technically difficult study. Pancreas: Most of the pancreas is visualized and shows no gross abnormal body. Portions of the pancr eatic head and tail are obscured. Liver: Partially obscured, no abnormality of the visualized portions. Gallbladder: Mild wall thickening at 4 mm. No hydropic change, surrounding fluid, or shadowing calcul i. Evidence for sonographic Herrera's sign: Yes CBD: wnl Right Kidney: scattered echogenic foci, suspect small vascular reflectors. No hydronephrosis. IMPRESSION: 1. Exam limitations due to extensive overlying bowel gas. 2. Mild diffuse gallbladder wall thickening up to 4 mm is nonspecific and may be seen with other etio logy such as third spacing/fluid overload state and hepatitis. Clinically correlate. No gallstones or hydropic change. Given the reported positive sonographic Herrera sign, if further imaging evaluation of the gallbladder is desired, HIDA scan can be considered.
[2020-03-10] MEDS ORDERED: MORPHINE SULFATE 4 MG/ML SYRINGE IVP STA (14:51)
[2020-03-10] MEDS ORDERED: ONDANSETRON 4 MG/2 ML VIAL IVP STA (14:51)
[2020-03-10] MEDS ORDERED: NALOXONE 0.4 MG/ML 1 ML VIAL IV PRN (15:07)
[2020-03-10] MEDS ORDERED: HYDROmorphone 1 MG/ML 1 ML SYRINGE IVP PRN (15:07)
[2020-03-10] MEDS ORDERED: ENALAPRILAT 1.25 MG/ML 1 ML VIAL IVP STA (16:06)
[2020-03-10] MEDS ORDERED: METOCLOPRAMIDE 5 MG/ML 2 ML VIAL IVP STA (16:11)
[2020-03-10] MEDS: SODIUM CHLORIDE 0.9% 1,000 ML IV SCH (16:14)
[2020-03-10] MEDS: ONDANSETRON 4 MG/2 ML VIAL IVP PRN (22:32)
[2020-03-11] MEDS: PANTOPRAZOLE 40 MG/10 ML VIAL IV SCH (08:16)
[2020-03-11] MEDS: SODIUM CHLORIDE 0.9% 1,000 ML IV SCH ×3 (08:17→21:32)
--- NOTE | 2020-03-11 13:44 | P.GSHP ---
History of Present Illness H&P Date: 03/11/20 CHIEF COMPLAINT: Abdominal pain HISTORY OF PRESENT ILLNESS: This is a 69-year-old female with known history of ovarian cancer with metastatic disease she has completed chemotherapy over a year ago. She also had a hysterectomy with partial bowel resection. Patient also has a history of diabetes, bilateral PE and is not an equal any anticoagulation due to prior GI bleed while on anticoagulation. Patient has been having issues with right upper quadrant pain for the last week. She has been having nausea and vomiting. Her symptoms are worse after eating. She says over the last couple a days she had increase in her pain and has not been able to eat. She had a computed tomography scan 5 days ago and had shown mild mucosal enhancement in the gallbladder with mild to moderate ill-defined fluid and fat stranding on current study. Acute cholecystitis cannot be excluded. Patient's has had abdominal ultrasound which shows mild diffuse gallbladder wall thickening up to 4 mm is nonspecific. No gallstones are hydropic change. Positive Herrera sign. Patient denies any fever, chills or sweats. PAST MEDICAL HISTORY: See list. PAST SURGICAL HISTORY: See list. MEDICATIONS: See list. ALLERGIES: See list. SOCIAL HISTORY: No illicit drug use. REVIEW OF SYSTEMS: CONSTITUTIONAL: Denies fever or chills. HEENT: Denies blurred vision, vision changes, or eye pain. Denies hemoptysis CARDIOVASCULAR: Denies chest pain or pressure. RESPIRATORY: No shortness of breath. GASTROINTESTINAL: See HPI for pertinent findings HEMATOLOGIC: Denies bleeding disorders. GENITOURINARY: Denies any blood in urine or increased urinary frequency. SKIN: Denies pruitis. Denies rash. PHYSICAL EXAM: VITAL SIGNS: Reviewed GENERAL: Well-developed in no acute distress. HEENT: No sclera icterus. Extraocular movements grossly intact. Moist buccal mucosa. Head is atraumatic, normocephalic. No nasal drainage. ABDOMEN: Soft. Nondistended. Right upper quadrant tenderness NEUROLOGIC: Alert and oriented. Cranial nerves II through XII grossly intact. LABORATORY DATA: WBC 6.8 hemoglobin 14.4 creatinine 0.78 AST 32 ALT 40 alk phos 110 IMAGING: abdominal ultrasound which shows mild diffuse gallbladder wall thickening up to 4 mm is nonspecific. No gallstones are hydropic change. Positive Herrera sign. ASSESSMENT: 1. Right upper quadrant abdominal pain with mild gallbladder wall thickening noted on abdominal ultrasound 2. Cholecystitis PLAN: -Patient is scheduled for laparoscopic cholecystectomy tomorrow, 03/11/[address] Pope -Start patient on clear liquid diet and then nothing by mouth after midnight -Continue pain medication as needed -Oncology and medicine consult placed -GI prophylaxis Protonix and DVT prophylaxis subcu heparin Physician Truck Supervisor note has been reviewed by physician. Signing provider agrees with the documented findings, assessment, and plan of care. Past Medical History Past Medical History: Cancer, Diabetes Mellitus, GI Bleed, Osteoarthritis (OA), Pulmonary Embolus (PE) Additional Past Medical History / Comment(s): Bilateral ovarian cancer with mets/ chemotherapy/ currently taking avastin. bicytopenia, anemia, 11/2016 bilateral pulmonary embolisms, 12/2016 L sided pleural effusion with 2 thoracentesis, diet controlled diabetes, diverticulosis, diarrhea with chemo, mild protein calorie malnutrition, past L ankle fracture and pt thinks possibility of arthritis in that joint.uti-ecoli History of Any Multi-Drug Resistant Organisms: None Reported Past Surgical History: Bowel Resection, Hysterectomy Additional Past Surgical History / Comment(s): Total hysterectomy/perineal and omenectomy done by Dr Rob at [facility], 2 left thoracentesis, power port rt upper chest, 11/10/17 egd w/bx, colonoscopy. Past Anesthesia/Blood Transfusion Reactions: No Reported Reaction Additional Past Anesthesia/Blood Transfusion Reaction / Comment(s): Pt has rec eived blood without reaction. Past Psychological History: No Psychological Hx Reported Additional Psychological History / Comment(s): pt is independant. lives alone in 2 story home that has 2 porch steps. no outside services recieved. no medical equipment. Smoking Status: Never smoker Past Alcohol Use History: None Reported Past Drug Use History: None Reported - Past Family History Mother Family Medical History: Congestive Heart Failure (CHF), CVA/TIA, Hypertension Father Family Medical History: CVA/TIA Brother(s) Additional Family Medical History / Comment(s): colon cancer, lymphoma Medications and Allergies Home Medications Medication Instructions Recorded Confirmed Type No Known Home Medications 03/10/20 03/10/20 History Allergies Allergy/AdvReac Type Severity Reaction Status Date / Time aspirin Allergy Rash/Hives Verified 03/10/20 14:22 Iodinated Contrast Media Allergy Rash/Hives Verified 03/10/20 14:22 [Iodinated Contrast- Oral and IV Dye] lactose Allergy Unknown Verified 03/10/20 14:22 Penicillins Allergy Rash/Hives Verified 03/10/20 14:22 melatonin AdvReac Intermediate Unknown Verified 03/10/20 14:22 Surgical - Exam Vital Signs Temp Pulse Resp BP Pulse Ox 98.1 F 85 18 164/100 100 03/10/20 11:57 03/10/20 11:57 03/10/20 11:57 03/10/20 11:57 03/10/20 11:57 Results - Labs 03/10/20 12:55 03/10/20 12:55 Abnormal Lab Results - Last 24 Hours (Table) 03/10/20 03/10/20 Range/Units 12:55 12:55 ALT 40 H (4-34) U/L Urine Blood Small H (Negative) Diabetes panel 03/10/20 Range/Units 12:55 Sodium 137 (137-145) mmol/L Potassium 4.1 (3.5-5.1) mmol/L Chloride 103 (98-107) mmol/L Carbon Dioxide 26 (22-30) mmol/L BUN 17 (7-17) mg/dL Creatinine 0.78 (0.52-1.04) mg/dL Glucose 97 (74-99) mg/dL Calcium 9.5 (8.4-10.2) mg/dL AST 32 (14-36) U/L ALT 40 H (4-34) U/L Alkaline Phosphatase 110 (38-126) U/L Total Protein 7.2 (6.3-8.2) g/dL Albumin 4.1 (3.5-5.0) g/dL Calcium panel 03/10/20 Range/Units 12:55 Calcium 9.5 (8.4-10.2) mg/dL Albumin 4.1 (3.5-5.0) g/dL Pituitary panel 03/10/20 Range/Units 12:55 Sodium 137 (137-145) mmol/L Potassium 4.1 (3.5-5.1) mmol/L Chloride 103 (98-107) mmol/L Carbon Dioxide 26 (22-30) mmol/L BUN 17 (7-17) mg/dL Creatinine 0.78 (0.52-1.04) mg/dL Glucose 97 (74-99) mg/dL Calcium 9.5 (8.4-10.2) mg/dL Adrenal panel 03/10/20 Range/Units 12:55 Sodium 137 (137-145) mmol/L Potassium 4.1 (3.5-5.1) mmol/L Chloride 103 (98-107) mmol/L Carbon Dioxide 26 (22-30) mmol/L BUN 17 (7-17) mg/dL Creatinine 0.78 (0.52-1.04) mg/dL Glucose 97 (74-99) mg/dL Calcium 9.5 (8.4-10.2) mg/dL Total Bilirubin 0.7 (0.2-1.3) mg/dL AST 32 (14-36) U/L ALT 40 H (4-34) U/L Alkaline Phosphatase 110 (38-126) U/L Total Protein 7.2 (6.3-8.2) g/dL Albumin 4.1 (3.5-5.0) g/dL
--- NOTE | 2020-03-11 20:29 | P.CONS ---
History of Present Illness - Reason for Consult Consult date: 03/10/20 Oncologic Care Requesting physician: Salas Tristan - Chief Complaint Cholithisitis - History of Present Illness Mrs. Leija is a pleasant white female, well known to primary oncologist Dr. Shayne Springer for prior treatment and managment of her known metastatic Ovarian cancer. She was initially seen in consult at [facility] on 11/16/16. She had been admitted on 11/14/16 with complaints of abdominal bloating that started about a week to 10 days prior to that admission. It had been progressive since then causing increasing abdominal discomfort. CAT scan of the abdomen and pelvis revealed significant ascites as well as a left pleural effusion. Outside ultrasound showed multiple cysts involving both ovaries the largest 1.6 cm on the right and 2.6 cm on the left. She had a large volume paracentesis on 11/15/16. There was significant improvement in her symptoms. 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 CT scan of the chest showed no evidence of metastasis with the basilar opacities consistent with small pleural effusions. Incidentally bilateral pulmonary emboli were noted. These were confirmed on CT angiogram of the chest. The patient was discharged on eliquis and referred immediately to gynecologic oncology at [facility]. she was seen by , and preoperative chemotherapy was recommended. She had a port placed at [facility]. She was seen for her first office visit on 12/02/16. She then started Carbo with DD Taxol, On 12/22/16 she was admitted to [facility] with a large left pleural effusion. She had thoracentesis of 2.4 L of bloody fluid. She had relief of symptoms and was then discharged. 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 She had a repeat drainage in late 12/31 of about 700 cc. She was restarted on systemic therapy and completed 6 cycles of chemotherapy 04/28/2017 CT scans showed persistent cystic lesions in the b/l pelvis, but no residual ascites or pleural effusion. On 06/18/17, She underwent resection through [facility], with a good partial response noted. She had resection of all gross disease. She recovered well post surgery, and was then started on carbo /Gemzar per [facility] recommendations on 07/25/17. She completed 3 cycles in 10/01. She was then recommended to start Avastin by [facility]. However, prior to starting, she was admitted to [facility] with major GI bleeding. GI w/u was negative. She eventually stabilised with transfusion and IV iron. Eliquis was stopped as she had been on treatment anyway for almost 11 mths. She was started on Avastin on 12/16/17 as she had had no recurrence of bleeding and Hgb had been stable. She developed BRBPR as well as black stools in late 01/31. She was admitted on 02/10/18. her Hgb did drop, but stabilised and she did not need a transfusion. Based on the above , it was decided to stop Avastin. CPK and aldolase were negative in 04/04, with sed rate non specific at 31 CT scans in 11/02 were again negative. As the patient is complaining of increased nausea, she had a PET scan done, on 12/01/18, which was also negative. CA-125 remained in the normal range. In october 2019 she presented with nausea and pain. THis occurred with or without food, but eating did make it worse. She was referred for an EGD whe seen in 12/02, but did no go, as her symptoms resolved spontaneously. She feels it was due to stress. She was c/o dizziness , with Ct brain in 01/02 negative. This, too, has resolved. Seen in July 2019 with complaints of persistent pain in the lower back, in a somewhat bandlike fashion. This appears to be aggravated with certain movements. The patient did assist with her PCP and was found to have a UA positive for blood on urinalysis. She was treated with antibiotics, though cultures according to her were negative. She had also had an abdominal ultrasound that was negative other than showing known small left parapelvic cysts. the patient proceeded to CT of the abdomen and pelvis ( 10/03) as well as labs, which showed tumor markers in the normal range at 16.8, and no evidence of cancer recurrence. Last seen in October 2019 - and at that time: the patient's labs and CT scans were discussed in detail with her. At this time there appears to be no evidence of cancer recurrence - Continue observation with repeat labs and scans in 4 months - Labs from her PCP showed evidence of blood in the urine with FISH study for bladder cancer negative. Refer back to urology for further workup - Her abdominal symptoms on further questioning appear to be potentially related to irritable bowel and/or transient partial bowel obstruction related to adhesions. On March 05, 2020 she underwent restaging CTs of her CHest abdomen and Pelvis: Again this did not reveal recurrent disease, although did identify mild mucosal enhancement in the gallbladder. Therefore she presented to [facility] for further evaluation. Patient seen and Evaluated, during time of assessment general surgery also present, discussed case with patient and Dr. Pope. PLanning for Cholecystectomy tomorrow. Patient is aware of the possible risk of open procedure due to prior surgical intervention with the increased potential of scar tissue. Patient is anxious and worried, this is her baseline, flight of ideas and difficulty focusing. I did discuss in detail with daughter Ashley. All questions answered. Review of Systems All systems: negative Constitutional: Reports as per HPI Past Medical History Past Medical History: Cancer, Diabetes Mellitus, GI Bleed, Osteoarthritis (OA), Pulmonary Embolus (PE) Additional Past Medical History / Comment(s): Bilateral ovarian cancer with mets/ chemotherapy/ currently taking avastin. bicytopenia, anemia, 11/2016 bilateral pulmonary embolisms, 12/2016 L sided pleural effusion with 2 thoracentesis, diet controlled diabetes, diverticulosis, diarrhea with chemo, mild protein calorie malnutrition, past L ankle fracture and pt thinks possibility of arthritis in that joint.uti-ecoli History of Any Multi-Drug Resistant Organisms: None Reported Past Surgical History: Bowel Resection, Hysterectomy Additional Past Surgical History / Comment(s): Total hysterectomy/perineal and omenectomy done by Dr Rob at [facility], 2 left thoracentesis, power port rt upper chest, 11/10/17 egd w/bx, colonoscopy. Past Anesthesia/Blood Transfusion Reactions: No Reported Reaction Additional Past Anesthesia/Blood Transfusion Reaction / Comm: Pt has received blood without reaction. Past Psychological History: No Psychological Hx Reported Additional Psychological History / Comment(s): pt is independant. lives alone in 2 story home that has 2 porch steps. no outside services recieved. no medical equipment. Smoking Status: Never smoker Past Alcohol Use History: None Reported Past Drug Use History: None Reported - Past Family History Mother Family Medical History: Congestive Heart Failure (CHF), CVA/TIA, Hypertension Father Family Medical History: CVA/TIA Brother(s) Additional Family Medical History / Comment(s): colon cancer, lymphoma Medications and Allergies Home Medications Medication Instructions Recorded Confirmed Type No Known Home Medications 03/10/20 03/10/20 History Allergies Allergy/AdvReac Type Severity Reaction Status Date / Time aspirin Allergy Rash/Hives Verified 03/10/20 14:22 Iodinated Contrast Media Allergy Rash/Hives Verified 03/10/20 14:22 [Iodinated Contrast- Oral and IV Dye] lactose Allergy Unknown Verified 03/10/20 14:22 Penicillins Allergy Rash/Hives Verified 03/10/20 14:22 melatonin AdvReac Intermediate Unknown Verified 03/10/20 14:22 Physical Exam Vitals: Vital Signs Temp Pulse Pulse Resp BP BP Pulse Ox 03/10/20 20:41 98.3 F 72 18 154/82 95 03/10/20 17:00 68 18 150/90 97 03/10/20 16:37 78 18 163/96 97 03/10/20 16:00 78 18 191/109 97 03/10/20 15:55 70 16 177/100 100 03/10/20 15:19 69 18 188/106 100 03/10/20 11:57 98.1 F 85 18 164/100 100 Intake and Output 03/10/20 03/10/20 03/10/20 06:59 14:59 22:59 Intake Total 200 Balance 200 Intake: Intake, IV Titration 200 Amount Sodium Chloride 0.9% 1, 200 000 ml @ 100 mls/hr IV . Q10H [facility] Rx#:[id number] Other: Voiding Method Toilet Weight 53.524 kg 53.524 kg - Constitutional General appearance: cooperative, no acute distress - EENT Eyes: EOMI, PERRLA ENT: NA/AT, normal oropharynx - Neck Neck: normal ROM - Respiratory Respiratory: bilateral: CTA - Cardiovascular Rhythm: regular - Gastrointestinal General gastrointestinal: soft, tenderness - Integumentary Integumentary: pale - Neurologic Neurologic: CNII-XII intact - Musculoskeletal Musculoskeletal: generalized weakness, strength equal bilaterally - Psychiatric Psychiatric: A&O x's 3, appropriate affect, intact judgment & insight Results CBC & Chem 7: 03/10/20 12:55 03/10/20 12:55 Labs: Abnormal Lab Results - Last 24 Hours (Table) 03/10/20 03/10/20 Range/Units 12:55 12:55 ALT 40 H (4-34) U/L Urine Blood Small H (Negative) US - abdomen: report reviewed Assessment and Plan (1) Cholecystitis Current Visit: Yes Status: Acute Code(s): K81.9 - CHOLECYSTITIS, UNSPECIFIED SNOMED Code(s): 02637689 (2) Biliary colic Current Visit: Yes Status: Acute Code(s): K80.50 - CALCULUS OF BILE DUCT W/O CHOLANGITIS OR CHOLECYST W/O OBST SNOMED Code(s): 27300440 (3) H/O ovarian cancer Narrative/Plan: In 2017 [facility]-adjuvant chemotherapy, Surgical resection, adjuvant chemo and anti- angiogenesis completing in 2018 Metastatic disease evidenced with positive pleural effusion Current Visit: No Status: Acute Code(s): Z85.43 - PERSONAL HISTORY OF MALIGNANT NEOPLASM OF OVARY SNOMED Code(s): 340423815 Plan: Assessment and Recommendations: Cholecystits: - Colicky discomfort per patient - Exacerbated with increase of anxiety - Plan for Surgical intervention 03/12/20, patient was provided all risks, benefits and possibility of open procedure if unable to safely proceed laparoscopic due to history of surgery and ovarian cancer (potential scar tissue). - Discussed with general surgery - All questions answered and discussed all above with patients daughter Ashley, all of her questions answered as well. Hx: Metastatic Ovarian Cancer: - History details within HPI and above - Recent CTs JJ
[2020-03-11] MEDS: HEPARIN SODIUM,PORCINE 5,000 UNIT/ML 1 ML VIAL SQ SCH (20:51)
--- NOTE | 2020-03-11 21:08 | P.CONS ---
History of Present Illness - Reason for Consult Consult date: 03/11/20 Medical management Requesting physician: Pancho Pope - Chief Complaint Abdominal pain - History of Present Illness Consultation: This is a pleasant 69-year-old patient was followed with Dr. Beavers for metastatic ovarian cancer. Patient in 2017 was diagnosed with adenocarcinoma consistent with ovarian or primary peritoneal malignancy. Patient also had bilateral pulmonary embolism for which she was put on eliquis. She was sent down to [facility]. And was given chemotherapy. Also photosynthesis done. She underwent overrating resection in 2017 at an different hospital. And then she was given further chemotherapy. Subsequently quickly by 2018 she was found to be in remission. Then seen in 2019. Seems to be no evidence of cancer recurrence. On 03/05/2019 when she did undergo restaging computed tomography scan of chest abdomen pelvis came back to be negative. Does some mucosal enhancement of the gallbladder. Her last few days patient having upper abdominal pain. There is a concern for acute cholecystitis hence admitted for the same with a view to surgery. Patient did have vomiting once or twice. With some nausea. Denies any fever and chills. No change in bowel pattern. Review of systems: GEN.: Tired EYES: None HEENT: None NECK: None RESPIRATORY: None CARDIOVASCULAR: None GASTROINTESTINAL: As above GENITOURINARY: None MUSCULOSKELETAL: None LYMPHATICS: None HEMATOLOGICAL: None PSYCHIATRY: None NEUROLOGICAL: None Past medical history to include: Metastatic adenocarcinoma possibly ovarian versus peritoneal cavity, status post limited surgery and chemotherapy, diabetes, GI bleed, osteoarthritis, bilateral pulmonary embolism, large left-sided pleural effusion with thoracentesis, colonic diverticulosis Social history: No history of smoking or alcohol. Lives alone. Physical examination: VITAL SIGNS: 98.6, 74, 16, 137 x 88, 35% room air GENERAL: BMI 22.3, sitting on bed, not in distress. Right upper chest wall port EYES: Pupils equal. Conjunctiva normal. HEENT: External appearance of nose and ears normal, oral cavity grossly normal. NECK: JVD not raised; masses not palpable. HEART: First and second heart sounds are normal; no edema. LUNGS: Respiratory rate normal; clear to auscultation. ABDOMEN: Soft, some upper abdominal tenderness, no guarding rigidity liver spleen not palpable, no masses palpable. PSYCH: Alert and oriented x3; mood and affect normal. NEUROLOGICAL: Cranial nerves grossly intact; no facial asymmetry, power and sensation grossly intact. LYMPHATICS: No lymph nodes palpable in the axilla and neck INVESTIGATIONS, reviewed in the clinical context: White count 6.8 hemoglobin 14.4 platelets 226 potassium 4.1 creatinine 0.78 Ultrasound gallbladder-mild diffuse gallbladder wall thickening up to 4 mm. No gallstone a hydropic change. Computed tomography scan of the chest abdomen and pelvis with contrast on 03/05/2020: Gallbladder showing new mild mucosal wall enhancement with some surrounding fluid mild to moderate fluid fat stranding. Assessment: -Probable acute cholecystitis -History of metastatic adenocarcinoma with ovarian cancer, treated with limited surgery, chemotherapy currently remission Plan: Patient getting IV fluids. Pain control. Subcu heparin for DVT prophylaxis. Patient is a fair exercise tolerance. Denies any cardiac or respiratory symptoms. No prior cardiac history. Patient is on no cardiac medications to surgery with a low to moderate risk for myocardial as the standpoint. Care was discussed with the patient. Questions answered. Thank you Dr. Pope Past Medical History Past Medical History: Cancer, Diabetes Mellitus, GI Bleed, Osteoarthritis (OA), Pulmonary Embolus (PE) Additional Past Medical History / Comment(s): Bilateral ovarian cancer with mets/ chemotherapy/ currently taking avastin. bicytopenia, anemia, 11/2016 bilateral pulmonary embolisms, 12/2016 L sided pleural effusion with 2 thoracentesis, diet controlled diabetes, diverticulosis, diarrhea with chemo, mild protein calorie malnutrition, past L ankle fracture and pt thinks possibility of arthritis in that joint.uti-ecoli History of Any Multi-Drug Resistant Organisms: None Reported Past Surgical History: Bowel Resection, Hysterectomy Additional Past Surgical History / Comment(s): Total hysterectomy/perineal and omenectomy done by Dr Rob at [facility], 2 left thoracentesis, power port rt upper chest, 11/10/17 egd w/bx, colonoscopy. Past Anesthesia/Blood Transfusion Reactions: No Reported Reaction Additional Past Anesthesia/Blood Transfusion Reaction / Comm: Pt has received blood without reaction. Past Psychological History: No Psychological Hx Reported Additional Psychological History / Comment(s): pt is independant. lives alone in 2 story home that has 2 porch steps. no outside services recieved. no medical e quipment. Smoking Status: Never smoker Past Alcohol Use History: None Reported Past Drug Use History: None Reported - Past Family History Mother Family Medical History: Congestive Heart Failure (CHF), CVA/TIA, Hypertension Father Family Medical History: CVA/TIA Brother(s) Additional Family Medical History / Comment(s): colon cancer, lymphoma Medications and Allergies Home Medications Medication Instructions Recorded Confirmed Type No Known Home Medications 03/10/20 03/10/20 History Allergies Allergy/AdvReac Type Severity Reaction Status Date / Time aspirin Allergy Rash/Hives Verified 03/10/20 14:22 Iodinated Contrast Media Allergy Rash/Hives Verified 03/10/20 14:22 [Iodinated Contrast- Oral and IV Dye] lactose Allergy Unknown Verified 03/10/20 14:22 Penicillins Allergy Rash/Hives Verified 03/10/20 14:22 melatonin AdvReac Intermediate Unknown Verified 03/10/20 14:22 Physical Exam Vitals: Vital Signs Temp Pulse Resp BP Pulse Ox 03/11/20 13:17 98.6 F 74 16 137/88 95 03/11/20 05:00 98.3 F 85 18 123/80 94 L Intake and Output 03/11/20 03/11/20 03/11/20 06:59 14:59 22:59 Intake Total 0 800 Balance 0 800 Intake: Intake, IV Titration 800 Amount Sodium Chloride 0.9% 1, 800 000 ml @ 100 mls/hr IV . Q10H [facility] Rx#:[id number] Oral 0 Other: Voiding Method Toilet Toilet # Voids 2 3 Results CBC & Chem 7: 03/10/20 12:55 03/10/20 12:55
[2020-03-12] MEDS ORDERED: DEXAMETHASONE SOD PHOSPHATE 4 MG/ML 1 ML VIAL IV ONE (06:00)
[2020-03-12] MEDS ORDERED: LIDOCAINE 1% (10MG/ML) FOR IV START INTRADERMA PRN (06:00)
[2020-03-12] MEDS ORDERED: fentaNYL (PF) 50 MCG/ML 2 ML AMP IV PRN (07:00)
[2020-03-12] MEDS: PANTOPRAZOLE 40 MG/10 ML VIAL IV SCH (08:48)
[2020-03-12] MEDS: SODIUM CHLORIDE 0.9% 1,000 ML IV SCH ×2 (08:54→17:01)
[2020-03-12] MEDS: HEPARIN SODIUM,PORCINE 5,000 UNIT/ML 1 ML VIAL SQ SCH ×3 (08:57→21:21)
[2020-03-12 09:02] LABS: Basophils % (A) 1 %; Eosinophils % (A) 1 %; HCT 42.3 % (34.0-46.0); HGB 14.2 gm/dL (11.4-16.0); Lymphocytes % (A) 37 %; MCHC 33.5 g/dL (31.0-37.0); MCV 98.3 fL (80.0-100.0); Mean Platelet Volume 6.6; Monocytes # (A) 0.4 k/uL (0-1.0); Monocytes % (A) 7 %; Neutrophils # (A) 2.9 k/uL (1.3-7.7); Neutrophils % (A) 53 %; Platelet Count 209 k/uL (150-450); RDW 12.4 % (11.5-15.5); WBC 5.4 k/uL (3.8-10.6)
[2020-03-12 09:12] LABS: African American GFR (CKD) 89 (>60 ml/min/1.73 sqM); Anion Gap 7 mmol/L; Blood Urea Nitrogen 9 mg/dL (7-17); Calcium 9.3 mg/dL (8.4-10.2); Carbon Dioxide 30 mmol/L (22-30); Chloride 103 mmol/L (98-107); Glucose 101 mg/dL (74-99); Non-African American GFR(CKD) 77 (>60 ml/min/1.73 sqM); Potassium 3.7 mmol/L (3.5-5.1); Sodium 140 mmol/L (137-145)
[2020-03-12] MEDS ORDERED: IV FLUID CONTINUATION 1,000 ML IV ONE (10:34)
[2020-03-12] MEDS: ONDANSETRON 4 MG/2 ML VIAL IVP PRN ×3 (10:40→21:21)
[2020-03-12] MEDS ORDERED: MIDAZOLAM 2 MG/2 ML VIAL IV ONE (11:06)
[2020-03-12] MEDS ORDERED: PROPOFOL 10 MG/ML 20 ML VIAL IV ONE (11:46)
[2020-03-12] MEDS ORDERED: MIDAZOLAM 2 MG/2 ML VIAL ONE (11:46)
[2020-03-12] MEDS ORDERED: GLYCOPYRROLATE 0.2 MG/ML 2 ML VIAL ONE (11:46)
[2020-03-12] MEDS ORDERED: NEOSTIGMINE 1 MG/ML 10 ML VIAL ONE (11:46)
[2020-03-12] MEDS ORDERED: SUCCINYLCHOLINE CHLORIDE 100 MG/5 ML SYR IV ONE (11:46)
[2020-03-12] MEDS ORDERED: ROCURONIUM 10 MG/ML (10 ML VIAL) IV ONE (11:46)
[2020-03-12] MEDS ORDERED: PHENYLEPHRINE 10 MG/ML VIAL ONE (11:46)
[2020-03-12] MEDS ORDERED: .MORPHINE SULFATE (INJ) 10 MG/ML SYRINGE ONE (11:46)
[2020-03-12] MEDS ORDERED: fentaNYL (PF) 50 MCG/ML 2 ML AMP ONE (11:46)
[2020-03-12] MEDS ORDERED: SODIUM CHLORIDE 0.9% 50 ML with CLINDAMYCIN 600 MG IV ONE ×2 (12:13)
[2020-03-12] MEDS ORDERED: LIDOCAINE 1%-EPI 1:100,000 20 ML VIAL SQ ONE (12:14)
[2020-03-12] MEDS ORDERED: LACTATED RINGERS 1,000 ML IV ONE (12:53)
[2020-03-12] MEDS ORDERED: hydrALAZINE HCL 20 MG/ML 1 ML VIAL IV ONE (13:40)
--- NOTE | 2020-03-12 13:49 | P.OP ---
Date of Procedure: 03/12/20 Preoperative Diagnosis: Cholecystitis Postoperative Diagnosis: Cholecystitis Procedure(s) Performed: Laparoscopic cholecystectomy Anesthesia: JOSE Surgeon: Pancho Pope Estimated Blood Loss (ml): 5 Pathology: other (Gallbladder) Condition: stable Disposition: PACU Description of Procedure: The patient was placed on the operating table. The patient received a general endotracheal tube anesthesia. The patients abdomen was prepped and draped in the usual sterile fashion. Through an infraumbilical stab incision, the fascia of the anterior abdominal wall was grasped with a pair of Kochers and then the Veress needle was placed in the peritoneal cavity. Position of the Veress needle was confirmed with positive drop test. The abdomen was then insufflated. After adequate insufflation, the 10 mm trocar was placed in the peritoneal cavity. Following this the laparoscope was placed in the peritoneal cavity. The patient a previous history of ovarian cancer. There is no obvious evidence of metastatic disease. The patient was placed in the head-up, right side up position and then a 5 mm trocar was placed in the right lateral and right subcostal position under direct visualization. A 8 mm trocar was placed in the epigastric position. There was significant inflammation around the gallbladder. The gallbladder was grasped in the fundus and infundibulum. Traction on the gallbladder was placed in the lateral and the cephalad positions. The triangle of Calot was visualized.. The cystic duct was bluntly dissected until the union of the cystic duct and common bile duct was seen. A critical view of safety was achieved. The cystic duct was then divided and sealed with the Harmonic scissors. A PDS Endoloop was then placed throughout the cystic duct stump. The cystic artery divided and sealed with the Harmonic scissors. The gallbladder was then removed from the liver bed using Harmonic scissors. The gallbladder was then extracted through the epigastric port site. Operative field was checked for any bleeding spots and Harmonic scissors was used to coagulate the liver bed. The abdomen was irrigated. The trocars were removed. The skin was closed using interrupted 3-0 Vicryl suture. Dermabond dressing were applied. The patient tolerated the procedure well.
[2020-03-12] MEDS: LACTATED RINGERS 1,000 ML IV SCH ×2 (15:15→22:25)
--- NOTE | 2020-03-12 15:48 | P.PN ---
Objective - Vital Signs Vital signs: Vital Signs Temp 97.8 F 03/12/20 14:53 Pulse 87 03/12/20 15:26 Resp 16 03/12/20 15:26 BP 154/77 03/12/20 15:26 Pulse Ox 93 L 03/12/20 15:26 Intake & Output 03/11/20 03/12/20 03/12/20 18:59 06:59 18:59 Intake Total 334 509 6340 Output Total 10 Balance 572 284 8137 Intake: IV 1154 Intake, IV Titration 800 800 Amount Sodium Chloride 0.9% 1, 800 800 000 ml @ 100 mls/hr IV . Q10H [facility] Rx#:[id number] Output: Estimated Blood Loss 10 Other: Voiding Method Toilet Toilet # Voids 3 - Exam - Constitutional General appearance: cooperative, no acute distress - EENT Eyes: EOMI, PERRLA ENT: NA/AT, normal oropharynx - Neck Neck: normal ROM - Respiratory Respiratory: bilateral: CTA - Cardiovascular Rhythm: regular - Gastrointestinal General gastrointestinal: soft, tenderness - Integumentary Integumentary: pale - Neurologic Neurologic: CNII-XII intact - Musculoskeletal Musculoskeletal: generalized weakness, strength equal bilaterally - Psychiatric Psychiatric: A&O x's 3, appropriate affect, intact judgment & insight - Labs CBC & Chem 7: 03/12/20 08:43 03/12/20 08:43 Labs: Abnormal Lab Results - Last 24 Hours (Table) 03/12/20 Range/Units 08:43 Glucose 101 H (74-99) mg/dL Assessment and Plan (1) Cholecystitis Current Visit: Yes Status: Acute Code(s): K81.9 - CHOLECYSTITIS, UNSPECIFIED SNOMED Code(s): 66503994 (2) Biliary colic Current Visit: Yes Status: Acute Code(s): K80.50 - CALCULUS OF BILE DUCT W/O CHOLANGITIS OR CHOLECYST W/O OBST SNOMED Code(s): 46139983 (3) H/O ovarian cancer Current Visit: No Status: Acute Code(s): Z85.43 - PERSONAL HISTORY OF MALIGNANT NEOPLASM OF OVARY SNOMED Code(s): 210251363 Plan: Assessment and Recommendations: Cholecystits: - Status POst Laparoscopic CHolecystectomy, tolerated well and recovering - Spoke with surgery who did state she had noted inflammation although no obvious signs of recurrent cancer, tissue has been sent to path. Hx: Metastatic Ovarian Cancer: - History details within HPI and above - Recent CTs JJ - Ca 125 stable - 13 Discussed with daughter Ashley today, all questions answered. Will have Anne Rosado follow-up with us in 4-6 weeks for normal surveillance. Physician Attest: I have completed the full history and physical and agree with above dictation, dictated as a scribe.
[2020-03-12] MEDS: HYDROmorphone 0.5 MG/0.5 ML SYRINGE IVP PRN (17:03)
--- NOTE | 2020-03-12 23:02 | P.PN ---
Progress Note - Text Progress Note Date: 03/12/20 - Chief Complaint Abdominal pain - History of Present Illness Consultation: This is a pleasant 69-year-old patient was followed with Dr. Beavers for metastatic ovarian cancer. Patient in 2017 was diagnosed with adenocarcinoma consistent with ovarian or primary peritoneal malignancy. Patient also had bilateral pulmonary embolism for which she was put on eliquis. She was sent down to [facility]. And was given chemotherapy. Also photosynthesis done. She underwent overrating resection in 2017 at an different hospital. And then she was given further chemotherapy. Subsequently quickly by 2018 she was found to be in remission. Then seen in 2019. Seems to be no evidence of cancer recurrence. On 03/05/2019 when she did undergo restaging computed tomography scan of chest abdomen pelvis came back to be negative. Does some mucosal enhancement of the gallbladder. Her last few days patient having upper abdominal pain. There is a concern for acute cholecystitis hence admitted for the same with a view to surgery. Patient did have vomiting once or twice. With some nausea. Denies any fever and chills. No change in bowel pattern. Admitted with acute cholecystitis. Today-this morning underwent successful laparoscopic cholecystectomy. Postprocedure pain control. No nausea vomiting. Laying in bed. Review of systems: Was done for constitutional, cardiovascular, GI, pulmonary. relevant finding as above Active Medications Fentanyl Citrate (Fentanyl (Pf) 50 Mcg/Ml 2 Ml Amp) 50 mcg IV Q3M PRN PRN Reason: Pain Control Stop: 03/12/20 23:00 Last Admin: 03/12/20 13:18 Dose: 50 mcg Documented by: Heparin Sodium (Porcine) (Heparin Sodium,Porcine 5,000 Unit/Ml 1 Ml Vial) 5,000 unit SQ Q12HR [facility] Last Admin: 03/12/20 21:21 Dose: 5,000 unit Documented by: Hydromorphone HCl (Hydromorphone 0.5 Mg/0.5 Ml Syringe) 0.5 mg IVP Q3HR PRN PRN Reason: Moderate Pain Last Admin: 03/12/20 17:03 Dose: 0.5 mg Documented by: Hydromorphone HCl (Hydromorphone 1 Mg/Ml 1 Ml Syringe) 1 mg IVP Q3HR PRN PRN Reason: Severe Pain Sodium Chloride (Saline 0.9%) 1,000 mls @ 100 mls/hr IV .Q10H [facility] Last Admin: 03/12/20 17:01 Dose: 100 mls/hr Documented by: Lactated Ringer's (Lactated Ringers) 1,000 mls @ 20 mls/hr IV .Q24H [facility] Last Admin: 03/12/20 22:25 Dose: Not Given Documented by: Lidocaine HCl (Lidocaine 1% (10mg/Ml) For Iv Start) 0.1 ml INTRADERMA PER PROTOCOL PRN PRN Reason: IV Start Stop: 03/12/20 23:00 Naloxone HCl (Naloxone 0.4 Mg/Ml 1 Ml Vial) 0.2 mg IV Q2M PRN PRN Reason: Opioid Reversal Ondansetron HCl (Ondansetron 4 Mg/2 Ml Vial) 4 mg IVP Q6HR PRN PRN Reason: Nausea And Vomiting Last Admin: 03/12/20 21:21 Dose: 4 mg Documented by: Pantoprazole Sodium (Pantoprazole 40 Mg/10 Ml Vial) 40 mg IV DAILY [facility] Last Admin: 03/12/20 08:48 Dose: 40 mg Documented by: Past medical history to include: Metastatic adenocarcinoma possibly ovarian versus peritoneal cavity, status post limited surgery and chemotherapy, diabetes, GI bleed, osteoarthritis, bilateral pulmonary embolism, large left-sided pleural effusion with thoracentesis, colonic diverticulosis Social history: No history of smoking or alcohol. Lives alone. Physical examination: VITAL SIGNS: 98.1, 86, 17, 1 33 x 73, 96% room air GENERAL: BMI 22.3, laying in bed, comfortable. Right upper chest wall port EYES: Pupils equal. Conjunctiva normal. HEENT: External appearance of nose and ears normal, oral cavity grossly normal. NECK: JVD not raised; masses not palpable. HEART: First and second heart sounds are normal; no edema. LUNGS: Respiratory rate normal; clear to auscultation. ABDOMEN: Soft, some abdominal tenderness, no guarding rigidity liver spleen not palpable, no masses palpable. PSYCH: Alert and oriented x3; mood and affect normal. INVESTIGATIONS, reviewed in the clinical context: March 12: White count 5.4 hemoglobin 14.2 potassium 3.7 creatinine 0.78 White count 6.8 hemoglobin 14.4 platelets 226 potassium 4.1 creatinine 0.78 Ultrasound gallbladder-mild diffuse gallbladder wall thickening up to 4 mm. No gallstone a hydropic change. Computed tomography scan of the chest abdomen and pelvis with contrast on 03/05/2020: Gallbladder showing new mild mucosal wall enhancement with some surrounding fluid mild to moderate fluid fat stranding. Assessment: - acute cholecystitis-laparoscopic cholecystectomy on March 12. -History of metastatic adenocarcinoma with ovarian cancer, treated with limited surgery, chemotherapy currently remission Plan: Continue pain medications, IV fluids. Diet is being advanced as per surgery. Discussed with the patient. Thank you Dr. Pope
[2020-03-13] MEDS: ONDANSETRON 4 MG/2 ML VIAL IVP PRN ×3 (03:15→15:49)
[2020-03-13] MEDS: SODIUM CHLORIDE 0.9% 1,000 ML IV SCH ×3 (05:56→23:40)
[2020-03-13] MEDS: HEPARIN SODIUM,PORCINE 5,000 UNIT/ML 1 ML VIAL SQ SCH ×2 (08:48→21:19)
[2020-03-13] MEDS: PANTOPRAZOLE 40 MG/10 ML VIAL IV SCH (08:48)
[2020-03-13] MEDS ORDERED: HYDROcodone/APAP 5-325MG 1 EACH TAB PO PRN (09:34)
[2020-03-13] MEDS: HYDROmorphone 0.5 MG/0.5 ML SYRINGE IVP PRN (09:48)
[2020-03-13] MEDS: DOCUSATE 100 MG CAP PO SCH ×2 (09:58→21:19)
--- NOTE | 2020-03-13 14:06 | P.PN ---
Subjective Progress Note Date: 03/13/20 CHIEF COMPLAINT: Abdominal pain HISTORY OF PRESENT ILLNESS: Patient is status post laparoscopic cholecystectomy for acute cholecystitis. Patient tolerated surgery well. She did have some nausea and abdominal pain this morning. Garrison has been added. She denies any vomiting. She is on a regular diet. Afebrile. PHYSICAL EXAM: VITAL SIGNS: Reviewed. GENERAL: Well-developed in no acute distress. HEENT: No sclera icterus. Extraocular movements grossly intact. Moist buccal mucosa. Head is atraumatic, normocephalic. ABDOMEN: Soft. Nondistended. Incision sites clean dry and intact NEUROLOGIC: Alert and oriented. Cranial nerves II through XII grossly intact. ASSESSMENT: 1. Acute cholecystitis status post laparoscopic cholecystectomy PLAN: -Continue regular diet -Add Garrison for pain control -Continue Zofran as needed -Encourage patient to use incentive spirometer -Encourage patient to ambulate -GI and DVT prophylaxis Protonix and subcu heparin Physician Spray Painting Machine Operator note has been reviewed by physician. Signing provider agrees with the documented findings, assessment, and plan of care. Objective - Vital Signs Vital signs: Vital Signs Temp 98.7 F 03/13/20 12:29 Pulse 81 03/13/20 12:29 Resp 16 03/13/20 12:29 BP 161/82 03/13/20 12:29 Pulse Ox 94 L 03/13/20 12:29 Intake & Output 03/12/20 03/13/20 03/13/20 18:59 06:59 18:59 Intake Total 1154 1590 Output Total 10 Balance 1144 1590 Intake: IV 1154 Intake, IV Titration 1000 Amount Sodium Chloride 0.9% 1, 1000 000 ml @ 100 mls/hr IV . Q10H [facility] Rx#:[id number] Oral 590 Output: Estimated Blood Loss 10 Other: Voiding Method Toilet # Voids 2 - Labs CBC & Chem 7: 03/12/20 08:43 03/12/20 08:43
--- NOTE | 2020-03-13 19:50 | P.PN ---
Subjective Progress Note Date: 03/13/20 Principal diagnosis: Status POst CHolecystectomy COmplained of some post op pain today otherwise doing pretty good and recovering. She was very happy to know no malignant cells identified Objective - Vital Signs Vital signs: Vital Signs Temp 99.1 F 03/13/20 17:12 Pulse 78 03/13/20 17:12 Resp 18 03/13/20 17:12 BP 165/87 03/13/20 17:12 Pulse Ox 95 03/13/20 17:12 Intake & Output 03/13/20 03/13/20 03/14/20 06:59 18:59 06:59 Intake Total 1590 1050 Balance 1590 1050 Intake: Intake, IV Titration 1000 Amount Sodium Chloride 0.9% 1, 1000 000 ml @ 100 mls/hr IV . Q10H [facility] Rx#:[id number] Oral 590 1050 Other: Voiding Method Toilet # Voids 2 3 - Exam - Constitutional General appearance: cooperative, no acute distress - EENT Eyes: EOMI, PERRLA ENT: NA/AT, normal oropharynx - Neck Neck: normal ROM - Respiratory Respiratory: bilateral: CTA - Cardiovascular Rhythm: regular - Gastrointestinal General gastrointestinal: soft, tenderness - Integumentary Integumentary: pale - Neurologic Neurologic: CNII-XII intact - Musculoskeletal Musculoskeletal: generalized weakness, strength equal bilaterally - Psychiatric Psychiatric: A&O x's 3, appropriate affect, intact judgment & insight - Labs CBC & Chem 7: 03/12/20 08:43 03/12/20 08:43 Assessment and Plan (1) Cholecystitis Current Visit: Yes Status: Acute Code(s): K81.9 - CHOLECYSTITIS, UNSPECIFIED SNOMED Code(s): 86934359 (2) Biliary colic Current Visit: Yes Status: Acute Code(s): K80.50 - CALCULUS OF BILE DUCT W/O CHOLANGITIS OR CHOLECYST W/O OBST SNOMED Code(s): 17984211 (3) H/O ovarian cancer Current Visit: No Status: Acute Code(s): Z85.43 - PERSONAL HISTORY OF MALIGNANT NEOPLASM OF OVARY SNOMED Code(s): 986286720 Plan: Assessment and Recommendations: Cholecystits: - Status POst Laparoscopic CHolecystectomy, tolerated well and recovering - Spoke with surgery who did state she had noted inflammation although no obvious signs of recurrent cancer, tissue has been sent to path and resulted already as negative Hx: Metastatic Ovarian Cancer: - History details within HPI and above - Recent CTs JJ - Ca 125 stable - 13
[2020-03-13 20:09] VITALS: RESP 16
[2020-03-13] MEDS: LACTATED RINGERS 1,000 ML IV SCH (23:40)
--- NOTE | 2020-03-14 00:33 | P.PN ---
Progress Note - Text Progress Note Date: 03/13/20 - Chief Complaint Abdominal pain - History of Present Illness Consultation: This is a pleasant 69-year-old patient was followed with Dr. Beavers for metastatic ovarian cancer. Patient in 2017 was diagnosed with adenocarcinoma consistent with ovarian or primary peritoneal malignancy. Patient also had bilateral pulmonary embolism for which she was put on eliquis. She was sent down to [facility]. And was given chemotherapy. Also photosynthesis done. She underwent overrating resection in 2017 at an different hospital. And then she was given further chemotherapy. Subsequently quickly by 2018 she was found to be in remission. Then seen in 2019. Seems to be no evidence of cancer recurrence. On 03/05/2019 when she did undergo restaging computed tomography scan of chest abdomen pelvis came back to be negative. Does some mucosal enhancement of the gallbladder. Her last few days patient having upper abdominal pain. There is a concern for acute cholecystitis hence admitted for the same with a view to surgery. Patient did have vomiting once or twice. With some nausea. Denies any fever and chills. No change in bowel pattern. Admitted with acute cholecystitis. March 05: Upper scopic cholecystectomy Today-laying in bed this morning. Just diet. Some pain at the operative site. No nausea vomiting. Review of systems: Was done for constitutional, cardiovascular, GI, pulmonary. relevant finding as above Active Medications Hydrocodone Bitart/Acetaminophen (Hydrocodone/Apap 5-325mg 1 Each Tab) 1 each PO Q4HR PRN PRN Reason: Pain Docusate Sodium (Docusate 100 Mg Cap) 100 mg PO BID REPLACED BY [facility] Last Admin: 03/13/20 21:19 Dose: 100 mg Documented by: Heparin Sodium (Porcine) (Heparin Sodium,Porcine 5,000 Unit/Ml 1 Ml Vial) 5,000 unit SQ Q12HR [facility] Last Admin: 03/13/20 21:19 Dose: 5,000 unit Documented by: Hydromorphone HCl (Hydromorphone 0.5 Mg/0.5 Ml Syringe) 0.5 mg IVP Q3HR PRN PRN Reason: Moderate Pain Last Admin: 03/13/20 09:48 Dose: 0.5 mg Documented by: Hydromorphone HCl (Hydromorphone 1 Mg/Ml 1 Ml Syringe) 1 mg IVP Q3HR PRN PRN Reason: Severe Pain Last Admin: 03/13/20 03:14 Dose: 1 mg Documented by: Sodium Chloride (Saline 0.9%) 1,000 mls @ 100 mls/hr IV .Q10H REPLACED BY [facility] Last Admin: 03/13/20 23:40 Dose: 100 mls/hr Documented by: Lactated Ringer's (Lactated Ringers) 1,000 mls @ 20 mls/hr IV .Q24H REPLACED BY [facility] Last Admin: 03/13/20 23:40 Dose: Not Given Documented by: Naloxone HCl (Naloxone 0.4 Mg/Ml 1 Ml Vial) 0.2 mg IV Q2M PRN PRN Reason: Opioid Reversal Ondansetron HCl (Ondansetron 4 Mg/2 Ml Vial) 4 mg IVP Q6HR PRN PRN Reason: Nausea And Vomiting Last Admin: 03/13/20 15:49 Dose: 4 mg Documented by: Pantoprazole Sodium (Pantoprazole 40 Mg/10 Ml Vial) 40 mg IV DAILY REPLACED BY [facility] Last Admin: 03/13/20 08:48 Dose: 40 mg Documented by: Past medical history to include: Metastatic adenocarcinoma possibly ovarian versus peritoneal cavity, status post limited surgery and chemotherapy, diabetes, GI bleed, osteoarthritis, bilateral pulmonary embolism, large left-sided pleural effusion with thoracentesis, colonic diverticulosis Social history: No history of smoking or alcohol. Lives alone. Physical examination: VITAL SIGNS: 99.1, 78, 18, 1 6587, 95% room air GENERAL: BMI 22.3, laying in bed, comfortable. Right upper chest wall port EYES: Pupils equal. Conjunctiva normal. HEENT: External appearance of nose and ears normal, oral cavity grossly normal. NECK: JVD not raised; masses not palpable. HEART: First and second heart sounds are normal; no edema. LUNGS: Respiratory rate normal; clear to auscultation. ABDOMEN: Soft, some abdominal tenderness, no guarding rigidity liver spleen not palpable, no masses palpable. PSYCH: Alert and oriented x3; mood and affect normal. INVESTIGATIONS, reviewed in the clinical context: March 12: White count 5.4 hemoglobin 14.2 potassium 3.7 creatinine 0.78 White count 6.8 hemoglobin 14.4 platelets 226 potassium 4.1 creatinine 0.78 Ultrasound gallbladder-mild diffuse gallbladder wall thickening up to 4 mm. No gallstone a hydropic change. Computed tomography scan of the chest abdomen and pelvis with contrast on 03/05/2020: Gallbladder showing new mild mucosal wall enhancement with some surrounding fluid mild to moderate fluid fat stranding. Assessment: - acute cholecystitis-laparoscopic cholecystectomy on March 12. -History of metastatic adenocarcinoma with ovarian cancer, treated with limited surgery, chemotherapy currently remission Plan: Continue pain medications, IV fluids. Diet is being advanced as per surgery. Encouraged template. Discussed with the patient. Thank you Dr. Pope
[2020-03-14 05:02] VITALS: BP 156/88; PULSE 78; TEMP 98.6
[2020-03-14] MEDS: PANTOPRAZOLE 40 MG/10 ML VIAL IV SCH (07:16)
[2020-03-14] MEDS: DOCUSATE 100 MG CAP PO SCH (07:16)
[2020-03-14] MEDS: HEPARIN SODIUM,PORCINE 5,000 UNIT/ML 1 ML VIAL SQ SCH (07:17)
[2020-03-14] MEDS: SODIUM CHLORIDE 0.9% 1,000 ML IV SCH (10:29)
--- NOTE | 2020-03-14 12:28 | P.DS ---
Providers Date of admission: 03/13/20 08:26 Expected date of discharge: 03/14/20 Attending physician: Pancho Pope Consults: 03/10/20 15:07 Consult Physician Routine Consulting Provider: Shayne Springer Consult Reason/Comments: oncoligical care Do you want consulting provider notified?: Yes 03/11/20 13:37 Consult Physician Routine Consulting Provider: Justice Damon Consult Reason/Comments: medical management Do you want consulting provider notified?: Yes Primary care physician: Mayco Carlson Hospital Course: Discharge diagnosis 1. Acute cholecystitis status post laparoscopic cholecystectomy Hospital course This is a 69-year-old female with known history of ovarian cancer with metastatic disease she has completed chemotherapy over a year ago. She also had a hysterectomy with partial bowel resection. Patient also has a history of diabetes, bilateral PE and is not an equal any anticoagulation due to prior GI bleed while on anticoagulation. Patient has been having issues with right upper quadrant pain for the last week. She has been having nausea and vomiting. Her symptoms are worse after eating. She says over the last couple a days she had increase in her pain and has not been able to eat. She had a computed tomography scan 5 days ago and had shown mild mucosal enhancement in the gallbladder with mild to moderate ill-defined fluid and fat stranding on current study. Acute cholecystitis cannot be excluded. Patient's has had abdominal ultrasound which shows mild diffuse gallbladder wall thickening up to 4 mm is nonspecific. No gallstones are hydropic change. Positive Herrera sign. Patient was diagnosed with acute cholecystitis hand is status post laparoscopic cholecystectomy. Patient tolerated surgery well. Pain is controlled. She is tolerating diet. She is having bowel movements. She is ambulating. She is afebrile. She is stable for discharge. Please refer to chart for any further details. Physician Anchor Tacker note has been reviewed by physician. Signing provider agrees with the documented findings, assessment, and plan of care. Patient Condition at Discharge: Stable Plan - Discharge Summary Discharge Rx Participant: No New Discharge Prescriptions: New Docusate [Colace] 100 mg PO BID #30 capsule HYDROcodone/APAP 5-325MG [[place] 5-325] 1 tab PO Q6HR PRN 3 Days #12 tab PRN Reason: Pain Discharge Medication List Docusate [Colace] 100 mg PO BID #30 capsule 03/14/20 [Rx] HYDROcodone/APAP 5-325MG [[place] 5-325] 1 tab PO Q6HR PRN 3 Days #12 tab 03/14/20 [Rx] Follow up Appointment(s)/Referral(s): Mayco Carlson MD [Primary Care Provider] - 03/17/20 4:15 pm Pancho Pope MD [STAFF PHYSICIAN] - 03/25/20 1:30 pm Patient Instructions/Handouts: Biliary Colic (ED), Laparoscopic Cholecystectomy (DC) Activity/Diet/Wound Care/Special Instructions: No driving while taking [place] No lifting over 10 pounds You may shower. No soaking or tub baths for 2 weeks Very light activity until you are reevaluated at your follow up appointment with your surgeon Discharge Disposition: HOME SELF-CARE
--- NOTE | 2020-03-14 15:09 | PN ---
PROGRESS NOTE DATE OF SERVICE: 03/14/2020 This 69-year-old woman who was admitted with acute cholecystitis also had history of metastatic adenocarcinoma. The patient underwent laparoscopic cholecystectomy. No chest pain. No palpitations. No fever. PHYSICAL EXAMINATION: On exam, alert and oriented x3. Pulse 78, blood pressure 156/88, respirations 16, temperature 98.6, pulse ox 94% on room air. HEENT: Conjunctivae normal. NECK: No jugular venous distention. CARDIOVASCULAR: S1, S2 muffled. RESPIRATORY: Breath sounds diminished at the bases. No rhonchi, no crackles. ABDOMEN: Soft, status post surgery. LEGS: No edema. No swelling. NERVOUS SYSTEM: No focal deficits. LABS: CBC, CMP normal. ASSESSMENT: 1. Acute cholecystitis, status post laparoscopic cholecystectomy. 2. History of metastatic adenocarcinoma with ovarian cancer, treated with limited surgery, chemotherapy, in remission. 3. History of diabetes mellitus type 2. 4. History of gastrointestinal bleed. 5. History of pulmonary embolism. 6. History of degenerative joint disease. 7. History of bowel resection. 8. History of hysterectomy. RECOMMENDATIONS AND DISCUSSION: This 69-year-old woman who presented with multiple complex medical issues, at this time I recommend to continue the current medications, continue symptomatic treatment. Otherwise resume the home medications upon discharge. Incentive spirometry. Closely follow with primary physician and Surgery. Rest of the recommendations per Surgery. MMODL / IJN: [id number] /
== END 2020-03-14 13:42 | disposition home or self-care (01) ==
LOC: EC 11:37 → 6NMEDSUR 15:07 → 5NMEDONC 16:55 → INTOOBSV 03-13 08:26 → OBSVTOIN 03-13 08:26 → UNDODISIN 03-14 13:42
PROVIDERS: ADMIT Surgery; ATTEND Surgery
DX: K81.2 Acute cholecystitis with chronic cholecystitis (principal); Z85.43 Personal history of malignant neoplasm of ovary; E11.9 Type 2 diabetes mellitus without complications; M19.90 Unspecified osteoarthritis, unspecified site; D64.9 Anemia, unspecified; F41.9 Anxiety disorder, unspecified; Z88.6 Allergy status to analgesic agent; Z88.0 Allergy status to penicillin; Z91.041 Radiographic dye allergy status; Z91.011 Allergy to milk products; Z91.048 Other nonmedicinal substance allergy status; Z87.19 Personal history of other diseases of the digestive system; Z86.711 Personal history of pulmonary embolism; Z92.21 Personal history of antineoplastic chemotherapy; Z90.710 Acquired absence of both cervix and uterus; Z82.49 Family history of ischemic heart disease and other diseases of the circulatory system; Z80.7 Family history of other malignant neoplasms of lymphoid, hematopoietic and related tissues; Z80.0 Family history of malignant neoplasm of digestive organs; Z82.3 Family history of stroke; Z90.49 Acquired absence of other specified parts of digestive tract
CPT/HCPCS: 96376 ×3; 96361 ×2; 96374; 96375; 99285; 36415; 88304; 80053; 80048; 86304; 82150; 83690; 85025 ×2; 85610; 85730; 81001; 74018; 76705; 47562; G0378 ×6; J2250; J2270 ×2; J0360; J1644 ×4; J1100; J2370; J2710; J2765; J2405 ×3; J3010; J1170 ×3; J1642; J0330; J2704; C9113 ×5

== ENCOUNTER → 2020-04-24 | Outpatient (CLI) | payer MEDICARE ==
--- NOTE | 2020-04-25 14:38 | MM ---
Reason for exam: screening (asymptomatic). History: Patient is postmenopausal and has history of other cancer at age 65. Physical Findings: A clinical breast exam by your physician is recommended on an annual basis and results should be correlated with mammographic findings. MG 3D Screening Mammo W/Cad Bilateral CC and MLO view(s) were taken. No prior studies available for comparison. The breast tissue is heterogeneously dense. This may lower the sensitivity of mammography. There is no discrete abnormality. ASSESSMENT: Negative, BI-RAD 1 RECOMMENDATION: Routine screening mammogram of both breasts in 1 year. Some consider bilateral ultrasound surveillance in patient with extremely dense fibroglandular tissue.
== END ==
LOC: RADMAMWWP 13:29
PROVIDERS: ATTEND Family Medicine
DX: Z12.31 Encounter for screening mammogram for malignant neoplasm of breast (principal); Z78.0 Asymptomatic menopausal state
CPT/HCPCS: 77063; 77067

== ENCOUNTER → 2020-07-09 | Outpatient (CLI) | payer MEDICARE ==
[2020-07-09 13:21] LABS: African American GFR (CKD) >90 (>60 ml/min/1.73 sqM); Blood Urea Nitrogen 15 mg/dL (7-17); Non-African American GFR(CKD) >90 (>60 ml/min/1.73 sqM)
--- NOTE | 2020-07-09 15:07 | CT ---
EXAMINATION TYPE: CT ChestAbdPelvis w con DATE OF EXAM: 07/09/2020 COMPARISON: 03/05/2020, 11/07/2019 HISTORY: 69-year-old female C56.1, Follow up ovarian cancer. Z03.89. TECHNIQUE: Contiguous axial scanning of the chest, abdomen, and pelvis performed with IV Contrast, pa tient injected with 100 mL of Isovue 300. Delayed images through the kidneys were obtained. Coronal/s agittal reconstructions performed. CT DLP: 467.8 mGycm Automated exposure control for dose reduction was used. FINDINGS: CHEST: The heart is normal size without pericardial effusion. Right anterior chest wall injection port with catheter tip at the cavoatrial junction. The graft aort a normal caliber with conventional arch vessel branching anatomy. No thoracic lymphadenopathy by CT size criteria. Mild biapical pleural-parenchymal scarring. Some stable focal opacity in the basilar right middle lob e suggesting scarring. Strandy scarring or atelectasis inferior lingula. No consolidation or pleural effusion. ABDOMEN: No focal liver lesion. Stable mild prominence to the bile duct at 6 mm, acceptable given postcholecys tectomy status. Portal venous system is patent. Adrenal glands, right kidney, spleen, and pancreas appear within normal limits. Small parapelvic cysts in the left kidney measuring up to 1.5 cm. Tiny subcentimeter hypodensity lowe r pole left kidney unchanged compatible with a cyst as well. Aortocaval lymph node prominent at 6 mm, unchanged. Scattered prominent but nonenlarged left sided me senteric lymph nodes measuring up to 4 mm, unchanged. 6 mm right lower quadrant mesenteric lymph node unchanged from 11/07/2019. Normal appendix. Oral contrast progressed to the rectum. Sigmoid diverticulosis and diverticular brantley ge in the lower descending colon. PELVIS: Bladder urine distended. Multiple pelvic phleboliths. Uterus surgically absent. Neither ovary is visu alized. No abnormal fluid collection the pelvis or pelvic lymphadenopathy. BONES: Moderate to advanced degenerative disc disease L5-S1. Facet arthropathy lower lumbar spine. Some ante rior endplate spondylosis lower thoracic spine. No osseous destructive process. IMPRESSION: 1. STATUS POST HYSTERECTOMY AND BILATERAL SALPINGO-OOPHORECTOMIES. NO EVIDENCE FOR RECURRENT OR METAS TATIC DISEASE. 2. INTERVAL CHOLECYSTECTOMY. LOWER DESCENDING AND SIGMOID DIVERTICULOSIS WITHOUT ACUTE DIVERTICULITIS .
== END | disposition home or self-care (01) ==
LOC: RADPROMAIN 12:04
PROVIDERS: ATTEND Internal Medicine Hematology & Oncology
DX: C56.1 Malignant neoplasm of right ovary (principal); K57.30 Diverticulosis of large intestine without perforation or abscess without bleeding; Z90.49 Acquired absence of other specified parts of digestive tract
CPT/HCPCS: 82565; 84520; 71260; 74177; J1642; Q9967

== ENCOUNTER → 2020-11-18 | Outpatient (CLI) | payer MEDICARE ==
--- NOTE | 2020-11-18 13:48 | CT ---
EXAMINATION TYPE: CT abdomen pelvis wo con DATE OF EXAM: 11/18/2020 COMPARISON: 07/09/2020 INDICATION: Pelvic and bilateral flank pain. DLP: 626 mGycm, Automated exposure control for dose reduction was used. CONTRAST: 0 mL of Isovue 300. Study performed without Oral Contrast TECHNIQUE: Axial images were obtained from above the diaphragm to the pubic rami in the axial plane a t 5 mm thick sections. Reconstructed images are reviewed on the computer in the coronal plane. FINDINGS: Limited CT sections are obtained the lung bases. The lung bases are clear. CT ABDOMEN: Liver: Normal Spleen: Normal Pancreas: Normal Adrenal glands: The adrenal glands are normal. Gallbladder: Surgically absent Kidneys: No masses are evident. No hydronephrosis is present. No cysts are present. Delayed images were obtained through the kidneys, which remain unremarkable. Aorta: Vascular calcification is within the aorta. Inferior vena cava: Normal. CT PELVIS: Postsurgical changes are within the transverse colon. Colon proximal to the anastomosis is somewhat d ilated. However, air and fecal debris appears to pass beyond the surgical site. Fecal debris is prese nt. There are loops of bowel which are incompletely distended or lack oral contrast limiting their ev aluation. Appendix: Not identified. No dilated tubular structure or inflammatory changes are evident. Urinary bladder: Decompressed with limited evaluation. Genitourinary structures: Uterus and ovaries are not identified. Osseous structures: No suspicious lytic or sclerotic lesions. IMPRESSIONS: 1. Slight prominence of the transverse colon proximal to the anastomosis. Obstruction however is not identified
== END | disposition home or self-care (01) ==
LOC: RADCTMAIN 12:53
PROVIDERS: ATTEND Physician Assistant Medical
DX: K63.89 Other specified diseases of intestine (principal)
CPT/HCPCS: 74176

== ENCOUNTER → 2021-01-06 | Outpatient (CLI) | payer MEDICARE ==
--- NOTE | 2021-01-06 13:05 | CT ---
EXAMINATION TYPE: CT ChestAbdPelvis w con DATE OF EXAM: 01/06/2021 COMPARISON: CT abdomen and pelvis November 18, 2020 and older studies HISTORY: Ovarian CA right sided CT DLP: 1068 mGycm. Automated Exposure Control for Dose Reduction was Utilized. CONTRAST: CT scan of the thorax, abdomen and pelvis is performed with oral and with IV Contrast, patient inject ed with 100 mL of Isovue 300. FINDINGS: LUNGS: Mild biapical pleural/parenchymal scarring on background mild underlying emphysematous change is redemonstrated. Focal mild to moderate linear scarring anteriorly in the lower lungs bilaterally i s redemonstrated and stable. No suspicious new greater than 5 mm nodules or masses. No pleural effu cori or pneumothorax seen bilaterally on current study. MEDIASTINUM: There are no new greater than 1 cm hilar or mediastinal lymph nodes. No cardiomegaly o r pericardial effusion is seen. OTHER: Stable right internal jugular Mediport catheter. LIVER/GB: Cholecystectomy clips redemonstrated. PANCREAS: No significant abnormality is seen. SPLEEN: No significant abnormality is seen. ADRENALS: No significant abnormality is seen. KIDNEYS: Central simple appearing parapelvic cyst in left kidney redemonstrated. No hydronephrosis se en bilaterally. BOWEL: Oral contrast once again reaches level of the rectum. No suspicious small or large bowel dilat ation. Focal prominence in the mid transverse colon redemonstrated. A few distal colonic diverticula. GENITAL ORGANS: Uterus surgically absent. Scattered right-sided pelvic phleboliths redemonstrated. LYMPH NODES: No new greater than 1cm abdominal or pelvic lymph nodes are appreciated. OSSEOUS STRUCTURES: [id number] multilevel spurring. Slight underlying scoliotic curvature redem onstrated. Moderate disc space narrowing lumbosacral junction redemonstrated. OTHER: No significant additional abnormality is seen. IMPRESSION: 1. No suspicious new mass or adenopathy identified to suggest active neoplastic recurrence. No signi ficant change from most recent CT. 2. Mild mucosal enhancement in the gallbladder with mild/moderate ill-defined fluid and fat stranding on current study, acute cholecystitis cannot be excluded. Clinical correlation advised to determine need for further investigation for surgical exploration and/or dedicated ultrasound.
== END | disposition home or self-care (01) ==
LOC: RADPROMAIN 10:26
PROVIDERS: ATTEND Internal Medicine Hematology & Oncology
DX: K82.8 Other specified diseases of gallbladder (principal); Z85.43 Personal history of malignant neoplasm of ovary
CPT/HCPCS: 82565; 84520; 71260; 74177; 36415; J1642; Q9967

== ENCOUNTER → 2021-02-13 | Outpatient (CLI) | payer MEDICARE ==
--- NOTE | 2021-02-13 11:08 | US ---
EXAMINATION TYPE: US liver DATE OF EXAM: 02/13/2021 COMPARISON: 01/06/2021 CLINICAL HISTORY: 70-year-old female K76.89 Liver Cyst, Z85.43 HX of ovarian Ca. Bowel resection, Sta ge IV ovarian CA per daughter; distended abdomen; gallbladder removed. TECHNIQUE: Multiple sonographic images of the right upper quadrant are obtained. FINDINGS: EXAM MEASUREMENTS: Liver Length: 10.2 cm Gallbladder Wall: surgically removed CBD: 0.6 cm Right Kidney: 9.6 x6.6 x 4.0 cm Pancreas: wnl Liver: periportal vessel brightness is noted; no masses are seen; prominent left portal vein is note d but portal color flow is to liver. Main Portal Vein size is at upper limits of normal at 1.35cm. Gallbladder: surgically absent Evidence for sonographic Herrera's sign: no CBD: wnl Right Kidney: several hyperechoic parallel vessel wall calcifications are seen throughout right kidn ey. No hydronephrosis. IMPRESSION: 1. Somewhat echogenic periportal fat within the liver is nonspecific. This may be technical. Findings may also be seen with hepatitis. Clinically correlate. 2. Bile duct borderline dilated at 6 mm, acceptable given postcholecystectomy status.
--- NOTE | 2021-02-13 11:18 | US ---
EXAMINATION TYPE: US pelvic limited DATE OF EXAM: 02/13/2021 COMPARISON: CT 01/06/2021 CLINICAL HISTORY: 70-year-old female K76.89 Liver Cyst, Z85.43 HX of ovarian Ca. Stage IV ovarian can cer; bowel resection; hysterectomy and bilateral oophorectomy approximately 2019. TECHNIQUE: Transabdominal sonographic images of the pelvis were acquired. FINDINGS: EXAM MEASUREMENTS: Uterus and ovaries are surgically removed. Bladder appears wnl and bilateral ureteral jets are seen. Bladder Post Void Volume: 15.2ml is increased but within normal limits. IMPRESSION: Status post hysterectomy and bilateral salpingo-oophorectomies. No pelvic free fluid is seen. Appropr iate further oncologic follow-up as clinically indicated.
== END | disposition home or self-care (01) ==
LOC: RADUSWWP 08:55
PROVIDERS: ATTEND Surgery
DX: R93.2 Abnormal findings on diagnostic imaging of liver and biliary tract (principal); Z90.49 Acquired absence of other specified parts of digestive tract; Z85.43 Personal history of malignant neoplasm of ovary
CPT/HCPCS: 76705; 76857

== ENCOUNTER 2021-02-17 15:16 | Emergency (ER) | payer MEDICARE ==
[2021-02-17 16:04] VITALS: RESP 18; TEMP 97.5
[2021-02-17] MEDS ORDERED: HYDROmorphone 0.5 MG/0.5 ML SYRINGE IVP STA (17:08)
[2021-02-17] MEDS ORDERED: SODIUM CHLORIDE 0.9% 1,000 ML IV STA (17:08)
[2021-02-17] MEDS ORDERED: ONDANSETRON 4 MG/2 ML VIAL IVP STA (17:08)
[2021-02-17 17:48] LABS: Basophils % (A) 1 %; Eosinophils # (A) 0.1 k/uL (0-0.7); Eosinophils % (A) 1 %; HCT 40.6 % (34.0-46.0); HGB 13.8 gm/dL (11.4-16.0); Lymphocytes # (A) 2.1 k/uL (1.0-4.8); Lymphocytes % (A) 29 %; MCH 33.3 pg (25.0-35.0); MCV 98.1 fL (80.0-100.0); Monocytes # (A) 0.4 k/uL (0-1.0); Monocytes % (A) 6 %; Neutrophils # (A) 4.3 k/uL (1.3-7.7); Neutrophils % (A) 61 %; Platelet Count 231 k/uL (150-450); RBC 4.14 m/uL (3.80-5.40); RDW 12.5 % (11.5-15.5)
[2021-02-17 18:08] LABS: ALT 27 U/L (4-34); AST 32 U/L (14-36); African American GFR (CKD) >90 (>60 ml/min/1.73 sqM); Albumin 4.1 g/dL (3.5-5.0); Alkaline Phosphatase 142 U/L (38-126); Anion Gap 10 mmol/L; Blood Urea Nitrogen 12 mg/dL (7-17); Calcium 9.5 mg/dL (8.4-10.2); Carbon Dioxide 25 mmol/L (22-30); Chloride 105 mmol/L (98-107); Glucose 92 mg/dL (74-99); Lipase 49 U/L (23-300); Non-African American GFR(CKD) >90 (>60 ml/min/1.73 sqM); Potassium 3.8 mmol/L (3.5-5.1); Sodium 140 mmol/L (137-145); Total Bilirubin 0.7 mg/dL (0.2-1.3); Total Protein 7.2 g/dL (6.3-8.2)
--- NOTE | 2021-02-17 20:22 | ED ---
General Adult HPI - General Chief complaint: Back Pain/Injury Stated complaint: Back pain Time Seen by Provider: 02/17/21 16:25 Source: patient, RN notes reviewed Mode of arrival: ambulatory Limitations: no limitations - History of Present Illness Initial comments: 70-year-old female presents to the emergency department accompanied by her daughter for evaluation of back pain and abdominal bloating. States she was seen by her surgeon today to follow up on ultrasound reports related to her ongoing issue with abdominal bloating. Patient states she had a gallbladder removal approximately a year ago and has had intermittent issues with abdominal discomfort since. Patient also states she has a history of stage IV ovarian cancer therefore is always concerned about any type of abdominal symptoms. States she sees her oncologist regularly who has done multiple CAT scans over the course of the past year. She states she has had no recurrence of masses or lesions. Patient states her right leg is somewhat more swollen than her left. Denies fever, chills, chest pain, shortness of breath, difficulty breathing, abdominal pain, constipation, diarrhea, dysuria, or hematuria. No trauma or injury. - Related Data Home Medications Medication Instructions Recorded Confirmed Acetaminophen Tab [Tylenol Tab] 1,000 mg PO Q6HR PRN 02/17/21 02/17/21 Ascorbic Acid [Vitamin C] 500 mg PO DAILY 02/17/21 02/17/21 Biotin 5 mg PO DAILY 02/17/21 02/17/21 Cholecalciferol [Vitamin D3 (25 25 mcg PO DAILY 02/17/21 02/17/21 Mcg = 1000 Iu)] Cyanocobalamin (Vitamin B-12) 1,000 mcg PO DAILY 02/17/21 02/17/21 [Vitamin B-12] Lutein 10 mg PO DAILY 02/17/21 02/17/21 Multivitamins, Thera [Multivitamin 1 tab PO DAILY 02/17/21 02/17/21 (formulary)] Psyllium Husk [Metamucil] 0.4 gm PO DAILY 02/17/21 02/17/21 Turmeric Root Extract [Turmeric] 500 mg PO DAILY 02/17/21 02/17/21 Zinc 50 mg PO DAILY 02/17/21 02/17/21 Allergies Allergy/AdvReac Type Severity Reaction Status Date / Time aspirin Allergy Rash/Hives Verified 02/17/21 18:12 Iodinated Contrast Media Allergy Rash/Hives Verified 02/17/21 18:12 [Iodinated Contrast- Oral and IV Dye] lactose Allergy Unknown Verified 02/17/21 18:12 Penicillins Allergy Rash/Hives Verified 02/17/21 18:12 melatonin AdvReac Intermediate Unknown Verified 02/17/21 18:12 Review of Systems ROS Statement: Those systems with pertinent positive or pertinent negative responses have been documented in the HPI. ROS Other: All systems not noted in ROS Statement are negative. Past Medical History Past Medical History: Cancer, Diabetes Mellitus, GI Bleed, Osteoarthritis (OA), Pulmonary Embolus (PE) Additional Past Medical History / Comment(s): Bilateral ovarian cancer with mets/ chemotherapy/ currently taking avastin. bicytopenia, anemia, 11/2016 bilateral pulmonary embolisms, 12/2016 L sided pleural effusion with 2 thoracentesis, diet controlled diabetes, diverticulosis, diarrhea with chemo, mild protein calorie malnutrition, past L ankle fracture and pt thinks possibi lity of arthritis in that joint.uti-ecoli History of Any Multi-Drug Resistant Organisms: None Reported Past Surgical History: Bowel Resection, Hysterectomy Additional Past Surgical History / Comment(s): Total hysterectomy/perineal and omenectomy done by Dr Rob at [facility], 2 left thoracentesis, power port rt upper chest, 11/10/17 egd w/bx, colonoscopy. Past Anesthesia/Blood Transfusion Reactions: No Reported Reaction Additional Past Anesthesia/Blood Transfusion Reaction / Comment(s): Pt has received blood without reaction. Past Psychological History: No Psychological Hx Reported Smoking Status: Never smoker Past Alcohol Use History: None Reported Past Drug Use History: None Reported - Past Family History Mother Family Medical History: Congestive Heart Failure (CHF), CVA/TIA, Hypertension Father Family Medical History: CVA/TIA Brother(s) Additional Family Medical History / Comment(s): colon cancer, lymphoma General Exam Limitations: no limitations (Well-developed, well-nourished female in no acute distress. Initial temperature 97.5, pulse 81, respirations 18, blood pressure 187/105, pulse ox 96% on room air) General appearance: alert, in no apparent distress Eye exam: Present: normal appearance, PERRL, EOMI. Absent: scleral icterus, conjunctival injection, periorbital swelling ENT exam: Present: normal exam, normal oropharynx, mucous membranes moist Respiratory exam: Present: normal lung sounds bilaterally. Absent: respiratory distress, wheezes, rales, rhonchi, stridor Cardiovascular Exam: Present: regular rate, normal rhythm, normal heart sounds. Absent: systolic murmur, diastolic murmur, rubs, gallop, clicks GI/Abdominal exam: Present: soft, distended (Abdomen is soft and nontender though appears diffusely distended), normal bowel sounds (States last bowel movement was today and describes it as soft and normal in consistency). Absent: tenderness, guarding, rebound, rigid Right Lower Leg exam: Present: full ROM. Absent: tenderness, swelling, Homans' sign Ankle exam: Present: full ROM, swelling (mild left lateral ankle swelling when compared with right). Absent: tenderness, erythema Foot/Toe exam: Present: normal inspection, full ROM. Absent: tenderness, swelling Neurovascular tendon exam: Present: no vascular compromise. Absent: pulse deficit, abnormal cap refill, motor deficit, sensory deficit Back exam: Present: CVA tenderness (R), CVA tenderness (L), paraspinal tenderness Neurological exam: Present: alert, oriented X3, CN II-XII intact Psychiatric exam: Present: normal affect, normal mood Skin exam: Present: warm, dry, intact, normal color. Absent: rash Course Vital Signs 02/17/21 02/17/21 02/17/21 16:00 18:49 20:30 Temperature 97.5 F L Pulse Rate 81 82 92 Respiratory 18 18 18 Rate Blood Pressure 187/105 166/87 160/89 O2 Sat by Pulse 96 95 97 Oximetry Medical Decision Making - Medical Decision Making 70-year-old female with a past medical history of stage IV ovarian cancer, hysterectomy, cholecystectomy, and bowel resection presents to the emergency department accompanied by her daughter for evaluation of bilateral flank pain and abdominal bloating. Was seen earlier today by her surgeon for follow-up on abdominal ultrasounds. Upon exam, patient is well-appearing and in no acute distress. She is afebrile with stable vital signs. Does complain of bilateral CVA tenderness upon palpation. Denies urinary symptoms. Abdomen does appear bloated but is soft and nontender. Patient is having regular soft formed stool. She dropped off a urine sample earlier in the day and decided to be seen in the emergency department in order to review those results. Additional Laboratory studies were obtained showing small amount of blood in her urine which is unchanged from previous sample. Remainder of blood work is within normal limits. Results were reviewed with patient and daughter. Discussed option of kub x-ray and/or venous Doppler study of the right lower extremity, however patient wishes to follow up on an outpatient basis as she is tired and would like to go home. Patient was advised to return to the emergency department with any change in condition or for further workup. Instructed to call her PCP or oncologist tomorrow to schedule follow-up. Return parameters were discussed in detail. Patient verbalizes understanding and agrees with this plan. This patient's care was discussed with my attending Dr. Tristan. - Lab Data Result diagrams: 02/17/21 17:38 02/17/21 17:38 Lab Results 02/17/21 02/17/21 Range/Units 17:38 17:38 WBC 7.0 (3.8-10.6) k/uL RBC 4.14 (3.80-5.40) m/uL Hgb 13.8 (11.4-16.0) gm/dL Hct 40.6 (34.0-46.0) % MCV 98.1 (80.0-100.0) fL MCH 33.3 (25.0-35.0) pg MCHC 34.0 (31.0-37.0) g/dL RDW 12.5 (11.5-15.5) % Plt Count 231 (150-450) k/uL MPV 7.0 Neutrophils % 61 % Lymphocytes % 29 % Monocytes % 6 % Eosinophils % 1 % Basophils % 1 % Neutrophils # 4.3 (1.3-7.7) k/uL Lymphocytes # 2.1 (1.0-4.8) k/uL Monocytes # 0.4 (0-1.0) k/uL Eosinophils # 0.1 (0-0.7) k/uL Basophils # 0.0 (0-0.2) k/uL Sodium 140 (137-145) mmol/L Potassium 3.8 (3.5-5.1) mmol/L Chloride 105 (98-107) mmol/L Carbon Dioxide 25 (22-30) mmol/L Anion Gap 10 mmol/L BUN 12 (7-17) mg/dL Creatinine 0.61 (0.52-1.04) mg/dL Est GFR (CKD-EPI)AfAm >90 (>60 ml/min/1.73 sqM) Est GFR (CKD-EPI)NonAf >90 (>60 ml/min/1.73 sqM) Glucose 92 (74-99) mg/dL Calcium 9.5 (8.4-10.2) mg/dL Total Bilirubin 0.7 (0.2-1.3) mg/dL AST 32 (14-36) U/L ALT 27 (4-34) U/L Alkaline Phosphatase 142 H (38-126) U/L Total Protein 7.2 (6.3-8.2) g/dL Albumin 4.1 (3.5-5.0) g/dL Lipase 49 (23-300) U/L Disposition Clinical Impression: Abdominal bloating Disposition: HOME SELF-CARE Condition: Stable Instructions (If sedation given, give patient instructions): Gas and Bloating (ED) Additional Instructions: Please follow up with your PCP or Dr. Springer as we discussed. Do not hesitate to return to the Emergency Department with any new, worsening, or additional concerns. Is patient prescribed a controlled substance at d/c from ED?: No Referrals: Mayco Carlson MD [Primary Care Provider] - 1-2 days Time of Disposition: 20:22
[2021-02-17 20:34] VITALS: BP 160/89; PULSE 92
== END 2021-02-17 20:33 | disposition home or self-care (01) ==
LOC: EC 15:16
DX: R14.0 Abdominal distension (gaseous) (principal); E11.9 Type 2 diabetes mellitus without complications; M19.90 Unspecified osteoarthritis, unspecified site; Z88.0 Allergy status to penicillin; Z86.711 Personal history of pulmonary embolism; Z85.43 Personal history of malignant neoplasm of ovary; Z90.710 Acquired absence of both cervix and uterus
CPT/HCPCS: 99284; 96374; 96375; 96361; 36415; 80053; 83690; 85025; J2405; J1170

== ENCOUNTER → 2021-07-14 | Outpatient (CLI) | payer MEDICARE ==
[2021-07-14 12:56] LABS: African American GFR (CKD) >90 (>60 ml/min/1.73 sqM); Blood Urea Nitrogen 16 mg/dL (7-17); Non-African American GFR(CKD) 82 (>60 ml/min/1.73 sqM)
--- NOTE | 2021-07-14 14:46 | CT ---
EXAMINATION TYPE: CT ChestAbdPelvis w con DATE OF EXAM: 07/14/2021 COMPARISON: Most recent CT January 06, 2021 and older CTs HISTORY: f/u ovarian ca CT DLP: 483.2 mGycm. Automated Exposure Control for Dose Reduction was Utilized. CONTRAST: CT scan of the thorax, abdomen and pelvis is performed with oral and with IV Contrast, patient inject ed with 100 mL of Isovue 300. FINDINGS: LUNGS: Mild biapical pleural/parenchymal scarring on background mild underlying emphysematous change is redemonstrated. Focal mild to moderate linear scarring anteriorly in the lower lungs bilaterally i s redemonstrated and stable. There is new small left pleural effusion with associated compressive ate lectasis on current study. No new greater than 5 mm pulmonary nodules or masses. Right lung remains c lear. MEDIASTINUM: There is more prominent heterogeneous enhancing 1.0 x 1.0 cm right tracheobronchial lymp h node axial image 24. Heart size stable and upper limits of normal. No effusion is seen. OTHER: Stable right internal jugular Mediport catheter. LIVER/GB: Cholecystectomy clips redemonstrated. Small amount of adjacent ascites along the periphery on current study. PANCREAS: No significant abnormality is seen. SPLEEN: No significant abnormality is seen. ADRENALS: No significant abnormality is seen. KIDNEYS: Central simple appearing parapelvic cyst in left kidney redemonstrated. Symmetric cortical m edullary uptake and excretion with new moderate right-sided hydronephrosis. BOWEL: Oral contrast reaches level of the rectum. No suspicious small or large bowel dilatation. Foca l prominence in the right and transverse colon redemonstrated. A few distal colonic diverticula. GENITAL ORGANS: Uterus surgically absent. Scattered right-sided pelvic phleboliths redemonstrated. LYMPH NODES: Probable subcentimeter lymph nodes in the right pelvic mesentery with soft tissue densit y. Findings are especially concerning given the new right-sided hydronephrosis. OSSEOUS STRUCTURES: [id number] multilevel spurring. Slight underlying scoliotic curvature redem onstrated. Moderate disc space narrowing lumbosacral junction redemonstrated. OTHER: No significant additional abnormality is seen. IMPRESSION: There is new moderate right-sided hydronephrosis but no delayed excretion of contrast material. Mild fat stranding and subcentimeter adenopathy in the right lower quadrant and pelvic mesentery is also n ow present. In patient with ovarian cancer small peritoneal deposits must be strongly considered. New small left pleural effusion is also noted.
== END | disposition home or self-care (01) ==
LOC: RADPROMAIN 12:06
PROVIDERS: ATTEND Internal Medicine Hematology & Oncology
DX: N13.30 Unspecified hydronephrosis (principal); J90 Pleural effusion, not elsewhere classified; Z85.43 Personal history of malignant neoplasm of ovary
CPT/HCPCS: 82565; 84520; 71260; 74177; 36415; J1642; Q9967

== ENCOUNTER → 2021-07-24 | Outpatient (CLI) | payer MEDICARE ==
--- NOTE | 2021-07-27 11:07 | PE ---
Nuclear medicine PET/CT HISTORY: C 56.1, right ovarian carcinoma, subsequent Patient received 13.6 mCi F-18 FDG intravenously and delayed scanning was performed from the skull ba se to the mid thighs. A localization and attenuation correction CT scan was performed. Correlation to CT chest abdomen pelvis 07/14/2021 Average mediastinal uptake is SUV 1.0, average liver uptake SUV 1.9 Chest and neck: There is no cervical or supraclavicular adenopathy. There is a right-sided chest port coursing via the internal jugular approach, distal tip the catheter is within the right atrium near the cavoatrial junction. Some calcified left axillary nodes are present. Some mild associated uptake is present, SUV 1.4. Retr ocaval pretracheal node also is calcified suggesting treated disease, 7, not enlarged. There is a lef t pleural effusion. There is associated atelectasis. No evident lung mass. Some bronchiectasis noted in the right middle lobe anteriorly in the subpleural location. ABDOMEN: There is no evident liver mass. Postop changes are noted to the bowel, some high dense mater ial is associated with the bowel in the left abdomen at the level the umbilicus. Diverticular changes associated with the colon. There are some calcified nodes present in the right upper quadrant, just cephalad to the head of the pancreas, mild associated uptake, SUV 2.7. Uptake associated with the bow el is felt likely to be physiologic. Some minimal fluid suspected along the mesentery and fluid withi n the cul-de-sac region, some additional nonenlarged nodes are also present, some high density within some of these nodes is present and also present within the retroperitoneal nodes without significant uptake. There is some uptake present within the pelvis at the cul-de-sac region, this may be at the level of some fluid with SUV 9.6, there is some prominence of the renal collecting system on the right, there are parapelvic cysts associated with the left kidney. Uterus and adnexal structures are not seen. Osseous structures show no suspicious uptake. Uptake along the diaphragms may be physiologic. IMPRESSION: Mild axillary uptake, and additional shannan uptake as described. Uptake associated with th e pelvis is thought likely to be abnormal and may represent residual disease.
== END | disposition home or self-care (01) ==
LOC: RADPETMAIN 15:23
PROVIDERS: ATTEND Internal Medicine Hematology & Oncology
DX: C56.1 Malignant neoplasm of right ovary (principal)
CPT/HCPCS: 78815; A9552

== ENCOUNTER 2021-09-02 09:02 | Inpatient (IN) | payer MEDICARE ==
[2021-09-02] MEDS ORDERED: FAMOTIDINE 20 MG/2 ML VIAL IV STA (09:44)
[2021-09-02] MEDS ORDERED: diphenhydrAMINE 50 MG/ML 1 ML VIAL IVP STA (09:44)
[2021-09-02] MEDS ORDERED: methylPREDNISolone SOD SUCCI 125 MG/2 ML VIAL IV STA (09:44)
--- NOTE | 2021-09-02 09:48 | ED ---
SOB HPI - General Chief Complaint: Shortness of Breath Stated Complaint: sob Time Seen by Provider: 09/02/21 09:31 Source: patient, family, RN notes reviewed Mode of arrival: ambulatory Limitations: no limitations - History of Present Illness Initial Comments: This is a 70-year-old female who presents to the emergency department for difficulty breathing and abdominal swelling. She is currently being treated for ovarian cancer by Dr. Springer. She's had progressive abdominal swelling and difficulty breathing over the last 1-2 weeks. She has had this problem before and required drainage of the fluid from her abdomen and lungs. Denies any fevers, chills, sore throat, cough, palpitations, nausea, vomiting, diarrhea, back pain, or headaches. MD Complaint: shortness of breath Onset/Timin -: week(s) - Related Data Home Medications Medication Instructions Recorded Confirmed Acetaminophen Tab [Tylenol Tab] 1,000 mg PO Q6HR PRN 02/17/21 09/02/21 Ascorbic Acid [Vitamin C] 500 mg PO DAILY 02/17/21 09/02/21 Biotin 5 mg PO DAILY 02/17/21 09/02/21 Cholecalciferol [Vitamin D3 (25 25 mcg PO DAILY 02/17/21 09/02/21 Mcg = 1000 Iu)] Cyanocobalamin (Vitamin B-12) 1,000 mcg PO DAILY 02/17/21 09/02/21 [Vitamin B-12] Lutein 10 mg PO DAILY 02/17/21 09/02/21 Multivitamins, Thera [Multivitamin 1 tab PO DAILY 02/17/21 09/02/21 (formulary)] Psyllium Husk [Metamucil] 0.4 gm PO DAILY 02/17/21 09/02/21 Turmeric Root Extract [Turmeric] 500 mg PO DAILY 02/17/21 09/02/21 Zinc 50 mg PO DAILY 02/17/21 09/02/21 Dicyclomine [Bentyl] 10 mg PO TID PRN 09/02/21 09/02/21 Prochlorperazine [Compazine] 10 mg PO Q6H PRN 09/02/21 09/02/21 traMADol HCl [Ultram] 50 mg PO Q6HR PRN 09/02/21 09/02/21 Allergies Allergy/AdvReac Type Severity Reaction Status Date / Time aspirin Allergy Rash/Hives Verified 09/02/21 11:29 Iodinated Contrast Media Allergy Rash/Hives Verified 09/02/21 11:29 [Iodinated Contrast- Oral and IV Dye] lactose Allergy Unknown Verified 09/02/21 11:29 Penicillins Allergy Rash/Hives Verified 09/02/21 11:29 melatonin AdvReac Intermediate Unknown Verified 09/02/21 11:29 Review of Systems ROS Statement: Those systems with pertinent positive or pertinent negative responses have been documented in the HPI. ROS Other: All systems not noted in ROS Statement are negative. Past Medical History Past Medical History: Cancer, Diabetes Mellitus, GI Bleed, Osteoarthritis (OA), Pulmonary Embolus (PE) Additional Past Medical History / Comment(s): Bilateral ovarian cancer with mets/ chemotherapy/ currently taking avastin. bicytopenia, anemia, 11/2016 bilateral pulmonary embolisms, 12/2016 L sided pleural effusion with 2 thoracentesis, diet controlled diabetes, diverticulosis, diarrhea with chemo, mild protein calorie malnutrition, past L ankle fracture and pt thinks possibility of arthritis in that joint.uti-ecoli History of Any Multi-Drug Resistant Organisms: None Reported Past Surgical History: Bowel Resection, Hysterectomy Additional Past Surgical History / Comment(s): Total hysterectomy/perineal and omenectomy done by Dr Rob at [facility], 2 left thoracentesis, power port rt upper chest, 11/10/17 egd w/bx, colonoscopy. Past Anesthesia/Blood Transfusion Reactions: No Reported Reaction Additional Past Anesthesia/Blood Transfusion Reaction / Comment(s): Pt has received blood without reaction. Past Psychological History: No Psychological Hx Reported Smoking Status: Never smoker Past Alcohol Use History: None Reported Past Drug Use History: None Reported - Past Family History Mother Family Medical History: Congestive Heart Failure (CHF), CVA/TIA, Hypertension Father Family Medical History: CVA/TIA Brother(s) Additional Family Medical History / Comment(s): colon cancer, lymphoma General Exam Limitations: no limitations General appearance: alert, in distress Head exam: Present: atraumatic, normocephalic, normal inspection Respiratory exam: Present: normal lung sounds bilaterally. Absent: respiratory distress, wheezes, rales, rhonchi, stridor Cardiovascular Exam: Present: regular rate, normal rhythm, normal heart sounds. Absent: systolic murmur, diastolic murmur, rubs, gallop, clicks GI/Abdominal exam: Present: distended, hypoactive bowel sounds. Absent: soft, tenderness, guarding, rebound Neurological exam: Present: alert, oriented X3, CN II-XII intact Psychiatric exam: Present: normal affect, normal mood Skin exam: Present: warm, dry, intact, normal color. Absent: rash Course Vital Signs 09/02/21 09/02/21 09/02/21 09:04 10:15 11:06 Temperature 98.3 F Pulse Rate 96 89 Respiratory 22 20 20 Rate Blood Pressure 123/92 124/84 O2 Sat by Pulse 96 96 Oximetry 09/02/21 13:29 Temperature Pulse Rate 81 Respiratory 20 Rate Blood Pressure 128/72 O2 Sat by Pulse 96 Oximetry Medical Decision Making - Medical Decision Making This is a 70-year-old female who presents to the emergency department for abdominal distention and shortness of breath. Patient does have severe abdominal distention on physical examination. Computed tomography scan of the chest, abdomen, and pelvis reveals bilateral pleural effusions and ascites. Patient will be admitted to medicine with hem/onc consult, IR consult for paracentesis, and GI consult for ascites per the request of hem/onc. This case was discussed in detail with the attending ED physician. Presentation, findings, and treatment plan discussed in detail as well. - Lab Data Result diagrams: 09/02/21 09:53 09/02/21 09:53 Lab Results 09/02/21 09/02/21 09/02/21 Range/Units 09:53 09:53 09:53 WBC 6.4 (3.8-10.6) k/uL RBC 4.08 (3.80-5.40) m/uL Hgb 13.1 (11.4-16.0) gm/dL Hct 40.1 (34.0-46.0) % MCV 98.3 (80.0-100.0) fL MCH 32.0 (25.0-35.0) pg MCHC 32.5 (31.0-37.0) g/dL RDW 12.5 (11.5-15.5) % Plt Count 404 (150-450) k/uL MPV 7.0 Neutrophils % 67 % Lymphocytes % 22 % Monocytes % 8 % Eosinophils % 2 % Basophils % 1 % Neutrophils # 4.3 (1.3-7.7) k/uL Lymphocytes # 1.4 (1.0-4.8) k/uL Monocytes # 0.5 (0-1.0) k/uL Eosinophils # 0.1 (0-0.7) k/uL Basophils # 0.0 (0-0.2) k/uL Sodium 136 L (137-145) mmol/L Potassium 4.0 (3.5-5.1) mmol/L Chloride 110 H (98-107) mmol/L Carbon Dioxide 20 L (22-30) mmol/L Anion Gap 6 mmol/L BUN 9 (7-17) mg/dL Creatinine 0.88 (0.52-1.04) mg/dL Est GFR (CKD-EPI)AfAm 76 (>60 ml/min/1.73 sqM) Est GFR (CKD-EPI)NonAf 66 (>60 ml/min/1.73 sqM) Glucose 106 H (74-99) mg/dL Plasma Lactic Acid Maxime 1.0 (0.7-2.0) mmol/L Calcium 8.7 (8.4-10.2) mg/dL Total Bilirubin 0.7 (0.2-1.3) mg/dL AST 32 (14-36) U/L ALT 24 (4-34) U/L Alkaline Phosphatase 253 H (38-126) U/L NT-Pro-B Natriuret Pep pg/mL Total Protein 6.1 L (6.3-8.2) g/dL Albumin 3.4 L (3.5-5.0) g/dL Urine Color Urine Appearance (Clear) Urine pH (5.0-8.0) Ur Specific Page (1.001-1.035) Urine Protein (Negative) Urine Glucose (UA) (Negative) Urine Ketones (Negative) Urine Blood (Negative) Urine Nitrite (Negative) Urine Bilirubin (Negative) Urine Urobilinogen (<2.0) mg/dL Ur Leukocyte Esterase (Negative) Urine RBC (0-5) /hpf Urine WBC (0-5) /hpf Ur Squamous Epith Cells (0-4) /hpf Urine Mucus (None) /hpf 09/02/21 09/02/21 Range/Units 09:53 09:53 WBC (3.8-10.6) k/uL RBC (3.80-5.40) m/uL Hgb (11.4-16.0) gm/dL Hct (34.0-46.0) % MCV (80.0-100.0) fL MCH (25.0-35.0) pg MCHC (31.0-37.0) g/dL RDW (11.5-15.5) % Plt Count (150-450) k/uL MPV Neutrophils % % Lymphocytes % % Monocytes % % Eosinophils % % Basophils % % Neutrophils # (1.3-7.7) k/uL Lymphocytes # (1.0-4.8) k/uL Monocytes # (0-1.0) k/uL Eosinophils # (0-0.7) k/uL Basophils # (0-0.2) k/uL Sodium (137-145) mmol/L Potassium (3.5-5.1) mmol/L Chloride (98-107) mmol/L Carbon Dioxide (22-30) mmol/L Anion Gap mmol/L BUN (7-17) mg/dL Creatinine (0.52-1.04) mg/dL Est GFR (CKD-EPI)AfAm (>60 ml/min/1.73 sqM) Est GFR (CKD-EPI)NonAf (>60 ml/min/1.73 sqM) Glucose (74-99) mg/dL Plasma Lactic Acid Maxime (0.7-2.0) mmol/L Calcium (8.4-10.2) mg/dL Total Bilirubin (0.2-1.3) mg/dL AST (14-36) U/L ALT (4-34) U/L Alkaline Phosphatase (38-126) U/L NT-Pro-B Natriuret Pep 41 pg/mL Total Protein (6.3-8.2) g/dL Albumin (3.5-5.0) g/dL Urine Color Yellow Urine Appearance Cloudy H (Clear) Urine pH 6.0 (5.0-8.0) Ur Specific Page 1.022 (1.001-1.035) Urine Protein 2+ H (Negative) Urine Glucose (UA) Negative (Negative) Urine Ketones Negative (Negative) Urine Blood Large H (Negative) Urine Nitrite Negative (Negative) Urine Bilirubin Negative (Negative) Urine Urobilinogen <2.0 (<2.0) mg/dL Ur Leukocyte Esterase Small H (Negative) Urine RBC >182 H (0-5) /hpf Urine WBC 10 H (0-5) /hpf Ur Squamous Epith Cells 1 (0-4) /hpf Urine Mucus Many H (None) /hpf - Radiology Data Radiology results: report reviewed, image reviewed Disposition Clinical Impression: Ascites, Pleural effusion, bilateral, Ovarian cancer Disposition: ADMITTED IP TO THIS HOSP
[2021-09-02 10:09] LABS: Basophils % (A) 1 %; Eosinophils # (A) 0.1 k/uL (0-0.7); Eosinophils % (A) 2 %; HCT 40.1 % (34.0-46.0); HGB 13.1 gm/dL (11.4-16.0); Lymphocytes # (A) 1.4 k/uL (1.0-4.8); Lymphocytes % (A) 22 %; MCHC 32.5 g/dL (31.0-37.0); MCV 98.3 fL (80.0-100.0); Monocytes # (A) 0.5 k/uL (0-1.0); Monocytes % (A) 8 %; Neutrophils # (A) 4.3 k/uL (1.3-7.7); Neutrophils % (A) 67 %; Platelet Count 404 k/uL (150-450); RBC 4.08 m/uL (3.80-5.40); RDW 12.5 % (11.5-15.5); WBC 6.4 k/uL (3.8-10.6)
[2021-09-02 10:22] LABS: Albumin 3.4 g/dL (3.5-5.0); Calcium 8.7 mg/dL (8.4-10.2); Total Bilirubin 0.7 mg/dL (0.2-1.3); Total Protein 6.1 g/dL (6.3-8.2)
[2021-09-02 10:58] LABS: Appearance,Urine Cloudy (Clear); Bilirubin,Urine Negative (Negative); Blood,Urine Large (Negative); Color,Urine Yellow; Glucose,Urine (UA) Negative (Negative); Ketones,Urine Negative (Negative); Leukocyte Esterase,Urine Small (Negative); Mucus,Urine Many /hpf; Nitrite,Urine Negative (Negative); Protein,Urine 2+ (Negative); RBC,Urine >182 /hpf (0-5); Specific Gravity,Urine 1.022 (1.001-1.035); Squamous Epithelial Cell,Urine 1 /hpf (0-4); Urobilinogen,Urine <2.0 mg/dL (<2.0); WBC,Urine 10 /hpf (0-5)
--- NOTE | 2021-09-02 11:01 | CT ---
EXAMINATION TYPE: CT ChestAbdPelvis w con DATE OF EXAM: 09/02/2021 COMPARISON: Nuclear medicine PET/CT 07/24/2021, CT chest abdomen pelvis 07/14/2021 HISTORY: Abdominal distention and difficulty breathing. History of ovarian cancer. CT DLP: 726.2 mGycm Automated exposure control for dose reduction was used. CONTRAST: CT scan of the chest, abdomen and pelvis is performed without Oral Contrast and with IV Contrast, pat ient injected with 100ml mL of Isovue 300. FINDINGS: LUNGS: There has been interval development of a right pleural effusion, left pleural effusion has inc reased in size and there is associated compressive atelectatic change present. MEDIASTINUM: There are no greater than 1 cm hilar or mediastinal lymph nodes. No pericardial effusi on is seen. AORTA: No significant abnormality is seen. OTHER: There is a port in the right pectoral region coursing via right jugular approach. LIVER/GB: There is an increased density focus within the right lobe of the liver which has progressed compared to prior CT, poorly defined margins measuring approximately 19 mm in size, right lobe infer iorly on axial image 54, patient is post cholecystectomy, there are additional areas of relative incr eased attenuation possibly due to focal fatty sparing PANCREAS: No significant abnormality is seen. SPLEEN: No significant abnormality is seen. ADRENALS: No significant abnormality is seen. KIDNEYS: Double-J right ureteral stent is in place, there is hydronephrosis and hydroureter on the ri ght, parapelvic cysts are present on the left REPRODUCTIVE ORGANS: Not seen BOWEL: Small bowel folds are thickened, postop changes are noted to the bowel in the midline at the level the umbilicus. Some diverticular change noted in sigmoid colon FREE AIR: No Free Air visible. ASCITES: Has progressed in the interval, moderate ascites present. RETROPERITONEAL ADENOPATHY: Some probable calcified retroperitoneal nodes are present. LYMPH NODES: No greater than 1 cm abdominal or pelvic lymph nodes are appreciated. URINARY BLADDER: No significant abnormality is seen. PELVIC ADENOPATHY: None visualized. OSSEOUS STRUCTURES: Degenerative disc changes are present in the lower lumbar spine. IMPRESSION: Progression of pleural effusion, ascites. Small bowel fold thickening is nonspecific, the re is no evident bowel obstruction. Indeterminate areas of higher attenuation within the liver may re present areas of focal fatty sparing but are indeterminate.
[2021-09-02] MEDS ORDERED: HYDROmorphone 1 MG/ML 1 ML SYRINGE IVP PRN (12:17)
[2021-09-02] MEDS ORDERED: NALOXONE 0.4 MG/ML 1 ML VIAL IV PRN (12:17)
[2021-09-02] MEDS ORDERED: ACETAMINOPHEN TAB 325 MG TAB PO PRN (12:17)
[2021-09-02] MEDS: HYDROmorphone 0.5 MG/0.5 ML SYRINGE IVP PRN ×3 (15:05→23:19)
[2021-09-02] MEDS: ONDANSETRON 4 MG/2 ML VIAL IVP PRN ×2 (15:05→23:25)
[2021-09-02] MEDS ORDERED: traMADol 50 MG TAB PO PRN (15:21)
[2021-09-02] MEDS ORDERED: PROCHLORPERAZINE 10 MG TAB PO PRN (15:21)
[2021-09-02] MEDS ORDERED: DICYCLOMINE 10 MG CAP PO PRN (15:21)
[2021-09-02 17:59] LABS: INR 0.9 (<1.2); Prothrombin Time 10.2 sec (9.0-12.0)
[2021-09-02] MEDS ORDERED: SCOPOLAMINE 1 MG/72 HR PATCH TRANSDERM SCH (22:00)
--- NOTE | 2021-09-02 22:02 | XR ---
EXAMINATION TYPE: XR chest 1V portable DATE OF EXAM: 09/02/2021 COMPARISON: 07/29/2018 HISTORY: Abdominal pain TECHNIQUE: Single view FINDINGS: There is blunting of the costophrenic angles. There is right central venous catheter with t ip in the superior vena cava. No heart failure. Bony thorax appears intact. IMPRESSION: There are bilateral moderate pleural effusions which appear new compared to old exam. No obvious heart failure.
--- NOTE | 2021-09-02 22:32 | P.HPIM ---
History of Present Illness H&P Date: 09/02/21 Chief Complaint: Short of breath Consultation: This is a pleasant 70-year-old patient was followed with oncologist Dr. Springer for metastatic ovarian cancer and Dr. Isaiah Diane as PCP.. 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 Patient also had bilateral pulmonary embolism for which she was put on eliquis. She was sent down to [facility]. And was given chemotherapy. Also photosynthesis done. She underwent overrating resection in 2018 at an different hospital. And then she was given further chemotherapy. 2018 she was found to be in remission. seen in 2019. Seems to be no evidence of cancer recurrence. On 03/05/2019 when she did undergo restaging computed tomography scan of chest abdomen pelvis came back to be negative. Recently patient was referred to [facility] to see and patient had a PET scan and a staging computed tomography scan. Patient was told she has recurrence of the malignancy in the abdomen and a spot on the lung. Patient been having abdominal distention. She also had a stent placed in the kidney because of "compression. For one week patient been having diarrhea. Watery. Also been having persistent nausea. Patient has been losing weight. Decreased appetite. Tired and rundown. Also no short of breath. No cough. Review of systems: GEN.: Tired, decreased appetite EYES: None HEENT: None NECK: None RESPIRATORY: As above CARDIOVASCULAR: None GASTROINTESTINAL: As above GENITOURINARY: None MUSCULOSKELETAL: None LYMPHATICS: None HEMATOLOGICAL: None PSYCHIATRY: Anxious NEUROLOGICAL: None Past medical history to include: Metastatic adenocarcinoma possibly ovarian versus peritoneal cavity, status post limited surgery and chemotherapy, diabetes, GI bleed, osteoarthritis, bilateral pulmonary embolism, large left-sided pleural effusion with thoracentesis, colonic diverticulosis Social history: No history of smoking or alcohol. Lives alone. Physical examination: VITAL SIGNS: 97.9, 82, 16, 144/91, 91% room air GENERAL: BMI 24.2, reclining in bed, awake a bit anxious, right-sided chest port EYES: Pupils equal. Conjunctiva normal. HEENT: External appearance of nose and ears normal, oral cavity grossly normal. NECK: JVD not raised; masses not palpable. HEART: First and second heart sounds are normal; no edema. LUNGS: Respiratory rate normal; decreased breath sound at bases ABDOMEN: Soft, distended, mild abdominal tenderness, no guarding rigidity liver spleen not palpable, no masses palpable. PSYCH: Alert and oriented x3; mood and affect anxious. NEUROLOGICAL: Cranial nerves grossly intact; no facial asymmetry, power and sensation grossly intact. LYMPHATICS: No lymph nodes palpable in the axilla and neck EXTREMITIES: Swelling of the right lower extremity. INVESTIGATIONS, reviewed in the clinical context: White count 6.4 hemoglobin 13.1 platelets 404 potassium 4 creatinine 0.88 PET scan: 07/24/2021: Mild axillary uptake, decreased pelvic uptake felt to be abnormal. Chest x-ray film personally reviewed by me-bilateral pleural effusion left greater than right, right-sided port Assessment: -Recurrence of metastatic adenocarcinoma with ovarian cancer, treated with limited surgery, chemotherapy currently remission. Manifesting now is abdominal ascites. Positive PET scan. Being followed by Dr. Springer -Secondary ascites secondary to ovarian cancer, symptomatic 4 paracentesis for symptom control -Persistent nausea secondary underlying malignancy Scopolamine patch -Right lower extremity swelling, rule out DVT Doppler ultrasound -Mild protein calorie malnutrition from decreased oral intake Start ensure -Acute diarrhea of week duration. No blood. Rule out C. diff Consultation to interventional radiology for paracentesis. Also consultation to GI/oncology. Home medications resumed. Scopolamine patch. Ensure. Rule out C. diff. Discussed with patient. Past Medical History Past Medical History: Cancer, Diabetes Mellitus, GI Bleed, Osteoarthritis (OA), Pulmonary Embolus (PE) Additional Past Medical History / Comment(s): 2016 Bilateral ovarian cancer diagnosed with mets/surgery and chemotherapy with last chemo taken about 2 years ago, bicytopenia, lower GI bleed, anemia, 11/2016 bilateral pulmonary embolisms, 12/2016 L sided pleural effusion with 2 thoracentesis, diet controlled diabetes, diverticulosis, mild protein calorie malnutrition, 08/14/21 L ureteral blockage d/t enlarged lymph nodes/hematuria and stent was placed/pt has R lower back pain since, UTIs History of Any Multi-Drug Resistant Organisms: None Reported Past Surgical History: Bowel Resection, Hysterectomy Additional Past Surgical History / Comment(s): Total hysterectomy/perineal and omenectomy done by Dr Rob at [facility], 2 left thoracentesis, power port rt upper chest, 11/10/17 egd w/bx, colonoscopy, 08/14/21 R ureteral stent. Past Anesthesia/Blood Transfusion Reactions: No Reported Reaction Additional Past Anesthesia/Blood Transfusion Reaction / Comment(s): Pt has received blood without reaction. Smoking Status: Never smoker - Past Family History Mother Family Medical History: Congestive Heart Failure (CHF), CVA/TIA, Hypertension Father Family Medical History: CVA/TIA Brother(s) Family Medical History: Cancer Additional Family Medical History / Comment(s): colon cancer, lymphoma Medications and Allergies Home Medications Medication Instructions Recorded Confirmed Type Acetaminophen Tab [Tylenol Tab] 1,000 mg PO Q6HR PRN 02/17/21 09/02/21 History Ascorbic Acid [Vitamin C] 500 mg PO DAILY 02/17/21 09/02/21 History Biotin 5 mg PO DAILY 02/17/21 09/02/21 History Cholecalciferol [Vitamin D3 (25 25 mcg PO DAILY 02/17/21 09/02/21 History Mcg = 1000 Iu)] Cyanocobalamin (Vitamin B-12) 1,000 mcg PO DAILY 02/17/21 09/02/21 History [Vitamin B-12] Lutein 10 mg PO DAILY 02/17/21 09/02/21 History Multivitamins, Thera [Multivitamin 1 tab PO DAILY 02/17/21 09/02/21 History (formulary)] Psyllium Husk [Metamucil] 0.4 gm PO DAILY 02/17/21 09/02/21 History Turmeric Root Extract [Turmeric] 500 mg PO DAILY 02/17/21 09/02/21 History Zinc 50 mg PO DAILY 02/17/21 09/02/21 History Dicyclomine [Bentyl] 10 mg PO TID PRN 09/02/21 09/02/21 History Prochlorperazine [Compazine] 10 mg PO Q6H PRN 09/02/21 09/02/21 History traMADol HCl [Ultram] 50 mg PO Q6HR PRN 09/02/21 09/02/21 History Allergies Allergy/AdvReac Type Severity Reaction Status Date / Time aspirin Allergy Rash/Hives Verified 09/02/21 11:29 Iodinated Contrast Media Allergy Rash/Hives Verified 09/02/21 11:29 [Iodinated Contrast- Oral and IV Dye] lactose Allergy Unknown Verified 09/02/21 11:29 Penicillins Allergy Rash/Hives Verified 09/02/21 11:29 melatonin AdvReac Intermediate Unknown Verified 09/02/21 11:29 Physical Exam Vitals: Vital Signs Temp Pulse Pulse Resp BP BP Pulse Ox 09/02/21 19:29 97.9 F 82 16 144/91 91 L 09/02/21 14:00 97.7 F 79 16 133/79 93 L 09/02/21 13:29 81 20 128/72 96 09/02/21 11:06 89 20 124/84 96 09/02/21 10:15 20 09/02/21 09:04 98.3 F 96 22 123/92 96 Intake and Output 09/02/21 09/02/21 09/02/21 06:59 14:59 22:59 Intake Total 1160 Balance 1160 Intake: Oral 1160 Other: Voiding Method Toilet # Voids 2 Weight 58.06 kg Results CBC & Chem 7: 09/02/21 09:53 09/02/21 09:53 Labs: Abnormal Lab Results - Last 24 Hours (Table) 09/02/21 09/02/21 Range/Units 09:53 09:53 Sodium 136 L (137-145) mmol/L Chloride 110 H (98-107) mmol/L Carbon Dioxide 20 L (22-30) mmol/L Glucose 106 H (74-99) mg/dL Alkaline Phosphatase 253 H (38-126) U/L Total Protein 6.1 L (6.3-8.2) g/dL Albumin 3.4 L (3.5-5.0) g/dL Urine Appearance Cloudy H (Clear) Urine Protein 2+ H (Negative) Urine Blood Large H (Negative) Ur Leukocyte Esterase Small H (Negative) Urine RBC >182 H (0-5) /hpf Urine WBC 10 H (0-5) /hpf Urine Mucus Many H (None) /hpf Thrombosis Risk Factor Assmnt - Choose All That Apply Any of the Below Risk Factors Present?: Yes Each Factor Represents 1 point: Serious lung disease incl. pneumonia (< 1month) Other Risk Factors: Yes Each Risk Factor Represents 2 Points: Age 61-74 years, Malignancy Other congenital or acquired thrombophilia - If yes, enter type in comment: No Thrombosis Risk Factor Assessment Total Risk Factor Score: 5 Thrombosis Risk Factor Assessment Level: High Risk
--- NOTE | 2021-09-02 23:13 | US ---
EXAMINATION TYPE: US venous doppler duplex LE RT DATE OF EXAM: 09/02/2021 10:00 PM COMPARISON: NONE CLINICAL HISTORY: Rule out DVT. Right leg swelling Exam done portable SIDE PERFORMED: Right TECHNIQUE: The lower extremity deep venous system is examined utilizing real time linear array sonog casper with graded compression, doppler sonography and color-flow sonography. VESSELS IMAGED: Common Femoral Vein Deep Femoral Vein Greater Saphenous Vein * Femoral Vein Popliteal Vein Small Saphenous Vein * Proximal Calf Veins (* superficial vessels) Right Leg: Appears negative for DVT Grayscale, color doppler, spectral doppler imaging performed of the deep veins of the lower extremiti es. There is normal flow, compressibility, vascular waveforms. Streaky subcutaneous edema is present. IMPRESSION: 1. No evidence for deep vein thrombosis of the right lower extremity. 2. Right lower extremity subcutaneous edema.
[2021-09-03] MEDS ORDERED: CYANOCOBALAMIN 500 MCG TAB PO SCH (09:00)
[2021-09-03] MEDS ORDERED: PSYLLIUM HUSK 100% 6 GM PACKET PO SCH (09:00)
[2021-09-03] MEDS ORDERED: MULTIVITAMINS, THERA 1 EACH TAB PO SCH (09:00)
[2021-09-03] MEDS ORDERED: CHOLECALCIFEROL 25 MCG (1000 IU) TABLET PO SCH (09:00)
[2021-09-03] MEDS ORDERED: ASCORBIC ACID 500 MG TAB PO SCH (09:00)
[2021-09-03] MEDS ORDERED: VIT A,C & E-LUTEIN-MINERALS 1 EACH TAB PO SCH (09:00)
[2021-09-03] MEDS ORDERED: ZINC SULFATE 220 MG CAP PO SCH (09:00)
[2021-09-03] MEDS: HYDROmorphone 0.5 MG/0.5 ML SYRINGE IVP PRN (11:56)
[2021-09-03] MEDS ORDERED: ONDANSETRON 4 MG/2 ML VIAL IVP SCH (12:00)
--- NOTE | 2021-09-03 14:10 | P.CONS ---
History of Present Illness - Reason for Consult Consult date: 09/03/21 Ascites Requesting physician: Justice Damon - Chief Complaint Shortness of breath - History of Present Illness This very pleasant 70-year-old white female who follows with Dr. Springer and Dr. Lovelace from [facility] for history of metastatic ovarian cancer, diabetes, GI bleed, osteoarthritis, and bilateral pulmonary embolism who came in with complaints of shortness of breath. She was recently seen and had a computed tomography scan of the abdomen with some concerning findings and underwent a PET scan and was told on Tuesday that her cancer had returned. She is also been noticing increased abdominal distention similar to previously when she was diagnosed with her cancer and she had ascites. She states she had one previous paracentesis when she was diagnosed in 2017. She had undergone surgery as well as chemotherapy. She was in remission up until she was told on Tuesday that she had a recurrence of malignancy in the abdomen and in the lung. She had a CT of the chest abdomen pelvis done here on 09/02/2021 showing progression of pleural effusion, ascites. Small bowel fold thickening is nonspecific, there is no evident bowel obstruction. Indeterminate areas of higher attenuation within the liver may represent areas of focal fatty bearing but are indeterminate. Gastroenterology was consulted for ascites. She denies any previous history of liver disease, denies any history of alcoholism. She states she overall is not feeling well, she's had decreased appetite, no nausea or vomiting. Abdominal distention present but no severe abdominal pain. She's been afebrile. No complaints of chest pain or shortness of breath. Labs: WBC 6.4 hemoglobin 13 hematocrit 40 platelet count 404,010 or 0.9 sodium 136 potassium 4.0 BUN 9 creatinine 0.88 glucose 106 total bilirubin 0.7 AST 32 ALT 24 alkaline phosphatase 253 CA 125 antigen 832 Review of Systems REVIEW OF SYSTEMS: CARDIOPULMONARY: No chest pain or shortness of breath. Gastrointestinal: No abdominal pain. Abdominal distention, fluid filling.. No nausea or vomiting. No hematemesis, coffee-ground emesis. No rectal bleeding, or melena. GENITOURINARY: No dysuria or hematuria. MUSCULOSKELETAL: Reports normal range of motion., Joint pain. SKIN: No rashes. No jaundice. ENDOCRINE: No chills, fevers. No excessive weight gain or loss. No polydipsia or polyuria. PSYCHIATRIC: Unremarkable. NEUROLOGY: No change in mental status. Denies dizziness, headache. ENT: Vision unremarkable. CONSTITUTIONAL: Some increased weight loss. Decreased appetite. Increased weakness. Past Medical History Past Medical History: Cancer, Diabetes Mellitus, GI Bleed, Osteoarthritis (OA), Pulmonary Embolus (PE) Additional Past Medical History / Comment(s): 2016 Bilateral ovarian cancer diagnosed with mets/surgery and chemotherapy with last chemo taken about 2 years ago, bicytopenia, lower GI bleed, anemia, 11/2016 bilateral pulmonary embolisms, 12/2016 L sided pleural effusion with 2 thoracentesis, diet controlled diabetes, diverticulosis, mild protein calorie malnutrition, 08/14/21 L ureteral blockage d/t enlarged lymph nodes/hematuria and stent was placed/pt has R lower back pain since, UTIs History of Any Multi-Drug Resistant Organisms: None Reported Past Surgical History: Bowel Resection, Hysterectomy Additional Past Surgical History / Comment(s): Total hysterectomy/perineal and omenectomy done by Dr Rob at [facility], 2 left thoracentesis, power port rt upper chest, 11/10/17 egd w/bx, colonoscopy, 08/14/21 R ureteral stent. Past Anesthesia/Blood Transfusion Reactions: No Reported Reaction Additional Past Anesthesia/Blood Transfusion Reaction / Comm: Pt has received blood without reaction. Smoking Status: Never smoker - Past Family History Mother Family Medical History: Congestive Heart Failure (CHF), CVA/TIA, Hypertension Father Family Medical History: CVA/TIA Brother(s) Family Medical History: Cancer Additional Family Medical History / Comment(s): colon cancer, lymphoma Medications and Allergies Home Medications Medication Instructions Recorded Confirmed Type Acetaminophen Tab [Tylenol Tab] 1,000 mg PO Q6HR PRN 02/17/21 09/02/21 History Ascorbic Acid [Vitamin C] 500 mg PO DAILY 02/17/21 09/02/21 History Biotin 5 mg PO DAILY 02/17/21 09/02/21 History Cholecalciferol [Vitamin D3 (25 25 mcg PO DAILY 02/17/21 09/02/21 History Mcg = 1000 Iu)] Cyanocobalamin (Vitamin B-12) 1,000 mcg PO DAILY 02/17/21 09/02/21 History [Vitamin B-12] Lutein 10 mg PO DAILY 02/17/21 09/02/21 History Multivitamins, Thera [Multivitamin 1 tab PO DAILY 02/17/21 09/02/21 History (formulary)] Psyllium Husk [Metamucil] 0.4 gm PO DAILY 02/17/21 09/02/21 History Turmeric Root Extract [Turmeric] 500 mg PO DAILY 02/17/21 09/02/21 History Zinc 50 mg PO DAILY 02/17/21 09/02/21 History Dicyclomine [Bentyl] 10 mg PO TID PRN 09/02/21 09/02/21 History Prochlorperazine [Compazine] 10 mg PO Q6H PRN 09/02/21 09/02/21 History traMADol HCl [Ultram] 50 mg PO Q6HR PRN 09/02/21 09/02/21 History Allergies Allergy/AdvReac Type Severity Reaction Status Date / Time aspirin Allergy Rash/Hives Verified 09/02/21 11:29 Iodinated Contrast Media Allergy Rash/Hives Verified 09/02/21 11:29 [Iodinated Contrast- Oral and IV Dye] lactose Allergy Unknown Verified 09/02/21 11:29 Penicillins Allergy Rash/Hives Verified 09/02/21 11:29 melatonin AdvReac Intermediate Unknown Verified 09/02/21 11:29 Physical Exam Vitals: Vital Signs Temp Pulse Pulse Resp BP BP Pulse Ox 09/03/21 08:00 97.3 F L 74 19 123/78 90 L 09/03/21 04:37 97.8 F 84 16 116/80 91 L 09/02/21 19:29 97.9 F 82 16 144/91 91 L 09/02/21 14:00 97.7 F 79 16 133/79 93 L 09/02/21 13:29 81 20 128/72 96 09/02/21 11:06 89 20 124/84 96 09/02/21 10:15 20 Intake and Output 09/02/21 09/03/21 09/03/21 22:59 06:59 14:59 Intake Total 1160 540 Balance 1160 540 Intake: Oral 1160 540 Other: Voiding Method Toilet # Voids 2 2 General appearance: The patient is alert, oriented, appears in no acute distress. HET: Head is normocephalic and atraumatic. Conjunctiva pink. Sclera anicteric. Neck: Supple without lymphadenopathy. Trachea midline. Heart: S1 S2. Regular rate and rhythm. Lungs: Clear to auscultation. Abdomen: Soft, nontender, abdominal distention with ascites. No guarding or rigidity. Skin: No rashes. No jaundice. Extremities: Normal skin color and turgor. No pedal edema. Neurological: No focal deficits. Alert and oriented x3. Results CBC & Chem 7: 09/02/21 09:53 09/02/21 09:53 Labs: Abnormal Lab Results - Last 24 Hours (Table) 09/02/21 09/02/21 09/02/21 Range/Units 09:53 09:53 09:53 Sodium 136 L (137-145) mmol/L Chloride 110 H (98-107) mmol/L Carbon Dioxide 20 L (22-30) mmol/L Glucose 106 H (74-99) mg/dL Alkaline Phosphatase 253 H (38-126) U/L Total Protein 6.1 L (6.3-8.2) g/dL Albumin 3.4 L (3.5-5.0) g/dL CA 125 Antigen 832.0 H (0.0-30.1) U/mL Urine Appearance Cloudy H (Clear) Urine Protein 2+ H (Negative) Urine Blood Large H (Negative) Ur Leukocyte Esterase Small H (Negative) Urine RBC >182 H (0-5) /hpf Urine WBC 10 H (0-5) /hpf Urine Mucus Many H (None) /hpf CT scan - abdomen: report reviewed (As dictated in the HPI) Assessment and Plan (1) Ascites Narrative/Plan: 70-year-old female with a history of ovarian cancer diagnosed in 2017 treated with surgical intervention and chemotherapy. Patient follows with Dr. Springer and [facility] and had been in remission. She recently was seen for staging and was told that they believe her cancer has recurred. She states that they had findings concerning in the abdomen and lung. Patient also states she states over last 1-2 weeks started having some abdominal distention that has continued to increase. Gastroenterology is seeing for ascites. She is scheduled for paracentesis today with cytology. Ascites is concerning for possible underlying malignancy. We will await cytology findings. Current Visit: Yes Status: Acute Code(s): R18.8 - OTHER ASCITES SNOMED Code(s): 169843359 (2) Pleural effusion, bilateral Current Visit: Yes Status: Acute Code(s): J90 - PLEURAL EFFUSION, NOT ELSEWHERE CLASSIFIED SNOMED Code(s): 162252324 (3) H/O ovarian cancer Current Visit: No Status: Acute Code(s): Z85.43 - PERSONAL HISTORY OF MALIGNANT NEOPLASM OF OVARY SNOMED Code(s): 275050382 Plan: 1. Continue symptomatic and supportive care 2. Continue with recommendations from oncology 3. Agree with paracentesis therapeutic and diagnostic with cytology 4. Recommend low sodium diet 5. Further recommendations forthcoming based on clinical course Thank you for this consultation, we will continue to follow. Dr. Val Cantu I agree with the dictator's note, documented as a scribe by Parisa James.
--- NOTE | 2021-09-03 14:21 | P.CONS ---
History of Present Illness - Reason for Consult Consult date: 09/02/21 Ovarian cancer, concern for recurrence Requesting physician: Melvi Jones - History of Present Illness Mrs. Leija is a pleasant white female, initially seen in consult at [facility] on 11/16/16. She had been admitted on 11/14/16 with complaints of abdominal bloating that started about a week to 10 days prior to that admission. It had been progressive since then causing increasing abdominal discomfort. CAT scan of the abdomen and pelvis revealed significant ascites as well as a left pleural effusion. Outside ultrasound showed multiple cysts involving both ovaries the largest 1.6 cm on the right and 2.6 cm on the left. She had a large volume paracentesis on 11/15/16. There was significant improvement in her symptoms. 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 CT scan of the chest showed no evidence of metastasis with the basilar opacities consistent with small pleural effusions. Incidentally bilateral pulmonary emboli were noted. These were confirmed on CT angiogram of the chest. The patient was discharged on eliquis and referred immediately to gynecologic oncology at [facility]. she was seen by , and preoperative chemotherapy was recommended. She had a port placed at [facility]. She was seen for her first office visit on 12/02/16. She then started Carbo with DD Taxol, She was admitted to [facility] on 12/22/16 with a large left pleural effusion. She had thoracentesis of 2.4 L of bloody fluid. She had relief of symptoms and was then discharged. 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 She had a repeat drainage in late 12/31 of about 700 cc. She was admitted to [facility] with diarrhea, n/v/dehydration on 01/28/17. C diff and influenza were negative. She improved rapidly with Lomotil and hydration and was discahrged on 01/30/17 C 3 D15 was held. The pt had a break from treatment and then resumed it with C 4 starting on 03/03/17, with a 20% dose reduction. She is now s/p 6 cycles, completing those on 04/28/17 CT scans showed persistent cystic lesions in the b/l pelvis, but no residual ascites or pleural effusion. She was referred back to [facility] and had resection on 06/18/17, with a good partial response noted. She had resection of all gross disease. She recovered well post surgery, and was then started on carbo /Gemzar per [facility] recommendations on 07/25/17. She is s/p 2 cycles. She was admitted with febrile neutropenia, after C 1. Neulasta was added with C 2. She completed 3 cycles in 10/01. She was recommended to start Avastin by [facility]. However, prior to starting, she was admitted to [facility] with major GI bleeding. GI w/u was negative. She eventually stabilised with transfusion and IV iron. Eliquis was stopped as she had been on treatment anyway for almost 11 mths. She was started on Avastin on 12/16/17 as she had had no recurrence of bleeding and Hgb had been stable. She developed BRBPR as well as black stools in late 01/31. She was admitted on 02/10/18. her Hgb did drop, but stabilised and she did not need a transfusion. Based on the above , it was decided to stop Avastin. She had a [facility] visit in 03/04 c/ aching in her LE. She also had aching in her shoulders and UE, but this was less prominent. This has improved with Tylenol, and subsequently, OTC turmeric and pepper. CPK and aldolase were negative in 04/04, with sed rate non specific at 31 CT scans in 11/02 were again negative. As the patient is complaining of increased nausea, she had a PET scan done, on 12/01/18, which was also negative. CA-125 remained in the normal range. She was c/o persistent, intermittent nausea ongoing since early 11/02. THis occurred with or without food, but eating did make it worse. She was referred for an EGD whe seen in 12/02, but did no go, as her symptoms resolved s pontaneously. She feels it was due to stress. She was c/o dizziness , with Ct brain in 01/02 negative. This, too, has resolved. telemedicine audiovisual 07/02/19: The patient denies any fever/chills/nausea/vomiting. She complains of episodes of "chills" that can be generalized or localize and occur very intermittently. Her BMs have been normal. Her fatigue is mild and appetite overall fair. she denied any urinary or bowel complaints. Her ROS is otherwise as per HPI and negative out of 10. as above. The patient was seen earlier than her scheduled on 09/19/19 at her own request. Since about 08/03 she had been having problems with persistent pain in the lower back, in a somewhat bandlike fashion. This appears to be aggravated with certain movements. The patient did assist with her PCP and was found to have a UA positive for blood on urinalysis. She was treated with antibiotics, though cultures according to her were negative. She had also had an abdominal ultrasound that was negative other than showing known small left parapelvic cysts. the patient proceeded to CT of the abdomen and pelvis ( 10/03) as well as labs, which showed tumor markers in the normal range at 16.8, and no evidence of cancer recurrence. she was admitted to the hospital in 04/06 for cholecystectomy. This was found on her restaging CT scans done in 03/06, which otherwise showed no evidence of cancer recurrence. she states that she had a hospital admission apparently in late 12/04 for bleeding in the urine and lower abdominal pain. CAT scan at that time apparently revealed some enteritis or colitis which she was told was viral. States that her symptoms resolved. However she has not had any follow-up. She was referred to Surgery at her visit in 02/[address] scans showing possible bile leak. She had a repeat Ct scan with no abnormality found. She was referred to Urology for hematuria. However she had an ER visit prior to that in early 2021, with imaging showing multiple, tiny kidney stones as the cause CT scan in late 07/05 showed a small left pleural effusion, borderline enl arged tracheobronchial node, as well as possible mesenteric infiltration with adenopathy in the right lower quadrant causing hydronephrosis. Her CA-125 was found to be elevated to 342. PET scan on 07/24/21 showed nonspecific uptake in the left axillary node at 1.4 there was mild uptake with SUV 2.7 in the right upper quadrant, in the region of some lymph nodes that were not enlarged an calcified. There was uptake present within the pelvis the cul-de-sac region with an SUV of 9.6. She denied any fevers/chills/nausea/vomiting. she reports marked improvement in her symptoms of intermittent abdominal pain and bloating, since the cholecystectomy. She still has some discomfort in the right upper quadrant , and rt flank. discomfort in the right flank radiating to the right groin is more prominent. She continues to have persistent mild fatigue. She denied any change in bowel habits, blood in the stool or any vaginal discharge. Review of systems otherwise as per HPI and negative out of 10. Last seen 07/27/21 Dr. Springer the patient's labs, as well as PET scan results and implications were discussed in detail with her and her family. The PET scan is suspicious for recurrence in the right lower quadrant, that could be causing right-sided hydronephrosis. Of note, the patient has been having some pain radiating from the flank into the right groin area. Nonmalignant inflammation in this area causing hydronephrosis is also possibility. - Patient has been referred to urology but has not had an appointment yet. - She'll be referred back to [facility] oncology at [facility]. Await their assessment. - Refill prochlorperazine, and Ultram prescriptions. Review of Systems All systems: negative Constitutional: Reports as per HPI Past Medical History Past Medical History: Cancer, Diabetes Mellitus, GI Bleed, Osteoarthritis (OA), Pulmonary Embolus (PE) Additional Past Medical History / Comment(s): 2016 Bilateral ovarian cancer diagnosed with mets/surgery and chemotherapy with last chemo taken about 2 years ago, bicytopenia, lower GI bleed, anemia, 11/2016 bilateral pulmonary embolisms, 12/2016 L sided pleural effusion with 2 thoracentesis, diet controlled diabetes, diverticulosis, mild protein calorie malnutrition, 08/14/21 L ureteral blockage d/t enlarged lymph nodes/hematuria and stent was placed/pt has R lower back pain since, UTIs History of Any Multi-Drug Resistant Organisms: None Reported Past Surgical History: Bowel Resection, Hysterectomy Additional Past Surgical History / Comment(s): Total hysterectomy/perineal and omenectomy done by Dr Rob at [facility], 2 left thoracentesis, power port rt upper chest, 11/10/17 egd w/bx, colonoscopy, 08/14/21 R ureteral stent. Past Anesthesia/Blood Transfusion Reactions: No Reported Reaction Additional Past Anesthesia/Blood Transfusion Reaction / Comm: Pt has received blood without reaction. Smoking Status: Never smoker - Past Family History Mother Family Medical History: Congestive Heart Failure (CHF), CVA/TIA, Hypertension Father Family Medical History: CVA/TIA Brother(s) Family Medical History: Cancer Additional Family Medical History / Comment(s): colon cancer, lymphoma Medications and Allergies Home Medications Medication Instructions Recorded Confirmed Type Acetaminophen Tab [Tylenol Tab] 1,000 mg PO Q6HR PRN 02/17/21 09/02/21 History Ascorbic Acid [Vitamin C] 500 mg PO DAILY 02/17/21 09/02/21 History Biotin 5 mg PO DAILY 02/17/21 09/02/21 History Cholecalciferol [Vitamin D3 (25 25 mcg PO DAILY 02/17/21 09/02/21 History Mcg = 1000 Iu)] Cyanocobalamin (Vitamin B-12) 1,000 mcg PO DAILY 02/17/21 09/02/21 History [Vitamin B-12] Lutein 10 mg PO DAILY 02/17/21 09/02/21 History Multivitamins, Thera [Multivitamin 1 tab PO DAILY 02/17/21 09/02/21 History (formulary)] Psyllium Husk [Metamucil] 0.4 gm PO DAILY 02/17/21 09/02/21 History Turmeric Root Extract [Turmeric] 500 mg PO DAILY 02/17/21 09/02/21 History Zinc 50 mg PO DAILY 02/17/21 09/02/21 History Dicyclomine [Bentyl] 10 mg PO TID PRN 09/02/21 09/02/21 History Prochlorperazine [Compazine] 10 mg PO Q6H PRN 09/02/21 09/02/21 History traMADol HCl [Ultram] 50 mg PO Q6HR PRN 09/02/21 09/02/21 History Allergies Allergy/AdvReac Type Severity Reaction Status Date / Time aspirin Allergy Rash/Hives Verified 09/02/21 11:29 Iodinated Contrast Media Allergy Rash/Hives Verified 09/02/21 11:29 [Iodinated Contrast- Oral and IV Dye] lactose Allergy Unknown Verified 09/02/21 11:29 Penicillins Allergy Rash/Hives Verified 09/02/21 11:29 melatonin AdvReac Intermediate Unknown Verified 09/02/21 11:29 Physical Exam Vitals: Vital Signs Temp Pulse Resp BP Pulse Ox 09/02/21 13:29 81 20 128/72 96 09/02/21 11:06 89 20 124/84 96 09/02/21 10:15 20 09/02/21 09:04 98.3 F 96 22 123/92 96 Intake and Output 09/01/21 09/02/21 09/02/21 22:59 06:59 14:59 Other: Weight 58.06 kg - Constitutional General appearance: cooperative - EENT Eyes: EOMI ENT: hard of hearing, NA/AT - Neck Neck: normal ROM - Respiratory Respiratory: bilateral: diminished (BIlateral bibasilar) - Cardiovascular Rhythm: regularly irregular - Gastrointestinal General gastrointestinal: distended, tenderness - Integumentary Integumentary: pale - Musculoskeletal Musculoskeletal: generalized weakness Results CBC & Chem 7: 09/02/21 09:53 09/02/21 09:53 Labs: Abnormal Lab Results - Last 24 Hours (Table) 09/02/21 09/02/21 Range/Units 09:53 09:53 Sodium 136 L (137-145) mmol/L Chloride 110 H (98-107) mmol/L Carbon Dioxide 20 L (22-30) mmol/L Glucose 106 H (74-99) mg/dL Alkaline Phosphatase 253 H (38-126) U/L Total Protein 6.1 L (6.3-8.2) g/dL Albumin 3.4 L (3.5-5.0) g/dL Urine Appearance Cloudy H (Clear) Urine Protein 2+ H (Negative) Urine Blood Large H (Negative) Ur Leukocyte Esterase Small H (Negative) Urine RBC >182 H (0-5) /hpf Urine WBC 10 H (0-5) /hpf Urine Mucus Many H (None) /hpf Assessment and Plan (1) Ascites Narrative/Plan: Discussed with ER [facility], IR has been consulted for paracentesis, order placed to run diagnostics for metastatic recurrence, cytology Current Visit: Yes Status: Acute Code(s): R18.8 - OTHER ASCITES SNOMED Code(s): 431131555 (2) Pleural effusion, bilateral Current Visit: Yes Status: Acute Code(s): J90 - PLEURAL EFFUSION, NOT ELSEWHERE CLASSIFIED SNOMED Code(s): 849254351 (3) Ovarian cancer Narrative/Plan: Recent follow-up concern of recurrence, discussed with patient and patient was to follow-up with G[facility]C at [facility] this past month, I yanick requested this dictation. In the interim Paracentesisi and supportive care Discussed with ER Current Visit: Yes Status: Chronic Priority: Medium Code(s): C56.9 - MALIGNANT NEOPLASM OF UNSPECIFIED OVARY SNOMED Code(s): 756376533
--- NOTE | 2021-09-03 14:22 | P.PN ---
Subjective Progress Note Date: 09/03/21 Principal diagnosis: Uterine Patient seen and evaluated this am Objective - Vital Signs Vital signs: Vital Signs Temp 97.7 F 09/03/21 12:00 Pulse 79 09/03/21 13:45 Resp 14 09/03/21 13:45 BP 144/92 09/03/21 13:45 Pulse Ox 92 L 09/03/21 13:45 FiO2 Intake & Output 09/02/21 09/03/21 09/03/21 18:59 06:59 18:59 Intake Total 1160 540 Balance 1160 540 Weight 58.06 kg Intake: Oral 1160 540 Other: Voiding Method Toilet Toilet # Voids 2 2 - Labs CBC & Chem 7: 09/02/21 09:53 09/02/21 09:53 Labs: Abnormal Lab Results - Last 24 Hours (Table) 09/02/21 Range/Units 09:53 CA 125 Antigen 832.0 H (0.0-30.1) U/mL Assessment and Plan (1) Ascites Narrative/Plan: Discussed with ER [facility] IR has been consulted for paracentesis, order placed to run diagnostics for metastatic recurrence, cytology - Plan for Paracentesis today - Plan to follow-up with Dr. Melgar next week Current Visit: Yes Status: Acute Code(s): R18.8 - OTHER ASCITES SNOMED Code(s): 764779732 (2) Pleural effusion, bilateral Current Visit: Yes Status: Acute Code(s): J90 - PLEURAL EFFUSION, NOT ELSEWHERE CLASSIFIED SNOMED Code(s): 716769509 (3) Ovarian cancer Narrative/Plan: Recent follow-up concern of recurrence, discussed with patient and patient was to follow-up with [facility] at [facility] this past month, I haave requested this dictation. In the interim Paracentesisi and supportive care Discussed with ER Current Visit: Yes Status: Chronic Priority: Medium Code(s): C56.9 - MALIGNANT NEOPLASM OF UNSPECIFIED OVARY SNOMED Code(s): 101706865 Plan: Dr. Tenorio: I have completed the full history and physical and developed the above impression and plan, agree with dictation dictated as a scribe
[2021-09-03 15:28] VITALS: RESP 20; TEMP 98.3
[2021-09-03 15:41] VITALS: BMI 24.1
[2021-09-03 16:59] VITALS: PULSE 76
[2021-09-03 17:01] VITALS: BP 128/82
[2021-09-04 03:27] LABS: Albumin, Fluid Source Paracentesis Fluid
--- NOTE | 2021-09-08 08:26 | US ---
Ultrasound-guided paracentesis. DATE OF EXAM: 09/03/2021 CLINICAL HISTORY: Ascites The procedure was discussed with the patient. The risks, complications, benefits, and alternatives we re discussed and any questions were answered. Informed consent was obtained. The patient was placed s upine on the ultrasound table and prepped and draped in the usual sterile fashion. All elements of maximal barrier technique were utilized. Under ultrasound guidance, access into the right lower quadrant was obtained, via the paracentesis catheter system and direct ultrasound guidanc e. Approximately 1.9 liters of straw-colored fluid was removed. The patient was stable throughout the pr ocedure and remained stable upon discharge from Department of Radiology. IMPRESSION: Successful paracentesis under ultrasound guidance.
== END 2021-09-03 17:25 | disposition home or self-care (01) | DRG 755 ==
LOC: EC 09:02 → 5NMEDONC 12:22
PROVIDERS: ADMIT Family Medicine; ATTEND Family Medicine
PROC: 0W9G3ZZ Drainage of Peritoneal Cavity, Percutaneous Approach (ICD-10-PCS; principal; 2021-09-03)
DX: C56.9 Malignant neoplasm of unspecified ovary (principal); C48.2 Malignant neoplasm of peritoneum, unspecified; R18.0 Malignant ascites; E44.1 Mild protein-calorie malnutrition; J90 Pleural effusion, not elsewhere classified; N13.30 Unspecified hydronephrosis; E11.9 Type 2 diabetes mellitus without complications; H91.90 Unspecified hearing loss, unspecified ear; K57.30 Diverticulosis of large intestine without perforation or abscess without bleeding; M54.50 Low back pain, unspecified; M19.90 Unspecified osteoarthritis, unspecified site; Z79.899 Other long term (current) drug therapy; Z86.711 Personal history of pulmonary embolism; Z92.21 Personal history of antineoplastic chemotherapy; Z87.440 Personal history of urinary (tract) infections; Z96.0 Presence of urogenital implants; Z60.2 Problems related to living alone; Z90.49 Acquired absence of other specified parts of digestive tract; Z87.19 Personal history of other diseases of the digestive system; Z86.2 Personal history of diseases of the blood and blood-forming organs and certain disorders involving the immune mechanism; Z87.81 Personal history of (healed) traumatic fracture; Z88.0 Allergy status to penicillin; Z88.8 Allergy status to other drugs, medicaments and biological substances; Z91.041 Radiographic dye allergy status; Z91.011 Allergy to milk products; Z82.49 Family history of ischemic heart disease and other diseases of the circulatory system; Z82.3 Family history of stroke; Z80.0 Family history of malignant neoplasm of digestive organs; Z80.7 Family history of other malignant neoplasms of lymphoid, hematopoietic and related tissues
CPT/HCPCS: 36415; 49083; 71045; 71260; 74177; 80053; 81001; 82042; 83605; 83880; 85025; 85610; 86304; 87070; 87075; 87205; 88108; 88305; 88341; 88342; 93005; 96374; 96375; 99285

== ENCOUNTER 2021-09-10 11:55 | Observation (INO) | payer MEDICARE ==
[2021-09-10] MEDS ORDERED: HYDROmorphone 0.5 MG/0.5 ML SYRINGE IVP STA (13:11)
--- NOTE | 2021-09-10 13:11 | ED ---
Abdominal Pain HPI - General Chief Complaint: Abdominal Pain Stated Complaint: ABD Pain Time Seen by Provider: 09/10/21 12:20 Source: patient, family, RN notes reviewed, old records reviewed Mode of arrival: ambulatory Limitations: no limitations - History of Present Illness Initial Comments: 70-year-old female history of stage IV ovarian cancer and status post recent paracentesis who presents with complaints of right lower quadrant abdominal pain which started yesterday. No overt fevers chills sweats nausea vomiting she has had some watery type diarrhea she states is yellow and green in color. She has had a hysterectomy in the past the bowel resection also cholecystectomy. She does complain of distention that is worse than before the last paracentesis. She denies a week from the last site. MD Complaint: abdominal pain, other - Related Data Home Medications Medication Instructions Recorded Confirmed Acetaminophen Tab [Tylenol] 1,000 mg PO Q6HR PRN 02/17/21 09/10/21 Ascorbic Acid [Vitamin C] 500 mg PO DAILY 02/17/21 09/10/21 Biotin 5 mg PO DAILY 02/17/21 09/10/21 Cholecalciferol [Vitamin D3 (25 25 mcg PO DAILY 02/17/21 09/10/21 Mcg = 1000 Iu)] Cyanocobalamin (Vitamin B-12) 1,000 mcg PO DAILY 02/17/21 09/10/21 [Vitamin B-12] Lutein 10 mg PO DAILY 02/17/21 09/10/21 Multivitamins, Thera [Multivitamin 1 tab PO DAILY 02/17/21 09/10/21 (formulary)] Psyllium Husk [Metamucil] 0.4 gm PO DAILY 02/17/21 09/10/21 Turmeric Root Extract [Turmeric] 500 mg PO DAILY 02/17/21 09/10/21 Zinc 50 mg PO DAILY 02/17/21 09/10/21 Dicyclomine [Bentyl] 10 mg PO TID PRN 09/02/21 09/10/21 Prochlorperazine [Compazine] 10 mg PO Q6H PRN 09/02/21 09/10/21 traMADol HCl [Ultram] 50 mg PO Q6HR PRN 09/02/21 09/10/21 Allergies Allergy/AdvReac Type Severity Reaction Status Date / Time aspirin Allergy Rash/Hives Verified 09/10/21 13:28 Iodinated Contrast Media Allergy Rash/Hives Verified 09/10/21 13:28 [Iodinated Contrast- Oral and IV Dye] lactose Allergy Unknown Verified 09/10/21 13:28 Penicillins Allergy Rash/Hives Verified 09/10/21 13:28 melatonin AdvReac Intermediate Unknown Verified 09/10/21 13:28 Review of Systems ROS Statement: Those systems with pertinent positive or pertinent negative responses have been documented in the HPI. ROS Other: All systems not noted in ROS Statement are negative. Past Medical History Past Medical History: Cancer, Diabetes Mellitus, GI Bleed, Osteoarthritis (OA), Pulmonary Embolus (PE) Additional Past Medical History / Comment(s): 2016 Bilateral ovarian cancer diagnosed with mets/surgery and chemotherapy with last chemo taken about 2 years ago, bicytopenia, lower GI bleed, anemia, 11/2016 bilateral pulmonary embolisms, 12/2016 L sided pleural effusion with 2 thoracentesis, diet controlled diabetes, diverticulosis, mild protein calorie malnutrition, 08/14/21 L ureteral blockage d/t enlarged lymph nodes/hematuria and stent was placed/pt has R lower back pain since, UTIs History of Any Multi-Drug Resistant Organisms: None Reported Past Surgical History: Bowel Resection, Hysterectomy Additional Past Surgical History / Comment(s): Total hysterectomy/perineal and omenectomy done by Dr Rob at [facility], 2 left thoracentesis, power port rt upper c hest, 11/10/17 egd w/bx, colonoscopy, 08/14/21 R ureteral stent. Past Anesthesia/Blood Transfusion Reactions: No Reported Reaction Additional Past Anesthesia/Blood Transfusion Reaction / Comment(s): Pt has received blood without reaction. Past Psychological History: No Psychological Hx Reported Smoking Status: Never smoker Past Alcohol Use History: None Reported Past Drug Use History: None Reported - Past Family History Mother Family Medical History: Congestive Heart Failure (CHF), CVA/TIA, Hypertension Father Family Medical History: CVA/TIA Brother(s) Family Medical History: Cancer Additional Family Medical History / Comment(s): colon cancer, lymphoma General Exam - General Exam Comments Initial Comments: This is a well-developed frail-appearing female who is awake alert oriented 4 Limitations: no limitations General appearance: alert, in no apparent distress Head exam: Present: atraumatic, normocephalic, normal inspection Eye exam: Present: normal appearance, PERRL, EOMI. Absent: scleral icterus, conjunctival injection, periorbital swelling ENT exam: Present: mucous membranes dry Neck exam: Present: normal inspection. Absent: tenderness, meningismus, lymphadenopathy Respiratory exam: Present: normal lung sounds bilaterally. Absent: respiratory distress, wheezes, rales, rhonchi, stridor Cardiovascular Exam: Present: normal rhythm, tachycardia, normal heart sounds. Absent: systolic murmur, diastolic murmur, rubs, gallop, clicks GI/Abdominal exam: Present: soft, distended, tenderness (Right lower quadrant tenderness palpation no guarding rebound. Examination consistent with ascites), normal bowel sounds. Absent: guarding, rebound, rigid Extremities exam: Present: full ROM, normal capillary refill, pedal edema. Absent: tenderness, joint swelling, calf tenderness Back exam: Present: normal inspection Neurological exam: Present: alert, oriented X3, CN II-XII intact Psychiatric exam: Present: normal affect, normal mood Skin exam: Present: warm, dry, intact, normal color. Absent: rash Course Vital Signs 09/10/21 09/10/21 09/10/21 12:02 15:15 16:00 Temperature 98.1 F 98.3 F Pulse Rate 102 H 98 Respiratory 18 20 16 Rate Blood Pressure 173/109 178/105 185/103 O2 Sat by Pulse 96 98 Oximetry Medical Decision Making - Medical Decision Making Did reevaluate patient several occasions she still persists with nausea. She will be admitted I did discuss case the patient family and Dr. Beavers. Interventional radiology will be consulted in the a.m. for paracentesis - Lab Data Result diagrams: 09/10/21 13:25 09/10/21 13:25 Lab Results 09/10/21 09/10/21 09/10/21 Range/Units 13:25 13:25 13:25 WBC 8.7 (3.8-10.6) k/uL RBC 4.31 (3.80-5.40) m/uL Hgb 13.4 (11.4-16.0) gm/dL Hct 41.7 (34.0-46.0) % MCV 96.7 (80.0-100.0) fL MCH 31.0 (25.0-35.0) pg MCHC 32.1 (31.0-37.0) g/dL RDW 12.3 (11.5-15.5) % Plt Count 451 H (150-450) k/uL MPV 6.6 Neutrophils % 75 % Lymphocytes % 16 % Monocytes % 6 % Eosinophils % 1 % Basophils % 1 % Neutrophils # 6.5 (1.3-7.7) k/uL Lymphocytes # 1.3 (1.0-4.8) k/uL Monocytes # 0.6 (0-1.0) k/uL Eosinophils # 0.1 (0-0.7) k/uL Basophils # 0.0 (0-0.2) k/uL PT 10.2 (9.0-12.0) sec INR 0.9 (<1.2) APTT 22.2 (22.0-30.0) sec Sodium 136 L (137-145) mmol/L Potassium 4.7 (3.5-5.1) mmol/L Chloride 107 (98-107) mmol/L Carbon Dioxide 21 L (22-30) mmol/L Anion Gap 8 mmol/L BUN 9 (7-17) mg/dL Creatinine 0.83 (0.52-1.04) mg/dL Est GFR (CKD-EPI)AfAm 82 (>60 ml/min/1.73 sqM) Est GFR (CKD-EPI)NonAf 71 (>60 ml/min/1.73 sqM) Glucose 98 (74-99) mg/dL Plasma Lactic Acid Maxime (0.7-2.0) mmol/L Calcium 9.0 (8.4-10.2) mg/dL Total Bilirubin 0.9 (0.2-1.3) mg/dL AST 43 H (14-36) U/L ALT 28 (4-34) U/L Alkaline Phosphatase 326 H (38-126) U/L Creatine Kinase 44 (30-135) U/L Total Protein 6.7 (6.3-8.2) g/dL Albumin 3.5 (3.5-5.0) g/dL Amylase 113 H (30-110) U/L Lipase 533 H (23-300) U/L Urine Color Urine Appearance (Clear) Urine pH (5.0-8.0) Ur Specific [place] (1.001-1.035) Urine Protein (Negative) Urine Glucose (UA) (Negative) Urine Ketones (Negative) Urine Blood (Negative) Urine Nitrite (Negative) Urine Bilirubin (Negative) Urine Urobilinogen (<2.0) mg/dL Ur Leukocyte Esterase (Negative) 09/10/21 09/10/21 Range/Units 13:25 14:07 WBC (3.8-10.6) k/uL RBC (3.80-5.40) m/uL Hgb (11.4-16.0) gm/dL Hct (34.0-46.0) % MCV (80.0-100.0) fL MCH (25.0-35.0) pg MCHC (31.0-37.0) g/dL RDW (11.5-15.5) % Plt Count (150-450) k/uL MPV Neutrophils % % Lymphocytes % % Monocytes % % Eosinophils % % Basophils % % Neutrophils # (1.3-7.7) k/uL Lymphocytes # (1.0-4.8) k/uL Monocytes # (0-1.0) k/uL Eosinophils # (0-0.7) k/uL Basophils # (0-0.2) k/uL PT (9.0-12.0) sec INR (<1.2) APTT (22.0-30.0) sec Sodium (137-145) mmol/L Potassium (3.5-5.1) mmol/L Chloride (98-107) mmol/L Carbon Dioxide (22-30) mmol/L Anion Gap mmol/L BUN (7-17) mg/dL Creatinine (0.52-1.04) mg/dL Est GFR (CKD-EPI)AfAm (>60 ml/min/1.73 sqM) Est GFR (CKD-EPI)NonAf (>60 ml/min/1.73 sqM) Glucose (74-99) mg/dL Plasma Lactic Acid Maxime 1.0 (0.7-2.0) mmol/L Calcium (8.4-10.2) mg/dL Total Bilirubin (0.2-1.3) mg/dL AST (14-36) U/L ALT (4-34) U/L Alkaline Phosphatase (38-126) U/L Creatine Kinase (30-135) U/L Total Protein (6.3-8.2) g/dL Albumin (3.5-5.0) g/dL Amylase (30-110) U/L Lipase (23-300) U/L Urine Color Light Yellow Urine Appearance Clear (Clear) Urine pH 6.0 (5.0-8.0) Ur Specific [place] 1.009 (1.001-1.035) Urine Protein Negative (Negative) Urine Glucose (UA) Negative (Negative) Urine Ketones 1+ H (Negative) Urine Blood Negative (Negative) Urine Nitrite Negative (Negative) Urine Bilirubin Negative (Negative) Urine Urobilinogen <2.0 (<2.0) mg/dL Ur Leukocyte Esterase Negative (Negative) - Radiology Data Radiology results: report reviewed (Imaging reviewed no acute findings ascites present small pleural effusions), image reviewed Disposition Clinical Impression: Ovarian cancer, Ascites, Intractable nausea and vomiting, Abdominal pain, Hypertension, Dehydration Disposition: ADMITTED IP TO THIS [facility] Condition: Fair Referrals: None,Stated [Primary Care Provider] - 1-2 days Decision Date: 09/10/21 Decision Time: 17:00
[2021-09-10 13:39] LABS: Basophils % (A) 1 %; Eosinophils # (A) 0.1 k/uL (0-0.7); Eosinophils % (A) 1 %; HCT 41.7 % (34.0-46.0); HGB 13.4 gm/dL (11.4-16.0); Lymphocytes # (A) 1.3 k/uL (1.0-4.8); Lymphocytes % (A) 16 %; MCHC 32.1 g/dL (31.0-37.0); MCV 96.7 fL (80.0-100.0); Mean Platelet Volume 6.6; Monocytes # (A) 0.6 k/uL (0-1.0); Monocytes % (A) 6 %; Neutrophils # (A) 6.5 k/uL (1.3-7.7); Neutrophils % (A) 75 %; Platelet Count 451 k/uL (150-450); RBC 4.31 m/uL (3.80-5.40); RDW 12.3 % (11.5-15.5); WBC 8.7 k/uL (3.8-10.6)
[2021-09-10 13:51] LABS: Total Bilirubin 0.9 mg/dL (0.2-1.3)
[2021-09-10 13:58] LABS: INR 0.9 (<1.2); Partial Thromboplastin Time 22.2 sec (22.0-30.0); Prothrombin Time 10.2 sec (9.0-12.0)
[2021-09-10 14:03] LABS: Potassium 4.7 mmol/L (3.5-5.1)
[2021-09-10 14:04] LABS: Albumin 3.5 g/dL (3.5-5.0); Total Protein 6.7 g/dL (6.3-8.2)
--- NOTE | 2021-09-10 14:19 | XR ---
EXAMINATION TYPE: XR KUB DATE OF EXAM: 09/10/2021 Comparison: 03/10/2020 and chest 09/02/2021 Clinical History: 70-year-old female with abdominal pain Findings: There appears to be a small left pleural effusion. Cholecystectomy clips. Right ureteral stent. The d istal end is somewhat inferior in position. The proximal and may be somewhat inferior in position as well. Nonobstructive bowel gas pattern. Right-sided pelvic phleboliths. No evidence for free intraper itoneal air. Small superoinferior Impression: 1. Residual small left pleural effusion with adjacent atelectasis and/or consolidation. Correlate for any known diagnosis. 2. Right-sided ureteral stent appears somewhat low in position. Consider pelvic floor relaxation. 3. Nonobstructive bowel gas pattern. No free air.
[2021-09-10 14:22] LABS: Appearance,Urine Clear (Clear); Bilirubin,Urine Negative (Negative); Blood,Urine Negative (Negative); Color,Urine Light Yellow; Glucose,Urine (UA) Negative (Negative); Ketones,Urine 1+ (Negative); Leukocyte Esterase,Urine Negative (Negative); Nitrite,Urine Negative (Negative); Protein,Urine Negative (Negative); Specific Gravity,Urine 1.009 (1.001-1.035); Urobilinogen,Urine <2.0 mg/dL (<2.0)
[2021-09-10] MEDS ORDERED: ONDANSETRON 4 MG/2 ML VIAL IVP STA (14:32)
--- NOTE | 2021-09-10 15:36 | CT ---
EXAMINATION TYPE: CT abdomen pelvis wo con DATE OF EXAM: 09/10/2021 COMPARISON: 09/02/2021 INDICATION: Developing, acute, nonlocalized pain for 1 week DLP: 383.9 mGycm, Automated exposure control for dose reduction was used. CONTRAST: 0 mL of Isovue 300. Study performed without Oral Contrast TECHNIQUE: Axial images were obtained from above the diaphragm to the pubic rami in the axial plane a t 5 mm thick sections. Reconstructed images are reviewed on the computer in the coronal plane. FINDINGS: Limited CT sections are obtained the lung bases. Small bilateral pleural effusions are present great er on the left. Hiatal hernia is present.. CT ABDOMEN: Ascites is present. Liver: Normal Spleen: Normal Pancreas: Normal Adrenal glands: The adrenal glands are normal. Gallbladder: Surgically absent Kidneys: No masses are evident. No hydronephrosis is present. Peripelvic cysts are present on the l eft. No hydronephrosis. Hydronephrosis is not evident on the right. There is a ureteral stent cathete r present. No renal stones are identified. Aorta: Vascular calcification is within the aorta. Inferior vena cava: Normal. CT PELVIS: There may be mild residual prominence of the small bowel loop. The prominent thickened small bowel fo lds are not evident on the current exam. Air and fecal debris is within the residual colon. There is been prior right hemicolectomy. The anastomosis in the mid transverse colon is widely patent. This st udy is lateral contrast limiting bowel evaluation. Appendix: Normal as visualized. Urinary bladder: Normal. Genitourinary structures: Uterus and ovaries are not identified. Osseous structures: No suspicious lytic or sclerotic lesions. IMPRESSIONS: 1. Stable ascites. 2. Small hiatal hernia. 3. Bilateral pleural effusions
[2021-09-10] MEDS ORDERED: SODIUM CHLORIDE 0.9% 500 ML 500 ML IV STA (15:58)
[2021-09-10] MEDS ORDERED: PROCHLORPERAZINE INJ 10 MG/2 ML VIAL IVP STA (15:58)
[2021-09-10] MEDS ORDERED: SODIUM CHLORIDE 0.9% 1,000 ML IV STA (15:58)
[2021-09-10] MEDS ORDERED: hydrALAZINE HCL 20 MG/ML 1 ML VIAL IVP STA (15:59)
[2021-09-10] MEDS ORDERED: NALOXONE 0.4 MG/ML 1 ML VIAL IV PRN (17:28)
[2021-09-10] MEDS ORDERED: HYDROmorphone 0.5 MG/0.5 ML SYRINGE IVP PRN (17:28)
[2021-09-11] MEDS: ONDANSETRON 4 MG/2 ML VIAL IVP PRN ×2 (03:31→11:27)
[2021-09-11] MEDS: SODIUM CHLORIDE 0.9% 1,000 ML IV SCH ×5 (03:31→23:36)
--- NOTE | 2021-09-11 14:32 | P.CONS ---
History of Present Illness - Reason for Consult Consult date: 09/11/21 Ovarian - History of Present Illness Mrs. Leija is a pleasant white female, initially seen in consult at [facility] on 11/16/16. She had been admitted on 11/14/16 with complaints of abdominal bloating that started about a week to 10 days prior to that admission. It had been progressive since then causing increasing abdominal discomfort. CAT scan of the abdomen and pelvis revealed significant ascites as well as a left pleural effusion. Outside ultrasound showed multiple cysts involving both ovaries the largest 1.6 cm on the right and 2.6 cm on the left. She had a large volume paracentesis on 11/15/16. There was significant improvement in her symptoms. 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 CT scan of the chest showed no evidence of metastasis with the basilar opacities consistent with small pleural effusions. Incidentally bilateral pulmonary emboli were noted. These were confirmed on CT angiogram of the chest. The patient was discharged on eliquis and referred immediately to gynecologic oncology at [facility]. she was seen by , and preoperative chemotherapy was recommended. She had a port placed at [facility]. She was seen for her first office visit on 12/02/16. She then started Carbo with DD Taxol, She was admitted to [facility] on 12/22/16 with a large left pleural effusion. She had thoracentesis of 2.4 L of bloody fluid. She had relief of symptoms and was then discharged. 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 She had a repeat drainage in late 12/31 of about 700 cc. She was admitted to [facility] with diarrhea, n/v/dehydration on 01/28/17. C diff and influenza were negative. She improved rapidly with Lomotil and hydration and was discahrged on 01/30/17 C 3 D15 was held. The pt had a break from treatment and then resumed it with C 4 starting on 03/03/17, with a 20% dose reduction. She is now s/p 6 cycles, completing those on 04/28/17 CT scans showed persistent cystic lesions in the b/l pelvis, but no residual ascites or pleural effusion. She was referred back to [facility] and had resection on 06/18/17, with a good partial response noted. She had resection of all gross disease. She recovered well post surgery, and was then started on carbo /Gemzar per [facility] recommendations on 07/25/17. She is s/p 2 cycles. She was admitted with febrile neutropenia, after C 1. Neulasta was added with C 2. She completed 3 cycles in 10/01. She was recommended to start Avastin by [facility]. However, prior to starting, she was admitted to [facility] with major GI bleeding. GI w/u was negative. She eventually stabilised with transfusion and IV iron. Eliquis was stopped as she had been on treatment anyway for almost 11 mths. She was started on Avastin on 12/16/17 as she had had no recurrence of bleeding and Hgb had been stable. She developed BRBPR as well as black stools in late 01/31. She was admitted on 02/10/18. her Hgb did drop, but stabilised and she did not need a transfusion. Based on the above , it was decided to stop Avastin. She had a [employer] visit in 03/04 c/ aching in her LE. She also had aching in her shoulders and UE, but this was less prominent. This has improved with Tylenol, and subsequently, OTC turmeric and pepper. CPK and aldolase were negative in 04/04, with sed rate non specific at 31 CT scans in 11/02 were again negative. As the patient is complaining of increased nausea, she had a PET scan done, on 12/01/18, which was also negative. CA-125 remained in the normal range. She was c/o persistent, intermittent nausea ongoing since early 11/02. THis occurred with or without food, but eating did make it worse. She was referred for an EGD whe seen in 12/02, but did no go, as her symptoms resolved spontaneously. She feels it was due to stress. She was c/o dizziness , with Ct brain in 01/02 negative. This, too, has resolved. telemedicine audiovisual 07/02/19: The patient denies any fever/chills/nausea/vomiting. She complains of episodes of "chills" that can be generalized or localize and occur very intermittently. Her BMs have been normal. Her fatigue is mild and appetite overall fair. she denied any urinary or bowel complaints. Her ROS is otherwise as per HPI and negative out of 10. as above. The patient was seen earlier than her scheduled on 09/19/19 at her own request. Since about 08/03 she had been having problems with persistent pain in the lower back, in a somewhat bandlike fashion. This appears to be aggravated with certain movements. The patient did assist with her PCP and was found to have a UA positive for blood on urinalysis. She was treated with antibiotics, though cultures according to her were negative. She had also had an abdominal ultrasound that was negative other than showing known small left parapelvic cysts. the patient proceeded to CT of the abdomen and pelvis ( 10/03) as well as labs, which showed tumor markers in the normal range at 16.8, and no evidence of cancer recurrence. she was admitted to the hospital in 04/06 for cholecystectomy. This was found on her restaging CT scans done in 03/06, which otherwise showed no evidence of cancer recurrence. she states that she had a hospital admission apparently in late 12/04 for bleeding in the urine and lower abdominal pain. CAT scan at that time apparently revealed some enteritis or colitis which she was told was viral. States that her symptoms resolved. However she has not had any follow-up. She was referred to Surgery at her visit in 02/[address] scans showing possi ble bile leak. She had a repeat Ct scan with no abnormality found. She was referred to Urology for hematuria. However she had an ER visit prior to that in early 2021, with imaging showing multiple, tiny kidney stones as the cause CT scan in late 07/05 showed a small left pleural effusion, borderline enlarged tracheobronchial node, as well as possible mesenteric infiltration with adenopathy in the right lower quadrant causing hydronephrosis. Her CA-125 was found to be elevated to 342. PET scan on 07/24/21 showed nonspecific uptake in the left axillary node at 1.4 there was mild uptake with SUV 2.7 in the right upper quadrant, in the region of some lymph nodes that were not enlarged an asa cified. There was uptake present within the pelvis the cul-de-sac region with an SUV of 9.6. She denied any fevers/chills/nausea/vomiting. she reports marked improvement in her symptoms of intermittent abdominal pain and bloating, since the cholecystectomy. She still has some discomfort in the right upper quadrant , and rt flank. discomfort in the right flank radiating to the right groin is more prominent. She continues to have persistent mild fatigue. She denied any change in bowel habits, blood in the stool or any vaginal discharge. Review of systems otherwise as per HPI and negative out of 10. See. in office this week by Dr. Springer, needs a paracentesis but unable to get an outpatient paracentesis for over a week therefore represents to hospital She then was seen during admission 09/02/21 She is now admitted and pancreatic enzymes elevated. Review of Systems All systems: negative Constitutional: Reports as per HPI Past Medical History Past Medical History: Cancer, Diabetes Mellitus, GI Bleed, Osteoarthritis (OA), Pulmonary Embolus (PE) Additional Past Medical History / Comment(s): 2016 Bilateral ovarian cancer diagnosed with mets/surgery and chemotherapy with last chemo taken about 2 years ago, bicytopenia, lower GI bleed, anemia, 11/2016 bilateral pulmonary embolisms, 12/2016 L sided pleural effusion with 2 thoracentesis, diet controlled diabetes, diverticulosis, mild protein calorie malnutrition, 08/14/21 L ureteral blockage d/t enlarged lymph nodes/hematuria and stent was placed/pt has R lower back pain since, UTIs History of Any Multi-Drug Resistant Organisms: None Reported Past Surgical History: Bowel Resection, Hysterectomy Additional Past Surgical History / Comment(s): Total hysterectomy/perineal and omenectomy done by Dr Rob at [facility], 2 left thoracentesis, power port rt upper chest, 11/10/17 egd w/bx, colonoscopy, 08/14/21 R ureteral stent. Past Anesthesia/Blood Transfusion Reactions: No Reported Reaction Additional Past Anesthesia/Blood Transfusion Reaction / Comm: Pt has received blood without reaction. Past Psychological History: No Psychological Hx Reported Additional Psychological History / Comment(s): Pt is independant. lives alone in 2 story home that has 2 porch steps. No outside services recieved. No medical equipment. Smoking Status: Never smoker Past Alcohol Use History: None Reported Past Drug Use History: None Reported - Past Family History Mother Family Medical History: Congestive Heart Failure (CHF), CVA/TIA, Hypertension Father Family Medical History: CVA/TIA Brother(s) Family Medical History: Cancer Additional Family Medical History / Comment(s): colon cancer, lymphoma Medications and Allergies Home Medications Medication Instructions Recorded Confirmed Type Acetaminophen Tab [Tylenol] 1,000 mg PO Q6HR PRN 02/17/21 09/10/21 History Ascorbic Acid [Vitamin C] 500 mg PO DAILY 02/17/21 09/10/21 History Biotin 5 mg PO DAILY 02/17/21 09/10/21 History Cholecalciferol [Vitamin D3 (25 25 mcg PO DAILY 02/17/21 09/10/21 History Mcg = 1000 Iu)] Cyanocobalamin (Vitamin B-12) 1,000 mcg PO DAILY 02/17/21 09/10/21 History [Vitamin B-12] Lutein 10 mg PO DAILY 02/17/21 09/10/21 History Multivitamins, Thera [Multivitamin 1 tab PO DAILY 02/17/21 09/10/21 History (formulary)] Psyllium Husk [Metamucil] 0.4 gm PO DAILY 02/17/21 09/10/21 History Turmeric Root Extract [Turmeric] 500 mg PO DAILY 02/17/21 09/10/21 History Zinc 50 mg PO DAILY 02/17/21 09/10/21 History Dicyclomine [Bentyl] 10 mg PO TID PRN 09/02/21 09/10/21 History Prochlorperazine [Compazine] 10 mg PO Q6H PRN 09/02/21 09/10/21 History traMADol HCl [Ultram] 50 mg PO Q6HR PRN 09/02/21 09/10/21 History Allergies Allergy/AdvReac Type Severity Reaction Status Date / Time aspirin Allergy Rash/Hives Verified 09/10/21 13:28 Iodinated Contrast Media Allergy Rash/Hives Verified 09/10/21 13:28 [Iodinated Contrast- Oral and IV Dye] lactose Allergy Unknown Verified 09/10/21 13:28 Penicillins Allergy Rash/Hives Verified 09/10/21 13:28 melatonin AdvReac Intermediate Unknown Verified 09/10/21 13:28 Physical Exam Vitals: Vital Signs Temp Pulse Pulse Resp BP BP Pulse Ox 09/11/21 13:39 98.3 F 79 17 130/70 96 09/11/21 13:00 98.1 F 79 17 131/76 96 09/11/21 08:36 97.6 F 82 19 137/79 95 09/11/21 05:00 98.2 F 86 16 138/81 93 L 09/10/21 20:00 98.1 F 90 16 146/80 94 L 09/10/21 17:29 92 16 128/74 95 09/10/21 16:00 98 16 185/103 98 09/10/21 15:15 98.3 F 20 178/105 Intake and Output 09/10/21 09/11/21 09/11/21 22:59 06:59 14:59 Intake Total 180 1440 Balance 180 1440 Intake: Intake, IV Titration 1200 Amount Sodium Chloride 0.9% 1, 1200 000 ml @ 130 mls/hr IV . Q7H42M [facility] Rx#:[id number] Oral 180 240 Other: Voiding Method Toilet # Voids 1 # Bowel Movements 0 Weight 55.338 kg Results CBC & Chem 7: 09/10/21 13:25 09/10/21 13:25 Labs: Microbiology - Last 24 Hours (Table) 09/11/21 07:13 Stool Culture - Preliminary Stool Assessment and Plan Plan: Assessment and Plan (1) Ascites Narrative/Plan: - Plan for Paracentesis today was unable to get appointment as outpatient within 10 days Current Visit: Yes Status: Acute Code(s): R18.8 - OTHER ASCITES SNOMED Code(s): 848221058 (2) Pleural effusion, bilateral Current Visit: Yes Status: Acute Code(s): J90 - PLEURAL EFFUSION, NOT EL SEWHERE CLASSIFIED SNOMED Code(s): 661453620 (3) Ovarian cancer Narrative/Plan: Set up to start treatment with next line is made In the interim Paracentesisi and supportive care Discussed with ER Current Visit: Yes Status: Chronic Priority: Medium Code(s): C56.9 - MALIGNANT NEOPLASM OF UNSPECIFIED OVARY SNOMED Code(s): 554424983 Plan: Dr. Tenorio: I have completed the full history and physical and developed the above impression and plan, agree with dictation dictated as a scribe
[2021-09-11] MEDS ORDERED: traMADol 50 MG TAB PO PRN (17:25)
[2021-09-11] MEDS ORDERED: DICYCLOMINE 10 MG CAP PO PRN (17:25)
--- NOTE | 2021-09-11 17:53 | P.HPIM ---
History of Present Illness H&P Date: 09/11/21 Chief Complaint: Right abdominal pain On rounding for Dr. Isaiah Diane This is a pleasant 70-year-old patient was followed with oncologist Dr. Springer for metastatic ovarian cancer and Dr. Isaiah Diane as PCP.. 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 Patient also had bilateral pulmonary embolism for which she was put on eliquis. She was sent down to [facility]. And was given chemotherapy. Also photosynthesis done. She underwent overrating resection in 2017 at an different hospital. And then she was given further chemotherapy. 2018 she was found to be in remission. seen in 2019. Seems to be no evidence of cancer recurrence. On 03/05/2019 when she did undergo restaging computed tomography scan of chest abdomen pelvis came back to be negative. Recently patient was referred to [facility] to see and patient had a PET scan and a staging computed tomography scan. Patient was told she has recurrence of the malignancy in the abdomen and a spot on the lung. Patient been having abdominal distention. She also had a stent placed in the kidney because of "compression. Patient has diarrhea after eating. Decreased appetite. On September 08 first patient underwent paracentesis with 1.9 L of straw-colored fluid removed. Patient now presents with right-sided abdominal pain. No fever no chills. Other things of been unchanged. Patient underwent or ultrasound paracentesis by interventional radiology did not find much of fluid. Family present at the bedside. Review of systems: GEN.: Tired, decreased appetite EYES: None HEENT: None NECK: None RESPIRATORY: As above CARDIOVASCULAR: None GASTROINTESTINAL: As above GENITOURINARY: None MUSCULOSKELETAL: None LYMPHATICS: None HEMATOLOGICAL: None PSYCHIATRY: Anxious NEUROLOGICAL: None Past medical history to include: Metastatic adenocarcinoma possibly ovarian versus peritoneal cavity, status post limited surgery and chemotherapy, diabetes, GI bleed, osteoarthritis, bilateral pulmonary embolism, large left-sided pleural effusion with thoracentesis, colonic diverticulosis Social history: No history of smoking or alcohol. Lives alone. Physical examination: VITAL SIGNS: 97.6, 82, 19, 137.79, 95% room air GENERAL: BMI 23.1, reclining in bed, awake a bit anxious, right-sided chest port EYES: Pupils equal. Conjunctiva normal. HEENT: External appearance of nose and ears normal, oral cavity grossly normal. NECK: JVD not raised; masses not palpable. HEART: First and second heart sounds are normal; no edema. LUNGS: Respiratory rate normal; decreased breath sound at bases ABDOMEN: Soft, distended, minimal right-sided abdominal tenderness, no guarding rigidity liver spleen not palpable, no masses palpable. PSYCH: Alert and oriented x3; mood and affect anxious. NEUROLOGICAL: Cranial nerves grossly intact; no facial asymmetry, power and sensation grossly intact. LYMPHATICS: No lymph nodes palpable in the axilla and neck INVESTIGATIONS, reviewed in the clinical context: White count 8.7 hemoglobin 13.4 sodium 136 potassium 4.7 creatinine 0.83 AST 43 amylase 113 lipase 533 CA 125 antigen: 832 CT abdomen and pelvis: Ascites, bilateral pleural effusion. Assessment: -Right-sided abdominal pain likely from Recurrence of metastatic adenocarcinoma with ovarian cancer Being followed by Dr. Springer -Secondary ascites secondary to ovarian cancer, symptomatic Patient had 1.9 L drained on September 03. - nausea secondary underlying malignancy Antiemetics -Mild protein calorie malnutrition from decreased oral intake ensure -Functional diarrhea. Metamucil We'll consult Dr. patton from urology. Unlikely the unilateral stent is contribution to the pain. Other medications to continue. Home medications to be renewed. Oncology consulted. Past Medical History Past Medical History: Cancer, Diabetes Mellitus, GI Bleed, Osteoarthritis (OA), Pulmonary Embolus (PE) Additional Past Medical History / Comment(s): 2016 Bilateral ovarian cancer diagnosed with mets/surgery and chemotherapy with last chemo taken about 2 years ago, bicytopenia, lower GI bleed, anemia, 11/2016 bilateral pulmonary embolisms, 12/2016 L sided pleural effusion with 2 thoracentesis, diet controlled diabetes, diverticulosis, mild protein calorie malnutrition, 08/14/21 L ureteral blockage d/t enlarged lymph nodes/hematuria and stent was placed/pt has R lower back pain since, UTIs History of Any Multi-Drug Resistant Organisms: None Reported Past Surgical History: Bowel Resection, Hysterectomy Additional Past Surgical History / Comment(s): Total hysterectomy/perineal and omenectomy done by Dr Rob at [facility], 2 left thoracentesis, power port rt upper chest, 11/10/17 egd w/bx, colonoscopy, 08/14/21 R ureteral stent. Past Anesthesia/Blood Transfusion Reactions: No Reported Reaction Additional Past Anesthesia/Blood Transfusion Reaction / Comment(s): Pt has received blood without reaction. Past Psychological History: No Psychological Hx Reported Additional Psychological History / Comment(s): Pt is independant. lives alone in 2 story home that has 2 porch steps. No outside services recieved. No medical equipment. Smoking Status: Never smoker Past Alcohol Use History: None Reported Past Drug Use History: None Reported - Past Family History Mother Family Medical History: Congestive Heart Failure (CHF), CVA/TIA, Hypertension Father Family Medical History: CVA/TIA Brother(s) Family Medical History: Cancer Additional Family Medical History / Comment(s): colon cancer, lymphoma Medications and Allergies Home Medications Medication Instructions Recorded Confirmed Type Acetaminophen Tab [Tylenol] 1,000 mg PO Q6HR PRN 02/17/21 09/10/21 History Ascorbic Acid [Vitamin C] 500 mg PO DAILY 02/17/21 09/10/21 History Biotin 5 mg PO DAILY 02/17/21 09/10/21 History Cholecalciferol [Vitamin D3 (25 25 mcg PO DAILY 02/17/21 09/10/21 History Mcg = 1000 Iu)] Cyanocobalamin (Vitamin B-12) 1,000 mcg PO DAILY 02/17/21 09/10/21 History [Vitamin B-12] Lutein 10 mg PO DAILY 02/17/21 09/10/21 History Multivitamins, Thera [Multivitamin 1 tab PO DAILY 02/17/21 09/10/21 History (formulary)] Psyllium Husk [Metamucil] 0.4 gm PO DAILY 02/17/21 09/10/21 History Turmeric Root Extract [Turmeric] 500 mg PO DAILY 02/17/21 09/10/21 History Zinc 50 mg PO DAILY 02/17/21 09/10/21 History Dicyclomine [Bentyl] 10 mg PO TID PRN 09/02/21 09/10/21 History Prochlorperazine [Compazine] 10 mg PO Q6H PRN 09/02/21 09/10/21 History traMADol HCl [Ultram] 50 mg PO Q6HR PRN 09/02/21 09/10/21 History Allergies Allergy/AdvReac Type Severity Reaction Status Date / Time aspirin Allergy Rash/Hives Verified 09/10/21 13:28 Iodinated Contrast Media Allergy Rash/Hives Verified 09/10/21 13:28 [Iodinated Contrast- Oral and IV Dye] lactose Allergy Unknown Verified 09/10/21 13:28 Penicillins Allergy Rash/Hives Verified 09/10/21 13:28 melatonin AdvReac Intermediate Unknown Verified 09/10/21 13:28 Physical Exam Vitals: Vital Signs Temp Pulse Pulse Resp BP BP Pulse Ox 09/11/21 13:39 98.3 F 79 17 130/70 96 09/11/21 13:00 98.1 F 79 17 131/76 96 09/11/21 08:36 97.6 F 82 19 137/79 95 09/11/21 05:00 98.2 F 86 16 138/81 93 L 09/10/21 20:00 98.1 F 90 16 146/80 94 L 09/10/21 17:29 92 16 128/74 95 09/10/21 16:00 98 16 185/103 98 09/10/21 15:15 98.3 F 20 178/105 Intake and Output 09/10/21 09/11/21 09/11/21 22:59 06:59 14:59 Intake Total 180 1440 Balance 180 1440 Intake: Intake, IV Titration 1200 Amount Sodium Chloride 0.9% 1, 1200 000 ml @ 130 mls/hr IV . Q7H42M [facility] Rx#:[id number] Oral 180 240 Other: Voiding Method Toilet # Voids 1 # Bowel Movements 0 Weight 55.338 kg Results CBC & Chem 7: 09/10/21 13:25 09/10/21 13:25 Labs: Abnormal Lab Results - Last 24 Hours (Table) 09/10/21 Range/Units 14:07 Urine Ketones 1+ H (Negative) Microbiology - Last 24 Hours (Table) 09/11/21 07:13 Stool Culture - Preliminary Stool Thrombosis Risk Factor Assmnt - Choose All That Apply Each Risk Factor Represents 2 Points: Malignancy Each Risk Factor Represents 3 Points: History of DVT/PE Other congenital or acquired thrombophilia - If yes, enter type in comment: No Thrombosis Risk Factor Assessment Total Risk Factor Score: 5 Thrombosis Risk Factor Assessment Level: High Risk
[2021-09-11] MEDS ORDERED: ZOLPIDEM 5 MG TAB PO SCH (21:00)
[2021-09-12] MEDS: SODIUM CHLORIDE 0.9% 1,000 ML IV SCH (08:27)
[2021-09-12] MEDS ORDERED: PSYLLIUM HUSK 100% 6 GM PACKET PO SCH (09:00)
[2021-09-12] MEDS ORDERED: MULTIVITAMINS, THERA 1 EACH TAB PO SCH (09:00)
[2021-09-12] MEDS ORDERED: ASCORBIC ACID 500 MG TAB PO SCH (09:00)
[2021-09-12] MEDS ORDERED: CHOLECALCIFEROL 25 MCG (1000 IU) TABLET PO SCH (09:00)
[2021-09-12] MEDS ORDERED: CYANOCOBALAMIN 500 MCG TAB PO SCH (09:00)
[2021-09-12 11:43] VITALS: BP 154/88; PULSE 83; RESP 15; TEMP 98.5
--- NOTE | 2021-09-12 12:37 | P.GSCN ---
History of Present Illness Consult date: 09/12/21 History of present illness: 70 yo female with stage 4 ovarian ca since 2017. She comes into the hospital with abdominal and right sided pain. She had a recent paracentesis at [facility]. SHe apparently has recurrence of her malignancy. SHe had a stent placed 08/14/21 in the right ureter by [facility]. HEr ct scan 09/10 shows the stent in good place with no new hydro. Her urine is clear. Her creatinine is 0.8 she has had mild right lower quadrant discomfort ever since. Whether this is related to her cancer or the stent is indeterminate. It does not seem to be related to uri nation. She has no flank pain. There is no blood in the urine. Review of Systems All systems: negative - Constitutional Denies fever, Denies weight loss - EENT Eyes: denies blurred vision Ears, nose, mouth and throat: Denies dysphagia - Cardiovascular Denies chest pain, Denies shortness of breath - Respiratory Denies cough, Denies 7 - Gastrointestinal Reports as per HPI - Genitourinary Genitourinary: Denies dysuria, Denies hematuria - Integumentary Denies rash, Denies unusual bruising - Neurological Denies headaches, Denies syncope - Hematologic/Lymphatic Denies easy bleeding, Denies easy bruising Past Medical History Past Medical History: Cancer, Diabetes Mellitus, GI Bleed, Osteoarthritis (OA), Pulmonary Embolus (PE) Additional Past Medical History / Comment(s): 2016 Bilateral ovarian cancer alexa gnosed with mets/surgery and chemotherapy with last chemo taken about 2 years ago, bicytopenia, lower GI bleed, anemia, 11/2016 bilateral pulmonary embolisms, 12/2016 L sided pleural effusion with 2 thoracentesis, diet controlled diabetes, diverticulosis, mild protein calorie malnutrition, 08/14/21 L ureteral blockage d/t enlarged lymph nodes/hematuria and stent was placed/pt has R lower back pain since, UTIs History of Any Multi-Drug Resistant Organisms: None Reported Past Surgical History: Bowel Resection, Hysterectomy Additional Past Surgical History / Comment(s): Total hysterectomy/perineal and omenectomy done by Dr Rob at [facility], 2 left thoracentesis, power port rt upper chest, 11/10/17 egd w/bx, colonoscopy, 08/14/21 R ureteral stent. Past Anesthesia/Blood Transfusion Reactions: No Reported Reaction Additional Past Anesthesia/Blood Transfusion Reaction / Comm: Pt has received blood without reaction. Past Psychological History: No Psychological Hx Reported Additional Psychological History / Comment(s): Pt is independant. lives alone in 2 story home that has 2 porch steps. No outside services recieved. No medical equipment. Smoking Status: Never smoker Past Alcohol Use History: None Reported Past Drug Use History: None Reported - Past Family History Mother Family Medical History: Congestive Heart Failure (CHF), CVA/TIA, Hypertension Father Family Medical History: CVA/TIA Brother(s) Family Medical History: Cancer Additional Family Medical History / Comment(s): colon cancer, lymphoma Medications and Allergies Home Medications Medication Instructions Recorded Confirmed Type Acetaminophen Tab [Tylenol] 1,000 mg PO Q6HR PRN 02/17/21 09/10/21 History Ascorbic Acid [Vitamin C] 500 mg PO DAILY 02/17/21 09/10/21 History Biotin 5 mg PO DAILY 02/17/21 09/10/21 History Cholecalciferol [Vitamin D3 (25 25 mcg PO DAILY 02/17/21 09/10/21 History Mcg = 1000 Iu)] Cyanocobalamin (Vitamin B-12) 1,000 mcg PO DAILY 02/17/21 09/10/21 History [Vitamin B-12] Lutein 10 mg PO DAILY 02/17/21 09/10/21 History Multivitamins, Thera [Multivitamin 1 tab PO DAILY 02/17/21 09/10/21 History (formulary)] Psyllium Husk [Metamucil] 0.4 gm PO DAILY 02/17/21 09/10/21 History Turmeric Root Extract [Turmeric] 500 mg PO DAILY 02/17/21 09/10/21 History Zinc 50 mg PO DAILY 02/17/21 09/10/21 History Dicyclomine [Bentyl] 10 mg PO TID PRN 09/02/21 09/10/21 History Prochlorperazine [Compazine] 10 mg PO Q6H PRN 09/02/21 09/10/21 History traMADol HCl [Ultram] 50 mg PO Q6HR PRN 09/02/21 09/10/21 History Allergies Allergy/AdvReac Type Severity Reaction Status Date / Time aspirin Allergy Rash/Hives Verified 09/10/21 13:28 Iodinated Contrast Media Allergy Rash/Hives Verified 09/10/21 13:28 [Iodinated Contrast- Oral and IV Dye] lactose Allergy Unknown Verified 09/10/21 13:28 Penicillins Allergy Rash/Hives Verified 09/10/21 13:28 melatonin AdvReac Intermediate Unknown Verified 09/10/21 13:28 Surgical - Exam Vital Signs Temp Pulse Resp BP Pulse Ox 98.1 F 102 H 18 173/109 96 09/10/21 12:02 09/10/21 12:02 09/10/21 12:02 09/10/21 12:02 09/10/21 12:02 - General well developed, well nourished, no distress - ENT no hearing loss - Neck trachea midline - Respiratory normal expansion, normal respiratory effort - Cardiovascular Rhythm: regular - Abdomen Abdomen: soft, non tender - Musculoskeletal normal posture - Psychiatric oriented to time, oriented to person, oriented to place, speech is normal, memory intact Results - Labs 09/10/21 13:25 09/10/21 13:25 Microbiology - Last 24 Hours (Table) 09/11/21 07:13 Stool Culture - Preliminary Stool - Imaging CT scan - abdomen: report reviewed, image reviewed CT scan - pelvis: report reviewed, image reviewed Assessment and Plan Assessment: Impression: Prostatic ovarian cancer. Right Hydronephrosis secondary to the ovary and cancer. Status post stent placement to relieve hydronephrosis. Right-sided abdominal pain of indeterminate etiology, possibly stent discomfort. Recommendations: Since the discomfort is mild, the kidney function is good. The hydronephrosis was relieved. And her urine is clear I do not recommend doing anything with the stent up. This has been discussed with the patient and her daughter they understand and concur.
--- NOTE | 2021-09-12 19:29 | P.DS ---
Providers Date of admission: 09/10/21 17:28 Expected date of discharge: 09/12/21 Attending physician: Isaiah Diane Consults: 09/10/21 17:28 Consult Physician Routine Consulting Provider: Isaiah Vick Consult Reason/Comments: Ascites, ultrasound guided paracentesis Do you want consulting provider notified?: Yes 09/11/21 12:22 Consult Physician Routine Consulting Provider: Shayne Springer Consult Reason/Comments: Ascites, ovarian ca Do you want consulting provider notified?: Yes 09/11/21 17:31 Consult Physician Routine Consulting Provider: Tommy Drew Consult Reason/Comments: flank pain-ureter stent Do you want consulting provider notified?: Yes Primary care physician: Stated None Hospital Course: Chief Complaint: Right abdominal pain On rounding for Dr. Isaiah Diane This is a pleasant 70-year-old patient was followed with oncologist Dr. Springer for metastatic ovarian cancer and Dr. Isaiah Diane as PCP.. 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 Patient also had bilateral pulmonary embolism for which she was put on eliquis. She was sent down to [facility]. And was given chemotherapy. Also photosynthesis done. She underwent overrating resection in 2018 at an different hospital. And then she was given further chemotherapy. 2018 she was found to be in remission. seen in 2019. Seems to be no evidence of cancer recurrence. On 03/05/2019 when she did undergo restaging computed tomography scan of chest abdomen pelvis came back to be negative. Recently patient was referred to [facility] to see and patient had a PET scan and a staging computed tomography scan. Patient was told she has recurrence of the malignancy in the abdomen and a spot on the lung. Patient been having abdominal distention. She also had a stent placed in the kidney because of "compression. Patient has diarrhea after eating. Decreased appetite. On September 08 first patient underwent paracentesis with 1.9 L of straw-colored fluid removed. Patient now presents with right-sided abdominal pain. No fever no chills. Other things of been unchanged. Patient underwent or ultrasound paracentesis by interventional radiology did not find much of fluid. Family present at the bedside. September 12: Pain control. Tolerating diet. Seen by Dr. Adhikari from urology. P atient's pain is tolerable. Alternative will be nephrostomy tube. Patient will follow-up with Dr. Springer from oncology. Discussed with patient daughter. Questions answered. Discussion and discharge planning more than 35 minutes Past medical history to include: Metastatic adenocarcinoma possibly ovarian versus peritoneal cavity, status post limited surgery and chemotherapy, diabetes, GI bleed, osteoarthritis, bilateral pulmonary embolism, large left-sided pleural effusion with thoracentesis, colonic diverticulosis Social history: No history of smoking or alcohol. Lives alone. Physical examination: VITAL SIGNS: 98.5, 83, 15, 154/88, 93% room air GENERAL: Comfortable, right-sided chest port EYES: Pupils equal. Conjunctiva normal. HEENT: External appearance of nose and ears normal, oral cavity grossly normal. NECK: JVD not raised; masses not palpable. HEART: First and second heart sounds are normal; no edema. LUNGS: Respiratory rate normal; decreased breath sound at bases ABDOMEN: Soft, distended, minimal right-sided abdominal tenderness, no guarding rigidity liver spleen not palpable, no masses palpable. PSYCH: Alert and oriented x3; mood and affect anxious. INVESTIGATIONS, reviewed in the clinical context: White count 8.7 hemoglobin 13.4 sodium 136 potassium 4.7 creatinine 0.83 AST 43 amylase 113 lipase 533 CA 125 antigen: 832 CT abdomen and pelvis: Ascites, bilateral pleural effusion. Assessment: -Right-sided abdominal pain likely from Recurrence of metastatic adenocarcinoma with ovarian cancer or from the right ureter stent If any further intervention. -Secondary ascites secondary to ovarian cancer, symptomatic Patient had 1.9 L drained on September 03. - nausea secondary underlying malignancy Antiemetics -Mild protein calorie malnutrition from decreased oral intake ensure -Functional diarrhea. Metamucil -Full code Disposition: Home Plan - Discharge Summary New Discharge Prescriptions: Continue Zinc 50 mg PO DAILY Lutein 10 mg PO DAILY Prochlorperazine [Compazine] 10 mg PO Q6H PRN PRN Reason: Nausea Turmeric Root Extract [Turmeric] 500 mg PO DAILY Multivitamins, Thera [Multivitamin (formulary)] 1 tab PO DAILY Cyanocobalamin (Vitamin B-12) [Vitamin B-12] 1,000 mcg PO DAILY Cholecalciferol [Vitamin D3 (25 Mcg = 1000 Iu)] 25 mcg PO DAILY Biotin 5 mg PO DAILY Ascorbic Acid [Vitamin C] 500 mg PO DAILY Acetaminophen Tab [Tylenol] 1,000 mg PO Q6HR PRN PRN Reason: Pain Or Fever > 100.5 Psyllium Husk [Metamucil] 0.4 gm PO DAILY Dicyclomine [Bentyl] 10 mg PO TID PRN PRN Reason: Diarrhea traMADol HCl [Ultram] 50 mg PO Q6HR PRN PRN Reason: Pain Discharge Medication List Acetaminophen Tab [Tylenol] 1,000 mg PO Q6HR PRN 02/17/21 [History] Ascorbic Acid [Vitamin C] 500 mg PO DAILY 02/17/21 [History] Biotin 5 mg PO DAILY 02/17/21 [History] Cholecalciferol [Vitamin D3 (25 Mcg = 1000 Iu)] 25 mcg PO DAILY 02/17/21 [ History] Cyanocobalamin (Vitamin B-12) [Vitamin B-12] 1,000 mcg PO DAILY 02/17/21 [History] Lutein 10 mg PO DAILY 02/17/21 [History] Multivitamins, Thera [Multivitamin (formulary)] 1 tab PO DAILY 02/17/21 [History] Psyllium Husk [Metamucil] 0.4 gm PO DAILY 02/17/21 [History] Turmeric Root Extract [Turmeric] 500 mg PO DAILY 02/17/21 [History] Zinc 50 mg PO DAILY 02/17/21 [History] Dicyclomine [Bentyl] 10 mg PO TID PRN 09/02/21 [History] Prochlorperazine [Compazine] 10 mg PO Q6H PRN 09/02/21 [History] traMADol HCl [Ultram] 50 mg PO Q6HR PRN 09/02/21 [History] Follow up Appointment(s)/Referral(s): Shayne Springer MD [STAFF PHYSICIAN] - 1 Week Isaiah Diane MD [STAFF PHYSICIAN] - 1 Week Patient Instructions/Handouts: Ascites (DC) Discharge Disposition: HOME SELF-CARE
== END 2021-09-12 13:40 | disposition home or self-care (01) ==
LOC: EC 11:55 → 5NMEDONC 17:28
PROVIDERS: ADMIT Family Medicine; ATTEND Family Medicine
DX: R18.8 Other ascites (principal); N83.202 Unspecified ovarian cyst, left side; N83.201 Unspecified ovarian cyst, right side; Z85.43 Personal history of malignant neoplasm of ovary; Z85.00 Personal history of malignant neoplasm of unspecified digestive organ; I10 Essential (primary) hypertension; R50.9 Fever, unspecified; D70.9 Neutropenia, unspecified; E11.9 Type 2 diabetes mellitus without complications; Z92.21 Personal history of antineoplastic chemotherapy; E44.1 Mild protein-calorie malnutrition; Z87.440 Personal history of urinary (tract) infections; Z87.898 Personal history of other specified conditions; Z90.49 Acquired absence of other specified parts of digestive tract; Z90.710 Acquired absence of both cervix and uterus; Z98.890 Other specified postprocedural states; Z82.3 Family history of stroke; Z82.49 Family history of ischemic heart disease and other diseases of the circulatory system; Z80.0 Family history of malignant neoplasm of digestive organs; Z80.7 Family history of other malignant neoplasms of lymphoid, hematopoietic and related tissues; Z79.899 Other long term (current) drug therapy; Z88.6 Allergy status to analgesic agent; Z91.041 Radiographic dye allergy status; Z91.011 Allergy to milk products
CPT/HCPCS: 96376; 96361 ×4; 96374; 96375; 99285; 36415; 80053; 82150; 82550; 83605; 83690; 85025; 85610; 85730; 81003; 87045; 87046; 74018; 74176; G0378 ×3; J0360; J0780; J2405 ×2; J1170

== ENCOUNTER → 2021-12-07 | Outpatient (CLI) | payer MEDICARE ==
--- NOTE | 2021-12-07 11:11 | XR ---
EXAMINATION TYPE: XR chest special 4+ views DATE OF EXAM: 12/07/2021 10:57 AM COMPARISON: Chest radiographs from 10/02/2021 TECHNIQUE: XR chest special 4+ views 4 views including frontal, lateral and bilateral decubitus. CLINICAL INDICATION:Female, 71 years old with history of R18.0 Malignant ascites J91.0 Malig Pleural effusi; FINDINGS: Lungs/Pleura: Blunting of the costophrenic angles right greater than left. There is no evidence of pl eural effusion, focal consolidation, or pneumothorax. Pulmonary vascularity: Unremarkable. Heart/mediastinum: Cardiomediastinal silhouette is unremarkable. Musculoskeletal: No acute osseous pathology. Right chest wall [id number] with distal tip projecting over the right atrium. IMPRESSION: Bilateral pleural effusions.
== END | disposition home or self-care (01) ==
LOC: RADXRMAIN 10:15
PROVIDERS: ATTEND Internal Medicine Hematology & Oncology
DX: J90 Pleural effusion, not elsewhere classified (principal)
CPT/HCPCS: 71048

== ENCOUNTER → 2021-12-28 | Outpatient (CLI) | payer MEDICARE ==
[2021-12-28 12:45] LABS: African American GFR (CKD) >90 (>60 ml/min/1.73 sqM); Blood Urea Nitrogen 9 mg/dL (7-17); Non-African American GFR(CKD) 82 (>60 ml/min/1.73 sqM)
--- NOTE | 2021-12-28 18:37 | CT ---
EXAMINATION TYPE: CT ChestAbdPelvis w con DATE OF EXAM: 12/28/2021 COMPARISON: 09/02/2021, 09/02/2021, 07/24/2021, 07/14/2021 HISTORY: 71-year-old female C56.3, ovarian CA follow up TECHNIQUE: Contiguous axial scanning of the chest, abdomen, and pelvis performed with IV Contrast, pa tient injected with 70 mL of Isovue 300. Delayed images through the kidneys were obtained. Coronal/sa gittal reconstructions performed. CT DLP: 453.6 mGycm Automated exposure control for dose reduction was used. FINDINGS: CHEST: Heart normal size with a trace 5 mm thick pericardial effusion, increased from prior. Aorta normal caliber with conventional arch vessel branching anatomy. Calcified and partially calcified left axillary and right paratracheal nodes remain nonenlarged. Gran ulomatous disease and previous treated disease are in the differential. Right anterior chest wall injection port with catheter tip at the cavoatrial junction. Ongoing [id number] bilateral pleural effusions. Some adjacent atelectasis present in the lower lungs. No consolidation. ABDOMEN: Small hiatal hernia. No focal liver lesion. Portal venous system is patent. Cholecystectomy clips. Un changed mild dilatation of the bile duct at 8 mm. No dilated small bowel. There is moderate upper abdominal ascites fluid. No free air. Moderate wall thickening of the duodenum and proximal jejunum. Correlate for a neuritis. Adrenal glands, spleen, and pancreas show no gross abnormality. There is a redemonstration of a right ureteral stent. However, the proximal end of the stent is now l ow in position just beyond the UPJ. There is mild urothelial thickening of the collecting system. Dec ompression of the collecting system and moderate to large amount of fluid in the renal sinus fat rozina on and tracking down the upper right ureter. Slight asymmetric delay in excretion of contrast from th e right kidney. Parapelvic cysts left kidney measuring up to 1.8 cm. Oral contrast progressed to the sigmoid colon. There is sigmoid diverticulosis. No pericolonic inflam matory change. Normal appendix. Unchanged numerous scattered nonenlarged mesenteric nodes measuring up to 9 mm. Some of these are sma ller compared to prior study. PELVIS: Moderate to large pelvic ascites. This may be slightly decreased in the interval. Mild generalized an asarca change. Right ureteral stent in the distal right ureter. Pelvic phlebolith. Pelvic floor laxit y. Borderline to mildly enlarged 1 cm right perimedian upper pelvic lymph node, axial image 94 shoul d be reassessed on follow-up. Not well seen previously due to the presence of ascites fluid. Otherwis e, no abnormal peritoneal nodularity seen. BONES: Moderate degenerative disc disease L5-S1. Mild degenerative disc disease mid to lower lumbar spine. N o osseous destructive process seen. IMPRESSION: 1. ONGOING SMALL TO MODERATE BILATERAL PLEURAL EFFUSIONS WITH SOME ADJACENT ATELECTASIS. NO DISEASE P ROGRESSION IDENTIFIED IN THE THORAX. 2. ONGOING MODERATE ABDOMINOPELVIC ASCITES. THIS MAY BE SLIGHTLY DECREASED IN THE INTERVAL. A FEW SCA TTERED BORDERLINE TO MILDLY ENLARGED MESENTERIC LYMPH NODES MEASURING UP TO 9 MM ARE EITHER UNCHANGED OR IMPROVED. A MILDLY ENLARGED 1 CM RIGHT PARAMEDIAN UPPER PELVIC LYMPH NODE SHOULD BE REASSESSED AT FOLLOW-UP. THIS AREA IS NOT WELL SEEN PREVIOUSLY DUE TO THE ASCITES FLUID. 3. CORRELATE FOR POSSIBLE DISTAL MIGRATION AND DYSFUNCTION OF THE RIGHT URETERAL STENT. THE PROXIMAL LOOPED END IS NOW IN THE UPPER URETER JUST BEYOND THE UPJ. THE RIGHT RENAL COLLECTING SYSTEM IS COLLA PSED WITH MODERATE TO LARGE FLUID IN THE RENAL SINUS REGION AND TRACKING DOWN THE UPPER URETER. CORRE LATE FOR POSSIBLE COLLECTING SYSTEM TEAR/INJURY AND SECONDARY URINE LEAK. 4. PROMINENT WALL THICKENING OF THE DUODENUM AND PROXIMAL JEJUNUM. CORRELATE FOR A MODERATE NONSPECIF IC ENTERITIS. 5. SIGMOID DIVERTICULOSIS, SMALL HIATAL HERNIA. TRACE PERICARDIAL EFFUSION.
== END | disposition home or self-care (01) ==
LOC: RADCTMAIN 12:03
PROVIDERS: ATTEND Internal Medicine Hematology & Oncology
DX: C56.3 Malignant neoplasm of bilateral ovaries (principal); J90 Pleural effusion, not elsewhere classified; J98.11 Atelectasis; R18.8 Other ascites; R59.0 Localized enlarged lymph nodes
CPT/HCPCS: 82565; 84520; 71260; 74177; 36415; Q9967

== ENCOUNTER 2022-01-28 11:44 | Inpatient (IN) | payer MEDICARE ==
--- NOTE | 2022-01-28 12:25 | ED ---
General Adult HPI - General Source: patient, family Mode of arrival: wheelchair Limitations: no limitations <Virginie Guzmán - Last Filed: 01/28/22 19:24> <Geoffrey Gloria - Last Filed: 01/31/22 01:50> - General Chief complaint: Weakness Stated complaint: weakness Time Seen by Provider: 01/28/22 12:22 - History of Present Illness Initial comments: Patient is a 71-year-old female presenting to the emergency room with her daughter with concerns regarding weakness ongoing over the last week with increased over the last 24 hours. She also reports stabbing abdominal pain in the umbilical region along with a few episodes of diarrhea today. She is currently undergoing chemotherapy for Metastatic ovarian cancer. She had her last chemotherapy infusion a week ago and discussion for discontinuation of treatment due to lack of tolerance was completed at her last few infusion and there were no future plans for further infusions. She denies diarrhea prior to today's events and denies any bladder mucus and diarrhea. She reports that her abdominal pain is constant without any significant change with palpitations. She reports that with her fatigue activity causes some shortness of breath but she denies any shortness of breath at rest. She denies any chest pain altered mental status, shortness of breath, changes in chronic lower extremity edema, or fevers. She feels cold often. In addition to her past medical history of metastatic ovarian cancer she has a past medical history significant for diabetes, GI bleed, anemia, pulmonary emboli, osteoarthritis recurrent pleural effusions and recurrent ascites requiring both fluoroscopy and paracentesis. (Virginie Guzmán) - Related Data Home Medications Medication Instructions Recorded Confirmed Dicyclomine [Bentyl] 10 mg PO TID PRN 09/02/21 01/28/22 Prochlorperazine [Compazine] 10 mg PO Q6H PRN 09/02/21 01/28/22 traMADol HCl [Ultram] 50 mg PO Q6HR PRN 09/02/21 01/28/22 Ondansetron [Zofran] 4 mg PO Q8HR PRN 09/30/21 01/28/22 Tolterodine [Detrol] 2 mg PO BID 11/20/21 01/28/22 OLANZapine [ZyPREXA] 2.5 mg PO DIRECTED 01/28/22 01/28/22 Allergies Allergy/AdvReac Type Severity Reaction Status Date / Time aspirin Allergy Rash/Hives Verified 01/28/22 14:10 Iodinated Contrast Media Allergy Rash/Hives Verified 01/28/22 14:10 [Iodinated Contrast- Oral and IV Dye] lactose Allergy Unknown Verified 01/28/22 14:10 Penicillins Allergy Rash/Hives Verified 01/28/22 14:10 melatonin AdvReac Intermediate See comment Verified 01/28/22 14:10 morphine AdvReac Vomiting Verified 01/28/22 17:02 Review of Systems ROS Other: All systems not noted in ROS Statement are negative. <Virginie Guzmán - Last Filed: 01/28/22 19:24> ROS Other: All systems not noted in ROS Statement are negative. <Geoffrey Gloria - Last Filed: 01/31/22 01:50> ROS Statement: Those systems with pertinent positive or pertinent negative responses have been documented in the HPI. Past Medical History Past Medical History: Cancer, Diabetes Mellitus, GI Bleed, Osteoarthritis (OA), Pulmonary Embolus (PE) Additional Past Medical History / Comment(s): 09/30/21 admitted inpatient for dyspnea and abdominal pain secondary to dehydration. 2017 Bilateral ovarian cancer diagnosed with mets/surgery and chemotherapy with last chemo taken about 2 years ago, bicytopenia, lower GI bleed, anemia, 11/2016 bilateral pulmonary embolisms, 12/2016 L sided pleural effusion with 2 thoracentesis, diet controlled diabetes, diverticulosis, mild protein calorie malnutrition, 08/14/21 L ureteral blockage d/t enlarged lymph nodes/hematuria and stent was placed/pt has R lower back pain since, UTIs History of Any Multi-Drug Resistant Organisms: None Reported Past Surgical History: Bowel Resection, Hysterectomy Additional Past Surgical History / Comment(s): Total hysterectomy/perineal and omenectomy done by Dr Rob at [facility] June 2017, 2 left thoracentesis- last one in 2016, power port right upper chest 2017, 11/10/17 egd w/bx, colonoscopy, 08/14/21 R ureteral stent. Past Anesthesia/Blood Transfusion Reactions: No Reported Reaction Additional Past Anesthesia/Blood Transfusion Reaction / Comment(s): Pt has received blood without reaction. Past Psychological History: No Psychological Hx Reported Smoking Status: Never smoker - Past Family History Mother Family Medical History: Congestive Heart Failure (CHF), CVA/TIA, Hypertension Father Family Medical History: CVA/TIA Brother(s) Family Medical History: Cancer Additional Family Medical History / Comment(s): colon cancer, lymphoma <Virginie Guzmán - Last Filed: 01/28/22 19:24> General Exam Limitations: no limitations General appearance: cachectic, other (Appears chronically ill) Head exam: Present: atraumatic, normocephalic, normal inspection Eye exam: Present: normal appearance, PERRL, EOMI. Absent: scleral icterus, conjunctival injection, periorbital swelling ENT exam: Present: normal exam, mucous membranes moist Neck exam: Present: normal inspection, full ROM Respiratory exam: Present: normal lung sounds bilaterally. Absent: respiratory distress, wheezes, rales, rhonchi, stridor Cardiovascular Exam: Present: regular rate, normal rhythm, normal heart sounds. Absent: systolic murmur, diastolic murmur, rubs, gallop, clicks GI/Abdominal exam: Present: soft, distended (Mildly), tenderness (Slight tenderness with deep palpation), normal bowel sounds, hernia. Absent: guarding, rebound, rigid Rectal exam: Present: deferred Extremities exam: Present: normal inspection, full ROM, pedal edema (Bilateral +2) Back exam: Present: normal inspection Neurological exam: Present: alert, oriented X3, CN II-XII intact Psychiatric exam: Present: flat affect Skin exam: Present: dry, intact, pallor. Absent: rash <Virginie Guzmán - Last Filed: 01/28/22 19:24> Course - Consultations Time: 17:55 Time: 18:54 <Virginie Guzmán - Last Filed: 01/28/22 19:24> Vital Signs 01/28/22 01/28/22 01/28/22 12:06 14:13 19:52 Temperature Pulse Rate 102 H 98 84 Pulse Rate [ Pulse Oximetery ] Respiratory 20 18 12 Rate Blood Pressure 112/81 135/87 162/94 Blood Pressure [Left Arm] O2 Sat by Pulse 97 95 94 L Oximetry 01/28/22 01/28/22 01/28/22 20:05 20:12 20:32 Temperature 97.0 F L 97.0 F L 97.1 F L Pulse Rate 100 86 92 Pulse Rate [ Pulse Oximetery ] Respiratory 12 12 12 Rate Blood Pressure 158/90 155/98 160/94 Blood Pressure [Left Arm] O2 Sat by Pulse 97 97 97 Oximetry 01/28/22 01/28/22 01/29/22 21:46 22:53 00:54 Temperature 96.9 F L Pulse Rate 80 86 90 Pulse Rate [ Pulse Oximetery ] Respiratory 12 12 12 Rate Blood Pressure 162/98 146/94 Blood Pressure [Left Arm] O2 Sat by Pulse 96 97 94 L Oximetry 01/29/22 01/29/22 01/29/22 02:10 04:52 06:35 Temperature Pulse Rate 87 87 100 Pulse Rate [ Pulse Oximetery ] Respiratory 14 12 12 Rate Blood Pressure 143/95 136/94 Blood Pressure [Left Arm] O2 Sat by Pulse 97 95 97 Oximetry 01/29/22 01/29/22 12:06 16:20 Temperature 97.9 F Pulse Rate 96 Pulse Rate [ 92 Pulse Oximetery ] Respiratory 18 18 Rate Blood Pressure 142/87 Blood Pressure 128/95 [Left Arm] O2 Sat by Pulse 96 97 Oximetry - Consultations Consultation #1: Urology paged awaiting callback previous page at [phone] return a call that both Dr. Cosby and Dr. mcgill are in the OR. Patient reports worsening of generalized weakness dizziness and feels overly poor. Appears with increased pallor and some increased listlessness since initial evaluation. Will proceed with transfusion of 1 unit of packed red blood cells. Not currently on any blood thinners for her PE DVT history verified with patient and daughter. No need for reversal. Continued with abdominal pain will give a dose of Dilaudid. CODE STATUS discussed with patient and family. Patient is a foci but at this time. Case discussed with Dr. Gloria. (Virginie Guzmán) Consultation #2: Spoke with Dr. Eason regarding patient presentation and CT results and current renal function. Advised medicine with like evaluation and clearance for ad mission prior to excepting for admission here at the hospital. Dr. Eason currently in the operating room will review patient's images and evaluate patient once available. (Virginie Guzmán) Medical Decision Making - Lab Data Result diagrams: 01/28/22 14:25 01/28/22 12:52 - Radiology Data Radiology results: report reviewed, image reviewed <Virginie Guzmán - Last Filed: 01/28/22 19:24> - Lab Data Result diagrams: 01/29/22 14:18 01/28/22 12:52 <Geoffrey Gloria - Last Filed: 01/31/22 01:50> - Medical Decision Making 71-year-old female presents to the emergency room with concerns regarding weakness ongoing for 1 week with changes in chronic abdominal to a stabbing pain in the umbilical region today with an episode of diarrhea. Keith ramírez on chemotherapy with last treatment 1 week ago. Will hold IV fluids at this time for weakness in the setting of lower extremity edema. Will start workup with chest x-ray, CBC, CMP, troponin, lactic acid and EKG. We'll defer imaging at this time. EKG demonstrates sinus rhythm. Chest x-ray image interpreted by me shows no infiltrate or evidence of volume overload. CBC reveals a hgb to change drop to 8.5 from 10.3 1 week ago given no obvious signs of bleeding with current abdominal pain concern for bleeding in the abdomen. Will obtain CT of the abdomen and pelvis. Will obtain type and cross, iron studies along with repeat CBC. Repeat hemoglobin shows continued anemia at 8.0. Iron studies pending. Troponin normal. CMP overall stable. Lactic acid normal. Computed tomography scan of the abdomen and pelvis imaged interpreted by me demonstrates moderate size fluid in the retroperitoneum concerning for bleed in the setting of low hemoglobin. Urethral stent also visualized. Radiologist rep ort reviewed. Findings discussed with patient and daughter. Patient will need admission for symptomatically anemia and further monitoring of computed tomography scan findings. Spoke with Dr. Coker from [facility] regarding patient findings and recommended admission for symptomatically anemia with retroperitoneal bleeding. Dr. Bunch advised needing of urology consult and evaluation for admission at this facility. Urology paged awaiting callback. Will continue to monitor patient closely. Dr. Cosby excepting of urology consult. Discussed case with Dr. Mccormick now on for [facility] who is accepting of admission. Will place urology on consult and place orders for serial CBCs to begin after transfusion. Plan of care discussed with patient and family at bedside. Questions and concerns answered. Will place admission orders. Case discussed with Dr. Gloria. (Virginie Guzmán) - Lab Data Lab Results 01/28/22 01/28/22 01/28/22 Range/Units 12:52 12:52 12:52 WBC 8.1 (3.8-10.6) k/uL RBC 2.42 L (3.80-5.40) m/uL Hgb 8.5 L D (11.4-16.0) gm/dL Hct 25.7 L (34.0-46.0) % MCV 106.2 H (80.0-100.0) fL MCH 35.4 H (25.0-35.0) pg MCHC 33.3 (31.0-37.0) g/dL RDW 17.5 H (11.5-15.5) % Plt Count 160 D (150-450) k/uL MPV 7.5 Neutrophils % 89 % Lymphocytes % 7 % Monocytes % 3 % Eosinophils % 0 % Basophils % 0 % Neutrophils # 7.2 (1.3-7.7) k/uL Lymphocytes # 0.6 L (1.0-4.8) k/uL Monocytes # 0.3 (0-1.0) k/uL Eosinophils # 0.0 (0-0.7) k/uL Basophils # 0.0 (0-0.2) k/uL Hypochromasia Slight Anisocytosis Slight Macrocytosis Marked A PT 10.5 (9.0-12.0) sec INR 1.0 (<1.2) APTT 21.8 L (22.0-30.0) sec Sodium 135 L (137-145) mmol/L Potassium 3.7 (3.5-5.1) mmol/L Chloride 104 (98-107) mmol/L Carbon Dioxide 23 (22-30) mmol/L Anion Gap 8 mmol/L BUN 11 (7-17) mg/dL Creatinine 0.55 (0.52-1.04) mg/dL Est GFR (CKD-EPI)AfAm >90 (>60 ml/min/1.73 sqM) Est GFR (CKD-EPI)NonAf >90 (>60 ml/min/1.73 sqM) Glucose 93 (74-99) mg/dL Plasma Lactic Acid Maxime (0.7-2.0) mmol/L Calcium 7.9 L (8.4-10.2) mg/dL Iron (50-170) ug/dL TIBC (228-460) ug/dL % Saturation (12.00-45.00) Transferrin (204.0-354.0) mg/dL Total Bilirubin 1.0 (0.2-1.3) mg/dL AST 32 (14-36) U/L ALT 17 (4-34) U/L Alkaline Phosphatase 215 H (38-126) U/L Troponin I (0.000-0.034) ng/mL NT-Pro-B Natriuret Pep pg/mL Total Protein 5.1 L (6.3-8.2) g/dL Albumin 2.4 L (3.5-5.0) g/dL Influenza Type A (PCR) (Not Detectd) Influenza Type B (PCR) (Not Detectd) RSV (PCR) (Not Detectd) SARS-CoV-2 (PCR) (Not Detectd) Blood Type Blood Type Recheck Bld Type Recheck Status Antibody Screen Crossmatch Spec Expiration Date 01/28/22 01/28/22 01/28/22 Range/Units 12:52 12:52 12:52 WBC (3.8-10.6) k/uL RBC (3.80-5.40) m/uL Hgb (11.4-16.0) gm/dL Hct (34.0-46.0) % MCV (80.0-100.0) fL MCH (25.0-35.0) pg MCHC (31.0-37.0) g/dL RDW (11.5-15.5) % Plt Count (150-450) k/uL MPV Neutrophils % % Lymphocytes % % Monocytes % % Eosinophils % % Basophils % % Neutrophils # (1.3-7.7) k/uL Lymphocytes # (1.0-4.8) k/uL Monocytes # (0-1.0) k/uL Eosinophils # (0-0.7) k/uL Basophils # (0-0.2) k/uL Hypochromasia Anisocytosis Macrocytosis PT (9.0-12.0) sec INR (<1.2) APTT (22.0-30.0) sec Sodium (137-145) mmol/L Potassium (3.5-5.1) mmol/L Chloride (98-107) mmol/L Carbon Dioxide (22-30) mmol/L Anion Gap mmol/L BUN (7-17) mg/dL Creatinine (0.52-1.04) mg/dL Est GFR (CKD-EPI)AfAm (>60 ml/min/1.73 sqM) Est GFR (CKD-EPI)NonAf (>60 ml/min/1.73 sqM) Glucose (74-99) mg/dL Plasma Lactic Acid Maxime 0.8 (0.7-2.0) mmol/L Calcium (8.4-10.2) mg/dL Iron (50-170) ug/dL TIBC (228-460) ug/dL % Saturation (12.00-45.00) Transferrin (204.0-354.0) mg/dL Total Bilirubin (0.2-1.3) mg/dL AST (14-36) U/L ALT (4-34) U/L Alkaline Phosphatase (38-126) U/L Troponin I <0.012 (0.000-0.034) ng/mL NT-Pro-B Natriuret Pep pg/mL Total Protein (6.3-8.2) g/dL Albumin (3.5-5.0) g/dL Influenza Type A (PCR) Not Detected (Not Detectd) Influenza Type B (PCR) Not Detected (Not Detectd) RSV (PCR) Not Detected (Not Detectd) SARS-CoV-2 (PCR) Not Detected (Not Detectd) Blood Type Blood Type Recheck Bld Type Recheck Status Antibody Screen Crossmatch Spec Expiration Date 01/28/22 01/28/22 01/28/22 Range/Units 12:52 14:25 15:02 WBC 8.7 (3.8-10.6) k/uL RBC 2.32 L (3.80-5.40) m/uL Hgb 8.0 L (11.4-16.0) gm/dL Hct 25.0 L (34.0-46.0) % MCV 107.7 H (80.0-100.0) fL MCH 34.6 (25.0-35.0) pg MCHC 32.2 (31.0-37.0) g/dL RDW 18.2 H (11.5-15.5) % Plt Count 155 (150-450) k/uL MPV 7.9 Neutrophils % % Lymphocytes % % Monocytes % % Eosinophils % % Basophils % % Neutrophils # (1.3-7.7) k/uL Lymphocytes # (1.0-4.8) k/uL Monocytes # (0-1.0) k/uL Eosinophils # (0-0.7) k/uL Basophils # (0-0.2) k/uL Hypochromasia Slight Anisocytosis Slight Macrocytosis Marked A PT (9.0-12.0) sec INR (<1.2) APTT (22.0-30.0) sec Sodium (137-145) mmol/L Potassium (3.5-5.1) mmol/L Chloride (98-107) mmol/L Carbon Dioxide (22-30) mmol/L Anion Gap mmol/L BUN (7-17) mg/dL Creatinine (0.52-1.04) mg/dL Est GFR (CKD-EPI)AfAm (>60 ml/min/1.73 sqM) Est GFR (CKD-EPI)NonAf (>60 ml/min/1.73 sqM) Glucose (74-99) mg/dL Plasma Lactic Acid Maxime (0.7-2.0) mmol/L Calcium (8.4-10.2) mg/dL Iron (50-170) ug/dL TIBC (228-460) ug/dL % Saturation (12.00-45.00) Transferrin (204.0-354.0) mg/dL Total Bilirubin (0.2-1.3) mg/dL AST (14-36) U/L ALT (4-34) U/L Alkaline Phosphatase (38-126) U/L Troponin I (0.000-0.034) ng/mL NT-Pro-B Natriuret Pep 139 pg/mL Total Protein (6.3-8.2) g/dL Albumin (3.5-5.0) g/dL Influenza Type A (PCR) (Not Detectd) Influenza Type B (PCR) (Not Detectd) RSV (PCR) (Not Detectd) SARS-CoV-2 (PCR) (Not Detectd) Blood Type A Negative Blood Type Recheck A Neg Bld Type Recheck Status No Antibody Screen NEGATIVE Crossmatch See Detail Spec Expiration Date 01/31/2022 - 230101/28/22 Range/Units 19:00 WBC (3.8-10.6) k/uL RBC (3.80-5.40) m/uL Hgb (11.4-16.0) gm/dL Hct (34.0-46.0) % MCV (80.0-100.0) fL MCH (25.0-35.0) pg MCHC (31.0-37.0) g/dL RDW (11.5-15.5) % Plt Count (150-450) k/uL MPV Neutrophils % % Lymphocytes % % Monocytes % % Eosinophils % % Basophils % % Neutrophils # (1.3-7.7) k/uL Lymphocytes # (1.0-4.8) k/uL Monocytes # (0-1.0) k/uL Eosinophils # (0-0.7) k/uL Basophils # (0-0.2) k/uL Hypochromasia Anisocytosis Macrocytosis PT (9.0-12.0) sec INR (<1.2) APTT (22.0-30.0) sec Sodium (137-145) mmol/L Potassium (3.5-5.1) mmol/L Chloride (98-107) mmol/L Carbon Dioxide (22-30) mmol/L Anion Gap mmol/L BUN (7-17) mg/dL Creatinine (0.52-1.04) mg/dL Est GFR (CKD-EPI)AfAm (>60 ml/min/1.73 sqM) Est GFR (CKD-EPI)NonAf (>60 ml/min/1.73 sqM) Glucose (74-99) mg/dL Plasma Lactic Acid Maxime (0.7-2.0) mmol/L Calcium (8.4-10.2) mg/dL Iron 24 L (50-170) ug/dL TIBC 231 (228-460) ug/dL % Saturation 10.48 L (12.00-45.00) Transferrin 165.0 L (204.0-354.0) mg/dL Total Bilirubin (0.2-1.3) mg/dL AST (14-36) U/L ALT (4-34) U/L Alkaline Phosphatase (38-126) U/L Troponin I (0.000-0.034) ng/mL NT-Pro-B Natriuret Pep pg/mL Total Protein (6.3-8.2) g/dL Albumin (3.5-5.0) g/dL Influenza Type A (PCR) (Not Detectd) Influenza Type B (PCR) (Not Detectd) RSV (PCR) (Not Detectd) SARS-CoV-2 (PCR) (Not Detectd) Blood Type Blood Type Recheck Bld Type Recheck Status Antibody Screen Crossmatch Spec Expiration Date - EKG Data EKG Comments: EKG completed at 1227 interpreted by me demonstrates sinus tachycardia, ventricular rate 101 bpm, PA interval 130 ms, QRS duration 76 ms, QT/QTC 333/389 ms, PRT axes 40, 11, 30 (Virginie Guzmán) Disposition Is patient prescribed a controlled substance at d/c from ED?: No Time of Disposition: 19:30 <Virginie Guzmán - Last Filed: 01/28/22 19:24> <Geoffrey Gloria - Last Filed: 01/31/22 01:50> Clinical Impression: Symptomatic anemia, Abdominal pain Disposition: ADMITTED IP TO THIS HOSP Condition: Fair
[2022-01-28 13:14] LABS: Anisocytosis Slight; Basophils % (A) 0 %; Eosinophils % (A) 0 %; HCT 25.7 % (34.0-46.0); Hypochromasia Slight; Lymphocytes # (A) 0.6 k/uL (1.0-4.8); Lymphocytes % (A) 7 %; MCH 35.4 pg (25.0-35.0); MCHC 33.3 g/dL (31.0-37.0); MCV 106.2 fL (80.0-100.0); Macrocytosis Marked; Mean Platelet Volume 7.5; Monocytes # (A) 0.3 k/uL (0-1.0); Monocytes % (A) 3 %; Neutrophils # (A) 7.2 k/uL (1.3-7.7); Neutrophils % (A) 89 %; RBC 2.42 m/uL (3.80-5.40); RDW 17.5 % (11.5-15.5); WBC 8.1 k/uL (3.8-10.6)
[2022-01-28 13:15] LABS: HGB 8.5 gm/dL (11.4-16.0)
[2022-01-28 13:16] LABS: Platelet Count 160 k/uL (150-450)
[2022-01-28 13:39] LABS: Prothrombin Time 10.5 sec (9.0-12.0)
[2022-01-28 13:52] LABS: Partial Thromboplastin Time 21.8 sec (22.0-30.0)
--- NOTE | 2022-01-28 14:01 | XR ---
EXAMINATION TYPE: XR chest 2V DATE OF EXAM: 01/28/2022 COMPARISON: NONE TECHNIQUE: PA and lateral views submitted. HISTORY: weakness FINDINGS: The lungs are clear and there is no pneumothorax, pleural effusion, or focal pneumonia. Mediport ca theter seen with right basilar subsegmental consolidation most typical of atelectasis. A nodular dens ity in the left lower lobe. IMPRESSION: 1. COPD basilar atelectasis favored over pneumonia. 2. Questionable 8 mm nodule left lower lobe or scarring. Possibly obscured by prior pleural effusion.
[2022-01-28 14:11] LABS: AST 32 U/L (14-36); African American GFR (CKD) >90 (>60 ml/min/1.73 sqM); Albumin 2.4 g/dL (3.5-5.0); Alkaline Phosphatase 215 U/L (38-126); Anion Gap 8 mmol/L; Blood Urea Nitrogen 11 mg/dL (7-17); Calcium 7.9 mg/dL (8.4-10.2); Carbon Dioxide 23 mmol/L (22-30); Chloride 104 mmol/L (98-107); Glucose 93 mg/dL (74-99); Non-African American GFR(CKD) >90 (>60 ml/min/1.73 sqM); Potassium 3.7 mmol/L (3.5-5.1); Sodium 135 mmol/L (137-145); Total Protein 5.1 g/dL (6.3-8.2)
[2022-01-28 14:35] LABS: ALT 17 U/L (4-34)
[2022-01-28 14:45] LABS: Anisocytosis Slight; Hypochromasia Slight; MCH 34.6 pg (25.0-35.0); MCHC 32.2 g/dL (31.0-37.0); MCV 107.7 fL (80.0-100.0); Macrocytosis Marked; Mean Platelet Volume 7.9; Platelet Count 155 k/uL (150-450); RBC 2.32 m/uL (3.80-5.40); RDW 18.2 % (11.5-15.5); WBC 8.7 k/uL (3.8-10.6)
--- NOTE | 2022-01-28 15:13 | CT ---
EXAMINATION TYPE: CT abdomen pelvis wo con CT DLP: 383.5 mGycm, Automated exposure control for dose reduction was used. DATE OF EXAM: 01/28/2022 2:37 PM COMPARISON: CT abdomen pelvis most recent from 12/28/2021 CLINICAL INDICATION:Female, 71 years old with history of abdominal pain anemia; Mid abdominal pain an d nausea. TECHNIQUE: Axial CT of the abdomen and pelvis. Sagittal and coronal reformats were created on a Consulted workstation. Contrast used: None Oral contrast used: without Oral Contrast FINDINGS: LOWER CHEST: Small bilateral pleural effusions appear increased from prior on 12/28/2021. ABDOMEN LIVER: Nodular contour to liver. Scattered surgical clips are seen in the fern hepatis. GALLBLADDER AND BILE DUCTS: The gallbladder is not visualized. Similar mild dilation of the common bi le duct. PANCREAS: Unremarkable. SPLEEN: Not enlarged. ADRENAL GLANDS: Unremarkable. KIDNEYS AND URETERS: The left kidneys demonstrates multiple perirenal cysts. The right kidney demonst rates a ureteral stent with proximal tip at the ureteropelvic junction with distal tip and urinary bl adder. There is moderate hydronephrosis which is increased from prior. There is increase free fluid a round the right renal sinus compared to prior. PELVIS BLADDER: Unremarkable REPRODUCTIVE: Unremarkable. ABDOMEN & PELVIS STOMACH AND BOWEL: No evidence of bowel obstruction. Scattered clonic diverticula. PERITONEUM: No evidence of pneumoperitoneum or free fluid. Hazy changes are seen in the fern hepatis in the upper abdomen with surgical clips present. VASCULATURE: No evidence of aortic aneurysm. Atherosclerosis of the arterial vasculature. MUSCULOSKELETAL: No acute osseous abnormalities, scattered mild multilevel disc degeneration changes. LYMPH NODES: No gross evidence for lymphadenopathy. SOFT TISSUE/ABDOMINAL WALL: Unremarkable IMPRESSION: 1. Right ureteral stent in place with new moderate hydronephrosis. The ureteral stent proximal porti on does appear in similar position near the ureteropelvic junction. There is a moderate-sized fluid i n the retroperitoneum around the right renal sinus which has increased from prior. This could represe nt ruptured renal collecting system if the ureteral stent is not functioning. Correlate for malfuncti oning ureteral stent. 2. Hepatic cirrhosis with ascites. 3. Mildly increased small bilateral pleural effusions.
[2022-01-28] MEDS: MORPHINE SULFATE 4 MG/ML SYRINGE IVP STA ×2 (15:24→15:31)
[2022-01-28] MEDS ORDERED: ONDANSETRON 4 MG/2 ML VIAL IVP STA (15:26)
[2022-01-28] MEDS ORDERED: HYDROmorphone 0.5 MG/0.5 ML SYRINGE IVP STA (18:06)
[2022-01-28] MEDS ORDERED: NALOXONE 0.4 MG/ML 1 ML VIAL IV PRN (19:21)
[2022-01-28 20:36] LABS: Anisocytosis Slight; Basophils % (A) 0 %; Eosinophils % (A) 0 %; HCT 26.6 % (34.0-46.0); HGB 8.9 gm/dL (11.4-16.0); Hypochromasia Moderate; Lymphocytes # (A) 0.3 k/uL (1.0-4.8); Lymphocytes % (A) 2 %; MCH 35.9 pg (25.0-35.0); MCHC 33.3 g/dL (31.0-37.0); MCV 107.8 fL (80.0-100.0); Mean Platelet Volume 7.5; Monocytes # (A) 0.3 k/uL (0-1.0); Monocytes % (A) 2 %; Neutrophils # (A) 13.4 k/uL (1.3-7.7); Neutrophils % (A) 95 %; Platelet Count 161 k/uL (150-450); RBC 2.47 m/uL (3.80-5.40); RDW 17.4 % (11.5-15.5)
[2022-01-28 20:41] LABS: Macrocytosis Marked
[2022-01-29] MEDS: HYDROmorphone 0.5 MG/0.5 ML SYRINGE IVP PRN ×5 (00:08→22:16)
[2022-01-29] MEDS: ONDANSETRON 4 MG/2 ML VIAL IVP PRN ×5 (00:08→22:16)
[2022-01-29 01:18] LABS: % Iron Saturation 10.48 (12.00-45.00)
[2022-01-29 02:50] LABS: Anisocytosis Slight; Basophils % (A) 0 %; Eosinophils % (A) 0 %; HCT 31.2 % (34.0-46.0); Hypochromasia Slight; Lymphocytes # (A) 0.5 k/uL (1.0-4.8); Lymphocytes % (A) 3 %; MCH 35.7 pg (25.0-35.0); MCHC 35.3 g/dL (31.0-37.0); Macrocytosis Moderate; Mean Platelet Volume 7.7; Monocytes # (A) 0.5 k/uL (0-1.0); Monocytes % (A) 3 %; Neutrophils # (A) 13.5 k/uL (1.3-7.7); Neutrophils % (A) 93 %; Platelet Count 131 k/uL (150-450); RBC 3.08 m/uL (3.80-5.40); RDW 19.4 % (11.5-15.5); WBC 14.5 k/uL (3.8-10.6)
[2022-01-29 02:59] LABS: MCV 101.2 fL (80.0-100.0)
[2022-01-29] MEDS ORDERED: diphenhydrAMINE 25 MG CAP PO PRN (03:55)
--- NOTE | 2022-01-29 03:56 | P.HPIM ---
History of Present Illness H&P Date: 01/28/22 Chief Complaint: generalized weakness and fatigue 71 year old female with hypertension , metastatic ovarian cancer patient coming in today due to 1 week history of progressive generalized weakness and easy fatigability. she denies chest pain , abd pain , back pain , SOB, fever or chills. she does admit to dizziness and lightheadedness upon ambulation which has been progressive , she denies any GI bleeding, however since placement of her uretral stent she has been noticing hematuria . stents were placed due to enlarged LN resulting in hydronephrosis , she is also reporting significant weight loss and poor appetite. workup in the ED, blood work showed acute on chronic anemia imaging of the abd , showed possible ruptured renal cyst or pelvicaliceal system , with hydronephrosis , and stent in place. case discussed with urology , who did not recommend any immediate surgical intervention at this time. patient was given 1 unit of blood in the ED, she reports significant improvement in her symptoms, her hemoglobin improved significantly Review of Systems Pertinent positives as noted in HPI. All other systems were reviewed and are negative Past Medical History Past Medical History: Cancer, Diabetes Mellitus, GI Bleed, Osteoarthritis (OA), Pulmonary Embolus (PE) Additional Past Medical History / Comment(s): 09/30/21 admitted inpatient for dyspnea and abdominal pain secondary to dehydration. 2017 Bilateral ovarian cancer diagnosed with mets/surgery and chemotherapy with last chemo taken about 2 years ago, bicytopenia, lower GI bleed, anemia, 11/2016 bilateral pulmonary embolisms, 12/2016 L sided pleural effusion with 2 thoracentesis, diet controlled diabetes, diverticulosis, mild protein calorie malnutrition, 08/14/21 L ureteral blockage d/t enlarged lymph nodes/hematuria and stent was placed/pt has R lower back pain since, UTIs History of Any Multi-Drug Resistant Organisms: None Reported Past Surgical History: Bowel Resection, Hysterectomy Additional Past Surgical History / Comment(s): Total hysterectomy/perineal and omenectomy done by Dr Rob at [facility] June 2017, 2 left thoracentesis- last one in 2016, power port right upper chest 2017, 11/10/17 egd w/bx, colonoscopy, 08/14/21 R ureteral stent. Past Anesthesia/Blood Transfusion Reactions: No Reported Reaction Additional Past Anesthesia/Blood Transfusion Reaction / Comment(s): Pt has received blood without reaction. Past Psychological History: No Psychological Hx Reported Smoking Status: Never smoker - Past Family History Mother Family Medical History: Congestive Heart Failure (CHF), CVA/TIA, Hypertension Father Family Medical History: CVA/TIA Brother(s) Family Medical History: Cancer Additional Family Medical History / Comment(s): colon cancer, lymphoma Medications and Allergies Home Medications Medication Instructions Recorded Confirmed Type Dicyclomine [Bentyl] 10 mg PO TID PRN 09/02/21 01/28/22 History Prochlorperazine [Compazine] 10 mg PO Q6H PRN 09/02/21 01/28/22 History traMADol HCl [Ultram] 50 mg PO Q6HR PRN 09/02/21 01/28/22 History Ondansetron [Zofran] 4 mg PO Q8HR PRN 09/30/21 01/28/22 History Tolterodine [Detrol] 2 mg PO BID 11/20/21 01/28/22 History OLANZapine [ZyPREXA] 2.5 mg PO DIRECTED 01/28/22 01/28/22 History Allergies Allergy/AdvReac Type Severity Reaction Status Date / Time aspirin Allergy Rash/Hives Verified 01/28/22 14:10 Iodinated Contrast Media Allergy Rash/Hives Verified 01/28/22 14:10 [Iodinated Contrast- Oral and IV Dye] lactose Allergy Unknown Verified 01/28/22 14:10 Penicillins Allergy Rash/Hives Verified 01/28/22 14:10 melatonin AdvReac Intermediate See comment Verified 01/28/22 14:10 morphine AdvReac Vomiting Verified 01/28/22 17:02 Physical Exam Vitals: Vital Signs Pulse Resp BP Pulse Ox 01/28/22 14:13 98 18 135/87 95 01/28/22 12:06 102 H 20 112/81 97 Intake and Output 01/28/22 01/28/22 01/28/22 06:59 14:59 22:59 Other: Weight 45.359 kg Constitutional: No acute distress, conversant, pleasant Eyes: Anicteric sclerae, moist conjunctiva, Pupils equal round reactive to light ENMT: NC/AT Oropharynx clear, no erythema, or exudates Neck: Supple, no masses, or JVD No carotid bruits No thyromegaly Lungs: decrease breath sounds over lung basis dull to percussion over lung bases bilaterally Normal respiratory effort, no accessory muscle use Cardiovascular: Heart regular in rate and rhythm, No murmurs, gallops, or rubs No peripheral edema Abdominal: Soft Nontender, no guarding, rebound or rigidity Abdomen moving with respiration Normoactive bowel sounds No hepatomegaly, No splenomegaly Skin: Normal temperature, tone, texture, turgor Extremities: No digital cyanosis No clubbing Pedal pulses intact and symmetrical Radial pulses intact and symmetrical No calf tenderness Psychiatric: Alert and oriented to person, place and time Neuro Muscles Strength 5/5 in all 4 extremities Sensation to light touch grossly present throughout Cranial nerves II-XII grossly intact Lymphatics: no palpable cervical or supraclavicular lymph nodes Results CBC & Chem 7: 01/29/22 02:36 01/28/22 12:52 Labs: Abnormal Lab Results - Last 24 Hours (Table) 01/28/22 01/28/22 01/28/22 Range/Units 12:52 12:52 12:52 RBC 2.42 L (3.80-5.40) m/uL Hgb 8.5 L D (11.4-16.0) gm/dL Hct 25.7 L (34.0-46.0) % MCV 106.2 H (80.0-100.0) fL MCH 35.4 H (25.0-35.0) pg RDW 17.5 H (11.5-15.5) % Lymphocytes # 0.6 L (1.0-4.8) k/uL Macrocytosis Marked A APTT 21.8 L (22.0-30.0) sec Sodium 135 L (137-145) mmol/L Calcium 7.9 L (8.4-10.2) mg/dL Alkaline Phosphatase 215 H (38-126) U/L Total Protein 5.1 L (6.3-8.2) g/dL Albumin 2.4 L (3.5-5.0) g/dL Crossmatch 01/28/22 01/28/22 Range/Units 14:25 15:02 RBC 2.32 L (3.80-5.40) m/uL Hgb 8.0 L (11.4-16.0) gm/dL Hct 25.0 L (34.0-46.0) % MCV 107.7 H (80.0-100.0) fL MCH (25.0-35.0) pg RDW 18.2 H (11.5-15.5) % Lymphocytes # (1.0-4.8) k/uL Macrocytosis Marked A APTT (22.0-30.0) sec Sodium (137-145) mmol/L Calcium (8.4-10.2) mg/dL Alkaline Phosphatase (38-126) U/L Total Protein (6.3-8.2) g/dL Albumin (3.5-5.0) g/dL Crossmatch See Detail Assessment and Plan Assessment: acute on chronic symptomatic anemia AGUS ovarian cancer with mets protein calorie malnutrition moderate plan improving after blood transfusion continue to trend hemoglobin CT imaging of the abd showed right ureteral stent in place , with new moderate hydronephrosis , the ureteral stent proximal portion does appear in similar position near the ureteropelvic junction , there is moderate sized fluid in the retroperitoneum around the right renal sinus which has incrased from prior this could represent ruptured renal collecting system case discussed with urology who did not recommend immediate surgical intervention at this time close monitoring of renal function and Hgb IVF hydration with normal saline encourage PO intake supportive care, pain control with opiates, PRN zofran for nausea vomiting DVT PPX mechanical full code
[2022-01-29] MEDS: SODIUM CHLORIDE 0.9% 1,000 ML IV SCH ×2 (04:16→18:05)
[2022-01-29 07:50] LABS: Anisocytosis Slight; Basophils % (A) 0 %; Eosinophils % (A) 0 %; HCT 32.6 % (34.0-46.0); HGB 11.1 gm/dL (11.4-16.0); Hypochromasia Slight; Lymphocytes # (A) 0.8 k/uL (1.0-4.8); Lymphocytes % (A) 6 %; MCH 34.1 pg (25.0-35.0); MCHC 33.9 g/dL (31.0-37.0); MCV 100.5 fL (80.0-100.0); Macrocytosis Moderate; Mean Platelet Volume 7.8; Monocytes # (A) 0.6 k/uL (0-1.0); Monocytes % (A) 5 %; Neutrophils # (A) 11.6 k/uL (1.3-7.7); Neutrophils % (A) 88 %; Platelet Count 151 k/uL (150-450); Poikilocytosis Slight; RBC 3.25 m/uL (3.80-5.40); RDW 19.6 % (11.5-15.5); WBC 13.1 k/uL (3.8-10.6)
[2022-01-29] MEDS ORDERED: OLANZapine 2.5 MG TAB PO PRN (09:00)
[2022-01-29 10:23] VITALS: BMI 18.8
--- NOTE | 2022-01-29 12:19 | P.CONS ---
History of Present Illness - Reason for Consult Consult date: 01/29/22 Metastatic ovarian cancer - Chief Complaint Weakness, nausea - History of Present Illness Ms. Leija is a 71-year-old woman with a past medical history significant for recurrent metastatic ovarian cancer currently status post 7 cycles of carboplatin/gemcitabine with cycle 7 most recently on 01/21/2022 presenting with increased weakness, nausea, vomiting. She notes feeling this way about couple days after her last treatment last week and this is gotten progressively worse. Over the last 2 days in particular, she is not able to eat any solid foods without having any nausea. She denies any fevers, chills, cough, dyspnea, abdominal pain, diarrhea. Given her progressive weakness, she presented to the ED for additional management monitoring. In the ED, she was hemodynamically stable and afebrile. Labs were significant for hemoglobin of 8 (was 10 last week with treatment). White blood cell count was 8.1 with platelet count 160. CMP revealed no acute metabolic abnormalities but noted low total protein 5.1 and albumin 2.4. Influenza A/B, RSV, and COVID- 19 PCR's were negative. Chest x-ray noted COPD induced basilar atelectasis over pneumonia along with a questionable 8 mm nodule in the left lower lobe, but no acute process concerning for pneumonia was seen. CT of the abdomen and pelvis noted moderate hydronephrosis with ureteral stent in similar position at the ureteropelvic junction, which was noted on last months staging CT scans. There is a moderate sized fluid collection in the retroperitoneum near the renal sinus of unclear etiology. Hepatic cirrhosis with ascites was also noted. She was given Zofran 4 mg IV x1 along with morphine 4 mg IV x1 and Dilaudid 0.5 mg IV x1. She was admitted to internal medicine for additional management monitoring. Review of Systems 14 point review of systems was conducted with pertinent positives negatives as noted per HPI Past Medical History Past Medical History: Cancer, Diabetes Mellitus, GI Bleed, Osteoarthritis (OA), Pulmonary Embolus (PE) Additional Past Medical History / Comment(s): 09/30/21 admitted inpatient for dyspnea and abdominal pain secondary to dehydration. 2016 Bilateral ovarian cancer diagnosed with mets/surgery and chemotherapy with last chemo taken about 2 years ago, bicytopenia, lower GI bleed, anemia, 11/2016 bilateral pulmonary embolisms, 12/2016 L sided pleural effusion with 2 thoracentesis, diet contro lled diabetes, diverticulosis, mild protein calorie malnutrition, 08/14/21 L ureteral blockage d/t enlarged lymph nodes/hematuria and stent was placed/pt has R lower back pain since, UTIs History of Any Multi-Drug Resistant Organisms: None Reported Past Surgical History: Bowel Resection, Hysterectomy Additional Past Surgical History / Comment(s): Total hysterectomy/perineal and omenectomy done by Dr Rob at [facility] June 2017, 2 left thoracentesis- last one in 2016, power port right upper chest 2017, 11/10/17 egd w/bx, colonoscopy, 08/14/21 R ureteral stent. Past Anesthesia/Blood Transfusion Reactions: No Reported Reaction Additional Past Anesthesia/Blood Transfusion Reaction / Comm: Pt has received blood without reaction. Past Psychological History: No Psychological Hx Reported Smoking Status: Never smoker - Past Family History Mother Family Medical History: Congestive Heart Failure (CHF), CVA/TIA, Hypertension Father Family Medical History: CVA/TIA Brother(s) Family Medical History: Cancer Additional Family Medical History / Comment(s): colon cancer, lymphoma Medications and Allergies Home Medications Medication Instructions Recorded Confirmed Type Dicyclomine [Bentyl] 10 mg PO TID PRN 09/02/21 01/28/22 History Prochlorperazine [Compazine] 10 mg PO Q6H PRN 09/02/21 01/28/22 History traMADol HCl [Ultram] 50 mg PO Q6HR PRN 09/02/21 01/28/22 History Ondansetron [Zofran] 4 mg PO Q8HR PRN 09/30/21 01/28/22 History Tolterodine [Detrol] 2 mg PO BID 11/20/21 01/28/22 History OLANZapine [ZyPREXA] 2.5 mg PO DIRECTED 01/28/22 01/28/22 History Allergies Allergy/AdvReac Type Severity Reaction Status Date / Time aspirin Allergy Rash/Hives Verified 01/28/22 14:10 Iodinated Contrast Media Allergy Rash/Hives Verified 01/28/22 14:10 [Iodinated Contrast- Oral and IV Dye] lactose Allergy Unknown Verified 01/28/22 14:10 Penicillins Allergy Rash/Hives Verified 01/28/22 14:10 melatonin AdvReac Intermediate See comment Verified 01/28/22 14:10 morphine AdvReac Vomiting Verified 01/28/22 17:02 Physical Exam Vitals: Vital Signs Temp Pulse Resp BP Pulse Ox 01/29/22 06:35 100 12 136/94 97 01/29/22 04:52 87 12 95 01/29/22 02:10 87 14 143/95 97 01/29/22 00:54 90 12 94 L 01/28/22 22:53 86 12 146/94 97 01/28/22 21:46 96.9 F L 80 12 162/98 96 01/28/22 20:32 97.1 F L 92 12 160/94 97 01/28/22 20:12 97.0 F L 86 12 155/98 97 01/28/22 20:05 97.0 F L 100 12 158/90 97 01/28/22 19:52 84 12 162/94 94 L 01/28/22 14:13 98 18 135/87 95 01/28/22 12:06 102 H 20 112/81 97 Intake and Output 01/28/22 01/29/22 01/29/22 22:59 06:59 14:59 Intake Total 310 Balance 310 Intake: Blood Product 310 Rc As-1 Unit 310 [id number] Other: Weight 45.359 kg - Constitutional Fatigued appearing General appearance: thin - Respiratory Respiratory: bilateral: CTA - Cardiovascular Rhythm: regular - Gastrointestinal Mild distention General gastrointestinal: soft, no tenderness - Neurologic Neurologic: CNII-XII intact - Psychiatric Psychiatric: A&O x's 3 Results CBC & Chem 7: 01/29/22 07:46 01/28/22 12:52 Labs: Abnormal Lab Results - Last 24 Hours (Table) 01/28/22 01/28/22 01/28/22 Range/Units 12:52 12:52 12:52 WBC (3.8-10.6) k/uL RBC 2.42 L (3.80-5.40) m/uL Hgb 8.5 L D (11.4-16.0) gm/dL Hct 25.7 L (34.0-46.0) % MCV 106.2 H (80.0-100.0) fL MCH 35.4 H (25.0-35.0) pg RDW 17.5 H (11.5-15.5) % Plt Count (150-450) k/uL Neutrophils # (1.3-7.7) k/uL Lymphocytes # 0.6 L (1.0-4.8) k/uL Macrocytosis Marked A APTT 21.8 L (22.0-30.0) sec Sodium 135 L (137-145) mmol/L Calcium 7.9 L (8.4-10.2) mg/dL Iron (50-170) ug/dL % Saturation (12.00-45.00) Transferrin (204.0-354.0) mg/dL Alkaline Phosphatase 215 H (38-126) U/L Total Protein 5.1 L (6.3-8.2) g/dL Albumin 2.4 L (3.5-5.0) g/dL Crossmatch 01/28/22 01/28/22 01/28/22 Range/Units 14:25 15:02 19:00 WBC (3.8-10.6) k/uL RBC 2.32 L (3.80-5.40) m/uL Hgb 8.0 L (11.4-16.0) gm/dL Hct 25.0 L (34.0-46.0) % MCV 107.7 H (80.0-100.0) fL MCH (25.0-35.0) pg RDW 18.2 H (11.5-15.5) % Plt Count (150-450) k/uL Neutrophils # (1.3-7.7) k/uL Lymphocytes # (1.0-4.8) k/uL Macrocytosis Marked A APTT (22.0-30.0) sec Sodium (137-145) mmol/L Calcium (8.4-10.2) mg/dL Iron 24 L (50-170) ug/dL % Saturation 10.48 L (12.00-45.00) Transferrin 165.0 L (204.0-354.0) mg/dL Alkaline Phosphatase (38-126) U/L Total Protein (6.3-8.2) g/dL Albumin (3.5-5.0) g/dL Crossmatch See Detail 01/28/22 01/29/22 01/29/22 Range/Units 19:50 02:36 07:46 WBC 14.0 H 14.5 H 13.1 H (3.8-10.6) k/uL RBC 2.47 L 3.08 L 3.25 L (3.80-5.40) m/uL Hgb 8.9 L 11.0 L 11.1 L (11.4-16.0) gm/dL Hct 26.6 L 31.2 L 32.6 L (34.0-46.0) % MCV 107.8 H 101.2 H D 100.5 H (80.0-100.0) fL MCH 35.9 H 35.7 H (25.0-35.0) pg RDW 17.4 H 19.4 H 19.6 H (11.5-15.5) % Plt Count 131 L (150-450) k/uL Neutrophils # 13.4 H 13.5 H 11.6 H (1.3-7.7) k/uL Lymphocytes # 0.3 L 0.5 L 0.8 L (1.0-4.8) k/uL Macrocytosis Marked A APTT (22.0-30.0) sec Sodium (137-145) mmol/L Calcium (8.4-10.2) mg/dL Iron (50-170) ug/dL % Saturation (12.00-45.00) Transferrin (204.0-354.0) mg/dL Alkaline Phosphatase (38-126) U/L Total Protein (6.3-8.2) g/dL Albumin (3.5-5.0) g/dL Crossmatch Abdominal x-ray: report reviewed CT scan - abdomen: report reviewed Assessment and Plan Assessment: Ms. Leija is a 71-year-old woman with a past medical history significant for recurrent metastatic ovarian cancer currently status post 7 cycles of carboplatin/gemcitabine with cycle 7 on 01/21/2022 presenting with increased weakness, nausea, and vomiting found to have acute on chronic anemia likely secondary to chemotherapy (1) Nausea & vomiting Current Visit: Yes Status: Acute Code(s): R11.2 - NAUSEA WITH VOMITING, U NSPECIFIED SNOMED Code(s): 55447182 (2) Symptomatic anemia Current Visit: Yes Status: Acute Code(s): D64.9 - ANEMIA, UNSPECIFIED SNOMED Code(s): 203030014 (3) Ovarian cancer Current Visit: No Status: Chronic Priority: Medium Code(s): C56.9 - MALIGNANT NEOPLASM OF UNSPECIFIED OVARY SNOMED Code(s): 511220546 Plan: # Weakness, nausea, vomiting -Noted over the past week and has been progressive over the past 2 days in particular -She notes having similar presentation with prior cycles of chemotherapy -She is currently day 8, cycle 1 of carboplatin/gemcitabine -CT abdomen/pelvis reveals no acute findings compared to prior staging CT scans performed on 12/28/2021, which did not note any evidence of disease progression -This is secondary to chemotherapy, more than likely due to carboplatin -We agreed to try giving Zofran 30 minutes prior to meals, as her nausea appears to be induced by eating -In addition, we will add olanzapine 2.5 mg daily scheduled while she is in the hospital until her nausea improves -We can start with liquid diet and advance as tolerated #Anemia -Likely chemotherapy-induced from carboplatin -Iron studies on admission did not show any evidence of iron deficiency -She was given 1 unit of packed red blood cells for hemoglobin of 8, which has responded appropriately to 11 this morning -No indication for further transfusion at this time -Transfuse for hemoglobin less than 7 #Right ureteral fluid collection -No clear etiology at this time -We do not think this is secondary to her malignancy -We will defer to urology regarding further management if deemed necessary #Recurrent metastatic ovarian cancer -Currently completed cycle 7 of carboplatin/gemcitabine on 01/21/2022 -The case was discussed with her primary oncologist Dr. Springer today prior to seeing Ms. Leija -She likely will not be receiving any additional chemotherapy at this time -She had guardant 360 DX testing done to assess options for maintenance therapy, possibly with PARP inhibitor -Ms. Leija and her daughter did not request hospice -Based on her current clinical presentation and following discussion with her primary oncologist, she is not a candidate for hospice at this time -Plan is to follow-up in clinic to discuss maintenance therapy options, which they were agreeable with
[2022-01-29 14:37] LABS: Anisocytosis Slight; Basophils % (A) 0 %; Eosinophils % (A) 0 %; HCT 30.9 % (34.0-46.0); HGB 10.5 gm/dL (11.4-16.0); Lymphocytes # (A) 0.4 k/uL (1.0-4.8); Lymphocytes % (A) 3 %; MCHC 33.9 g/dL (31.0-37.0); MCV 100.3 fL (80.0-100.0); Macrocytosis Moderate; Mean Platelet Volume 8.3; Monocytes # (A) 0.6 k/uL (0-1.0); Monocytes % (A) 4 %; Neutrophils # (A) 12.6 k/uL (1.3-7.7); Neutrophils % (A) 92 %; Platelet Count 133 k/uL (150-450); Poikilocytosis Slight; RBC 3.07 m/uL (3.80-5.40); RDW 19.5 % (11.5-15.5); WBC 13.7 k/uL (3.8-10.6)
--- NOTE | 2022-01-29 15:18 | P.PN ---
Subjective Progress Note Date: 01/29/22 When I walked in the room patient states "is this the end". She states that she does not want to continue living like this. She stated that she would like doctors to help her make the decision if she should go for comfort care or to continue living like this in pain. When I spoke with the patient, daughter was not in the room. Later daughter did come out of the room and I was able to speak with the daughter. Daughter states that she does not want me to discuss goals of care with the patient and would only like hematology to discuss this. Oncology did meet with the patient and daughter and per oncology both patient and daughter did not want hospice and patient is also not a hospice candidate. 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 Psych - anxious - Labs CBC & Chem 7: 01/29/22 14:18 01/28/22 12:52 Labs: Abnormal Lab Results - Last 24 Hours (Table) 01/28/22 01/28/22 01/28/22 Range/Units 15:02 19:00 19:50 WBC 14.0 H (3.8-10.6) k/uL RBC 2.47 L (3.80-5.40) m/uL Hgb 8.9 L (11.4-16.0) gm/dL Hct 26.6 L (34.0-46.0) % MCV 107.8 H (80.0-100.0) fL MCH 35.9 H (25.0-35.0) pg RDW 17.4 H (11.5-15.5) % Plt Count (150-450) k/uL Neutrophils # 13.4 H (1.3-7.7) k/uL Lymphocytes # 0.3 L (1.0-4.8) k/uL Macrocytosis Marked A Iron 24 L (50-170) ug/dL % Saturation 10.48 L (12.00-45.00) Transferrin 165.0 L (204.0-354.0) mg/dL Crossmatch See Detail 01/29/22 01/29/22 01/29/22 Range/Units 02:36 07:46 14:18 WBC 14.5 H 13.1 H 13.7 H (3.8-10.6) k/uL RBC 3.08 L 3.25 L 3.07 L (3.80-5.40) m/uL Hgb 11.0 L 11.1 L 10.5 L (11.4-16.0) gm/dL Hct 31.2 L 32.6 L 30.9 L (34.0-46.0) % MCV 101.2 H D 100.5 H 100.3 H (80.0-100.0) fL MCH 35.7 H (25.0-35.0) pg RDW 19.4 H 19.6 H 19.5 H (11.5-15.5) % Plt Count 131 L 133 L (150-450) k/uL Neutrophils # 13.5 H 11.6 H 12.6 H (1.3-7.7) k/uL Lymphocytes # 0.5 L 0.8 L 0.4 L (1.0-4.8) k/uL Macrocytosis Iron (50-170) ug/dL % Saturation (12.00-45.00) Transferrin (204.0-354.0) mg/dL Crossmatch Assessment and Plan Assessment: Assessment acute on chronic symptomatic anemia likely due to chemotherapy Generalized weakness secondary to anemia and overeating cancer and poor by mouth intake with failure to thrive ovarian cancer with mets protein calorie malnutrition moderate with albumin of 2.4 Moderate hydronephrosis with moderate-sized fluid in the retroperitoneum Plan Patient's hemoglobin responded well after one unit of PRBC Patient started on Zyprexa and Zofran for her nausea IV Dilaudid for pain Patient is malnourished and has poor intake with an albumin of only 2.4 and appears chronically debilitated however oncology states that patient is not a candidate for hospice. We'll plan to discharge the patient home if no intervention by urology. Patient to follow-up with hematology
--- NOTE | 2022-01-29 18:58 | P.GSCN ---
History of Present Illness Consult date: 01/29/22 Reason for Consult: Right hydronephrosis Requesting physician: Filiberto Jackson History of present illness: The patient is a 71 yo female with stage 4 ovarian carcinoma diagnosed in 2016. She has right hydronephrosis, which is being managed with a ureteral stent. A 7-Anguillan stent was placed by Dr. Drew on 08/14/2021. However, she experienced bladder spasms as a result of the stent and therefore a 4.5-Anguillan stent was used when the stent was last changed on 12/04/2021. She is now admitted with generalized weakness and nausea. She undergoes periodic paracentesis for ascites. She has been found to be anemic. CT scan performed yesterday showed fluid within the right renal sinus, as well as mild hydronephrosis. Findings are similar to a CT scan performed last month. That CT scan was performed with contrast, and showed no evidence of contrast extravasation. The proximal end of the stent resides at the ureteropelvic junction. It is noteworthy that a CT scan in August 2021 showed no fluid within the renal sinus. Review of Systems - Genitourinary Genitourinary: Denies flank pain, Denies hematuria Past Medical History Past Medical History: Cancer, Diabetes Mellitus, GI Bleed, Osteoarthritis (OA), Pulmonary Embolus (PE) Additional Past Medical History / Comment(s): 09/30/21 admitted inpatient for dyspnea and abdominal pain secondary to dehydration. 2017 Bilateral ovarian cancer diagnosed with mets/surgery and chemotherapy with last chemo taken about 2 years ago, bicytopenia, lower GI bleed, anemia, 11/2016 bilateral pulmonary embolisms, 12/2016 L sided pleural effusion with 2 thoracentesis, diet controlled diabetes, diverticulosis, mild protein calorie malnutrition, 08/14/21 L ureteral blockage d/t enlarged lymph nodes/hematuria and stent was placed/pt has R lower back pain since, UTIs History of Any Multi-Drug Resistant Organisms: None Reported Past Surgical History: Bowel Resection, Hysterectomy Additional Past Surgical History / Comment(s): Total hysterectomy/perineal and omenectomy done by Dr Rob at [facility] June 2017, 2 left thoracentesis- last one in 2016, power port right upper chest 2017, 11/10/17 egd w/bx, colonoscopy, 08/14/21 R ureteral stent. Past Anesthesia/Blood Transfusion Reactions: No Reported Reaction Additional Past Anesthesia/Blood Transfusion Reaction / Comm: Pt has received blood without reaction. Past Psychological History: No Psychological Hx Reported Smoking Status: Never smoker - Past Family History Mother Family Medical History: Congestive Heart Failure (CHF), CVA/TIA, Hypertension Father Family Medical History: CVA/TIA Brother(s) Family Medical History: Cancer Additional Family Medical History / Comment(s): colon cancer, lymphoma Medications and Allergies Home Medications Medication Instructions Recorded Confirmed Type Dicyclomine [Bentyl] 10 mg PO TID PRN 09/02/21 01/28/22 History Prochlorperazine [Compazine] 10 mg PO Q6H PRN 09/02/21 01/28/22 History traMADol HCl [Ultram] 50 mg PO Q6HR PRN 09/02/21 01/28/22 History Ondansetron [Zofran] 4 mg PO Q8HR PRN 09/30/21 01/28/22 History Tolterodine [Detrol] 2 mg PO BID 11/20/21 01/28/22 History OLANZapine [ZyPREXA] 2.5 mg PO DIRECTED 01/28/22 01/28/22 History Allergies Allergy/AdvReac Type Severity Reaction Status Date / Time aspirin Allergy Rash/Hives Verified 01/28/22 14:10 Iodinated Contrast Media Allergy Rash/Hives Verified 01/28/22 14:10 [Iodinated Contrast- Oral and IV Dye] lactose Allergy Unknown Verified 01/28/22 14:10 Penicillins Allergy Rash/Hives Verified 01/28/22 14:10 melatonin AdvReac Intermediate See comment Verified 01/28/22 14:10 morphine AdvReac Vomiting Verified 01/28/22 17:02 Surgical - Exam Vital Signs Pulse Resp BP Pulse Ox 102 H 20 112/81 97 01/28/22 12:06 01/28/22 12:06 01/28/22 12:06 01/28/22 12:06 - General well developed, well nourished, moderate distress - Neck no masses, trachea midline - Respiratory normal respiratory effort - Abdomen Abdomen: soft, non tender, no guarding, no rigid, no rebound - Psychiatric oriented to time, oriented to person, oriented to place, speech is normal, memory intact Results - Labs 01/29/22 14:18 01/28/22 12:52 Abnormal Lab Results - Last 24 Hours (Table) 01/28/22 01/28/22 01/28/22 Range/Units 12:52 12:52 12:52 WBC (3.8-10.6) k/uL RBC 2.42 L (3.80-5.40) m/uL Hgb 8.5 L D (11.4-16.0) gm/dL Hct 25.7 L (34.0-46.0) % MCV 106.2 H (80.0-100.0) fL MCH 35.4 H (25.0-35.0) pg RDW 17.5 H (11.5-15.5) % Plt Count (150-450) k/uL Neutrophils # (1.3-7.7) k/uL Lymphocytes # 0.6 L (1.0-4.8) k/uL Macrocytosis Marked A APTT 21.8 L (22.0-30.0) sec Sodium 135 L (137-145) mmol/L Calcium 7.9 L (8.4-10.2) mg/dL Iron (50-170) ug/dL % Saturation (12.00-45.00) Transferrin (204.0-354.0) mg/dL Alkaline Phosphatase 215 H (38-126) U/L Total Protein 5.1 L (6.3-8.2) g/dL Albumin 2.4 L (3.5-5.0) g/dL Crossmatch 01/28/22 01/28/22 01/28/22 Range/Units 14:25 15:02 19:00 WBC (3.8-10.6) k/uL RBC 2.32 L (3.80-5.40) m/uL Hgb 8.0 L (11.4-16.0) gm/dL Hct 25.0 L (34.0-46.0) % MCV 107.7 H (80.0-100.0) fL MCH (25.0-35.0) pg RDW 18.2 H (11.5-15.5) % Plt Count (150-450) k/uL Neutrophils # (1.3-7.7) k/uL Lymphocytes # (1.0-4.8) k/uL Macrocytosis Marked A APTT (22.0-30.0) sec Sodium (137-145) mmol/L Calcium (8.4-10.2) mg/dL Iron 24 L (50-170) ug/dL % Saturation 10.48 L (12.00-45.00) Transferrin 165.0 L (204.0-354.0) mg/dL Alkaline Phosphatase (38-126) U/L Total Protein (6.3-8.2) g/dL Albumin (3.5-5.0) g/dL Crossmatch See Detail 01/28/22 01/29/22 01/29/22 Range/Units 19:50 02:36 07:46 WBC 14.0 H 14.5 H 13.1 H (3.8-10.6) k/uL RBC 2.47 L 3.08 L 3.25 L (3.80-5.40) m/uL Hgb 8.9 L 11.0 L 11.1 L (11.4-16.0) gm/dL Hct 26.6 L 31.2 L 32.6 L (34.0-46.0) % MCV 107.8 H 101.2 H D 100.5 H (80.0-100.0) fL MCH 35.9 H 35.7 H (25.0-35.0) pg RDW 17.4 H 19.4 H 19.6 H (11.5-15.5) % Plt Count 131 L (150-450) k/uL Neutrophils # 13.4 H 13.5 H 11.6 H (1.3-7.7) k/uL Lymphocytes # 0.3 L 0.5 L 0.8 L (1.0-4.8) k/uL Macrocytosis Marked A APTT (22.0-30.0) sec Sodium (137-145) mmol/L Calcium (8.4-10.2) mg/dL Iron (50-170) ug/dL % Saturation (12.00-45.00) Transferrin (204.0-354.0) mg/dL Alkaline Phosphatase (38-126) U/L Total Protein (6.3-8.2) g/dL Albumin (3.5-5.0) g/dL Crossmatch Diabetes panel 01/28/22 Range/Units 12:52 Sodium 135 L (137-145) mmol/L Potassium 3.7 (3.5-5.1) mmol/L Chloride 104 (98-107) mmol/L Carbon Dioxide 23 (22-30) mmol/L BUN 11 (7-17) mg/dL Creatinine 0.55 (0.52-1.04) mg/dL Glucose 93 (74-99) mg/dL Calcium 7.9 L (8.4-10.2) mg/dL AST 32 (14-36) U/L ALT 17 (4-34) U/L Alkaline Phosphatase 215 H (38-126) U/L Total Protein 5.1 L (6.3-8.2) g/dL Albumin 2.4 L (3.5-5.0) g/dL Calcium panel 01/28/22 Range/Units 12:52 Calcium 7.9 L (8.4-10.2) mg/dL Albumin 2.4 L (3.5-5.0) g/dL Pituitary panel 01/28/22 Range/Units 12:52 Sodium 135 L (137-145) mmol/L Potassium 3.7 (3.5-5.1) mmol/L Chloride 104 (98-107) mmol/L Carbon Dioxide 23 (22-30) mmol/L BUN 11 (7-17) mg/dL Creatinine 0.55 (0.52-1.04) mg/dL Glucose 93 (74-99) mg/dL Calcium 7.9 L (8.4-10.2) mg/dL Adrenal panel 01/28/22 Range/Units 12:52 Sodium 135 L (137-145) mmol/L Potassium 3.7 (3.5-5.1) mmol/L Chloride 104 (98-107) mmol/L Carbon Dioxide 23 (22-30) mmol/L BUN 11 (7-17) mg/dL Creatinine 0.55 (0.52-1.04) mg/dL Glucose 93 (74-99) mg/dL Calcium 7.9 L (8.4-10.2) mg/dL Total Bilirubin 1.0 (0.2-1.3) mg/dL AST 32 (14-36) U/L ALT 17 (4-34) U/L Alkaline Phosphatase 215 H (38-126) U/L Total Protein 5.1 L (6.3-8.2) g/dL Albumin 2.4 L (3.5-5.0) g/dL - Imaging CT scan - abdomen: report reviewed, image reviewed Assessment and Plan (1) Unspecified hydronephrosis Current Visit: Yes Status: Acute Code(s): N13.30 - UNSPECIFIED HYDRONEPHROSIS SNOMED Code(s): 01784186 Plan: I had a lengthy discussion with the patient and her daughter. I reviewed the CT scans performed in August, December, and yesterday. The right renal sinus fluid was noted in December and remains unchanged. The ureteral stent appears to be properly positioned. There is no evidence of urine extravasation. The etiology of the right renal sinus fluid is unclear, but there is nothing to suggest that this is a hematoma. The patient is being scheduled to undergo cystoscopy with right ureteral stent change in March 2022. I do not feel that stent change prior to that would be beneficial. Please feel free to contact me if I can be of any further assistance. Time with Patient: Greater than 30
[2022-01-29] MEDS ORDERED: OLANZapine 2.5 MG TAB PO SCH (21:00)
[2022-01-29 22:17] VITALS: RESP 16
[2022-01-30] MEDS: SODIUM CHLORIDE 0.9% 1,000 ML IV SCH (05:33)
[2022-01-30 06:16] VITALS: BP 108/71; PULSE 97; TEMP 97.6
[2022-01-30] MEDS: ONDANSETRON 4 MG/2 ML VIAL IVP PRN (09:26)
[2022-01-30] MEDS: HYDROmorphone 0.5 MG/0.5 ML SYRINGE IVP PRN (09:38)
--- NOTE | 2022-01-30 10:26 | P.DS ---
Providers Date of admission: 01/28/22 19:21 Attending physician: Filiberto Jackson MD Consults: 01/28/22 19:21 Consult Physician Routine Consulting Provider: Jude Eason Consult Reason/Comments: Hydronephrosis Do you want consulting provider notified?: Already Contacted 01/29/22 10:15 Consult Physician Routine Consulting Provider: Shayne Springer Consult Reason/Comments: discuss goal of care Do you want consulting provider notified?: Yes Primary care physician: Tonny Lewis MD Hospital Course: Discharge Diagnosis: acute on chronic symptomatic anemia likely due to chemotherapy Generalized weakness secondary to anemia and overeating cancer and poor by mouth intake with failure to thrive ovarian cancer with mets protein calorie malnutrition moderate with albumin of 2.4 Moderate hydronephrosis with moderate-sized fluid in the retroperitoneum Hospital Course: 71 year old female with hypertension , metastatic ovarian cancer patient coming in today due to 1 week history of progressive generalized weakness and easy fatigability. she denies chest pain , abd pain , back pain , SOB, fever or chills. she does admit to dizziness and lightheadedness upon ambulation which has been progressive. workup in the ED, blood work showed acute on chronic anemia imaging of the abd , showed possible ruptured renal cyst or pelvicaliceal system , with hydronephrosis , and stent in place. case discussed with urology , who did not recommend any immediate surgical intervention at this time. Patient received 1 unit of PRBC in the ED. Patient is admitted for further evaluation. Patient seen by hematology. Per hematology the anemia is likely due to her chemotherapy. Patient's hemoglobin was stable during the remainder of her hospital stay. Patient also seen by urology who recommended no surgical intervention at this time. At the time of discharge patient is able to tolerate her diet. She was able to walk to the bathroom with minimal assistance. Hematology said patient is not a hospice candidate. Patient deemed stable for discharge home and instructed to follow closely with hematology. Patient seen and examined at bedside.[] Vital signs reviewed and stable. General: Appears malnourished and chronically debilitated Derm: [warm], [dry] Head: [atraumatic], [normocephalic], [symmetric] Eyes: [EOMI], [no lid lag], [anicteric sclera] Mouth: [no lip lesion], [mucus membranes moist] Cardiovascular: [S1S2 reg], [no murmur], [positive posterior tibial pulse bilateral], Lungs: [CTA bilateral], [no rhonchi, no rales] , [no accessory muscle use] Abdominal: [soft], [ nontender to palpation], [no guarding], [no appreciable organomegaly] Ext: [no gross muscle atrophy], [no edema], [no contractures] Neuro: [ CN II-XI grossly intact], [no focal neuro deficits] Psych: [Alert], [oriented], [appropriate affect] A total of [33] minutes of time were spent preparing this complex discharge summary . Patient Condition at Discharge: Fair Plan - Discharge Summary Discharge Rx Participant: No New Discharge Prescriptions: Continue Prochlorperazine [Compazine] 10 mg PO Q6H PRN PRN Reason: Nausea Tolterodine [Detrol] 2 mg PO BID Dicyclomine [Bentyl] 10 mg PO TID PRN PRN Reason: Diarrhea traMADol HCl [Ultram] 50 mg PO Q6HR PRN PRN Reason: Pain Ondansetron [Zofran] 4 mg PO Q8HR PRN PRN Reason: Nausea OLANZapine [ZyPREXA] 2.5 mg PO DIRECTED Discharge Medication List Dicyclomine [Bentyl] 10 mg PO TID PRN 09/02/21 [History] Prochlorperazine [Compazine] 10 mg PO Q6H PRN 09/02/21 [History] traMADol HCl [Ultram] 50 mg PO Q6HR PRN 09/02/21 [History] Ondansetron [Zofran] 4 mg PO Q8HR PRN 09/30/21 [History] Tolterodine [Detrol] 2 mg PO BID 11/20/21 [History] OLANZapine [ZyPREXA] 2.5 mg PO DIRECTED 01/28/22 [History] Follow up Appointment(s)/Referral(s): Shayne Springer MD [STAFF PHYSICIAN] - 1 Week Tonny Lewis MD [Primary Care Provider] - 1-2 days Discharge Disposition: HOME WITH HOME HEALTH SERVICES
== END 2022-01-30 13:24 | disposition home health service (06) | DRG 812 ==
LOC: EC 11:44 → 3SCARD 19:21 → 5NMEDONC 01-29 10:38
PROVIDERS: ADMIT Internal Medicine; ATTEND Internal Medicine
PROC: 30233N1 Transfusion of Nonautologous Red Blood Cells into Peripheral Vein, Percutaneous Approach (ICD-10-PCS; principal; 2022-01-28)
DX: D64.81 Anemia due to antineoplastic chemotherapy (principal); C56.9 Malignant neoplasm of unspecified ovary; E44.0 Moderate protein-calorie malnutrition; J98.11 Atelectasis; R18.8 Other ascites; N17.9 Acute kidney failure, unspecified; N13.30 Unspecified hydronephrosis; C79.9 Secondary malignant neoplasm of unspecified site; D61.1 Drug-induced aplastic anemia; T45.1X5A Adverse effect of antineoplastic and immunosuppressive drugs, initial encounter; E11.9 Type 2 diabetes mellitus without complications; Z68.20 Body mass index [BMI] 20.0-20.9, adult; I10 Essential (primary) hypertension; K74.60 Unspecified cirrhosis of liver; R62.7 Adult failure to thrive; J44.9 Chronic obstructive pulmonary disease, unspecified; R91.1 Solitary pulmonary nodule; Z20.822 Contact with and (suspected) exposure to COVID-19; Z28.21 Immunization not carried out because of patient refusal; N28.1 Cyst of kidney, acquired; Z80.0 Family history of malignant neoplasm of digestive organs; Z80.7 Family history of other malignant neoplasms of lymphoid, hematopoietic and related tissues; Z86.711 Personal history of pulmonary embolism; Z90.710 Acquired absence of both cervix and uterus; Z96.0 Presence of urogenital implants; Z87.440 Personal history of urinary (tract) infections; Z60.2 Problems related to living alone; Z87.19 Personal history of other diseases of the digestive system; Z88.0 Allergy status to penicillin; Z88.8 Allergy status to other drugs, medicaments and biological substances; Z88.6 Allergy status to analgesic agent; Z91.041 Radiographic dye allergy status; Z71.3 Dietary counseling and surveillance
CPT/HCPCS: 36415; 36430; 71046; 74176; 80053; 83540; 83550; 83605; 83880; 84484; 85025; 85027; 85610; 85730; 86850; 86900; 86901; 86920; 87636; 93005; 94760; 96361; 96374; 96375; 96376; 99285

== ENCOUNTER 2022-02-10 10:31 | Inpatient (IN) | payer MEDICARE ==
[2022-02-10] MEDS ORDERED: SODIUM CHLORIDE 0.9% 1,000 ML IV STA (11:02)
[2022-02-10] MEDS ORDERED: methylPREDNISolone SOD SUCCI 125 MG/2 ML VIAL IV STA (11:11)
[2022-02-10] MEDS ORDERED: diphenhydrAMINE 50 MG/ML 1 ML VIAL IVP STA (11:11)
[2022-02-10] MEDS ORDERED: FAMOTIDINE 20 MG/2 ML VIAL IV STA (11:11)
[2022-02-10] MEDS ORDERED: ONDANSETRON 4 MG/2 ML VIAL IVP STA (11:13)
[2022-02-10] MEDS ORDERED: HYDROmorphone 0.5 MG/0.5 ML SYRINGE IVP STA (11:13)
[2022-02-10 12:42] LABS: INR 1.1 (<1.2); Partial Thromboplastin Time 23.2 sec (22.0-30.0); Prothrombin Time 11.1 sec (9.0-12.0)
[2022-02-10 12:47] LABS: ALT 13 U/L (4-34); AST 25 U/L (14-36); African American GFR (CKD) >90 (>60 ml/min/1.73 sqM); Albumin 2.4 g/dL (3.5-5.0); Alkaline Phosphatase 161 U/L (38-126); Amylase 55 U/L (30-110); Anion Gap 4 mmol/L; Blood Urea Nitrogen 13 mg/dL (7-17); Carbon Dioxide 23 mmol/L (22-30); Chloride 106 mmol/L (98-107); Glucose 88 mg/dL (74-99); Lipase 201 U/L (23-300); Magnesium 1.2 mg/dL (1.6-2.3); Non-African American GFR(CKD) >90 (>60 ml/min/1.73 sqM); Potassium 3.8 mmol/L (3.5-5.1); Sodium 133 mmol/L (137-145); Total Bilirubin 0.7 mg/dL (0.2-1.3); Total Protein 5.1 g/dL (6.3-8.2)
[2022-02-10] MEDS ORDERED: MAGNESIUM SULFATE-D5W PMX 1 GM in DEXTROSE/WATER 1 100ML.BAG IVPB ONE (12:49)
[2022-02-10] MEDS ORDERED: CALCIUM CARBONATE 500 MG CHEWABLE PO STA (13:01)
[2022-02-10 13:33] LABS: Anisocytosis Slight; Basophils % (A) 1 %; Eosinophils % (A) 0 %; HCT 34.5 % (34.0-46.0); HGB 11.3 gm/dL (11.4-16.0); Lymphocytes # (A) 0.5 k/uL (1.0-4.8); Lymphocytes % (A) 8 %; MCHC 32.8 g/dL (31.0-37.0); MCV 103.7 fL (80.0-100.0); Macrocytosis Moderate; Monocytes # (A) 0.6 k/uL (0-1.0); Monocytes % (A) 9 %; Neutrophils # (A) 5.3 k/uL (1.3-7.7); Neutrophils % (A) 81 %; RBC 3.33 m/uL (3.80-5.40); RDW 18.6 % (11.5-15.5); WBC 6.5 k/uL (3.8-10.6)
[2022-02-10 13:39] LABS: Platelet Count 296 k/uL (150-450)
[2022-02-10] MEDS ORDERED: METOCLOPRAMIDE 5 MG/ML 2 ML VIAL IVP STA (13:47)
--- NOTE | 2022-02-10 13:50 | CT ---
EXAMINATION TYPE: CT abdomen pelvis w con DATE OF EXAM: 02/10/2022 COMPARISON: 01/28/2022 INDICATION: abdominal pain, distention, weakness DLP: 545.4 mGycm, Automated exposure control for dose reduction was used. CONTRAST: 100 mL of Isovue 300. Study performed without Oral Contrast TECHNIQUE: Axial images were obtained from above the diaphragm to the pubic rami in the axial plane a t 5 mm thick sections. Reconstructed images are reviewed on the computer in the coronal plane. FINDINGS: Limited CT sections are obtained the lung bases. Small moderate bilateral pleural effusions are pres ent.. Small pericardial effusion may be diminished from comparison CT ABDOMEN: Ascites is present. Liver: Somewhat lobular. Consider cirrhosis. Spleen: Normal Pancreas: Normal. Pancreatic duct visualized, appears within normal limits. Adrenal glands: The adrenal glands are normal. Gallbladder: Surgically absent Kidneys: No masses are evident. Hydronephrosis is present on the right.. Peripelvic cysts may be pres ent on the left. Some perinephric fluid is present inferior to the right kidney. A right ureteral abisai nt is present. Aorta: Vascular calcification is within the aorta. Inferior vena cava: Normal. CT PELVIS: Loops of bowel within the abdomen and pelvis are normal. Some small bowel loop thickening is not exc luded. No small bowel dilatation is evident. Appendix: Normal as visualized. Urinary bladder: Normal. Is largely decompressed. It is difficult to separate from the ascites. Genitourinary structures: Uterus and ovaries are not identified. Osseous structures: No suspicious lytic or sclerotic lesions. IMPRESSIONS: 1. Right-sided hydronephrosis with double pigtail stent present in the ureter. Urinoma may be adjace nt to the inferior pole right kidney. 2. Ascites, increasing from comparison. 3. Small to moderate bilateral pleural fluid collections. Similar to comparison. 4. Consider cirrhosis of the liver.
--- NOTE | 2022-02-10 14:14 | ED ---
Abdominal Pain HPI - General Chief Complaint: Abdominal Pain Stated Complaint: dizziness, diarrhea Time Seen by Provider: 02/10/22 10:56 Source: patient, family Mode of arrival: wheelchair Limitations: no limitations - History of Present Illness Initial Comments: Patient is 71-year-old female who presents to the emergency department with a chief complaint of dizziness and diarrhea. Patient states symptoms started 4 days ago. She reports 10-20 episodes of watery diarrhea today. No recent travel or antibiotic use. No history of C. diff. No blood in the stool. Patient also reports generalized abdominal pain and nausea. No fever chills, vomiting, burning with urination, trouble urinating, blood in urine. No URI symptoms, chest pain, SOB. Patient has active ovarian cancer with metastases. She follows with Racheal Barajas. She has history of total hysterectomy, oophorectomy, omenectomy. Patient stopped chemotherapy on 01/21 due to intolerance during treatment. She will not be undergoing anymore chemo treatments. - Related Data Home Medications Medication Instructions Recorded Confirmed Dicyclomine [Bentyl] 10 mg PO TID PRN 09/02/21 02/10/22 Prochlorperazine [Compazine] 10 mg PO Q6H PRN 09/02/21 02/10/22 traMADol HCl [Ultram] 50 mg PO Q6HR PRN 09/02/21 02/10/22 Ondansetron [Zofran] 4 mg PO Q8HR PRN 09/30/21 02/10/22 Tolterodine [Detrol] 2 mg PO BID 11/20/21 02/10/22 OLANZapine [ZyPREXA] 2.5 mg PO DIRECTED 01/28/22 02/10/22 Allergies Allergy/AdvReac Type Severity Reaction Status Date / Time aspirin Allergy Rash/Hives Verified 02/10/22 11:59 Iodinated Contrast Media Allergy Rash/Hives Verified 02/10/22 11:59 [Iodinated Contrast- Oral and IV Dye] lactose Allergy Unknown Verified 02/10/22 11:59 Penicillins Allergy Rash/Hives Verified 02/10/22 11:59 melatonin AdvReac Intermediate See comment Verified 02/10/22 11:59 morphine AdvReac Vomiting Verified 02/10/22 11:59 Review of Systems ROS Statement: Those systems with pertinent positive or pertinent negative responses have been documented in the HPI. ROS Other: All systems not noted in ROS Statement are negative. Past Medical History Past Medical History: Cancer, Diabetes Mellitus, GI Bleed, Osteoarthritis (OA), Pulmonary Embolus (PE) Additional Past Medical History / Comment(s): 09/30/21 admitted inpatient for dyspnea and abdominal pain secondary to dehydration. 2017 Bilateral ovarian cancer diagnosed with mets/surgery and chemotherapy with last chemo taken about 2 years ago, bicytopenia, lower GI bleed, anemia, 11/2016 bilateral pulmonary embolisms, 12/2016 L sided pleural effusion with 2 thoracentesis, diet controlled diabetes, diverticulosis, mild protein calorie malnutrition, 08/14/21 L ureteral blockage d/t enlarged lymph nodes/hematuria and stent was placed/pt has R lower back pain since, UTIs History of Any Multi-Drug Resistant Organisms: None Reported Past Surgical History: Bowel Resection, Hysterectomy Additional Past Surgical History / Comment(s): Total hysterectomy/perineal and omenectomy done by Dr Rob at [facility] June 2017, 2 left thoracentesis- last one in 2016, power port right upper chest 2016, 11/10/17 egd w/bx, colonoscopy, 08/14/21 R ureteral stent. Past Anesthesia/Blood Transfusion Reactions: No Reported Reaction Additional Past Anesthesia/Blood Transfusion Reaction / Comment(s): Pt has received blood without reaction. Past Psychological History: No Psychological Hx Reported Smoking Status: Never smoker - Past Family History Mother Family Medical History: Congestive Heart Failure (CHF), CVA/TIA, Hypertension Father Family Medical History: CVA/TIA Brother(s) Family Medical History: Cancer Additional Family Medical History / Comment(s): colon cancer, lymphoma Daughter(s) History Unknown: Yes General Exam Limitations: no limitations General appearance: alert, in no apparent distress Head exam: Present: atraumatic, normocephalic, normal inspection Eye exam: Present: normal appearance, PERRL, EOMI. Absent: scleral icterus, conjunctival injection, periorbital swelling Respiratory exam: Present: normal lung sounds bilaterally. Absent: respiratory distress, wheezes, rales, rhonchi, stridor Cardiovascular Exam: Present: regular rate, normal rhythm, normal heart sounds. Absent: systolic murmur, diastolic murmur, rubs, gallop, clicks GI/Abdominal exam: Present: soft, distended (mild), tenderness (generalized), normal bowel sounds. Absent: guarding, rebound, rigid Extremities exam: Present: normal capillary refill Neurological exam: Present: alert, oriented X3, CN II-XII intact Psychiatric exam: Present: normal affect, normal mood Skin exam: Present: warm, dry, intact, pallor. Absent: normal color, rash Course Vital Signs 02/10/22 02/10/22 02/10/22 10:33 12:11 14:37 Temperature 97 F L Pulse Rate 105 H 103 H 97 Respiratory 20 18 18 Rate Blood Pressure 132/97 143/100 145/95 O2 Sat by Pulse 97 97 97 Oximetry 02/10/22 17:00 Temperature Pulse Rate 96 Respiratory 18 Rate Blood Pressure 132/92 O2 Sat by Pulse 97 Oximetry Medical Decision Making - Medical Decision Making Was pt. sent in by a medical professional or institution? No Did you speak to anyone other than the patient for history? Yes, family Did you review nursing and triage notes? Yes, symptoms consistent with nursing and triage notes. Were old charts reviewed? Yes, patient recently admitted for symptomatic anemia. She was given a unit of blood due to acute on chronic anemia. Differential Diagnosis? @ -c. diff infection, colitis, diverticulitis, gastroenteritis EKG interpreted by me (3pts min.)? Yes, sinus tachycardia with borderline right axis deviation, no ST segment or T- wave abnormality. Ventricular rate 104, MS interval 117, QRS duration 85, QTc 412 X-rays interpreted by me (1pt min.)? NA CT interpreted by me (1pt min.)? Yes, CT obtained and interpreted by me which shows right-sided hydronephrosis with bilateral pigtail stent present in the ureter. Urinoma maybe present adjacent to the inferior pole of the right kidney. There is ascites, increasing from comparison. There are small to moderate bilateral pleural fluid collections, similar to comparison. Cirrhosis of the liver should be considered. U/S interpreted by me (1pt. min.)? NA What testing was considered but not performed? (CT, X-rays, U/S, labs)? Why? NA What meds were considered but not given? Why? NA Did you discuss the management of the patient with other professionals? No Did you reconcile home meds? No, not verified by pharmacy yet Was smoking cessation discussed for >3mins.? No Was critical care preformed (if so, how long)? No Were there social determinants of health that impacted care today? How? (Homelessness, low income, unemployed, alcoholism, drug addiction, transportation, low edu. Level, literacy, decrease access to med. care, [facility], rehab)? No Was there de-escalation of care discussed even if they declined? (Discuss DNR or withdrawal of care, Hospice)? No What co-morbidities impacted this encounter? (DM, HTN, Smoking, COPD, CAD, Cancer, CVA, Hep., AIDS, mental health diagnosis, sleep apnea, morbid obesity)? ovarian cancer Was patient admitted / discharged? This is an ovarian cancer patient presenting with diarrhea, weakness, abdominal pain. Vitals are within acceptable limits. Afebrile. Laboratory studies obt ained. Hemoglobin is 11.3, increased from 10.5 on 01/29, although patient appears dehydrated- possibility of hemoconcentration should be considered. There is hypocalcemia at 8.0 and hypomagnesemia at 1.2. COVID-19, influenza, RSV not detected. CT of the abdomen and pelvis with contrast significant for increased ascites and right-sided hydronephrosis with stent placement and possible urinoma. Pain and nausea controlled. Electrolytes replenished. Patient given fluid bolus. Results discussed with patient and family. Patient continued to feel dizzy-I suspect this could be due to low hemoglobin. Patient to be admitted for hypomagnesemia and symptom control. Labs will be monitored closely, repeat hemoglobin tonight. Patient on secured entrance monitor. Case discussed with Dr. Tiwari who accepts admission. Patient follows with Dr. Lehman who placed ureteral stent. He is consulted as well as Dr. Springer. Undiagnosed new problem with uncertain prognosis? No Drug Therapy requiring intensive monitoring for toxicity (Heparin, Nitro, Insulin, Cardizem)? No Were any procedures done? No Diagnosis/symptom? Hypomagnesemia Acute, or Chronic, or Acute on Chronic? @ -[default] Uncomplicated (without systemic symptoms) or Complicated (systemic symptoms)? @ -[default] Side effects of treatment? @ -[none] Exacerbation, Progression, or Severe Exacerbation] NA Poses a threat to life or bodily function? No Diagnosis/symptom? Hypocalcemia Acute, or Chronic, or Acute on Chronic? chronic Uncomplicated (without systemic symptoms) or Complicated (systemic symptoms)? Uncomplicated Side effects of treatment? No Exacerbation, Progression, or Severe Exacerbation] NA Poses a threat to life or bodily function? Yes Diagnosis/symptom? Anemia Acute, or Chronic, or Acute on Chronic? chronic Uncomplicated (without systemic symptoms) or Complicated (systemic symptoms)? NA Side effects of treatment? NA Exacerbation, Progression, or Severe Exacerbation] Progression Poses a threat to life or bodily function? Yes Diagnosis/symptom? Diarrhea Acute, or Chronic, or Acute on Chronic? acute Uncomplicated (without systemic symptoms) or Complicated (systemic symptoms)? NA Side effects of treatment? NA Exacerbation, Progression, or Severe Exacerbation] NA Poses a threat to life or bodily function? NA Diagnosis/symptom? dizziness Acute, or Chronic, or Acute on Chronic? acute Uncomplicated (without systemic symptoms) or Complicated (systemic symptoms)? NA Side effects of treatment? No Exacerbation, Progression, or Severe Exacerbation] NA Poses a threat to life or bodily function? No Dr. Proctor is my attending. - Lab Data Result diagrams: 02/10/22 12:11 02/10/22 12:11 Lab Results 02/10/22 02/10/22 02/10/22 Range/Units 11:45 12:11 12:11 WBC 6.5 (3.8-10.6) k/uL RBC 3.33 L (3.80-5.40) m/uL Hgb 11.3 L (11.4-16.0) gm/dL Hct 34.5 (34.0-46.0) % MCV 103.7 H (80.0-100.0) fL MCH 34.0 (25.0-35.0) pg MCHC 32.8 (31.0-37.0) g/dL RDW 18.6 H (11.5-15.5) % Plt Count 296 D (150-450) k/uL MPV 8.0 Neutrophils % 81 % Lymphocytes % 8 % Monocytes % 9 % Eosinophils % 0 % Basophils % 1 % Neutrophils # 5.3 (1.3-7.7) k/uL Lymphocytes # 0.5 L (1.0-4.8) k/uL Monocytes # 0.6 (0-1.0) k/uL Eosinophils # 0.0 (0-0.7) k/uL Basophils # 0.0 (0-0.2) k/uL Anisocytosis Slight Macrocytosis Moderate PT 11.1 (9.0-12.0) sec INR 1.1 (<1.2) APTT 23.2 (22.0-30.0) sec Sodium (137-145) mmol/L Potassium (3.5-5.1) mmol/L Chloride (98-107) mmol/L Carbon Dioxide (22-30) mmol/L Anion Gap mmol/L BUN (7-17) mg/dL Creatinine (0.52-1.04) mg/dL Est GFR (CKD-EPI)AfAm (>60 ml/min/1.73 sqM) Est GFR (CKD-EPI)NonAf (>60 ml/min/1.73 sqM) Glucose (74-99) mg/dL Plasma Lactic Acid Maxime (0.7-2.0) mmol/L Calcium (8.4-10.2) mg/dL Magnesium (1.6-2.3) mg/dL Total Bilirubin (0.2-1.3) mg/dL AST (14-36) U/L ALT (4-34) U/L Alkaline Phosphatase (38-126) U/L Total Protein (6.3-8.2) g/dL Albumin (3.5-5.0) g/dL Amylase (30-110) U/L Lipase (23-300) U/L Influenza Type A (PCR) (Not Detectd) Influenza Type B (PCR) (Not Detectd) RSV (PCR) (Not Detectd) SARS-CoV-2 (PCR) (Not Detectd) Blood Type A Negative Blood Type Recheck A Neg Bld Type Recheck Status No Antibody Screen NEGATIVE Spec Expiration Date 02/13/2022 - 231002/10/22 02/10/22 02/10/22 Range/Units 12:11 12:11 12:11 WBC (3.8-10.6) k/uL RBC (3.80-5.40) m/uL Hgb (11.4-16.0) gm/dL Hct (34.0-46.0) % MCV (80.0-100.0) fL MCH (25.0-35.0) pg MCHC (31.0-37.0) g/dL RDW (11.5-15.5) % Plt Count (150-450) k/uL MPV Neutrophils % % Lymphocytes % % Monocytes % % Eosinophils % % Basophils % % Neutrophils # (1.3-7.7) k/uL Lymphocytes # (1.0-4.8) k/uL Monocytes # (0-1.0) k/uL Eosinophils # (0-0.7) k/uL Basophils # (0-0.2) k/uL Anisocytosis Macrocytosis PT (9.0-12.0) sec INR (<1.2) APTT (22.0-30.0) sec Sodium 133 L (137-145) mmol/L Potassium 3.8 (3.5-5.1) mmol/L Chloride 106 (98-107) mmol/L Carbon Dioxide 23 (22-30) mmol/L Anion Gap 4 mmol/L BUN 13 (7-17) mg/dL Creatinine 0.57 (0.52-1.04) mg/dL Est GFR (CKD-EPI)AfAm >90 (>60 ml/min/1.73 sqM) Est GFR (CKD-EPI)NonAf >90 (>60 ml/min/1.73 sqM) Glucose 88 (74-99) mg/dL Plasma Lactic Acid Maxime 1.0 (0.7-2.0) mmol/L Calcium 8.0 L (8.4-10.2) mg/dL Magnesium 1.2 L (1.6-2.3) mg/dL Total Bilirubin 0.7 (0.2-1.3) mg/dL AST 25 (14-36) U/L ALT 13 (4-34) U/L Alkaline Phosphatase 161 H (38-126) U/L Total Protein 5.1 L (6.3-8.2) g/dL Albumin 2.4 L (3.5-5.0) g/dL Amylase 55 (30-110) U/L Lipase 201 (23-300) U/L Influenza Type A (PCR) Not Detected (Not Detectd) Influenza Type B (PCR) Not Detected (Not Detectd) RSV (PCR) Not Detected (Not Detectd) SARS-CoV-2 (PCR) Not Detected (Not Detectd) Blood Type Blood Type Recheck Bld Type Recheck Status Antibody Screen Spec Expiration Date Disposition Clinical Impression: Diarrhea, Dizziness, Anemia, Hypomagnesemia, Hypocalcemia, Abdominal pain Disposition: ADMITTED IP TO THIS HOSP Condition: Fair
[2022-02-10] MEDS ORDERED: NALOXONE 0.4 MG/ML 1 ML VIAL IV PRN (14:43)
[2022-02-10] MEDS ORDERED: HYDROmorphone 1 MG/ML 1 ML SYRINGE IVP PRN (14:46)
[2022-02-10] MEDS: SODIUM CHLORIDE 0.9% 1,000 ML IV SCH (15:05)
[2022-02-10] MEDS ORDERED: Potassium Replacement Protocol 1 EACH MISC MISCELLANE PRN (15:53)
[2022-02-10] MEDS ORDERED: Magnesium Replacement Protocol 1 EACH MISC MISCELLANE PRN (15:53)
[2022-02-10] MEDS: ONDANSETRON 4 MG/2 ML VIAL IVP PRN (16:31)
[2022-02-10] MEDS ORDERED: DICYCLOMINE 10 MG CAP PO PRN (17:16)
[2022-02-10] MEDS ORDERED: PROCHLORPERAZINE 10 MG TAB PO PRN (17:16)
[2022-02-10] MEDS ORDERED: HYDROmorphone 0.5 MG/0.5 ML SYRINGE IVP PRN (17:17)
[2022-02-10] MEDS: PANTOPRAZOLE 40 MG/10 ML VIAL IVP SCH ×2 (18:42→20:19)
--- NOTE | 2022-02-10 23:09 | HP ---
HISTORY AND PHYSICAL CHIEF COMPLAINT: Abdominal pain, dizziness, weakness, and diarrhea. HISTORY OF PRESENT ILLNESS: This is a 71-year-old woman with a past medical history of diabetes mellitus, pulmonary embolism, DJD, also had ovarian cancer, being followed by Dr. Springer in the outpatient setting. The patient is complaining of diarrhea, weakness, abdominal discomfort. The patient came to [facility] and admitted for further evaluation and treatment. There is no history of any fever, rigors, or chills. CT scan of the abdomen, which was reviewed personally by me showed right-sided hydronephrosis with double pigtail stent and as well as ascites, which is increasing and [id number] bilateral pleural fluid collections also. There is no history of any fever, rigors, or chills at this time. Hemoglobin is 11.3. PAST MEDICAL HISTORY: Reviewed, include diabetes mellitus, pulmonary embolism, and metastatic ovarian cancer. The rest of the history and rest of the chart was reviewed. HOME MEDICATIONS: Reviewed include Ultram. Doses and rest of medication noted. ALLERGIES: Reviewed include aspirin. The rest of allergies noted. FAMILY HISTORY: History of CVA, TIA, hypertension. The rest of the family history reviewed. SOCIAL HISTORY: No history of smoking. REVIEW OF SYSTEMS: A 14-point review is negative except as mentioned earlier. PHYSICAL EXAMINATION: VITAL SIGNS: Pulse 97, blood pressure 140/92, respirations 18. HEENT: Conjunctivae pale. Oral mucosa dry. NECK: No JVD. CARDIOVASCULAR: S1, S2. RESPIRATIONS: Breath sounds diminished at the bases. A few scattered rhonchi and crackles. ABDOMEN: Soft, ascites present. LEGS: No edema. NERVOUS SYSTEM: No focal deficits. SKIN: No ulcer, rash, bleeding. JOINTS: No active deforming arthropathy. LABORATORY DATA: Hemoglobin 11.3. ASSESSMENT: 1. Nausea, diarrhea for evaluation, possibly chemotherapy-induced. 2. Weakness and dehydration. 3. Metastatic ovarian cancer. 4. Anemia. 5. Diabetes mellitus, type 2. 6. Degenerative joint disease. 7. History of pulmonary embolism. 8. Multiple medical issues. RECOMMENDATIONS: This is a 71-year-old woman, who presented with multiple complex medical issues. We will monitor the patient closely. I would recommend symptomatic treatment and I would recommend Hematology/Oncology evaluation. We will compare with previous CT scan and guarded prognosis. Further recommendations to follow. See orders for further details. MMODL / IJN: [id number] /
[2022-02-11] MEDS: ONDANSETRON 4 MG/2 ML VIAL IVP PRN ×2 (00:27→07:58)
[2022-02-11] MEDS: SODIUM CHLORIDE 0.9% 1,000 ML IV SCH ×2 (05:54→19:44)
[2022-02-11] MEDS: PANTOPRAZOLE 40 MG/10 ML VIAL IVP SCH (07:58)
[2022-02-11] MEDS: OXYBUTYNIN XL 5 MG TAB.ER.24 PO SCH (07:59)
[2022-02-11 08:29] LABS: HCT 35.1 % (37.2-46.3); HGB 10.8 g/dL (12.0-15.0); MCH 32.9 pg (27.0-32.0); MCHC 30.8 g/dL (32.0-37.0); Mean Platelet Volume 8.9 fL (9.5-12.2); NRBC Per 100 WBC 0 /100 WBCS (0.0-0.0); Platelet Count 266 X 10*3/uL (140-440); RBC 3.28 X 10*6/uL (4.10-5.20); RDW 19.9 % (11.5-14.5); WBC 7.86 X 10*3/uL (4.50-10.00)
[2022-02-11 08:42] LABS: African American GFR (CKD) 84.8 (60.0-200.0); Albumin 2.5 g/dL (3.8-4.9); Anion Gap 13.2 mmol/L (10.00-18.00); BUN/Creat Ratio 13.63 Ratio (12.00-20.00); Blood Urea Nitrogen 10.9 mg/dL (9.0-27.0); Calcium 7.9 mg/dL (8.7-10.3); Carbon Dioxide 20.8 mmol/L (20.0-27.5); Globulin 2.5 g/dL (1.6-3.3); Magnesium 1.5 mg/dL (1.5-2.4); Non-African American GFR(CKD) 73.1 (60.0-200.0); Potassium 3.7 mmol/L (3.5-5.5); Total Bilirubin 0.3 mg/dL (0.30-1.20)
--- NOTE | 2022-02-11 09:12 | P.GSCN ---
History of Present Illness Consult date: 02/11/22 Requesting physician: Marnie Mosley History of present illness: The patient is a 71-year-old female who presented to the emergency department on 02/10/22 with a chief complaint of dizziness and diarrhea. Patient states symptoms started 4 days ago. She reports 10-20 episodes of watery diarrhea today. No recent travel or antibiotic use. No history of C. diff. No blood in the stool. Patient also reports generalized abdominal pain, nausea, and vomiting. No fever, chills, burning with urination, trouble urination, or hematuria. No URI symptoms, chest pain, SOB. Patient has stage IV ovarian cancer diagnosed in 2017. She follows with Racheal Barajas. She has history of total hysterectomy, oophorectomy, omenectomy. Patient stopped chemotherapy on 01/21 due to intolerance during treatment. She will not be undergoing anymore chemo treatments. She has right hydronephrosis, which is being managed with a ureteral stent. A 7-Pakistani stent was placed by Dr. Drew on 08/14/2021. However, she experienced bladder spasms as a result of the stent and therefore a 4.5-Pakistani stent was used when the stent was last changed on 12/04/2021. underwent a CT that showed evidence of stent been in place also evidence of fluid around the lower pole of the kidney, etiology of the fluid is unknown. Compared to previous CT scan, earlier this month it's similar in finding. Review of Systems - Constitutional Reports anorexia, Reports fatigue, Reports weakness, Denies chills, Denies fever - Cardiovascular Denies chest pain, Denies shortness of breath - Gastrointestinal Reports abdominal pain, Reports diarrhea, Reports nausea, Reports vomiting - Genitourinary Genitourinary: Denies dysuria, Denies hematuria Past Medical History Past Medical History: Cancer, Diabetes Mellitus, GI Bleed, Osteoarthritis (OA), Pulmonary Embolus (PE) Additional Past Medical History / Comment(s): 09/30/21 admitted inpatient for dyspnea and abdominal pain secondary to dehydration. 2017 Bilateral ovarian cancer diagnosed with mets/surgery and chemotherapy with last chemo taken about 2 years ago, bicytopenia, lower GI bleed, anemia, 11/2016 bilateral pulmonary embolisms, 12/2016 L sided pleural effusion with 2 thoracentesis, diet controlled diabetes, diverticulosis, mild protein calorie malnutrition, 08/14/21 L ureteral blockage d/t enlarged lymph nodes/hematuria and stent was placed/pt has R lower back pain since, UTIs History of Any Multi-Drug Resistant Organisms: None Reported Past Surgical History: Bowel Resection, Hysterectomy Additional Past Surgical History / Comment(s): Total hysterectomy/perineal and omenectomy done by Dr Rob at [facility] June 2017, 2 left thoracentesis- last one in 2016, power port right upper chest 2017, 11/10/17 egd w/bx, colonoscopy, 08/14/21 R ureteral stent. Past Anesthesia/Blood Transfusion Reactions: No Reported Reaction Additional Past Anesthesia/Blood Transfusion Reaction / Comm: Pt has received blood without reaction. Past Psychological History: No Psychological Hx Reported Smoking Status: Never smoker - Past Family History Mother Family Medical History: Congestive Heart Failure (CHF), CVA/TIA, Hypertension Father Family Medical History: CVA/TIA Brother(s) Family Medical History: Cancer Additional Family Medical History / Comment(s): colon cancer, lymphoma Daughter(s) History Unknown: Yes Medications and Allergies Home Medications Medication Instructions Recorded Confirmed Type Dicyclomine [Bentyl] 10 mg PO TID PRN 09/02/21 02/10/22 History Prochlorperazine [Compazine] 10 mg PO Q6H PRN 09/02/21 02/10/22 History traMADol HCl [Ultram] 50 mg PO Q6HR PRN 09/02/21 02/10/22 History Ondansetron [Zofran] 4 mg PO Q8HR PRN 09/30/21 02/10/22 History Tolterodine [Detrol] 2 mg PO BID 11/20/21 02/10/22 History OLANZapine [ZyPREXA] 2.5 mg PO DIRECTED 01/28/22 02/10/22 History Allergies Allergy/AdvReac Type Severity Reaction Status Date / Time aspirin Allergy Rash/Hives Verified 02/10/22 11:59 Iodinated Contrast Media Allergy Rash/Hives Verified 02/10/22 11:59 [Iodinated Contrast- Oral and IV Dye] lactose Allergy Unknown Verified 02/10/22 11:59 Penicillins Allergy Rash/Hives Verified 02/10/22 11:59 melatonin AdvReac Intermediate See comment Verified 02/10/22 11:59 morphine AdvReac Vomiting Verified 02/10/22 11:59 Surgical - Exam Vital Signs Temp Pulse Resp BP Pulse Ox 97 F L 105 H 20 132/97 97 02/10/22 10:33 02/10/22 10:33 02/10/22 10:33 02/10/22 10:33 02/10/22 10:33 General: Well developed, cachectic, chronically ill appearing HEENT: Head is atraumatic, normocephalic. Lungs: Respirations even and nonlabored. Abdomen/GI: Soft. No guarding, rigidity, or abdominal tenderness. : No suprapubic tenderness. No flank tenderness Skin: Warm and dry Neurologic: Awake, alert and oriented times 3. Psychiatric: Appropriate mood and affect. Results - Labs 02/11/22 06:08 02/11/22 06:08 Abnormal Lab Results - Last 24 Hours (Table) 02/10/22 02/10/22 02/11/22 Range/Units 12:11 12:11 06:08 RBC 3.33 L 3.28 L (3.80-5.40) m/uL Hgb 11.3 L 10.8 L (11.4-16.0) gm/dL Hct 35.1 L (37.2-46.3) % MCV 103.7 H 107.0 H (80.0-100.0) fL MCH 32.9 H (27.0-32.0) pg MCHC 30.8 L (32.0-37.0) g/dL RDW 18.6 H 19.9 H (11.5-15.5) % MPV 8.9 L (9.5-12.2) fL Lymphocytes # 0.5 L (1.0-4.8) k/uL Sodium 133 L (137-145) mmol/L Glucose (70-110) mg/dL Calcium 8.0 L (8.4-10.2) mg/dL Magnesium 1.2 L (1.6-2.3) mg/dL Alkaline Phosphatase 161 H (38-126) U/L Total Protein 5.1 L (6.3-8.2) g/dL Albumin 2.4 L (3.5-5.0) g/dL Albumin/Globulin Ratio (1.60-3.17) g/dL 02/11/22 Range/Units 06:08 RBC (3.80-5.40) m/uL Hgb (11.4-16.0) gm/dL Hct (37.2-46.3) % MCV (80.0-100.0) fL MCH (27.0-32.0) pg MCHC (32.0-37.0) g/dL RDW (11.5-15.5) % MPV (9.5-12.2) fL Lymphocytes # (1.0-4.8) k/uL Sodium (137-145) mmol/L Glucose 176 H (70-110) mg/dL Calcium 7.9 L (8.4-10.2) mg/dL Magnesium (1.6-2.3) mg/dL Alkaline Phosphatase 201 H (38-126) U/L Total Protein 5.0 L (6.3-8.2) g/dL Albumin 2.5 L (3.5-5.0) g/dL Albumin/Globulin Ratio 1.00 L (1.60-3.17) g/dL Diabetes panel 02/10/22 02/11/22 Range/Units 12:11 06:08 Sodium 133 L 138 (137-145) mmol/L Potassium 3.8 3.7 (3.5-5.1) mmol/L Chloride 106 104 (98-107) mmol/L Carbon Dioxide 23 20.8 (22-30) mmol/L BUN 13 10.9 (7-17) mg/dL Creatinine 0.57 0.8 (0.52-1.04) mg/dL Glucose 88 176 H (74-99) mg/dL Calcium 8.0 L 7.9 L (8.4-10.2) mg/dL AST 25 15 (14-36) U/L ALT 13 14 (4-34) U/L Alkaline Phosphatase 161 H 201 H (38-126) U/L Total Protein 5.1 L 5.0 L (6.3-8.2) g/dL Albumin 2.4 L 2.5 L (3.5-5.0) g/dL Calcium panel 02/10/22 02/11/22 Range/Units 12:11 06:08 Calcium 8.0 L 7.9 L (8.4-10.2) mg/dL Albumin 2.4 L 2.5 L (3.5-5.0) g/dL Pituitary panel 02/10/22 02/11/22 Range/Units 12:11 06:08 Sodium 133 L 138 (137-145) mmol/L Potassium 3.8 3.7 (3.5-5.1) mmol/L Chloride 106 104 (98-107) mmol/L Carbon Dioxide 23 20.8 (22-30) mmol/L BUN 13 10.9 (7-17) mg/dL Creatinine 0.57 0.8 (0.52-1.04) mg/dL Glucose 88 176 H (74-99) mg/dL Calcium 8.0 L 7.9 L (8.4-10.2) mg/dL Adrenal panel 02/10/22 02/11/22 Range/Units 12:11 06:08 Sodium 133 L 138 (137-145) mmol/L Potassium 3.8 3.7 (3.5-5.1) mmol/L Chloride 106 104 (98-107) mmol/L Carbon Dioxide 23 20.8 (22-30) mmol/L BUN 13 10.9 (7-17) mg/dL Creatinine 0.57 0.8 (0.52-1.04) mg/dL Glucose 88 176 H (74-99) mg/dL Calcium 8.0 L 7.9 L (8.4-10.2) mg/dL Total Bilirubin 0.7 0.30 (0.2-1.3) mg/dL AST 25 15 (14-36) U/L ALT 13 14 (4-34) U/L Alkaline Phosphatase 161 H 201 H (38-126) U/L Total Protein 5.1 L 5.0 L (6.3-8.2) g/dL Albumin 2.4 L 2.5 L (3.5-5.0) g/dL Assessment and Plan Assessment: The patient reports she has been nauseated this morning. Her nausea is relieved with antiemetics and she is able to tolerate a diet. She denies any abdominal pain, flank pain, or dysuria. She does report hematuria which is an expected finding with her stent. Her abdominal/pelvis CT was reviewed by Dr. Drew and is similar to the previous CT performed on 01/28. The right renal sinus fluid was noted in December and remains unchanged. Her right ureter stent appears to be properly positioned. at this point the patient is asymptomatic, will not benefit from a stent change. Plan: The patient is scheduled to undergo a cystoscopy with right ureteral stent change in March 2022. A stent change prior to that would not be beneficial. No intervention is needed at this time. Please feel free to contact us if we could be of any further assistance. Thank you for this consultation Impression and plan of care have been directed as dictated by the signing physician. Rabia Harden nurse practitioner acting as scribe for signing physician. Rabia Harden [facility] Palliative Care/Urology Spectralink [phone] Email: [email or web address] I personally performed and participated in the history, physical, the decision making, I agree with the assessment and plan of [employer]
[2022-02-11 09:14] LABS: INR 1.01 (0.90-1.11); Prothrombin Time 11.4 sec (9.9-11.9)
[2022-02-11 09:21] LABS: Basophils # (A) 0.01 X 10*3/uL (0.00-0.10); Basophils % (A) 0.1 %; Eosinophils # (A) 0 X 10*3/uL (0.04-0.35); Eosinophils % (A) 0 %; Immature Grans, Automated 1.1 %; Lymphocytes % (A) 8.9 %; Macrocytosis (M) 2+; Monocytes # (A) 0.94 X 10*3/uL (0.20-1.00); Neutrophils # (A) 6.12 X 10*3/uL (1.80-7.70); Neutrophils % (A) 77.9 %
[2022-02-11 10:42] VITALS: BMI 18.8
--- NOTE | 2022-02-11 15:38 | P.CONS ---
History of Present Illness - Reason for Consult Consult date: 02/11/22 ovarian cancer Requesting physician: Marnie Mosley - Chief Complaint dizziness, diarrhea, n/v - History of Present Illness The patient is a 71-year-old female who presented to the emergency department on 02/10/22 with a chief complaint of dizziness and diarrhea, with associated generalized abdominal pain, nausea, and vomiting. Patient states symptoms started approx 1 week ago. She reports 10-20 episodes of watery diarrhea daily. Pt reports she was taking antidiarrheals and Zofran at home without relief in symptoms. Since admission patient denies diarrhea or BM. Patient is receiving Zofran with improvement in nausea and is tolerating food but states eggs this morning "is not sitting well." Denies recent travel or antibiotic use. No history of C. diff. No blood in the stool. Denies fever, chills, burning with urination, trouble urination, or hematuria. Today Hgb 10.8, HCT 35.1, PLT 266. Magnesium 1.5, received mag infusion. CT abd/pelvis showed increasing ascites, right-sided hydronephrosis with urethral stent in place, hepatic cirrhosis, and bilateral pleural effusions, similar to last CT. Patient has significant history for recurrent metastatic ovarian cancer, with total hysterectomy, oophorectomy, omenectomy. Patient stopped carboplatin/gem citabine during cycle 7 on 01/21 due to intolerance to treatment. Maintenance medication (PARP inhibitor) is currently being considered. She has hx of right hydronephrosis, which is being managed with a ureteral stent. A 7-Venezuelan stent was placed by Dr. Drew on 08/14/2021. However, she experienced bladder spasms as a result of the stent and therefore a 4.5-Venezuelan stent was used when the stent was last changed on 12/04/2021. Pt is being followed by urology. *Hx from consult dated 01/29/2022, no significant changes Ms. Leija is a 71-year-old woman with a past medical history significant for recurrent metastatic ovarian cancer currently status post 7 cycles of carboplatin/gemcitabine with cycle 7 most recently on 01/21/2022, presenting with increased weakness, nausea, vomiting. She notes feeling this way about couple days after her last treatment last week and this has gotten progressively worse. Patient presented to the ED reporting not able to eat any solid foods without having any nausea and progressive weakness which caused presentation to the ER at that time In the ED, she was hemodynamically stable and afebrile. Labs were significant for hemoglobin of 8 (was 10 last week with treatment). White blood cell count was 8.1 with platelet count 160. CMP revealed no acute metabolic abnormalities but noted low total protein 5.1 and albumin 2.4. Influenza A/B, RSV, and COVID- 19 PCR's were negative. Chest x-ray noted COPD induced basilar atelectasis over pneumonia along with a questionable 8 mm nodule in the left lower lobe, but no acute process concerning for pneumonia was seen. CT of the abdomen and pelvis noted moderate hydronephrosis with ureteral stent in similar position at the ureteropelvic junction, which was noted on last months staging CT scans. There is a moderate sized fluid collection in the retroperitoneum near the renal sinus of unclear etiology. Hepatic cirrhosis with ascites was also noted. She was admitted to internal medicine for additional management monitoring. Patient was treated with antiemetics and pain medications at that time, and after being able to tolerate diet was subsequently discharged Review of Systems 10 point ROS is negative except as stated in HPI Past Medical History Past Medical History: Cancer, Diabetes Mellitus, GI Bleed, Osteoarthritis (OA), Pulmonary Embolus (PE) Additional Past Medical History / Comment(s): 09/30/21 admitted inpatient for dyspnea and abdominal pain secondary to dehydration. 2017 Bilateral ovarian can cer diagnosed with mets/surgery and chemotherapy with last chemo taken about 2 years ago, bicytopenia, lower GI bleed, anemia, 11/2016 bilateral pulmonary embolisms, 12/2016 L sided pleural effusion with 2 thoracentesis, diet controlled diabetes, diverticulosis, mild protein calorie malnutrition, 08/14/21 L ureteral blockage d/t enlarged lymph nodes/hematuria and stent was placed/pt has R lower back pain since, UTIs History of Any Multi-Drug Resistant Organisms: None Reported Past Surgical History: Bowel Resection, Hysterectomy Additional Past Surgical History / Comment(s): Total hysterectomy/perineal and omenectomy done by Dr Rob at [facility] June 2017, 2 left thoracentesis- last one in 2016, power port right upper chest 2017, 11/10/17 egd w/bx, colonoscopy, 08/14/21 R ureteral stent. Past Anesthesia/Blood Transfusion Reactions: No Reported Reaction Additional Past Anesthesia/Blood Transfusion Reaction / Comm: Pt has received blood without reaction. Past Psychological History: No Psychological Hx Reported Smoking Status: Never smoker - Past Family History Mother Family Medical History: Congestive Heart Failure (CHF), CVA/TIA, Hypertension Father Family Medical History: CVA/TIA Brother(s) Family Medical History: Cancer Additional Family Medical History / Comment(s): colon cancer, lymphoma Daughter(s) History Unknown: Yes Medications and Allergies Home Medications Medication Instructions Recorded Confirmed Type Dicyclomine [Bentyl] 10 mg PO TID PRN 09/02/21 02/10/22 History Prochlorperazine [Compazine] 10 mg PO Q6H PRN 09/02/21 02/10/22 History traMADol HCl [Ultram] 50 mg PO Q6HR PRN 09/02/21 02/10/22 History Ondansetron [Zofran] 4 mg PO Q8HR PRN 09/30/21 02/10/22 History Tolterodine [Detrol] 2 mg PO BID 11/20/21 02/10/22 History OLANZapine [ZyPREXA] 2.5 mg PO DIRECTED 01/28/22 02/10/22 History Allergies Allergy/AdvReac Type Severity Reaction Status Date / Time aspirin Allergy Rash/Hives Verified 02/10/22 11:59 Iodinated Contrast Media Allergy Rash/Hives Verified 02/10/22 11:59 [Iodinated Contrast- Oral and IV Dye] lactose Allergy Unknown Verified 02/10/22 11:59 Penicillins Allergy Rash/Hives Verified 02/10/22 11:59 melatonin AdvReac Intermediate See comment Verified 02/10/22 11:59 morphine AdvReac Vomiting Verified 02/10/22 11:59 Physical Exam Vitals: Vital Signs Temp Pulse Pulse Resp BP BP Pulse Ox 02/11/22 07:00 97.5 F L 83 16 123/87 97 02/11/22 01:27 97.5 F L 92 14 121/80 94 L 02/10/22 20:00 85 14 02/10/22 19:22 97.6 F 85 14 146/95 95 02/10/22 17:30 97.7 F 77 17 160/92 93 L 02/10/22 17:00 96 18 132/92 97 02/10/22 14:37 97 18 145/95 97 02/10/22 12:11 103 H 18 143/100 97 Intake and Output 02/10/22 02/11/22 02/11/22 22:59 06:59 14:59 Intake Total 240 Output Total 100 Balance -100 240 Intake: Oral 240 Output: Gastric Drainage 100 Other: Voiding Method Toilet Toilet # Voids 1 Weight 45.359 kg 45.359 kg - Constitutional General appearance: average body habitus, cooperative, no acute distress - EENT Eyes: anicteric sclerae, EOMI ENT: hearing grossly normal - Neck Neck: normal ROM - Respiratory Respiratory: bilateral: CTA - Cardiovascular Rhythm: regular Heart sounds: normal: S1, S2 Abnormal Heart Sounds: no systolic murmur, no diastolic murmur, no rub, no S3 Gallop, no S4 Gallop, no click, no other - Gastrointestinal General gastrointestinal: soft, no tenderness - Integumentary Integumentary: pale - Neurologic grossly Neurologic: CNII-XII intact - Musculoskeletal Musculoskeletal: strength equal bilaterally - Psychiatric Psychiatric: A&O x's 3, appropriate affect, intact judgment & insight Results CBC & Chem 7: 02/11/22 06:08 02/11/22 06:08 Labs: Abnormal Lab Results - Last 24 Hours (Table) 02/10/22 02/10/22 02/11/22 Range/Units 12:11 12:11 06:08 RBC 3.33 L 3.28 L (3.80-5.40) m/uL Hgb 11.3 L 10.8 L (11.4-16.0) gm/dL Hct 35.1 L (37.2-46.3) % MCV 103.7 H 107.0 H (80.0-100.0) fL MCH 32.9 H (27.0-32.0) pg MCHC 30.8 L (32.0-37.0) g/dL RDW 18.6 H 19.9 H (11.5-15.5) % MPV 8.9 L (9.5-12.2) fL Immature Gran # 0.09 H (0.00-0.04) X 10*3/uL Lymphocytes # 0.5 L 0.70 L (1.0-4.8) k/uL Eosinophils # 0 L (0.04-0.35) X 10*3/uL Sodium 133 L (137-145) mmol/L Glucose (70-110) mg/dL Calcium 8.0 L (8.4-10.2) mg/dL Magnesium 1.2 L (1.6-2.3) mg/dL Alkaline Phosphatase 161 H (38-126) U/L Total Protein 5.1 L (6.3-8.2) g/dL Albumin 2.4 L (3.5-5.0) g/dL Albumin/Globulin Ratio (1.60-3.17) g/dL 02/11/22 Range/Units 06:08 RBC (3.80-5.40) m/uL Hgb (11.4-16.0) gm/dL Hct (37.2-46.3) % MCV (80.0-100.0) fL MCH (27.0-32.0) pg MCHC (32.0-37.0) g/dL RDW (11.5-15.5) % MPV (9.5-12.2) fL Immature Gran # (0.00-0.04) X 10*3/uL Lymphocytes # (1.0-4.8) k/uL Eosinophils # (0.04-0.35) X 10*3/uL Sodium (137-145) mmol/L Glucose 176 H (70-110) mg/dL Calcium 7.9 L (8.4-10.2) mg/dL Magnesium (1.6-2.3) mg/dL Alkaline Phosphatase 201 H (38-126) U/L Total Protein 5.0 L (6.3-8.2) g/dL Albumin 2.5 L (3.5-5.0) g/dL Albumin/Globulin Ratio 1.00 L (1.60-3.17) g/dL Assessment and Plan (1) Diarrhea Current Visit: Yes Status: Acute Priority: High Code(s): R19.7 - DIARRHEA, UNSPECIFIED SNOMED Code(s): 76384014 (2) Hypomagnesemia Current Visit: Yes Status: Acute Priority: High Code(s): E83.42 - HYPOMAGNESEMIA SNOMED Code(s): 635649001 (3) Weakness Current Visit: Yes Status: Acute Priority: High Code(s): R53.1 - WEAKNESS SNOMED Code(s): 82303647 (4) H/O ovarian cancer Current Visit: Yes Status: Acute Priority: High Code(s): Z85.43 - PERSONAL HISTORY OF MALIGNANT NEOPLASM OF OVARY SNOMED Code(s): 804386992 Plan: Plan: Weakness, diarrhea, nausea, vomiting: -Noted over the past week -Was experiencing similar symptoms while on last cycle chemotherapy- carboplatin/gemcitabine on 01/21/22, but has since been d/c -CT abdomen/pelvis reveals no acute findings compared to prior CT abdomen and pelvis performed on 01/28/2022, which did not note any evidence of disease progression -This likely due to gastroenteritis versus C. difficile infection. Urine and stool cultures ordered to rule out other source of infection -Patient is receiving antiemetics, Protonix and pain management. We'll continue to monitor patient's tolerance to oral intake, as patient is having improvement in symptoms since admission Right ureteral fluid collection: -Also mentioned in CT abd/pelvis, No clear etiology at this time -We do not think this is secondary to her malignancy -We will defer to urology regarding further management if deemed necessary Recurrent metastatic ovarian cancer: -Currently completed cycle 7 of carboplatin/gemcitabine on 01/21/2022 -At this time chemotherapy will be held and maintenance therapy with PARP inh ibitor is being considered. Awaiting second opinion. Spoke with family today and states they are having difficulty getting appointment but will try to schedule a virtual visit. -Patient has follow-up in office on February [address] Springer -Hospice is not being considered at this time. -Family and patient are agreeable with plan of care Dr. connell: I have performed H&P and developed impression and plan of care for patient, discussed with dictator. I agree with dictated note, documented as a scribe
--- NOTE | 2022-02-11 15:41 | US ---
EXAMINATION TYPE: US abdomen limited DATE OF EXAM: 02/11/2022 COMPARISON: CLINICAL HISTORY: ascitics. Patient states she has had ascites before. All four quadrants scanned. Ascites visualized. IMPRESSION: 1. Ascites within 4 quadrants of the abdomen
[2022-02-11] MEDS: MAGNESIUM SULFATE-D5W PMX 1 GM in DEXTROSE/WATER 1 100ML.BAG IVPB SCH ×2 (19:44→20:53)
[2022-02-11] MEDS: PANTOPRAZOLE 40 MG TABLET PO SCH (19:45)
--- NOTE | 2022-02-11 20:22 | P.PN ---
Subjective This is a pleasant 71 years old female with past medical history of pulmonary embolism, diabetes mellitus, ovarian cancer status post hysterectomy and she finish her seventh cycle of chemotherapy on 01/22/2028 at that time followed by definitive gastroenteritis. This time presents with similar clinical picture of nausea vomiting and frequent bowel movements suspicious for diarrhea associated with generalized weakness. Patient was treated symptomatically, infection is felt less likely with no fever no leukocytosis and throatcalcitonin is negative at 0.09. Also patient reports improvement today, no bowel movement since yesterday, abdominal pain and tenderness is minimal but her abdomen is distended, she is able to tolerate some diet 25-75%, she has nausea but the vomiting stopped today. Vitals his infection including influenza and cough and are negative. CT of the abdomen shows small to moderate bilateral pleural effusion with ascites and right hydronephrosis with right ureteral stent, urologist evaluated the patient, no further recommendation and need follow-up in the office on 03/2022 for cystoscopy and stent removal and changing, patient is aware. Hematology/oncology team also on the case. Family at bedside Plan discussed with patient and family and they are agreeable. Hemoglobin stable at 10.3, magnesium improved 1.5 Objective - Vital Signs Vital signs: Vital Signs Temp 97.5 F L 02/11/22 07:00 Pulse 83 02/11/22 07:00 Resp 16 02/11/22 07:00 BP 123/87 02/11/22 07:00 Pulse Ox 97 02/11/22 07:00 FiO2 Intake & Output 02/10/22 02/11/22 02/11/22 18:59 06:59 18:59 Intake Total 240 Output Total 100 Balance -100 240 Weight 45.359 kg 45.359 kg Intake: Oral 240 Output: Gastric Drainage 100 Other: Voiding Method Toilet Toilet # Voids 1 - Exam -GENERAL: The patient is alert and oriented x3, not in any acute distress. Cachectic HEENT: Pupils are round and equally reacting to light. EOMI. No scleral icterus. No conjunctival pallor. Normocephalic, atraumatic. No pharyngeal erythema. No thyromegaly. CARDIOVASCULAR: S1 and S2 present. No murmurs, rubs, or gallops. PULMONARY: Chest is clear to auscultation, no wheezing or crackles. -ABDOMEN: Soft, nontender, distended, normoactive bowel sounds. No palpable organomegaly. MUSCULOSKELETAL: No joint swelling or deformity. EXTREMITIES: No cyanosis, clubbing, or pedal edema. NEUROLOGICAL: Gross neurological examination did not reveal any focal deficits. SKIN: No rashes. no petechiae. - Labs CBC & Chem 7: 02/11/22 06:08 02/11/22 06:08 Labs: Abnormal Lab Results - Last 24 Hours (Table) 02/10/22 02/10/22 02/11/22 Range/Units 12:11 12:11 06:08 RBC 3.33 L 3.28 L (3.80-5.40) m/uL Hgb 11.3 L 10.8 L (11.4-16.0) gm/dL Hct 35.1 L (37.2-46.3) % MCV 103.7 H 107.0 H (80.0-100.0) fL MCH 32.9 H (27.0-32.0) pg MCHC 30.8 L (32.0-37.0) g/dL RDW 18.6 H 19.9 H (11.5-15.5) % MPV 8.9 L (9.5-12.2) fL Immature Gran # 0.09 H (0.00-0.04) X 10*3/uL Lymphocytes # 0.5 L 0.70 L (1.0-4.8) k/uL Eosinophils # 0 L (0.04-0.35) X 10*3/uL Sodium 133 L (137-145) mmol/L Glucose (70-110) mg/dL Calcium 8.0 L (8.4-10.2) mg/dL Magnesium 1.2 L (1.6-2.3) mg/dL Alkaline Phosphatase 161 H (38-126) U/L Total Protein 5.1 L (6.3-8.2) g/dL Albumin 2.4 L (3.5-5.0) g/dL Albumin/Globulin Ratio (1.60-3.17) g/dL 02/11/22 Range/Units 06:08 RBC (3.80-5.40) m/uL Hgb (11.4-16.0) gm/dL Hct (37.2-46.3) % MCV (80.0-100.0) fL MCH (27.0-32.0) pg MCHC (32.0-37.0) g/dL RDW (11.5-15.5) % MPV (9.5-12.2) fL Immature Gran # (0.00-0.04) X 10*3/uL Lymphocytes # (1.0-4.8) k/uL Eosinophils # (0.04-0.35) X 10*3/uL Sodium (137-145) mmol/L Glucose 176 H (70-110) mg/dL Calcium 7.9 L (8.4-10.2) mg/dL Magnesium (1.6-2.3) mg/dL Alkaline Phosphatase 201 H (38-126) U/L Total Protein 5.0 L (6.3-8.2) g/dL Albumin 2.5 L (3.5-5.0) g/dL Albumin/Globulin Ratio 1.00 L (1.60-3.17) g/dL Assessment and Plan Assessment: Gastroenteritis, most likely reactive, possible viral infection although felt less likely. No evidence of bacterial infection with no leukocytosis, fever with negative production. Ovarian cancer status post hysterectomy and chemotherapy Severe calorie protein malnutrition History of pulmonary embolism not on anticoagulation Diabetes mellitus Ascites Plan: Continue with symptomatic treatment Patient is eating well, start improving appetite. And because of fluid showing hypervolemic state with ascites and pleural fusion we will discontinue IV fluids for now Consult IR team for ascites and paracentesis Hematology/oncology team on the case urologist recommended no intervention and follow-up outpatient on 03/2022 Labs and medication were reviewed.. Continue same treatment. Continue with symptomatic treatment. Resume home medication. Monitor lytes and vitals. DVT and GI prophylaxis. Further recommendations as per clinical course of the patient DVT prophylaxis: Subcutaneous heparin GI Prophylaxis: Ppi Prognosis is guarded
[2022-02-11] MEDS: HEPARIN SODIUM,PORCINE/PF 5,000 UNIT/0.5 ML SYRINGE SQ SCH (20:53)
[2022-02-12 08:30] LABS: Basophils # (A) 0.02 X 10*3/uL (0.00-0.10); Basophils % (A) 0.2 %; Eosinophils # (A) 0.02 X 10*3/uL (0.04-0.35); Eosinophils % (A) 0.2 %; HGB 9.8 g/dL (12.0-15.0); Immature Grans, Automated 0.7 %; Lymphocytes # (A) 0.88 X 10*3/uL (0.90-5.00); Lymphocytes % (A) 10.3 %; MCH 33.9 pg (27.0-32.0); MCHC 32.7 g/dL (32.0-37.0); MCV 103.8 fL (80.0-97.0); Mean Platelet Volume 8.9 fL (9.5-12.2); Monocytes # (A) 0.81 X 10*3/uL (0.20-1.00); Monocytes % (A) 9.5 %; NRBC Per 100 WBC 0 /100 WBCS (0.0-0.0); Neutrophils # (A) 6.74 X 10*3/uL (1.80-7.70); Neutrophils % (A) 79.1 %; Platelet Count 211 X 10*3/uL (140-440); RBC 2.89 X 10*6/uL (4.10-5.20); WBC 8.53 X 10*3/uL (4.50-10.00)
[2022-02-12 08:53] LABS: Magnesium 1.8 mg/dL (1.5-2.4)
[2022-02-12 08:54] LABS: African American GFR (CKD) 100.3 (60.0-200.0); Anion Gap 8.4 mmol/L (10.00-18.00); BUN/Creat Ratio 14.22 Ratio (12.00-20.00); Blood Urea Nitrogen 9.7 mg/dL (9.0-27.0); Calcium 7.6 mg/dL (8.7-10.3); Carbon Dioxide 21.9 mmol/L (20.0-27.5); Non-African American GFR(CKD) 86.6 (60.0-200.0); Potassium 3.6 mmol/L (3.5-5.5)
[2022-02-12] MEDS: OXYBUTYNIN XL 5 MG TAB.ER.24 PO SCH (09:25)
[2022-02-12] MEDS: HEPARIN SODIUM,PORCINE/PF 5,000 UNIT/0.5 ML SYRINGE SQ SCH (09:25)
[2022-02-12] MEDS: PANTOPRAZOLE 40 MG TABLET PO SCH (09:26)
[2022-02-12 11:48] VITALS: RESP 16
[2022-02-12 11:59] VITALS: PULSE 86
--- NOTE | 2022-02-12 12:25 | US ---
EXAMINATION TYPE: US paracentesis abd w/image DATE OF EXAM: 02/12/2022 CLINICAL HISTORY: Malignant ascites The procedure was discussed with the patient. The risks, complications, benefits, and alternatives we re discussed and any questions were answered. Informed consent was obtained. The patient was placed s upine on the ultrasound table and prepped and draped in the usual sterile fashion. All elements of maximal barrier technique were utilized. Ultrasound was used to henry an appropriate a ccess site in the left lower quadrant and access to the ascitic fluid was obtained with a paracentesi s catheter. Approximately 4350 mL of cloudy yellow fluid was removed. The patient was stable throughout the proce dure and remained stable upon discharge from Department of Radiology. IMPRESSION: Successful therapeutic paracentesis under ultrasound guidance.
[2022-02-12 12:58] VITALS: TEMP 97.7
[2022-02-12] MEDS: ALBUMIN HUMAN 25% 50 ML in EMPTY BAG 1 BAG IVPB SCH ×2 (14:12→16:22)
[2022-02-12 15:42] VITALS: BP 128/87
--- NOTE | 2022-02-12 17:35 | P.PN ---
Subjective Progress Note Date: 02/12/22 Principal diagnosis: Dizziness, diarrhea, ovarian CA In follow-up today patient is sitting in a chair, In good spirits, she reports that she ate a sandwich today. Denies fevers, nausea or vomiting, has not had a bowel movement since admission. Objective - Vital Signs Vital signs: Vital Signs Temp 97.6 F 02/12/22 07:13 Pulse 86 02/12/22 11:50 Resp 16 02/12/22 11:50 BP 116/73 02/12/22 11:50 Pulse Ox 95 02/12/22 11:50 FiO2 Intake & Output 02/11/22 02/12/22 02/12/22 18:59 06:59 18:59 Intake Total 1180 1300 Balance 1180 1300 Weight 45.359 kg Intake: Intake, IV Titration 1000 Amount Magnesium Sulfate-D5w Pmx 200 1 gm In Dextrose/Water 1 100ml.bag @ 100 mls/hr IVPB Q1H [facility] Rx#: [id number] Sodium Chloride 0.9% 1, 800 000 ml @ 75 mls/hr IV . [id number] [facility] Rx#:[id number] Oral 1180 300 Other: Voiding Method Toilet Toilet Toilet # Voids 2 2 1 - Constitutional Constitutional Comment(s): Patient in good spirits, sitting in the chair, reports eating today General appearance: Present: average body habitus, cooperative, no acute distress - EENT Eyes: Present: anicteric sclerae, EOMI ENT: Present: hearing grossly normal - Respiratory Details: Respirations even and unlabored - Cardiovascular Rhythm: regular Heart sounds: normal: S1, S2 Abnormal Heart Sounds: Absent: systolic murmur, diastolic murmur, rub, S3 Gallop, S4 Gallop, click, other - Gastrointestinal General gastrointestinal: Present: soft - Neurologic Neurologic Comment(s): grossly Neurologic: Present: CNII-XII intact - Musculoskeletal Musculoskeletal: Present: strength equal bilaterally - Psychiatric Psychiatric: Present: A&O x's 3, appropriate affect, intact judgment & insight - Labs CBC & Chem 7: 02/12/22 06:20 02/12/22 06:20 Labs: Abnormal Lab Results - Last 24 Hours (Table) 02/12/22 02/12/22 Range/Units 06:20 06:20 RBC 2.89 L (4.10-5.20) X 10*6/uL Hgb 9.8 L (12.0-15.0) g/dL Hct 30.0 L (37.2-46.3) % MCV 103.8 H (80.0-97.0) fL MCH 33.9 H (27.0-32.0) pg RDW 20.0 H (11.5-14.5) % MPV 8.9 L (9.5-12.2) fL Immature Gran # 0.06 H (0.00-0.04) X 10*3/uL Lymphocytes # 0.88 L (0.90-5.00) X 10*3/uL Eosinophils # 0.02 L (0.04-0.35) X 10*3/uL Anion Gap 8.40 L (10.00-18.00) mmol/L Calcium 7.6 L (8.7-10.3) mg/dL Assessment and Plan (1) Diarrhea Status: Acute Priority: High Code(s): R19.7 - DIARRHEA, UNSPECIFIED SNOMED Code(s): 65902202 (2) Hypomagnesemia Status: Acute Priority: High Code(s): E83.42 - HYPOMAGNESEMIA SNOMED Code(s): 126405644 (3) Weakness Status: Acute Priority: High Code(s): R53.1 - WEAKNESS SNOMED Code(s): 59938348 (4) H/O ovarian cancer Status: Acute Priority: High Code(s): Z85.43 - PERSONAL HISTORY OF MALIGNANT NEOPLASM OF OVARY SNOMED Code(s): 224443977 Plan: Plan: Weakness, diarrhea, nausea, vomiting: -Improved. No BM, V since admit -The above symptoms that patient reports on admission are occurring intermittently but, still persist despite chemotherapy being discontinued 01/21/22. -CT AP, no acute findings compared to prior CT abdomen and pelvis performed on 01/28/2022, no evidence of disease progression. -Likely due to gastroenteritis-Patient has not had a bowel movement to check for C. difficile infection. Antiemetics, Protonix During admit, improvement in symptoms. Right ureteral fluid collection: -Also mentioned in CT abd/pelvis, no clear etiology at this time -We do not think this is secondary to her malignancy -We will defer to Urology regarding further management if deemed necessary Recurrent, metastatic ovarian cancer: -Currently completed cycle 7 of carboplatin/gemcitabine on 01/21/2022, treatment stopped due to side effects, poor tolerance. -Consideration for maintenance PARP inhibitor treatment is being considered. Still pending second opinion. Currently patient is in no shape to resume any therapy. -Patient has follow-up in office on February [address] Racheal connell: I have performed H&P and developed impression and plan of care for patient, discussed with dictator. I agree with dictated note, documented as a scribe
--- NOTE | 2022-02-12 20:59 | P.DS ---
Providers Date of admission: 02/10/22 14:59 Attending physician: Kin Tiwari Consults: 02/10/22 14:43 Consult Physician Routine Consulting Provider: Shayne Springer Consult Reason/Comments: dizziness, active ovarian cancer Do you want consulting provider notified?: Yes Consult Physician Routine Consulting Provider: Tommy Drew Consult Reason/Comments: urinoma, hx of ovarian cancer with rt ureter stent placement Do you want consulting provider notified?: Yes Primary care physician: Tonny Lewis MD Hospital Course: Diagnoses: Gastroenteritis, most likely reactive, possible viral infection although felt less likely. No evidence of bacterial infection with no leukocytosis, fever with negative production. Ovarian cancer status post hysterectomy and chemotherapy Severe calorie protein malnutrition History of pulmonary embolism not on anticoagulation Diabetes mellitus Ascites, status post paracentesis with 4.3 L of fluid removed Hospital course: This is a pleasant 71 years old female with past medical history of pulmonary embolism, diabetes mellitus, ovarian cancer status post hysterectomy and she finish her seventh cycle of chemotherapy on 01/22/2028 at that time followed by definitive gastroenteritis. This time presents with similar clinical picture of nausea vomiting and frequent bowel movements suspicious for diarrhea associated with generalized weakness. Patient was treated with normal saline and symptomatically, patient showed interval improvement. On the day of discharge she thinks she is back to her normal baseline, she denies abdominal pain, no diarrhea which is stopped, no vomiting and she tolerates diet. She underwent went paracentesis on 4.3 L removed, she received 1 unit of albumin after that we checked her orthostatic vitals and it was negative, patient rem ains asymptomatic I discussed the case with oncology team who cleared her for discharge Also plan discussed with family and daughter at bedside and agreeable patient is doing well and she can go home. Patient denies any other new symptoms. Problems and management plan were discussed with the patient and he verbalized understanding and acceptance Patient was found stable and can be discharged home in guarded prognosis however he needs follow-up as an outpatient. Patient was instructed to follow up with PCP Dr. redd within one week and patient agrees Patient agrees to follow up with urologist (who saw her in the hospital and cleared her for discharge with no further intervention) in March 2022 where she is supposed to get cystoscopy and ureteral stent replacement, both patient and daughter are agreeable to follow-up patient also states that she has appointment with Dr. irwin on 02/26 and she is going to follow up with that appointment Physical exam Gen: patient is a AAOx3, no distress CVS: S1-S2, RRR, no murmur Lungs: B/L CTA, no wheezing Abdomen: soft, no distention, no tenderness, positive bowel sounds Extremity: no leg edema or induration Time spent more than 35 minutes Patient Condition at Discharge: Fair Plan - Discharge Summary Discharge Rx Participant: No New Discharge Prescriptions: New Omeprazole [PriLOSEC] 20 mg PO AC-BRKFST 7 Days #7 cap Continue RX: Prochlorperazine [Compazine] 10 mg PO Q6H PRN PRN Reason: Nausea RX: Tolterodine [Detrol] 2 mg PO BID RX: Dicyclomine [Bentyl] 10 mg PO TID PRN PRN Reason: Diarrhea RX: traMADol HCl [Ultram] 50 mg PO Q6HR PRN PRN Reason: Pain RX: Ondansetron [Zofran] 4 mg PO Q8HR PRN PRN Reason: Nausea RX: OLANZapine [ZyPREXA] 2.5 mg PO DIRECTED Discharge Medication List RX: Dicyclomine [Bentyl] 10 mg PO TID PRN 09/02/21 [History] RX: Prochlorperazine [Compazine] 10 mg PO Q6H PRN 09/02/21 [History] RX: traMADol HCl [Ultram] 50 mg PO Q6HR PRN 09/02/21 [History] RX: Ondansetron [Zofran] 4 mg PO Q8HR PRN 09/30/21 [History] RX: Tolterodine [Detrol] 2 mg PO BID 11/20/21 [History] RX: OLANZapine [ZyPREXA] 2.5 mg PO DIRECTED 01/28/22 [History] Omeprazole [PriLOSEC] 20 mg PO AC-BRKFST 7 Days #7 cap 02/12/22 [Rx] Follow up Appointment(s)/Referral(s): Shayne Springer MD [STAFF PHYSICIAN] - 02/26/22 9:15 am (You have appointment on 02/26 as stated ) Tonny Lewis MD [Primary Care Provider] - 1-2 days (We recommend to check your blood test including magnesium level with your doctor) Tommy Drew MD [STAFF PHYSICIAN] - 6 Weeks (Please follow-up as he will need cystoscopy and ureteral stent change in March,) Patient Instructions/Handouts: Eating During Cancer Treatment (DC), Ascites (DC) Activity/Diet/Wound Care/Special Instructions: Resume your previous diet with salt and fluid restriction Activity is restricted until you see your doctor Discharge Disposition: HOME SELF-CARE
== END 2022-02-12 16:45 | disposition home or self-care (01) | DRG 393 ==
LOC: EC 10:31 → 5NMEDONC 14:59
PROVIDERS: ADMIT Internal Medicine; ATTEND Internal Medicine
PROC: 0W9G3ZZ Drainage of Peritoneal Cavity, Percutaneous Approach (ICD-10-PCS; principal; 2022-02-12)
DX: K52.1 Toxic gastroenteritis and colitis (principal); E43 Unspecified severe protein-calorie malnutrition; N13.30 Unspecified hydronephrosis; J98.11 Atelectasis; R18.0 Malignant ascites; Z68.1 Body mass index [BMI] 19.9 or less, adult; E83.51 Hypocalcemia; K74.60 Unspecified cirrhosis of liver; D63.0 Anemia in neoplastic disease; E11.9 Type 2 diabetes mellitus without complications; E86.0 Dehydration; J44.9 Chronic obstructive pulmonary disease, unspecified; M19.90 Unspecified osteoarthritis, unspecified site; R31.9 Hematuria, unspecified; Z20.822 Contact with and (suspected) exposure to COVID-19; E83.42 Hypomagnesemia; R00.0 Tachycardia, unspecified; N36.8 Other specified disorders of urethra; T45.1X5A Adverse effect of antineoplastic and immunosuppressive drugs, initial encounter; Z96.0 Presence of urogenital implants; Z28.310 Unvaccinated for COVID-19; Z90.710 Acquired absence of both cervix and uterus; Z85.43 Personal history of malignant neoplasm of ovary; Z86.711 Personal history of pulmonary embolism; Z87.19 Personal history of other diseases of the digestive system; Z88.6 Allergy status to analgesic agent; Z91.041 Radiographic dye allergy status; Z91.011 Allergy to milk products; Z88.0 Allergy status to penicillin; Z88.8 Allergy status to other drugs, medicaments and biological substances; Z88.5 Allergy status to narcotic agent; Z87.440 Personal history of urinary (tract) infections
CPT/HCPCS: 36415; 49083; 74177; 76705; 80048; 80053; 82150; 83605; 83690; 83735; 84145; 85025; 85610; 85730; 86850; 86900; 86901; 87636; 93005; 96361; 96365; 96375; 96376; 99285

== ENCOUNTER 2022-03-10 12:10 | Day surgery (SDC) | payer MEDICARE ==
[2022-03-10 12:55] VITALS: RESP 16; TEMP 97.6
[2022-03-10 13:03] LABS: Mean Platelet Volume 7.5
[2022-03-10 13:13] LABS: Platelet Count 137 k/uL (150-450)
[2022-03-10 13:25] LABS: INR 1.1 (<1.2)
[2022-03-10 15:01] VITALS: BP 101/65; PULSE 88
--- NOTE | 2022-03-10 16:14 | US ---
EXAMINATION TYPE: US paracentesis abd w/image DATE OF EXAM: 03/10/2022 CLINICAL HISTORY: Ascites The procedure was discussed with the patient. The risks, complications, benefits, and alternatives we re discussed and any questions were answered. Informed consent was obtained. The patient was placed s upine on the ultrasound table and prepped and draped in the usual sterile fashion. All elements of maximal barrier technique were utilized. Ultrasound was used to henry an appropriate s ite in the left lower quadrant. Access to the ascites was obtained with a paracentesis catheter. Approximately 4.2 liters of straw-colored fluid was removed. The patient was stable throughout the pr ocedure and remained stable upon discharge from Department of Radiology. IMPRESSION: Successful therapeutic paracentesis under ultrasound guidance.
== END 2022-03-10 15:00 | disposition home or self-care (01) ==
LOC: RADPROMAIN 12:10
PROVIDERS: ATTEND Internal Medicine Hematology & Oncology
DX: R18.8 Other ascites (principal)
CPT/HCPCS: 85049; 85610; 49083; J1642